=== PATIENT | male | born 1955 | race African-American/Black ===

== ENCOUNTER → 2019-02-08 | Outpatient (CLI) | payer OTHER ==
--- NOTE | 2019-02-12 15:24 | PE ---
Nuclear medicine PET/CT HISTORY: Head and neck carcinoma, initial Patient received 10.8 mCi F-18 FDG intravenously in delayed scanning was performed from the skull thr ough the mid thighs. Small [id number] images obtained through the neck. An attenuation correction, localization CT scan was also performed. No recent comparisons Head and neck: There is hypermetabolic uptake present within the region of the right piriform sinus e xtending to the level of the focal cords on the right at the level of the hyoid bone, SUV is 10.2-12. 6. There is adenopathy present at the level of hyoid bone on the right, associated hypermetabolic upt césar, SUV is 6.5, 8.3 on small [id number]. Uptake at the base of the tongue is likely physiologic. No mediastinal, axillary, or hilar adenopathy. Coronary artery calcifications are dense. Heart is enl arged. There is a hiatal hernia present. No evident lung mass. There are some calcified granulomas pr esent within the lungs however. ABDOMEN: No retroperitoneal adenopathy. No evident liver mass. No ascites. Aorta shows normal caliber . Osseous structures: No suspicious hypermetabolic uptake. IMPRESSION: Abnormal hypermetabolic uptake as described compatible with patient's history of head and neck carcinoma
== END | disposition home or self-care (01) ==
LOC: RADPETMAIN 14:52
PROVIDERS: ATTEND Radiology Radiation Oncology
DX: C12 Malignant neoplasm of pyriform sinus (principal)
CPT/HCPCS: 78815; A9552

== ENCOUNTER → 2019-04-04 | Outpatient (CLI) | payer OTHER ==
--- NOTE | 2019-04-04 12:01 | FL ---
EXAMINATION TYPE: FL barium swallow w video DATE OF EXAM: 04/04/2019 COMPARISON: NONE HISTORY: Abnormal bedside swallow TECHNIQUE: Fluoroscopy. FINDINGS: Fluoroscopic guidance was provided for the procedure performed in conjunction with the [facility] [place] pathology department. Please see complete report forthcoming from the Speech Pathology departmen t. Various consistencies from thin liquid to solids were administered. Fluoroscopy time 1 minute 43 seconds Number of images: 0. Aspiration was noted with thin liquids. Penetration was noted with nectar thick liquids. Some transie nt penetration was noted with honey thick consistencies. Of note the penetration appeared to be from residual within the piriform sinuses and not during the initial swallowing. No significant pooling was observed in the vallecula. There were small amounts present within the pir iform sinuses throughout the exam. There was normal propulsion of the bolus. IMPRESSION: 1. Aspiration with thin liquids. 2. Penetration with nectar thick and honey thick consistencies. This was due to residuals within the piriform sinuses have not during the initial swallowing mechanism.
== END | disposition home or self-care (01) ==
LOC: RADFLMAIN 10:51
PROVIDERS: ATTEND Radiology Radiation Oncology
DX: C13.9 Malignant neoplasm of hypopharynx, unspecified (principal); F17.210 Nicotine dependence, cigarettes, uncomplicated
CPT/HCPCS: 74230

== ENCOUNTER → 2019-06-07 | Outpatient (CLI) | payer OTHER ==
--- NOTE | 2019-06-07 17:58 | PE ---
Nuclear medicine PET/CT HISTORY: Head and neck cancer, subsequent Patient received 12 mCi F-18 FDG intravenously in delayed scanning was performed from the skull base to the mid thighs. Localization and attenuation correction CT scan was performed. Small [id number] images performed through the head and neck Correlation to prior nuclear medicine PET/CT dated 02/08/2019 Head and neck: At the level of the arytenoid cartilage there is some asymmetry in the appearance of t he airway as well as some soft tissue to the right of midline which is less conspicuous than on prior exam. Small node immediately anterior to the sternocleidomastoid muscle show associated increased at tenuation possibly due to calcification, there is only mild hypermetabolic uptake present, SUV 4.1, t he node has decreased in size and now measures only approximately 12 mm in AP dimension as compared t o prior when it measured approximately 17 mm. CHEST: No evident lung mass. There is no mediastinal, axillary, or hilar adenopathy. Coronary artery calcifications are present. No pleural pericardial effusion. Abdomen stable, there is no evident liver mass or retroperitoneal adenopathy. No suspicious hypermeta bolic uptake. Osseous structures are stable. IMPRESSION: Positive treatment response as described.
== END | disposition home or self-care (01) ==
LOC: RADPETMAIN 13:27
PROVIDERS: ATTEND Internal Medicine Hematology & Oncology
DX: C13.8 Malignant neoplasm of overlapping sites of hypopharynx (principal)
CPT/HCPCS: 78815; A9552

== ENCOUNTER → 2019-11-30 | Outpatient (CLI) | payer MEDICARE, OTHER ==
--- NOTE | 2019-12-02 09:32 | PE ---
Nuclear medicine PET/CT HISTORY: Head and neck cancer, C 13.8, subsequent Patient received 12.6 mCi F-18 FDG intravenously in delayed scanning was performed from the skull bas e to the mid thighs. Small vamgf-my-laei imaging through the head and neck. Correlation to prior nuclear medicine PET/CT 06/07/2019, 02/08/2019 Head and neck: Similar uptake seen along the level of the level of the glottis, uptake noted at the l evel of the vocal cord on the left, decreased on the right in comparison, asymmetry is more conspicuo us on current exam, may be due to patient's speaking. Asymmetric uptake could be due to focal cord pa ralysis, medial deviation of the right aryepiglottic fold is noted, correlate. There is no supraclavi cular or cervical adenopathy evident. Mild soft tissue uptake is present along the right neck anterio rly as compared to the left. CHEST: There is no evident lung mass. Calcified nodule present in the right upper lobe is consistent with old granulomatous disease. There is no pleural or pericardial effusion. No mediastinal, axillary , or hilar adenopathy. Dense coronary artery calcifications are present. There is a hiatal hernia. ABDOMEN: There is no adrenal mass, retroperitoneal adenopathy, or ascites. No evident liver mass. Gal lbladder is distended. No suspicious hypermetabolic uptake. Uptake within the colon is likely physiol ogic. Osseous structures are stable. Muscular uptake is thought likely to be physiologic. IMPRESSION: Similar uptake as described. No significant interval change.
== END | disposition home or self-care (01) ==
LOC: RADPETMAIN 09:03
PROVIDERS: ATTEND Internal Medicine Hematology & Oncology
DX: C13.8 Malignant neoplasm of overlapping sites of hypopharynx (principal); Z92.21 Personal history of antineoplastic chemotherapy; Z92.3 Personal history of irradiation
CPT/HCPCS: 78815; A9552

== ENCOUNTER 2019-12-17 05:06 | Inpatient (IN) | payer MEDICARE, OTHER ==
[2019-12-17] MEDS: SODIUM CHLORIDE 0.9% 500 ML 500 ML IV SCH ×2 (05:18→05:19)
[2019-12-17 05:36] LABS: Basophils % (A) 0 %; Eosinophils # (A) 0.1 k/uL (0-0.7); Eosinophils % (A) 0 %; HCT 41.2 % (39.0-53.0); HGB 14.6 gm/dL (13.0-17.5); Hyperchromasia Moderate; Lymphocytes # (A) 0.4 k/uL (1.0-4.8); Lymphocytes % (A) 3 %; MCH 31.7 pg (25.0-35.0); MCHC 35.4 g/dL (31.0-37.0); MCV 89.4 fL (80.0-100.0); Mean Platelet Volume 7.5; Monocytes # (A) 0.4 k/uL (0-1.0); Monocytes % (A) 3 %; Neutrophils # (A) 12.2 k/uL (1.3-7.7); Neutrophils % (A) 92 %; Platelet Count 335 k/uL (150-450); Poikilocytosis Slight; WBC 13.3 k/uL (3.8-10.6)
[2019-12-17 05:50] LABS: Partial Thromboplastin Time 27.9 sec (22.0-30.0)
[2019-12-17 05:59] LABS: Albumin 4.3 g/dL (3.5-5.0); Calcium 6.9 mg/dL (8.4-10.2); Total Bilirubin 0.6 mg/dL (0.2-1.3); Total Protein 7.6 g/dL (6.3-8.2)
[2019-12-17] MEDS ORDERED: Potassium Replacement Protocol 1 EACH MISC MISCELLANE PRN ×2 (06:33→19:01)
--- NOTE | 2019-12-17 06:33 | ED ---
General Adult HPI - General Chief complaint: Neuro Symptoms/Deficit Stated complaint: L side pain Time Seen by Provider: 12/17/19 05:14 Source: patient, EMS Mode of arrival: ambulatory Limitations: no limitations - History of Present Illness Initial comments: Ventura is a 64-year-old male with a history of throat cancer which was treated with chemo and radiation, patient reports he completed treatment for months ago. Patient reports that he has done well since chemotherapy for the past week hasn't been feeling well. He reports he has not been eating or drinking. Patient reports that today he began feeling very weak which prompted him to call EMS area patient denies any fevers chills chest pain or shortness of breath. Patient reports he just doesn't feel good. - Related Data Home Medications Medication Instructions Recorded Confirmed Aspirin 325 mg PO DAILY 02/20/19 04/03/19 Cyclobenzaprine [Flexeril] 10 mg PO DAILY 02/20/19 04/03/19 Ensure 1 can PO TID 02/20/19 04/03/19 Hydrocodone/Acetaminophen [[place] 1 tab PO DAILY 02/20/19 04/03/19 5-325] Hydrocortisone Cream 1 applicate TOPICAL QID 02/20/19 04/03/19 [Hydrocortisone 2.5% Cream] Magnesium Oxide [Mag-Ox] 400 mg PO BID 02/20/19 04/03/19 Metoprolol Tartrate 25 mg PO DAILY 02/20/19 04/03/19 Nitroglycerin Sl Tabs [Nitrostat] 0.4 mg SL DIRECTED PRN 02/20/19 04/03/19 Omeprazole 20 mg PO DAILY 02/20/19 04/03/19 Simvastatin 40 mg PO DAILY 02/20/19 04/03/19 amLODIPine [Norvasc] 5 mg PO DAILY 02/20/19 04/03/19 rOPINIRole HCL [Requip] 1 mg PO DAILY 02/20/19 04/03/19 Allergies Allergy/AdvReac Type Severity Reaction Status Date / Time No Known Allergies Allergy Verified 12/17/19 05:10 Review of Systems ROS Statement: Those systems with pertinent positive or pertinent negative responses have been documented in the HPI. ROS Other: All systems not noted in ROS Statement are negative. Past Medical History Past Medical History: Cancer, Hyperlipidemia, Hypertension, Myocardial Infarction ([place]), Osteoarthritis ([place]) Additional Past Medical History / Comment(s): HYPOPHARYNX CANCER. DIFFICULTY SWALLOWING, CONSTANT SORE THROAT. Last Myocardial Infarction Date:: 10 YEARS AGO History of Any Multi-Drug Resistant Organisms: None Reported Additional Past Surgical History / Comment(s): BROKEN COLLAR BONE with surgical repair Past Anesthesia/Blood Transfusion Reactions: No Reported Reaction Past Psychological History: No Psychological Hx Reported Smoking Status: Former smoker Past Alcohol Use History: None Reported Past Drug Use History: None Reported - Past Family History Father Additional Family Medical History / Comment(s): GOUT Mother History Unknown: Yes General Exam - General Exam Comments Initial Comments: Physical Exam GENERAL: Chronically ill-appearing underweight 64-year-old gentleman HENT: Normocephalic, Atraumatic. Temporal wasting noted Dry mucous membranes with dry cracked lips EYES: PERRL, EOMI PULMONARY: Unlabored respirations. No audible rales rhonchi or wheezing was noted. CARDIOVASCULAR: Tachycardic, regular ABDOMEN: Soft and nontender with normal bowel sounds. SKIN: Skin is clear with no lesions or rashes and otherwise unremarkable. : Deferred NEUROLOGIC: Patient is alert and oriented x3. Moving all extremities spontaneously MUSCULOSKELETAL: Cachexia, generalized atrophy PSYCHIATRIC: Normal psychiatric evaluation. Limitations: no limitations Course Vital Signs 12/17/19 12/17/19 12/17/19 05:07 06:31 06:43 Temperature 97.6 F Pulse Rate 76 105 H 89 Respiratory 16 23 23 Rate Blood Pressure 119/82 84/69 83/57 O2 Sat by Pulse 98 94 L 99 Oximetry EKG Findings - EKG Comments: EKG Findings:: Initial EKG was obtained due to complaint of weakness, initial EKG was obtained at 5:10 AM, rate is 71 is of wide complex regular rhythm that appears to have a P-wave before each QRS with a very prolonged ID, ID is 366, QRS is wide at 190, QTC is prolonged at 506. No previous EKGs for comparison. Repeat EKG was obtained due to change in rhythm, repeat EKG was obtained as 6:21 AM, rate is 148, irregular wide complex tachycardia. Repeat EKG obtained again due to change in morphology, repeat EKG obtained at 621 with a rate of 86 rhythm is wide complex irregularly irregular consistent with A. fib with left bundle branch block Medical Decision Making - Medical Decision Making Patient was seen and evaluated upon arrival, is a very dehydrated and malnourished appearing 64-year-old gentleman Labs and IV fluids were ordered Patient was noted to have a very irregular EKG concerning for possible hyperkalemia, calcium was ordered Patient having episodes of tachycardia repeat EKGs were obtained again wide complex irregularly irregular on rhythm concerning for electrolyte derangement Labs resulted with multiple very significant electrolyte abnormalities including a potassium of only 1.1, normal magnesium, acute kidney failure with a BUN greater than 150 and a creatinine of 13 Potassium and calcium replacement were ordered, additional IV fluids were ordered Patient care was discussed with patient's primary care provider Dr. Chaney as well as the railroad wheels and axle inspector Dr. Strange and nephrology employee relations representative Dr. Carolina Horan. At this time plan is to optimize electrolytes, give IV fluids, place a Jarrell catheter for monitoring of urine output. Admitted to the ICU with the plan for serial electrolytes. - Lab Data Result diagrams: 12/17/19 05:26 12/17/19 05:26 Lab Results 12/17/19 12/17/19 12/17/19 Range/Units 05:26 05:26 05:26 WBC 13.3 H (3.8-10.6) k/uL RBC 4.60 (4.30-5.90) m/uL Hgb 14.6 (13.0-17.5) gm/dL Hct 41.2 (39.0-53.0) % MCV 89.4 (80.0-100.0) fL MCH 31.7 (25.0-35.0) pg MCHC 35.4 (31.0-37.0) g/dL RDW 13.0 (11.5-15.5) % Plt Count 335 (150-450) k/uL Neutrophils % 92 % Lymphocytes % 3 % Monocytes % 3 % Eosinophils % 0 % Basophils % 0 % Neutrophils # 12.2 H (1.3-7.7) k/uL Lymphocytes # 0.4 L (1.0-4.8) k/uL Monocytes # 0.4 (0-1.0) k/uL Eosinophils # 0.1 (0-0.7) k/uL Basophils # 0.0 (0-0.2) k/uL Hyperchromasia Moderate Poikilocytosis Slight PT 10.0 (9.0-12.0) sec INR 1.0 (<1.2) APTT 27.9 (22.0-30.0) sec Sodium 136 L (137-145) mmol/L Potassium 1.1 L* (3.5-5.1) mmol/L Chloride 91 L (98-107) mmol/L Carbon Dioxide 11 L (22-30) mmol/L Anion Gap 34 mmol/L BUN 156 H* (9-20) mg/dL Creatinine 13.80 H* (0.66-1.25) mg/dL Est GFR (CKD-EPI)AfAm 4 (>60 ml/min/1.73 sqM) Est GFR (CKD-EPI)NonAf 3 (>60 ml/min/1.73 sqM) Glucose 107 H (74-99) mg/dL Plasma Lactic Acid Shade (0.7-2.0) mmol/L Calcium 6.9 L (8.4-10.2) mg/dL Magnesium 2.0 (1.6-2.3) mg/dL Total Bilirubin 0.6 (0.2-1.3) mg/dL AST 103 H (17-59) U/L ALT 79 H (4-49) U/L Alkaline Phosphatase 123 (38-126) U/L Creatine Kinase 3983 H* (55-170) U/L Troponin I (0.000-0.034) ng/mL Total Protein 7.6 (6.3-8.2) g/dL Albumin 4.3 (3.5-5.0) g/dL 12/17/19 12/17/19 Range/Units 05:26 05:26 WBC (3.8-10.6) k/uL RBC (4.30-5.90) m/uL Hgb (13.0-17.5) gm/dL Hct (39.0-53.0) % MCV (80.0-100.0) fL MCH (25.0-35.0) pg MCHC (31.0-37.0) g/dL RDW (11.5-15.5) % Plt Count (150-450) k/uL Neutrophils % % Lymphocytes % % Monocytes % % Eosinophils % % Basophils % % Neutrophils # (1.3-7.7) k/uL Lymphocytes # (1.0-4.8) k/uL Monocytes # (0-1.0) k/uL Eosinophils # (0-0.7) k/uL Basophils # (0-0.2) k/uL Hyperchromasia Poikilocytosis PT (9.0-12.0) sec INR (<1.2) APTT (22.0-30.0) sec Sodium (137-145) mmol/L Potassium (3.5-5.1) mmol/L Chloride (98-107) mmol/L Carbon Dioxide (22-30) mmol/L Anion Gap mmol/L BUN (9-20) mg/dL Creatinine (0.66-1.25) mg/dL Est GFR (CKD-EPI)AfAm (>60 ml/min/1.73 sqM) Est GFR (CKD-EPI)NonAf (>60 ml/min/1.73 sqM) Glucose (74-99) mg/dL Plasma Lactic Acid Shade 1.1 (0.7-2.0) mmol/L Calcium (8.4-10.2) mg/dL Magnesium (1.6-2.3) mg/dL Total Bilirubin (0.2-1.3) mg/dL AST (17-59) U/L ALT (4-49) U/L Alkaline Phosphatase (38-126) U/L Creatine Kinase (55-170) U/L Troponin I 0.470 H* (0.000-0.034) ng/mL Total Protein (6.3-8.2) g/dL Albumin (3.5-5.0) g/dL Critical Care Time Critical Care Time: Yes Total Critical Care Time: 45 Critical Care Time: Critical care time was exclusive of separately billable procedures and treating other patients and teaching time. Critical care was necessary to treat or prevent imminent or life-threatening deterioration. Given the critical condition in which the patient arrived, the patient was immediately assessed by myself and the nurse, and cardiac monitoring initiated due to the potential for rapid decompensation of the patient's clinical condition. During the course of the patients stay, I spent a considerable amount of time at the bedside performing serial re-evaluations of the patient's hemodynamic and clinical status because of the recognized potential threat to life or limb in this condition. I then had a chance to review not only all of the available current laboratory and radiographic studies obtained today, but I also reviewed old records available to me at the time. Additionally, any ancillary information available including cytogenetics technologist records were reviewed. Sequential vital signs were obtained. Disposition Clinical Impression: Rhabdomyolysis, Acute renal failure (ARF), Hypokalemia, Hypocalcemia, Weakness Disposition: ADMITTED IP TO THIS HOSP Condition: Critical Is patient prescribed a controlled substance at d/c from ED?: No Referrals: Neal Chaney MD [Primary Care Provider] - 1-2 days
[2019-12-17 06:34] LABS: Potassium 1.1 mmol/L (3.5-5.1)
[2019-12-17] MEDS ORDERED: SODIUM CHLORIDE 0.9% 1,000 ML IV ONE (06:36)
[2019-12-17] MEDS: POTASSIUM CHLORIDE 10 MEQ in WATER FOR INJECTION 1 100ML.BAG IVPB SCH ×6 (06:39→18:01)
[2019-12-17] MEDS: SODIUM CHLORIDE 0.9% 1,000 ML IV SCH ×3 (06:51→20:02)
[2019-12-17] MEDS ORDERED: POTASSIUM CHLORIDE ER 20 MEQ TAB.ER PO STA ×2 (06:55→17:59)
[2019-12-17] MEDS ORDERED: NALOXONE 0.4 MG/ML 1 ML VIAL IV PRN (06:57)
[2019-12-17] MEDS ORDERED: CALCIUM GLUCONATE 1 GM in SODIUM CHLORIDE 0.9% 100 ML IVPB ONE (07:00)
[2019-12-17] MEDS ORDERED: POTASSIUM BICARBONATE/CIT AC 20 MEQ TABLET.EFF PO STA (07:01)
[2019-12-17] MEDS ORDERED: LIDOCAINE URO-JET JELLY 2% 5 ML KIT URETHRAL ONE (07:30)
--- NOTE | 2019-12-17 08:30 | P.NPCON ---
History of Present Illness - Reason for Consult acute renal failure - History of Present Illness Reason for consultation: Acute kidney injury and electrolyte imbalance History of present illness: Patient is a 64-year-old male seen in renal consultation for acute kidney injury and electrolyte imbalance. Patient's baseline creatinine from March 2019 is near 1. It was elevated at 13.8 this admission. He was also noted to be severely acidotic with a bicarb level of 11 and severely hypokalemic with a potassium level of 1.1. Patient states he has history of throat cancer last underwent chemotherapy 4 months ago. He states that for the last 10 days or so he hasn't been eating and drinking much at all. He denies any vomiting or diarrhea. He has been voiding. No hematuria or dysuria. He does admit to taking Motrin daily for pain. He denies family history of renal disease. Patient's CK level was elevated at 3983. Blood pressure was also low in the systolic 80s. He has received 2 L of normal saline so far and is maintained on normal saline at 200 mL an hour for maintenance fluids. Potassium is being replaced. Magnesium noted to be normal. No chest pain or shortness of breath. Vital signs are stable. General: The patient appeared well nourished and normally developed. HEENT: Head exam is unremarkable. Neck is without jugular venous distension. LUNGS: Lungs are clear to auscultation and percussion. Breath sounds decreased. HEART: Rate and Rhythm are regular. First and second heart sounds normal. No murmurs, rubs or gallops. ABDOMEN: Abdominal exam reveals normal bowel sounds. Non-tender and non- distended. No evidence of peritonitis. EXTREMITITES: No clubbing, cyanosis, or edema. Past Medical History Past Medical History: Cancer, Hyperlipidemia, Hypertension, Myocardial Infarction ([place]), Osteoarthritis ([place]) Additional Past Medical History / Comment(s): HYPOPHARYNX CANCER. DIFFICULTY SWALLOWING, CONSTANT SORE THROAT. Last Myocardial Infarction Date:: 10 YEARS AGO History of Any Multi-Drug Resistant Organisms: None Reported Additional Past Surgical History / Comment(s): BROKEN COLLAR BONE with surgical repair Past Anesthesia/Blood Transfusion Reactions: No Reported Reaction Past Psychological History: No Psychological Hx Reported Smoking Status: Former smoker Past Alcohol Use History: None Reported Past Drug Use History: None Reported - Past Family History Father Additional Family Medical History / Comment(s): GOUT Mother History Unknown: Yes Medications and Allergies Home Medications Medication Instructions Recorded Confirmed Type Aspirin 325 mg PO DAILY 02/20/19 04/03/19 History Cyclobenzaprine [Flexeril] 10 mg PO DAILY 02/20/19 04/03/19 History Ensure 1 can PO TID 02/20/19 04/03/19 History Hydrocodone/Acetaminophen [[place] 1 tab PO DAILY 02/20/19 04/03/19 History 5-325] Hydrocortisone Cream 1 applicate TOPICAL QID 02/20/19 04/03/19 History [Hydrocortisone 2.5% Cream] Magnesium Oxide [Mag-Ox] 400 mg PO BID 02/20/19 04/03/19 History Metoprolol Tartrate 25 mg PO DAILY 02/20/19 04/03/19 History Nitroglycerin Sl Tabs [Nitrostat] 0.4 mg SL DIRECTED PRN 02/20/19 04/03/19 History Omeprazole 20 mg PO DAILY 02/20/19 04/03/19 History Simvastatin 40 mg PO DAILY 02/20/19 04/03/19 History amLODIPine [Norvasc] 5 mg PO DAILY 02/20/19 04/03/19 History rOPINIRole HCL [Requip] 1 mg PO DAILY 02/20/19 04/03/19 History Allergies Allergy/AdvReac Type Severity Reaction Status Date / Time No Known Allergies Allergy Verified 12/17/19 05:10 Physical Exam Vitals: Vital Signs Temp Pulse Resp BP Pulse Ox 12/17/19 08:05 97.6 F 66 22 108/63 98 12/17/19 08:00 79 19 118/72 97 12/17/19 07:30 76 20 105/65 98 12/17/19 07:00 97.6 F 82 22 99 12/17/19 06:43 89 23 83/57 99 12/17/19 06:31 105 H 23 84/69 94 L 12/17/19 05:07 97.6 F 76 16 119/82 98 Intake and Output 12/16/19 12/17/19 12/17/19 22:59 06:59 14:59 Other: Weight 52.617 kg Results - Lab Results Most recent lab results Calcium 6.9 mg/dL (8.4-10.2) L 12/17/19 05:26 Magnesium 2.0 mg/dL (1.6-2.3) 12/17/19 05:26 12/17/19 05:26 12/17/19 05:26 Assessment and Plan Plan: Assessment: 1. Acute kidney injury secondary to ATN secondary to severe intravascular volume depletion from poor oral intake and hypotension. Creatinine 13.8 on admission. Baseline creatinine near 1. Rule out obstructive uropathy. 2. Severe hypokalemia from poor oral intake. Magnesium normal. 3. Metabolic acidosis secondary to acute kidney injury. 4. Hypocalcemia secondary to acute kidney injury. 5. History of throat cancer with last chemotherapy 4 months ago according to the patient. Plan: Maintain normal saline at 200 mL an hour. Potassium being replaced. He is getting intravenous as well as oral potassium supplementation. Calcium was also replaced. Check renal ultrasound. Repeat BMP in 3 hours. Strict I's and O's. He has a Jarrell catheter. Thank you for the consultation. I will continue to follow the patient with you during his hospital stay.
--- NOTE | 2019-12-17 08:40 | XR ---
EXAMINATION TYPE: XR chest 1V portable DATE OF EXAM: 12/17/2019 COMPARISON: Chest x-ray 11/07/2012 INDICATION: Weakness, arrhythmia TECHNIQUE: Single frontal view of the chest is obtained. FINDINGS: The heart size is normal. The pulmonary vasculature is normal. The lungs are clear. Chronic rotator cuff tear may be present on the right. IMPRESSION: 1. No acute pulmonary process.
[2019-12-17 09:26] LABS: Glucose,Whole Blood 118 mg/dL (75-99)
--- NOTE | 2019-12-17 11:26 | US ---
EXAMINATION TYPE: US kidneys/renal and bladder DATE OF EXAM: 12/17/2019 COMPARISON: PET CT 11/30/2019 CLINICAL HISTORY: vern. Very difficult and limited exam due to patient condition. portable in ICU, gabriele ragsdale is laying on his right side, unable to reposition. Left side scanned with machine on right side of bed, tech on left side of bed. EXAM MEASUREMENTS: Right Kidney: 9.0 x 4.8 x 4.6 cm Left Kidney: 9.2 x 5.0 x 4.0 cm Right Kidney: No hydronephrosis or masses seen as visualized Left Kidney: No hydronephrosis or masses seen as visualized Bladder: Not scanned due to patient being covered in a warming blanket and having a weber catheter IMPRESSION: No suspicious acute changes bilateral kidneys
[2019-12-17 12:00] LABS: Calcium 6.8 mg/dL (8.4-10.2)
[2019-12-17 12:15] LABS: Potassium 1.7 mmol/L (3.5-5.1)
[2019-12-17] MEDS ORDERED: LIDOCAINE 1% INJ 10MG/ML (20 ML MDV) ONE (12:17)
[2019-12-17] MEDS ORDERED: LIDOCAINE 1% INJ 10MG/ML (20 ML MDV) SQ ONE (12:47)
[2019-12-17] MEDS: POTASSIUM CHLORIDE ER 20 MEQ TAB.ER PO STA ×2 (13:07→13:38)
[2019-12-17] MEDS: DEXTROSE 5% IN WATER 1,000 ML with SODIUM BICARB (1 MEQ/ML) 150 ML IV SCH (13:12)
--- NOTE | 2019-12-17 13:26 | XR ---
EXAMINATION TYPE: XR chest 1V portable DATE OF EXAM: 12/17/2019 HISTORY: Shortness of breath. COMPARISON: 12/17/2019 TECHNIQUE: Single view of the chest is submitted. FINDINGS: Left-sided PICC line is appropriately placed with its distal tip overlying the SVC. No evidence for p neumothorax. Demonstrated are scattered senescent parenchymal change. There is no evidence for focal infiltrate. The heart is stable. Hilar and mediastinal structures are within normal limits. Degenerative changes are seen of the dorsal spine. IMPRESSION: 1. PICC Line as described
[2019-12-17 13:43] LABS: Amorphous Sediment,Urine Rare /hpf; Appearance,Urine Clear (Clear); Bacteria,Urine Rare /hpf; Bilirubin,Urine Negative (Negative); Blood,Urine Moderate (Negative); Color,Urine Yellow; Glucose,Urine (UA) Negative (Negative); Ketones,Urine Negative (Negative); Leukocyte Esterase,Urine Negative (Negative); Nitrite,Urine Negative (Negative); PH, Urine 5.5 (5.0-8.0); Protein,Urine 2+ (Negative); RBC,Urine 1 /hpf (0-5); Specific Gravity,Urine 1.015 (1.001-1.035); Squamous Epithelial Cell,Urine <1 /hpf (0-4); Urobilinogen,Urine <2.0 mg/dL (<2.0); WBC,Urine 2 /hpf (0-5)
--- NOTE | 2019-12-17 14:01 | P.CNPUL ---
History of Present Illness Consult date: 12/17/19 Requesting physician: Oumou Padilla Chief complaint: ICU management, hypokalemia, cardiac arrhythmias, acute kidney injury History of present illness: This is 64-year-old -[place] gentleman who is followed by Dr. Chaney on an outpatient basis. His past medical history significant for throat cancer which he underwent chemotherapy and radiation 4 months ago, hypertension, hyperlipidemia, restless leg syndrome, GERD, osteoarthritis and myocardial infarction 10 years ago. Since his Chemotherapy treatments the patient reports that he has been doing quite well until recently when he has been feeling quite weak and has been having trouble eating or drinking. He denies any recent fevers, nausea, vomiting, diarrhea, constipation, palpitations or headache. He has been having some complaints of generalized pain in which she has been treating with Motrin. On presentation to the emergency department a 12-lead EKG was completed which demonstrated sinus rhythm with first-degree AV block with nonspecific intraventricular block with a heart rate of 71 BPM. For further evaluation a chest x-ray was completed which demonstrated no acute pulmonary process. Lab results drawn in the emergency department showed a WBC count of 13.3, hemoglobin 14.6, platelets 335, sodium 136, a critical potassium of 1.1, CO2 11, AST 103, ALT 79, BUN 156,creatinine 13.80, creatinine kinase 3983 and a troponin level of 0.470. The patient was afebrile and his oxygen saturations are currently 98% on 2 L nasal cannula. Review of Systems Constitutional: Reports fatigue, Reports poor appetite, Reports weakness, Reports weight loss, Denies chills, Denies chronic headaches, Denies fever, Denies night sweats Eyes: denies blurred vision, denies diplopia Ears, nose, mouth and throat: Denies headache, Denies hoarseness, Denies mouth pain, Denies sinus pressure Cardiovascular: Denies edema, Denies irregular heart beat, Denies lightheadedness, Denies rapid heart beat, Denies shortness of breath Respiratory: Denies congestion, Denies cough with sputum, Denies dyspnea, Denies hemoptysis, Denies home oxygen, Denies wheezing Gastrointestinal: Reports loss of appetite, Denies abdominal pain, Denies coffee ground emesis, Denies constipation, Denies diarrhea, Denies nausea, Denies vomiting Genitourinary: Denies dysuria, Denies flank pain, Denies hematuria, Denies incontinence, Denies polyuria, Denies urinary frequency, Denies urinary hesitancy, Denies urinary retention Musculoskeletal: Reports muscle weakness, Denies frequent falls, Denies gait dysfunction, Denies limitation of motion, Denies neck pain, Denies neck stiffness Integumentary: Denies foot/leg ulcers, Denies lesions, Denies rash, Denies sores Neurological: Denies balance difficulties, Denies burning pain, Denies change in speech, Denies confusion, Denies convulsions, Denies gait dysfunction, Denies headaches, Denies loss of vision, Denies memory loss, Denies seizures, Denies syncope Psychiatric: Denies anxiety, Denies disorientation, Denies insomnia, Denies memory loss, Denies paranoia Endocrine: Reports fatigue, Reports weight change, Denies nocturia, Denies palpitations Hematologic/Lymphatic: Denies easy bleeding, Denies easy bruising Past Medical History Past Medical History: Cancer, GERD/Reflux, Hyperlipidemia, Hypertension, Myocardial Infarction (NC), Osteoarthritis (OA) Additional Past Medical History / Comment(s): HYPOPHARYNX CANCER. DIFFICULTY SWALLOWING, CONSTANT SORE THROAT. Last Myocardial Infarction Date:: 10 YEARS AGO History of Any Multi-Drug Resistant Organisms: None Reported Past Surgical History: Orthopedic Surgery Additional Past Surgical History / Comment(s): BROKEN COLLAR BONE with surgical repair Past Anesthesia/Blood Transfusion Reactions: No Reported Reaction Past Psychological History: No Psychological Hx Reported Smoking Status: Former smoker Past Alcohol Use History: None Reported Past Drug Use History: None Reported - Past Family History Father Additional Family Medical History / Comment(s): GOUT Mother History Unknown: Yes Medications and Allergies Home Medications Medication Instructions Recorded Confirmed Type Aspirin 325 mg PO DAILY 02/20/19 12/17/19 History Hydrocodone/Acetaminophen [[place] 1 tab PO Q8H 02/20/19 12/17/19 History 5-325] Hydrocortisone Cream 1 applicate TOPICAL QID 02/20/19 12/17/19 History [Hydrocortisone 2.5% Cream] Metoprolol Tartrate 25 mg PO DAILY 02/20/19 12/17/19 History Nitroglycerin Sl Tabs [Nitrostat] 0.4 mg SL DIRECTED PRN 02/20/19 12/17/19 History Omeprazole 20 mg PO BID 02/20/19 12/17/19 History Simvastatin 40 mg PO HS 02/20/19 12/17/19 History amLODIPine [Norvasc] 5 mg PO DAILY 02/20/19 12/17/19 History rOPINIRole HCL [Requip] 1 mg PO HS 02/20/19 12/17/19 History Furosemide [Lasix] 40 mg PO DAILY 12/17/19 12/17/19 History Hydrochlorothiazide [Hydrodiuril] 25 mg PO DAILY 12/17/19 12/17/19 History Ibuprofen [Motrin] 800 mg PO Q8H PRN 12/17/19 12/17/19 History Potassium Chloride [K-Tab ER] 20 meq PO DAILY 12/17/19 12/17/19 History Allergies Allergy/AdvReac Type Severity Reaction Status Date / Time No Known Allergies Allergy Verified 12/17/19 09:00 Physical Exam Vitals: Vital Signs Temp Pulse Resp BP Pulse Ox 12/17/19 11:00 77 15 103/69 93 L 12/17/19 10:45 111 H 20 129/71 98 12/17/19 10:30 94 19 127/73 98 12/17/19 10:15 86 17 142/88 99 12/17/19 10:00 95.5 F L 93 18 130/76 99 12/17/19 09:45 93 18 131/70 100 12/17/19 09:30 94.1 F L 82 15 135/76 96 12/17/19 09:00 69 22 112/70 98 12/17/19 08:05 97.6 F 66 22 108/63 98 12/17/19 08:00 79 19 118/72 97 12/17/19 07:30 76 20 105/65 98 12/17/19 07:00 97.6 F 82 22 99 12/17/19 06:43 89 23 83/57 99 12/17/19 06:31 105 H 23 84/69 94 L 12/17/19 05:07 97.6 F 76 16 119/82 98 Intake and Output 12/16/19 12/17/19 12/17/19 22:59 06:59 14:59 Intake Total 2700 Output Total 365 Balance 2335 Intake: IV 2700 Potassium Chloride 10 meq 100 In Water For Injection 1 100ml.bag @ 100 mls/hr IVPB Q1HR [facility] Rx#: [id number] Sodium Chloride 0.9% 1, 600 000 ml @ 200 mls/hr IV . Q5H [facility] Rx#:[id number] Sodium Chloride 0.9% 1, 2000 000 ml @ 999 mls/hr IV . Q1H1M ONE Rx#:[id number] Output: Urine 365 Other: Weight 52.617 kg - Constitutional Chronically ill, cachectic 64-year-old gentleman. General appearance: cooperative, no acute distress, thin (Cachectic) - EENT Dry mucous membranes with cracked lips, sunken eyes. Eyes: PERRLA, no scleral icterus - Neck Neck is supple, no lymphadenopathy. - Respiratory Lungs sounds essentially clear throughout. Respirations are symmetrical and non labored. No wheezes, crackles or rhonchi. - Cardiovascular Regular rhythm with a tachycardic rate. S1 and S2 present, negative for S3, gallop or murmur. - Gastrointestinal Abdomen is soft, nontender nondistended. Hypoactive bowel sounds present in all 4 abdominal quadrants. No guarding or rigidity. No organomegaly appreciated. General gastrointestinal: no hepatomegaly, no splenomegaly - Integumentary Integumentary: no cyanotic, decreased turgor, no rash - Neurologic Neurologic: CNII-XII intact - Musculoskeletal Musculoskeletal: generalized weakness, strength equal bilaterally - Psychiatric Psychiatric: A&O x's 3, appropriate affect, intact judgment & insight Results Lead EKG reviewed by Dr. Strange. - Laboratory Findings CBC and BMP: 12/17/19 05:26 12/17/19 11:18 PT/INR, D-dimer PT 10.0 sec (9.0-12.0) 12/17/19 05:26 INR 1.0 (<1.2) 12/17/19 05:26 Abnormal lab findings: Abnormal Labs 12/17/19 12/17/19 12/17/19 05:26 05:26 05:26 WBC 13.3 H Neutrophils # 12.2 H Lymphocytes # 0.4 L Sodium 136 L Potassium 1.1 L* Chloride 91 L Carbon Dioxide 11 L BUN 156 H* Creatinine 13.80 H* Glucose 107 H POC Glucose (mg/dL) Calcium 6.9 L AST 103 H ALT 79 H Creatine Kinase 3983 H* Troponin I 0.470 H* 03/31/20 03/31/20 09:25 11:18 WBC Neutrophils # Lymphocytes # Sodium Potassium 1.7 L* Chloride Carbon Dioxide 8 L* BUN 144 H* Creatinine 12.61 H* Glucose 121 H POC Glucose (mg/dL) 118 H Calcium 6.8 L AST ALT Creatine Kinase Troponin I - Diagnostic Findings Chest x-ray: report reviewed, image reviewed Assessment and Plan Assessment: 1. Rhabdomyolysis 2. Acute kidney injury 3. Electrolyte imbalance, hypokalemia with a critical potassium level 1.1 and hypocalcemia and potassium level of 6.9 4. Generalized debility and weakness 5. Dehydration and malnutrition 6. Cardiac arrhythmia with bundle branch block 7. History of throat cancer, previous chemotherapy and radiation treatments Plan: 1. The patient was seen and examined at his bedside in the intensive care unit with Dr. Minnie Strange 2. Replace electrolytes per protocol. Nephrology is following. 3. Consult interventional radiology for PICC line placement, PICC line as needed for electrolyte replacement, blood draws and possible need for TPN. 4. Continue hydration in the way of 0.9 normal saline infusing at 100 mL per hour. 5. Repeat CMP after electrolyte replacement today, repeat CBC and CMP in the a.m. 6. Initiate GI and DVT prophylaxis. Subcu heparin 5000 units every 8 hours and IV Protonix 40 mg every 24 hours. 7. Consult speech pathology for swallowing evaluation. 8. More recommendations to follow based on patient's clinical course. This was a joint evaluation done between the nurse practitioner and Dr. Minnie Strange. Time with Patient: Greater than 30
--- NOTE | 2019-12-17 16:04 | HP ---
HISTORY AND PHYSICAL CHIEF COMPLAINT: Generalized weakness and debility, dehydration, anorexia, cachexia, and acute renal failure. HISTORY OF PRESENT ILLNESS: This is another admission for this 64-year-old male. He was diagnosed several years ago with carcinoma of the throat and was treated with radiation and has actually done fairly well. He was coming in regularly on a monthly basis and was doing quite well, but he was last seen on September 02 and has not been in since. He presented to the emergency room with weakness and inability to eat or drink. There are no other details known. He apparently has not had vomiting, fever, chills, cough, shortness of breath, etc. In the emergency room, he was so weak that he could hardly talk. He was in acute renal failure, although stated that he was still making urine. He had a markedly low potassium below 2. He denied chest pain, fever and chills, vomiting, diarrhea, etc. REVIEW OF SYSTEMS: Otherwise not obtainable. Past medical history, family history, personal and social histories reveal that he is not allergic to anything. It is not clear if he has been able to take any of his medications. He has been on numerous medications in the past. He used to be a heavy smoker and heavy drinker. PHYSICAL EXAMINATION: Blood pressure is 88/54 with a pulse of 63 and it sounded regular. Respirations were 35, he is afebrile. In general, he appeared to be cachectic, dehydrated, and extremely weak. Head, ears, eyes, nose, mouth, and throat were unremarkable except for the dryness. Neck veins are not distended. Chest was clear bilaterally. Cardiac exam demonstrated what sounded like sinus rhythm. The abdomen was flat and soft and nontender. Extremities demonstrated poor pulses. Muscle bulk. Neurologically seem to be intact but is extremely weak. IMPRESSION: 1. Dehydration. 2. Malnutrition. 3. Acute renal failure. 4. History of carcinoma of the throat. 5. Chronic obstructive pulmonary disease. 6. History of alcohol abuse. 7. Hypokalemia. PLAN: Acute care in the intensive care unit with consults with Cardiology and Intensive Medicine. MMODL / IJN: [id number] /
[2019-12-17] MEDS: HEPARIN SODIUM,PORCINE 5,000 UNIT/ML 1 ML VIAL SQ SCH ×2 (16:19→23:36)
[2019-12-17] MEDS: NOREPINEPHRINE 8 MG in SODIUM CHLORIDE 0.9% 250 ML IV SCH (18:51)
[2019-12-17] MEDS: POTASSIUM CHLORIDE 20 MEQ in WATER FOR INJECTION 1 100ML.BAG IVPB SCH ×3 (20:01→23:36)
[2019-12-18] MEDS: PIPERACILLIN-TAZOBACTAM 3.375 GM in SODIUM CHLORIDE 0.9% 100 ML IVPB SCH ×3 (01:03→21:16)
--- NOTE | 2019-12-18 01:15 | XR ---
EXAMINATION TYPE: XR chest 1V portable DATE OF EXAM: 12/18/2019 COMPARISON: 12/17/2019 HISTORY: Check line placement TECHNIQUE: FINDINGS: There is left-sided central venous catheter with the tip in the superior vena cava in good position. There is extensive airspace infiltrate right lower lobe. There is probably a small infiltra te behind the heart in the left lower lobe. There is no heart failure. There is no pneumothorax. Ther e are chest leads. IMPRESSION: Bilateral pneumonia that appears new compared to yesterday. No heart failure seen.
[2019-12-18] MEDS: HYDROmorphone 0.5 MG/0.5 ML SYRINGE IVP PRN ×4 (02:44→21:53)
[2019-12-18] MEDS: DEXTROSE 5% IN WATER 1,000 ML with SODIUM BICARB (1 MEQ/ML) 150 ML IV SCH ×3 (04:01→21:17)
[2019-12-18] MEDS: SODIUM CHLORIDE 0.9% 1,000 ML IV SCH (04:02)
[2019-12-18 06:45] LABS: Potassium 2.3 mmol/L (3.5-5.1)
[2019-12-18 06:46] LABS: Calcium 6.2 mg/dL (8.4-10.2)
[2019-12-18] MEDS: POTASSIUM CHLORIDE 20 MEQ in WATER FOR INJECTION 1 100ML.BAG IVPB SCH ×4 (07:19→15:54)
--- NOTE | 2019-12-18 07:28 | XR ---
EXAMINATION TYPE: XR chest 1V portable DATE OF EXAM: 12/18/2019 Comparison: 12/18/2019 Clinical History: 64 year-old male shortness of breath Findings: Heart normal size. Aorta and pulmonary vasculature within normal limits. Left PICC tip upper right at rium. Consolidation right mid and lower lung persists. No sizable effusion. Impression: Unchanged right mid and lower lung airspace disease.
--- NOTE | 2019-12-18 08:12 | IR ---
PICC LINE PLACEMENT: HISTORY: Infection requiring long-term antibiotic therapy PROCEDURE: Ultrasound guidance of PICC line placement. PUTTY AND CAULKING SUPERVISOR: Dr. Joyce. COMPLICATIONS: None ANESTHESIA: 1. 1% Lidocaine locally. FINDINGS/TECHNIQUE: The procedure was explained to the patient. The risks, complications, benefits and alternatives were discussed and any questions were answered. Informed consent was obtained. The patient was placed supine on the fluoroscopic table and prepped and draped in the usual sterile fas ion. Utilizing a 21 gauge needle and sonographic guidance, access in the right basilic vein was ach ieved and there is placement of a 0.018 guidewire. The vein is patent. A 5-F. sheath was placed ove r the guidewire. The guidewire and dilator were removed and a 5-F. Double lumen PICC line was placed through the sheath with the chest x-ray confirming the tip at the level of the SVC. The sheath was removed, the catheter was flushed and sutured into position. The patient was stable throughout the p rocedure and remained stable upon discharge from the Department of Radiology. The vein puncture was patent under ultrasound. A yanez scale image was obtained to document patency of the vein punctured. All elements of the maximal barrier technique were utilized. IMPRESSION: 1. Successful PICC line placement under ultrasound performed bedside within the ICU.
[2019-12-18 08:27] LABS: HCT 35.8 % (39.0-53.0); HGB 12.4 gm/dL (13.0-17.5); Hyperchromasia Slight; MCH 31.4 pg (25.0-35.0); MCHC 34.7 g/dL (31.0-37.0); MCV 90.4 fL (80.0-100.0); Mean Platelet Volume 9.3; Platelet Count 319 k/uL (150-450); Poikilocytosis Slight; RBC 3.96 m/uL (4.30-5.90); RDW 13.5 % (11.5-15.5); WBC 11.9 k/uL (3.8-10.6)
[2019-12-18] MEDS: NOREPINEPHRINE 8 MG in SODIUM CHLORIDE 0.9% 250 ML IV SCH ×2 (08:30→18:51)
[2019-12-18] MEDS: HEPARIN SODIUM,PORCINE 5,000 UNIT/ML 1 ML VIAL SQ SCH ×2 (09:40→15:01)
[2019-12-18] MEDS: PANTOPRAZOLE 40 MG/10 ML VIAL IVP SCH (09:41)
--- NOTE | 2019-12-18 09:44 | P.PN ---
Subjective Patient is seen in follow for acute kidney injury. No significant improvement in renal function. Currently maintained on bicarb drip as well as normal saline. Remains hypokalemic and acidotic. No chest pain or shortness of breath. Vital signs are stable. General: The patient appeared well nourished and normally developed. HEENT: Head exam is unremarkable. Neck is without jugular venous distension. LUNGS: Lungs are clear to auscultation and percussion. Breath sounds decreased. HEART: Rate and Rhythm are regular. First and second heart sounds normal. No murmurs, rubs or gallops. ABDOMEN: Nontender. EXTREMITITES: No edema. Objective - Vital Signs Vital signs: Vital Signs Temp 97.7 F 12/18/19 04:00 Pulse 111 H 12/18/19 07:30 Resp 15 12/18/19 07:30 BP 104/70 12/18/19 07:30 Pulse Ox 96 12/18/19 07:30 Intake & Output 12/17/19 12/18/19 12/18/19 18:59 06:59 18:59 Intake Total 4200 3659.000 300 Output Total 405 115 0 Balance 3795 3544.000 300 Weight 52.617 kg 58.2 kg Intake: IV 4200 3401 300 Dextrose 5% in Water 1, 600 2001 100 000 ml @ 100 mls/hr IV . [id number] [facility] with Sodium Bicarb (1 Meq/ml) 150 ml Rx#:[id number] Piperacillin-Tazobactam 3 100 .375 gm In Sodium Chloride 0.9% 100 ml @ 25 mls/hr IVPB Q8H [facility] Rx#: [id number] Potassium Chloride 10 meq 400 300 100 In Water For Injection 1 100ml.bag @ 100 mls/hr IVPB Q1HR [facility] Rx#: [id number] Sodium Chloride 0.9% 1, 1200 1000 100 000 ml @ 100 mls/hr IV . Q10H [facility] Rx#:[id number] Sodium Chloride 0.9% 1, 2000 000 ml @ 999 mls/hr IV . Q1H1M [facility] Rx#:[id number] Intake, IV Titration 258.000 Amount Norepinephrine 8 mg In 258.000 Sodium Chloride 0.9% 250 ml @ 0.05 MCG/KG/MIN 5. 091 mls/hr IV .Q24H [facility] Rx#:[id number] Output: Urine 405 115 0 - Labs CBC & Chem 7: 12/18/19 04:38 12/18/19 04:38 Labs: Abnormal Lab Results - Last 24 Hours (Table) 12/17/19 12/17/19 12/17/19 Range/Units 11:15 11:18 16:41 WBC (3.8-10.6) k/uL RBC (4.30-5.90) m/uL Hgb (13.0-17.5) gm/dL Hct (39.0-53.0) % Potassium 1.7 L* 1.4 L* (3.5-5.1) mmol/L Carbon Dioxide 8 L* (22-30) mmol/L BUN 144 H* (9-20) mg/dL Creatinine 12.61 H* (0.66-1.25) mg/dL Glucose 121 H (74-99) mg/dL Plasma Lactic Acid Shade (0.7-2.0) mmol/L Calcium 6.8 L (8.4-10.2) mg/dL Urine Protein 2+ H (Negative) Urine Blood Moderate H (Negative) Amorphous Sediment Rare H (None) /hpf Urine Bacteria Rare H (None) /hpf 12/18/19 12/18/19 12/18/19 Range/Units 00:16 04:38 04:38 WBC 11.9 H (3.8-10.6) k/uL RBC 3.96 L (4.30-5.90) m/uL Hgb 12.4 L (13.0-17.5) gm/dL Hct 35.8 L (39.0-53.0) % Potassium 2.3 L* (3.5-5.1) mmol/L Carbon Dioxide 12 L (22-30) mmol/L BUN 134 H* (9-20) mg/dL Creatinine 11.18 H* (0.66-1.25) mg/dL Glucose 195 H (74-99) mg/dL Plasma Lactic Acid Shade 2.1 H* (0.7-2.0) mmol/L Calcium 6.2 L* (8.4-10.2) mg/dL Urine Protein (Negative) Urine Blood (Negative) Amorphous Sediment (None) /hpf Urine Bacteria (None) /hpf Microbiology - Last 24 Hours (Table) 12/17/19 05:26 Blood Culture - Preliminary Blood No Growth after 24 hours Assessment and Plan Plan: Assessment: 1. Acute kidney injury secondary to ATN secondary to severe intravascular volume depletion from poor oral intake and hypotension. Mild component of rhabdomyolysis. Creatinine 13.8 on admission and is 11.18 today. Baseline creatinine near 1. No hydronephrosis noted on kidney ultrasound. Oliguric. 2. Severe hypokalemia from poor oral intake. Magnesium normal. Being replaced aggressively. 3. Metabolic acidosis secondary to acute kidney injury. 4. Hypocalcemia secondary to acute kidney injury. 5. History of throat cancer with last chemotherapy 4 months ago according to the patient. 6. Hypotension maintained on Levophed. Plan: Discontinue normal saline. Increase rate of bicarbonate drip to 125 mL an hour. Consult vascular surgery for dialysis catheter placement. Plan for hemodialysis today and again tomorrow. Repeat CK level today and again tomorrow. Strict I's and O's. He has a Jarrell catheter. Wean vasopressors. Replace calcium. 2 g IV calcium gluconate today.
[2019-12-18] MEDS ORDERED: CALCIUM GLUCONATE 2 GM in SODIUM CHLORIDE 0.9% 100 ML IVPB ONE (10:00)
--- NOTE | 2019-12-18 10:07 | CONS ---
CONSULTATION This is a 64-year-old gentleman who has a history of throat cancer and patient had a chemo and radiation about a month ago. I was consulted for placement of urgent dialysis catheter. PAST MEDICAL HISTORY: History of throat cancer, hyperlipidemia, hypertension, myocardial infarction. PHYSICAL EXAMINATION: On examination, patient was seen in his room. Neck is supple. Chest has crackles. First and second sounds normal. Femorals are palpable. PLAN: Placement of the dialysis catheter. Risks and complications discussed. MMODL / IJN: [id number] /
--- NOTE | 2019-12-18 10:12 | OP ---
OPERATIVE REPORT PREOPERATIVE DIAGNOSIS: Acute on chronic renal failure. POSTOPERATIVE DIAGNOSIS: Acute on chronic renal failure. PROCEDURE: Placement of dialysis catheter, right femoral approach. DESCRIPTION OF PROCEDURE: The patient was seen in the intensive care unit. Right groin was prepped and drapes applied in a sterile manner. Lidocaine 1% was infiltrated. Micropuncture introduced into right femoral vein. Micropuncture guidewire was passed and 4-Indonesian dilator advanced on the top of the guidewire. Then we passed a regular guidewire without any resistance. Dilator was advanced on the top of the guidewire. Then we passed a regular guidewire on the top of the guidewire and and after placing the dilator we used the dialysis catheter on the top of a guidewire. Guidewire was removed, flushed with heparin and saline, hep-locked. Secured with 3-0 nylon. Dressing applied. The patient tolerated the procedure well. MMODL / IJN: [id number] /
--- NOTE | 2019-12-18 11:39 | CDI ---
Documentation Clarification Form Date: 12/18/2019 11:13:24 AM From: Erica Cox RN, CCDS Admit Date: 12/17/2019 07:46:00 AM Patient Name: Ventura Austin Visit Number: [id number] ATTENTION: The Clinical Documentation Specialists (CDI) and [facility] Coding Staff appreciate your assistance in clarifying documentation. Please respond to the clarification below the line at the bottom and electronically sign. The CDI & [facility] Coding staff will review the response and follow-up if needed. Please note: Queries are made part of the Legal Health Record. If you have any questions, please contact the author of this message via ITS. Dr. Neal Chaney Malnutrition has been documented in H&P and Dietary consult and requires further specificity. History/Risk Factors: Hypopharnx CA with chemo and radiation, ETOH abuse, smoker Clinical Indicators: 12/16 EC Note: "Patient was seen and evaluated upon arrival, is a very dehydrated and malnourished appearing 64-year-old gentleman. Cachexia, generalized atrophy " 12/16 CV Surgery Consult: "Dehydration and malnutrition" 12/16 H&P:"Generalized weakness and debility, dehydration, anorexia, cachexia, and acute renal failure. Malnutrition" Labs: Total Protein 7.6, Albumin 4.3, k+ 1.1/1.7/2.3 Current BMI: 23.5 Loss of muscle mass: per nursing assessments: generalized weakness Decreased hand supervisor pairing and inspecting strength: Per nursing assessments: RUE severe weakness, LUE mild weakness, Bilateral LE severe weakness. Treatment: 12/17 Dietary Consult:"patient is high risk for refeeding syndrome, chronic severe malnutrition, Advance diet per recommendations, if unable to advance recommend EN Support." Lab monitoring am daily In your professional opinion, can you please clarify if these findings signify one of the following conditions? Mild Protein-Calorie Malnutrition Moderate Protein-Calorie Malnutrition Severe Protein-Calorie Malnutrition Other condition, please specify Unable to determine (Last Revision: March 2019) MTDD
--- NOTE | 2019-12-18 12:10 | CDI ---
Documentation Clarification Form Date: 12/18/2019 12:07:00 PM From: Erica Cox RN, CCDS Admit Date: 12/17/2019 07:46:00 AM Patient Name: Ventura Austin Visit Number: [id number] ATTENTION: The Clinical Documentation Specialists (CDI) and [facility] Coding Staff appreciate your assistance in clarifying documentation. Please respond to the clarification below the line at the bottom and electronically sign. The CDI & [facility] Coding staff will review the response and follow-up if needed. Please note: Queries are made part of the Legal Health Record. If you have any questions, please contact the author of this message via ITS. Dr. Neal Chaney Hypotension is documented in a patient on vasopressors with dehydration. Patient history/risk factors: Dehydration, Malnutrition, Acute Renal Failure with ATN Clinical Indicators: 12/17 Nephrology progress note: "Acute kidney injury secondary to ATN secondary to severe intravascular volume depletion from poor oral intake and hypotension. Hypotension maintained on Levophed." 12/16 630 Vitals: Temp 97.6, HR 105, B/P 84/69, Spo2 94% 2L NC Treatment: IV Levophed Gtt titrate for B/P 12/16 2L IVF Bolus In your professional opinion, can you please specify the type of shock if known? Hypovolemic Shock Cause Other, please specify Unable to determine (Last Revision: June 2017) MTDD
--- NOTE | 2019-12-18 13:21 | P.PN ---
Subjective Progress Note Date: 12/18/19 Principal diagnosis: Aspiration pneumonia, electrolyte imbalance, cardiac arrhythmias and acute kidney injury. This is 64-year-old -[place] gentleman who is followed by Dr. Chaney on an outpatient basis. His past medical history significant for throat cancer which he underwent chemotherapy and radiation 4 months ago, hypertension, hyperlipidemia, restless leg syndrome, GERD, osteoarthritis and myocardial infarction 10 years ago. Since his Chemotherapy treatments the patient reports that he has been doing quite well until recently when he has been feeling quite weak and has been having trouble eating or drinking. He denies any recent fevers, nausea, vomiting, diarrhea, constipation, palpitations or headache. He has been having some complaints of generalized pain in which she has been treating with Motrin. On presentation to the emergency department a 12-lead EKG was completed which demonstrated sinus rhythm with first-degree AV block with nonspecific intraventricular block with a heart rate of 71 BPM. For further evaluation a chest x-ray was completed which demonstrated no acute pulmonary process. Lab results drawn in the emergency department showed a WBC count of 13.3, hemoglobin 14.6, platelets 335, sodium 136, a critical potassium of 1.1, CO2 11, AST 103, ALT 79, BUN 156,creatinine 13.80, creatinine kinase 3983 and a troponin level of 0.470. The patient was afebrile and his oxygen saturations are currently 98% on 2 L nasal cannula. 12/18/2019 the patient was seen and examined at his bedside in the intensive care unit. He is currently in no acute distress. Through the middle of the night patient became short of breath and was placed on 15 L high flow oxygen and currently his option is at 3 L nasal cannula with oxygen saturation is 96%. IV antibiotics Zosyn was initiated. A left antecubital PICC line was placed yesterday by interventional radiology. He was also seen by Dr. Franco this morning from vascular surgery and a right femoral dialysis catheter was placed. Currently he is on norepinephrine drip at 0.45 mcg/kg/m, 0.9% normal saline at 100 mL per hour and a bicarb drip at 100 mL per hour. His heart rate is normal sinus tachycardia heart rate 108, blood pressure is 95/68 with a map of 77 and he has been afebrile in the 24 hours. The chest x-ray this morning shows a consolidation of the right mid and lower lung which could represent an aspiration pneumonia. Laboratory results show a WBC count of 11.9, hemoglobin 12.4, platelets 319, potassium 2.3, carbon dioxide 12, BUN 134 and creatinine 11.18. He continues to receive electrolyte replacement per protocol. Objective - Vital Signs Vital signs: Vital Signs Temp 97.6 F 12/18/19 12:00 Pulse 108 H 12/18/19 12:30 Resp 14 12/18/19 12:30 BP 95/68 12/18/19 12:30 Pulse Ox 96 12/18/19 12:30 Intake & Output 12/17/19 12/18/19 12/18/19 18:59 06:59 18:59 Intake Total 4200 3659.000 1666.36 Output Total 405 115 95 Balance 3795 3544.000 1571.36 Weight 52.617 kg 58.2 kg 58.2 kg Intake: IV 4200 3401 1650 Dextrose 5% in Water 1, 600 2001 675 000 ml @ 125 mls/hr IV . Q9H12M ASHLEY with Sodium Bicarb (1 Meq/ml) 150 ml Rx#:[id number] Piperacillin-Tazobactam 3 100 75 .375 gm In Sodium Chloride 0.9% 100 ml @ 25 mls/hr IVPB Q8H ASHLEY Rx#: [id number] Potassium Chloride 10 meq 400 300 600 In Water For Injection 1 100ml.bag @ 100 mls/hr IVPB Q1HR ASHLEY Rx#: [id number] Sodium Chloride 0.9% 1, 1200 1000 300 000 ml @ 100 mls/hr IV . Q10H ASHLEY Rx#:[id number] Sodium Chloride 0.9% 1, 2000 000 ml @ 999 mls/hr IV . Q1H1M ONE Rx#:[id number] Intake, IV Titration 258.000 16.36 Amount Norepinephrine 8 mg In 258.000 16.36 Sodium Chloride 0.9% 250 ml @ 0.05 MCG/KG/MIN 5. 091 mls/hr IV .Q24H [facility] Rx#:[id number] Output: Urine 405 115 95 - Constitutional Constitutional Comment(s): Chronically ill, cachectic General appearance: Present: cooperative, no acute distress - EENT Eyes: Present: PERRLA - Neck Details: Neck is supple, no lymphadenopathy. Neck: Absent: stridor - Respiratory Details: Essentially clear throughout, diminished to his bilateral bases. Respirations are symmetrical and nonlabored. No wheezes, rhonchi or crackles. - Cardiovascular Details: Regular rhythm with tachycardic rate. S1 and S2 present, negative for S3, gallop or murmur. - Gastrointestinal Gastrointestinal Comment(s): Abdomen soft, nontender and nondistended. Active bowel sounds present in all 4 abdominal quadrants. No guarding or rigidity. No organomegaly appreciated. - Integumentary Integumentary Comment(s): Skin is warm and dry. No clubbing or cyanosis is present. No rash or abnormal pigmentation is present. - Neurologic Neurologic: Present: CNII-XII intact - Musculoskeletal Musculoskeletal: Present: generalized weakness, strength equal bilaterally - Psychiatric Psychiatric: Present: A&O x's 3, appropriate affect, intact judgment & insight - Allied health notes Allied health notes reviewed: nursing - Labs CBC & Chem 7: 12/18/19 04:38 12/18/19 04:38 Labs: Abnormal Lab Results - Last 24 Hours (Table) 12/17/19 12/17/19 12/18/19 Range/Units 11:15 16:41 00:16 WBC (3.8-10.6) k/uL RBC (4.30-5.90) m/uL Hgb (13.0-17.5) gm/dL Hct (39.0-53.0) % Potassium 1.4 L* (3.5-5.1) mmol/L Carbon Dioxide (22-30) mmol/L BUN (9-20) mg/dL Creatinine (0.66-1.25) mg/dL Glucose (74-99) mg/dL Plasma Lactic Acid Shade 2.1 H* (0.7-2.0) mmol/L Calcium (8.4-10.2) mg/dL Urine Protein 2+ H (Negative) Urine Blood Moderate H (Negative) Amorphous Sediment Rare H (None) /hpf Urine Bacteria Rare H (None) /hpf 12/18/19 12/18/19 Range/Units 04:38 04:38 WBC 11.9 H (3.8-10.6) k/uL RBC 3.96 L (4.30-5.90) m/uL Hgb 12.4 L (13.0-17.5) gm/dL Hct 35.8 L (39.0-53.0) % Potassium 2.3 L* (3.5-5.1) mmol/L Carbon Dioxide 12 L (22-30) mmol/L BUN 134 H* (9-20) mg/dL Creatinine 11.18 H* (0.66-1.25) mg/dL Glucose 195 H (74-99) mg/dL Plasma Lactic Acid Shade (0.7-2.0) mmol/L Calcium 6.2 L* (8.4-10.2) mg/dL Urine Protein (Negative) Urine Blood (Negative) Amorphous Sediment (None) /hpf Urine Bacteria (None) /hpf Microbiology - Last 24 Hours (Table) 12/17/19 05:26 Blood Culture - Preliminary Blood No Growth after 24 hours - Imaging and Cardiology Chest x-ray: report reviewed, image reviewed Assessment and Plan Assessment: 1. Aspiration pneumonia, was started on Zosyn for antibiotic coverage 2. Hypotension requiring pressor support 1. Rhabdomyolysis 2. Acute kidney injury, right femoral hemodialysis catheter placed today. Hemodialysis management per nephrology 3. Electrolyte imbalance, hypokalemia with a critical potassium level 2.3 and hypocalcemia and potassium level of 6.2 4. Generalized debility and weakness 5. Dehydration and malnutrition 6. Cardiac arrhythmia with bundle branch block 7. History of throat cancer, previous chemotherapy and radiation treatments Plan: 1. The patient was seen and examined at his bedside in the intensive care unit with Dr. Minnie Strange. 2. Replace electrolytes per protocol. Nephrology is following. 3. Speech therapy consult noted and appreciated. The patient may require enteral feeding for nutritional support, may require a Dobbhoff or PEG tube placement. Aspiration precautions in place. The patient will remain nothing by mouth. 4. Continue hydration in the way of bicarb drip, we will discontinue the 0.9% normal saline. 5. Continue to follow daily labs and chest x-rays. 6. Continue GI and DVT prophylaxis. 7. Wean norepinephrine as tolerated. 8. Continue Zosyn for antibiotic coverage. 9. Hemodialysis management per nephrology. 10. Wean oxygen as tolerated to keep sats greater than or equal to 92%. 11. Consult ENT for evaluation of his vocal cords. 12. More recommendations to follow based on patient's clinical course. This was a joint evaluation done between the nurse practitioner and Dr. Minnie Strange. Time with Patient: Greater than 30
--- NOTE | 2019-12-18 14:01 | P.CONS ---
History of Present Illness - Reason for Consult Consult date: 12/18/19 Head and Neck Ca Requesting physician: Neal Chaney - Chief Complaint Weakness - History of Present Illness Mr. Austin is a very pleasant male patient of Dr. Clark. He originally presented with mild dysphagia and odynophagia for about 3 month prior to being evaluated he was seen by Dr. 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 There is no obvious adenopathy is noted except for a faint enhancement of a nonenlarged right cervical node at level II that measured ap proximately 1.1 cm. There is also several other noted bilateral cervical nodes he also underwent a CAT scan of his chest which was negative for metastatic disease he had a swallow and speech evaluation at [facility] and tumor Board recommendation of concurrent chemotherapy on 02/20/2019 he started concurrent cisplatin chemo with radiation therapy and completed on 05/13/2019 and May 2019 and PET scan revealed significant response to treatment he was last seen by Dr. Clark on the office in August 2019 as well as continue to follow with Dr. Weber and [facility]. After Chemo completed his renal function did increase, although 2018 creatinine stable at 1.21 From 2.33 directly following treatment. PET Scan 12/01/2019 revealed similar uptake as previous exam there is no evidence of recurrent disease at that time. Because of his known history of Stage IV (T3, N2b, M0) Head and Neck Cancer (P-16+) Oncology has been consulted to further evaluate during this hospitalization. He presented via EMS with complaints of severe weakness that progressed over the past week. On admission he was found to be in Acute renal failure with a creatinine 13.80 Review of Systems A 14 point review of systems was assessed and completed and are all negative except for HPI Past Medical History Past Medical History: Cancer, GERD/Reflux, Hyperlipidemia, Hypertension, Myocardial Infarction ([place]), Osteoarthritis (OA) Additional Past Medical History / Comment(s): HYPOPHARYNX CANCER. DIFFICULTY SWALLOWING, CONSTANT SORE THROAT. Last Myocardial Infarction Date:: 10 YEARS AGO History of Any Multi-Drug Resistant Organisms: None Reported Past Surgical History: Orthopedic Surgery Additional Past Surgical History / Comment(s): BROKEN COLLAR BONE with surgical repair Past Anesthesia/Blood Transfusion Reactions: No Reported Reaction Past Psychological History: No Psychological Hx Reported Smoking Status: Former smoker Past Alcohol Use History: None Reported Past Drug Use History: None Reported - Past Family History Father Additional Family Medical History / Comment(s): GOUT Mother History Unknown: Yes Medications and Allergies Home Medications Medication Instructions Recorded Confirmed Type Aspirin 325 mg PO DAILY 02/20/19 12/17/19 History Hydrocodone/Acetaminophen [[place] 1 tab PO Q8H 02/20/19 12/17/19 History 5-325] Hydrocortisone Cream 1 applicate TOPICAL QID 02/20/19 12/17/19 History [Hydrocortisone 2.5% Cream] Metoprolol Tartrate 25 mg PO DAILY 02/20/19 12/17/19 History Nitroglycerin Sl Tabs [Nitrostat] 0.4 mg SL DIRECTED PRN 02/20/19 12/17/19 History Omeprazole 20 mg PO BID 02/20/19 12/17/19 History Simvastatin 40 mg PO HS 02/20/19 12/17/19 History amLODIPine [Norvasc] 5 mg PO DAILY 02/20/19 12/17/19 History rOPINIRole HCL [Requip] 1 mg PO HS 02/20/19 12/17/19 History Furosemide [Lasix] 40 mg PO DAILY 12/17/19 12/17/19 History Hydrochlorothiazide [Hydrodiuril] 25 mg PO DAILY 12/17/19 12/17/19 History Ibuprofen [Motrin] 800 mg PO Q8H PRN 12/17/19 12/17/19 History Potassium Chloride [K-Tab ER] 20 meq PO DAILY 12/17/19 12/17/19 History Allergies Allergy/AdvReac Type Severity Reaction Status Date / Time No Known Allergies Allergy Verified 12/17/19 09:00 Physical Exam Vitals: Vital Signs Temp Pulse Resp BP Pulse Ox 12/18/19 07:30 111 H 15 104/70 96 12/18/19 07:00 112 H 19 97/68 96 12/18/19 06:30 111 H 15 86/65 96 12/18/19 06:00 111 H 15 93/65 97 12/18/19 05:30 110 H 16 121/57 96 12/18/19 05:00 117 H 28 H 97/68 95 12/18/19 04:30 110 H 18 86/63 96 12/18/19 04:00 97.7 F 111 H 16 90/67 96 12/18/19 03:30 112 H 12 80/62 96 12/18/19 03:00 109 H 17 93/73 96 12/18/19 02:30 114 H 26 H 86/66 93 L 12/18/19 02:00 112 H 22 100/66 91 L 12/18/19 01:30 120 H 21 82/59 96 12/18/19 01:00 120 H 24 100/37 100 12/18/19 00:30 97.8 F 126 H 23 81/63 97 12/18/19 00:00 97.8 F 130 H 24 89/65 91 L 12/17/19 23:30 128 H 19 81/60 90 L 12/17/19 23:00 126 H 21 83/62 93 L 12/17/19 22:30 23 84/65 12/17/19 22:00 130 H 24 95/66 93 L 12/17/19 21:30 111 H 18 86/63 12/17/19 21:00 125 H 18 72/50 96 12/17/19 20:30 126 H 23 95/61 94 L 12/17/19 20:00 97.8 F 116 H 22 96/62 94 L 12/17/19 19:30 112 H 23 77/56 96 12/17/19 19:00 120 H 10 L 73/55 95 12/17/19 18:30 121 H 12 76/50 94 L 12/17/19 18:00 97.3 F L 121 H 21 66/47 94 L 12/17/19 17:45 122 H 26 H 86/56 94 L 12/17/19 17:30 123 H 22 72/51 94 L 12/17/19 17:15 116 H 24 82/59 94 L 12/17/19 17:00 111 H 14 111/70 94 L 12/17/19 16:45 113 H 15 100/70 94 L 12/17/19 16:30 126 H 14 107/75 95 12/17/19 16:15 140 H 14 127/94 95 12/17/19 16:00 95 F L 121 H 11 L 116/87 95 12/17/19 15:44 23 12/17/19 15:30 117 H 13 108/64 97 12/17/19 15:00 131 H 23 90/58 96 12/17/19 14:30 114 H 17 94/67 94 L 12/17/19 14:00 104 H 18 141/88 96 12/17/19 13:30 129 H 24 120/93 94 L 12/17/19 13:00 125 H 26 H 120/93 98 12/17/19 12:30 97.6 F 111 H 23 86/56 97 12/17/19 12:15 23 12/17/19 12:00 86 18 94/58 99 12/17/19 11:30 84 14 94/59 99 12/17/19 11:00 77 15 103/69 93 L 12/17/19 10:45 111 H 20 129/71 98 12/17/19 10:30 94 19 127/73 98 12/17/19 10:15 86 17 142/88 99 Intake and Output 12/17/19 12/18/19 12/18/19 22:59 06:59 14:59 Intake Total 2421.566 2237.434 800 Output Total 32 103 40 Balance 2389.566 2134.434 760 Intake: IV 2401 2000 800 Dextrose 5% in Water 1, 1601 800 300 000 ml @ 125 mls/hr IV . Q9H12M ASHLEY with Sodium Bicarb (1 Meq/ml) 150 ml Rx#:[id number] Piperacillin-Tazobactam 3 100 .375 gm In Sodium Chloride 0.9% 100 ml @ 25 mls/hr IVPB Q8H ASHLEY Rx#: [id number] Potassium Chloride 10 meq 200 300 300 In Water For Injection 1 100ml.bag @ 100 mls/hr IVPB Q1HR ASHLEY Rx#: [id number] Sodium Chloride 0.9% 1, 600 800 200 000 ml @ 100 mls/hr IV . Q10H ASHLEY Rx#:[id number] Intake, IV Titration 20.566 237.434 Amount Norepinephrine 8 mg In 20.566 237.434 Sodium Chloride 0.9% 250 ml @ 0.05 MCG/KG/MIN 5. 091 mls/hr IV .Q24H [facility] Rx#:[id number] Output: Urine 32 103 40 Other: Weight 58.2 kg General: Alert and Oriented x3, No Acute Distress, thin malnourished, dry lips Head: Normocytic, Atraumatic Neck: Supple Mouth: No Lesions, No Thrush Eyes: Non-sclerotic No Palpable cervical, supraclavicular, axillary adenopathy Heart: Regular Rate, Regular Rhythm Lungs: Clear to Ausculations, No Wheeze, No Rhonchi, Diminishe bilateral lower lobes, No increased respiratory effort noted Abdomen: Soft, Non-Distended, Non-Tended, BSx4 Extremities: No Edema, Equal Strength Neurological: No Focal Defects: No sensory or motor deficits noted Psych: Calm and cooperative Results CBC & Chem 7: 12/18/19 04:38 12/18/19 04:38 Labs: Abnormal Lab Results - Last 24 Hours (Table) 12/17/19 12/17/19 12/17/19 Range/Units 11:15 11:18 16:41 WBC (3.8-10.6) k/uL RBC (4.30-5.90) m/uL Hgb (13.0-17.5) gm/dL Hct (39.0-53.0) % Potassium 1.7 L* 1.4 L* (3.5-5.1) mmol/L Carbon Dioxide 8 L* (22-30) mmol/L BUN 144 H* (9-20) mg/dL Creatinine 12.61 H* (0.66-1.25) mg/dL Glucose 121 H (74-99) mg/dL Plasma Lactic Acid Shade (0.7-2.0) mmol/L Calcium 6.8 L (8.4-10.2) mg/dL Urine Protein 2+ H (Negative) Urine Blood Moderate H (Negative) Amorphous Sediment Rare H (None) /hpf Urine Bacteria Rare H (None) /hpf 12/18/19 12/18/19 12/18/19 Range/Units 00:16 04:38 04:38 WBC 11.9 H (3.8-10.6) k/uL RBC 3.96 L (4.30-5.90) m/uL Hgb 12.4 L (13.0-17.5) gm/dL Hct 35.8 L (39.0-53.0) % Potassium 2.3 L* (3.5-5.1) mmol/L Carbon Dioxide 12 L (22-30) mmol/L BUN 134 H* (9-20) mg/dL Creatinine 11.18 H* (0.66-1.25) mg/dL Glucose 195 H (74-99) mg/dL Plasma Lactic Acid Shade 2.1 H* (0.7-2.0) mmol/L Calcium 6.2 L* (8.4-10.2) mg/dL Urine Protein (Negative) Urine Blood (Negative) Amorphous Sediment (None) /hpf Urine Bacteria (None) /hpf Microbiology - Last 24 Hours (Table) 12/17/19 05:26 Blood Culture - Preliminary Blood No Growth after 24 hours Assessment and Plan Plan: Assessment and Recommendations: Head and Neck Cancer: Stage IV (T2, N2b, M0) +P16 - History and Details per HPI - Completed Chemo/radiation concurrent in April 2019 - No evidence of progression/recurrence on recent PET (12/01/19) - Post Chemotherapy mild increase in renal function, creat max in May 2019 = 2.31, August Creat 1.21 - Did struggle with Hypokalemia, due to decreased PO intake during treatment Acute Kidney Injury: - secondary to ATN, intravascular volume depletion - Exacerbated by poor PO intake and hypotension. - Creatinine 13.8 on admission. Today 11.18 - Review of Ultrasound no hydronephrosis noted - Nephrology following Severe hypokalemia: - Per Nephrology - TMS/ICU monitoring Metabolic acidosis secondary to acute kidney injury. Hypocalcemia secondary to acute kidney injury. Thank you for allowing us to participate in the care of this patient as far as oncolological concern at this time, no evidence to show recurrence of cancer. He can follow up after resolution as scheduled q6 months with Dr. Clark. Stella Hope [facility]ITAL[facility]in[facility].
[2019-12-18] MEDS ORDERED: LIDOCAINE VISCOUS 2% 15 ML CUP MUCOUS MEM ONE (15:40)
--- NOTE | 2019-12-18 15:59 | XR ---
EXAMINATION TYPE: XR chest 1V portable DATE OF EXAM: 12/18/2019 COMPARISON: 12/18/2019 HISTORY: Dobbhoff placement TECHNIQUE: Single frontal view of the chest is obtained. FINDINGS: Malpositioning of the right Dobbhoff terminating in the right mainstem bronchus with incre asing opacity of the right lower lobe and trace right pleural effusion. Remainder the lungs are well aerated. Left-sided PICC is similar in position. Diffuse osseous demineralization. Stable cardiac med iastinal silhouette. IMPRESSION: Malpositioned Dobbhoff tube terminating in the right mainstem bronchus. Repositioning re commended.
--- NOTE | 2019-12-18 16:49 | PN ---
PROGRESS NOTE DATE OF SERVICE: 12/18/2019 CHIEF COMPLAINT: Acute renal failure, carcinoma of the throat. HISTORY OF PRESENT ILLNESS: This gentleman is fairly stable. He is awake. Renal function has improved slightly and his potassium is up, but still very low. PHYSICAL EXAMINATION: Chest is fairly clear. The cardiac exam is normal. The abdomen is soft. He is awake and alert. His case was discussed with him and he was told that if he has residual carcinoma, there would be no curative treatment available, and we will keep him as comfortable as possible. He will be seen by Oncology, who may know more about the status of his malignancy. IMPRESSION: 1. Acute renal failure. 2. Dehydration. 3. Hypokalemia. 4. Cachexia. 5. Profound dehydration. 6. Carcinoma of the throat. PLAN: 1. Oncology consult. 2. Continue with supportive care. 3. Dialysis is planned. MATTY / TRACIE: [id number] /
[2019-12-18 22:53] LABS: Calcium 7.3 mg/dL (8.4-10.2); Magnesium 1.6 mg/dL (1.6-2.3); Potassium 3.1 mmol/L (3.5-5.1)
[2019-12-19] MEDS ORDERED: MAGNESIUM SULFATE-D5W PMX 1 GM in DEXTROSE/WATER 1 100ML.BAG IVPB ONE (00:07)
[2019-12-19 00:14] LABS: Glucose,Whole Blood 190 mg/dL (75-99)
[2019-12-19] MEDS: POTASSIUM CHLORIDE 20 MEQ in WATER FOR INJECTION 1 100ML.BAG IVPB SCH ×2 (00:37→03:32)
[2019-12-19] MEDS: INSULIN ASPART (NovoLOG) 100 UNIT/ML VIAL SQ SCH ×4 (00:37→18:29)
[2019-12-19] MEDS: SODIUM CHLORIDE 0.9% 1,000 ML IV SCH ×2 (00:38→14:00)
[2019-12-19] MEDS: HEPARIN SODIUM,PORCINE 5,000 UNIT/ML 1 ML VIAL SQ SCH ×3 (00:38→17:01)
[2019-12-19 01:24] LABS: Hepatitis B Surface AB- Quant 3.5 mIU/mL; Hepatitis B Surface Antibody Non-Reactive (Non-Reactive); Hepatitis B Surface Antigen Non-Reactive (Non-Reactive)
[2019-12-19] MEDS: NOREPINEPHRINE 8 MG in SODIUM CHLORIDE 0.9% 250 ML IV SCH ×2 (03:32→14:00)
[2019-12-19 06:10] LABS: Glucose,Whole Blood 98 mg/dL (75-99)
[2019-12-19] MEDS: HYDROmorphone 0.5 MG/0.5 ML SYRINGE IVP PRN (06:11)
[2019-12-19 06:48] LABS: HCT 34.8 % (39.0-53.0); HGB 12.4 gm/dL (13.0-17.5); Hyperchromasia Moderate; MCH 31.8 pg (25.0-35.0); MCHC 35.7 g/dL (31.0-37.0); MCV 89.2 fL (80.0-100.0); Mean Platelet Volume 7.8; Platelet Count 243 k/uL (150-450); Poikilocytosis Slight; RDW 13.4 % (11.5-15.5); WBC 13.1 k/uL (3.8-10.6)
[2019-12-19 07:08] LABS: Calcium 7.3 mg/dL (8.4-10.2); Potassium 4.4 mmol/L (3.5-5.1)
--- NOTE | 2019-12-19 07:44 | XR ---
EXAMINATION TYPE: XR chest 1V portable DATE OF EXAM: 12/19/2019 Comparison: 12/18/2019 Clinical History: 64-year-old male shortness of breath Findings: Heart borderline enlarged. Right greater than left bibasilar opacities. Increasing as compared to osei or exam, on the right extending up to the midlung level now. Left PICC tip at the cavoatrial junction . Impression: Small to moderate right and small left pleural effusions with increasing adjacent atelectasis and/or consolidation. Opacity on the right extends up to the mid lung level now.
[2019-12-19] MEDS: PIPERACILLIN-TAZOBACTAM 3.375 GM in SODIUM CHLORIDE 0.9% 100 ML IVPB SCH ×2 (08:01→20:21)
[2019-12-19] MEDS: PANTOPRAZOLE 40 MG/10 ML VIAL IVP SCH (08:01)
--- NOTE | 2019-12-19 09:37 | P.PN ---
Subjective Patient is seen in follow-up for acute kidney injury. Urine output 10-20 mL an hour. Started on hemodialysis on December 17. Overall feels better. No chest pain or shortness of breath. Currently maintained on normal saline. Vital signs are stable. General: The patient appeared well nourished and normally developed. HEENT: Head exam is unremarkable. Neck is without jugular venous distension. LUNGS: Lungs are clear to auscultation and percussion. Breath sounds decreased. HEART: Rate and Rhythm are regular. First and second heart sounds normal. No murmurs, rubs or gallops. ABDOMEN: Nontender. EXTREMITITES: No edema. Objective - Vital Signs Vital signs: Vital Signs Temp 97.7 F 12/19/19 04:00 Pulse 77 12/19/19 07:00 Resp 11 L 12/19/19 07:00 BP 97/74 12/19/19 07:00 Pulse Ox 95 12/19/19 07:00 Intake & Output 12/18/19 12/19/19 12/19/19 18:59 06:59 18:59 Intake Total 2759.805 1773.000 197.584 Output Total 150 120 0 Balance 2609.805 1653.000 197.584 Weight 58.2 kg 59.6 kg Intake: IV 2550 1515 75 Dextrose 5% in Water 1, 1550 625 000 ml @ 125 mls/hr IV . Q9H12M ASHLYE with Sodium Bicarb (1 Meq/ml) 150 ml Rx#:[id number] Magnesium Sulfate-D5w Pmx 100 1 gm In Dextrose/Water 1 100ml.bag @ 100 mls/hr IVPB ONCE ONE Rx#: [id number] Piperacillin-Tazobactam 3 100 100 .375 gm In Sodium Chloride 0.9% 100 ml @ 25 mls/hr IVPB Q8H [facility] Rx#: [id number] Potassium Chloride 10 meq 600 200 In Water For Injection 1 100ml.bag @ 100 mls/hr IVPB Q1HR [facility]LEY Rx#: [id number] Sodium Chloride 0.9% 1, 300 490 75 000 ml @ 100 mls/hr IV . Q10H [facility]LEY Rx#:[id number] Intake, IV Titration 209.805 258.000 122.584 Amount Norepinephrine 8 mg In 209.805 258.000 122.584 Sodium Chloride 0.9% 250 ml @ 0.05 MCG/KG/MIN 5. 091 mls/hr IV .Q24H [facility] Rx#:[id number] Output: Urine 150 120 0 - Labs CBC & Chem 7: 12/19/19 06:19 12/19/19 06:19 Labs: Abnormal Lab Results - Last 24 Hours (Table) 12/18/19 12/19/19 12/19/19 Range/Units 22:17 00:13 06:19 WBC (3.8-10.6) k/uL RBC (4.30-5.90) m/uL Hgb (13.0-17.5) gm/dL Hct (39.0-53.0) % Potassium 3.1 L (3.5-5.1) mmol/L Carbon Dioxide 15 L (22-30) mmol/L BUN 89 H 89 H (9-20) mg/dL Creatinine 7.24 H* 7.40 H* (0.66-1.25) mg/dL Glucose 192 H (74-99) mg/dL POC Glucose (mg/dL) 190 H (75-99) mg/dL Calcium 7.3 L 7.3 L (8.4-10.2) mg/dL 12/19/19 Range/Units 06:19 WBC 13.1 H (3.8-10.6) k/uL RBC 3.90 L (4.30-5.90) m/uL Hgb 12.4 L (13.0-17.5) gm/dL Hct 34.8 L (39.0-53.0) % Potassium (3.5-5.1) mmol/L Carbon Dioxide (22-30) mmol/L BUN (9-20) mg/dL Creatinine (0.66-1.25) mg/dL Glucose (74-99) mg/dL POC Glucose (mg/dL) (75-99) mg/dL Calcium (8.4-10.2) mg/dL Microbiology - Last 24 Hours (Table) 12/17/19 05:26 Blood Culture - Preliminary Blood No Growth after 48 hours Assessment and Plan Plan: Assessment: 1. Acute kidney injury secondary to ATN secondary to severe intravascular volume depletion from poor oral intake and hypotension. Mild component of rhabdomyolysis. Creatinine 13.8 on admission. Baseline creatinine near 1. No hydronephrosis noted on kidney ultrasound. Oliguric. Started on hemodialysis on December 17. 2. Severe hypokalemia from poor oral intake. Magnesium normal. Status post replacement. Better. 3. Metabolic acidosis secondary to acute kidney injury. 4. Hypocalcemia secondary to acute kidney injury. Better post replacement. 5. History of throat cancer with last chemotherapy 4 months ago according to the patient. 6. Hypotension maintained on Levophed. Plan: Maintain normal saline at 75 mL an hour. Add oral sodium bicarbonate. I will also use higher bicarbonate bath with dialysis. Strict I's and O's. He has a Jarrell catheter. Wean vasopressors. Repeat CK level. Scheduled for second treatment of hemodialysis today and third treatment tomorrow.
[2019-12-19] MEDS ORDERED: HEPARIN SODIUM 1,000 UN/ML (10ML VL) ONE (09:50)
[2019-12-19] MEDS ORDERED: LIDOCAINE 1% INJ 10MG/ML (20 ML MDV) ONE ×2 (09:50→12:55)
[2019-12-19] MEDS: SODIUM BICARBONATE TAB 650 MG TAB PO SCH ×3 (11:45→21:02)
[2019-12-19 11:49] LABS: Glucose,Whole Blood 92 mg/dL (75-99)
--- NOTE | 2019-12-19 11:54 | P.PN ---
Subjective Progress Note Date: 12/19/19 Principal diagnosis: TERRANCE Planning feeding tube Creat is improving Objective - Vital Signs Vital signs: Vital Signs Temp 97.7 F 12/19/19 04:00 Pulse 76 12/19/19 11:00 Resp 14 12/19/19 11:00 BP 107/74 12/19/19 11:00 Pulse Ox 98 12/19/19 11:00 Intake & Output 12/18/19 12/19/19 12/19/19 18:59 06:59 18:59 Intake Total 2759.805 1773.000 297.584 Output Total 150 120 40 Balance 2609.805 1653.000 257.584 Weight 58.2 kg 59.6 kg Intake: IV 2550 1515 175 Dextrose 5% in Water 1, 1550 625 000 ml @ 125 mls/hr IV . Q9H12M [facility] with Sodium Bicarb (1 Meq/ml) 150 ml Rx#:[id number] Magnesium Sulfate-D5w Pmx 100 1 gm In Dextrose/Water 1 100ml.bag @ 100 mls/hr IVPB ONCE ONE Rx#: [id number] Piperacillin-Tazobactam 3 100 100 100 .375 gm In Sodium Chloride 0.9% 100 ml @ 25 mls/hr IVPB Q8H [facility] Rx#: [id number] Potassium Chloride 10 meq 600 200 In Water For Injection 1 100ml.bag @ 100 mls/hr IVPB Q1HR [facility] Rx#: [id number] Sodium Chloride 0.9% 1, 300 490 75 000 ml @ 100 mls/hr IV . Q10H [facility] Rx#:[id number] Intake, IV Titration 209.805 258.000 122.584 Amount Norepinephrine 8 mg In 209.805 258.000 122.584 Sodium Chloride 0.9% 250 ml @ 0.05 MCG/KG/MIN 5. 091 mls/hr IV .Q24H [facility] Rx#:[id number] Output: Urine 150 120 40 Other: Voiding Method Indwelling Catheter - Exam General: Alert and Oriented x3, No Acute Distress, thin malnourished, dry lips Head: Normocytic, Atraumatic Neck: Supple Mouth: No Lesions, No Thrush Eyes: Non-sclerotic No Palpable cervical, supraclavicular, axillary adenopathy Heart: Regular Rate, Regular Rhythm Lungs: Clear to Ausculations, No Wheeze, No Rhonchi, Diminishe bilateral lower lobes, No increased respiratory effort noted Abdomen: Soft, Non-Distended, Non-Tended, BSx4 Extremities: No Edema, Equal Strength Neurological: No Focal Defects: No sensory or motor deficits noted - Labs CBC & Chem 7: 12/19/19 06:19 12/19/19 06:19 Labs: Abnormal Lab Results - Last 24 Hours (Table) 12/18/19 12/19/19 12/19/19 Range/Units 22:17 00:13 06:19 WBC (3.8-10.6) k/uL RBC (4.30-5.90) m/uL Hgb (13.0-17.5) gm/dL Hct (39.0-53.0) % Potassium 3.1 L (3.5-5.1) mmol/L Carbon Dioxide 15 L (22-30) mmol/L BUN 89 H 89 H (9-20) mg/dL Creatinine 7.24 H* 7.40 H* (0.66-1.25) mg/dL Glucose 192 H (74-99) mg/dL POC Glucose (mg/dL) 190 H (75-99) mg/dL Calcium 7.3 L 7.3 L (8.4-10.2) mg/dL Creatine Kinase (55-170) U/L 12/19/19 12/19/19 Range/Units 06:19 10:20 WBC 13.1 H (3.8-10.6) k/uL RBC 3.90 L (4.30-5.90) m/uL Hgb 12.4 L (13.0-17.5) gm/dL Hct 34.8 L (39.0-53.0) % Potassium (3.5-5.1) mmol/L Carbon Dioxide (22-30) mmol/L BUN (9-20) mg/dL Creatinine (0.66-1.25) mg/dL Glucose (74-99) mg/dL POC Glucose (mg/dL) (75-99) mg/dL Calcium (8.4-10.2) mg/dL Creatine Kinase 2720 H* (55-170) U/L Microbiology - Last 24 Hours (Table) 12/17/19 05:26 Blood Culture - Preliminary Blood No Growth after 48 hours Assessment and Plan Plan: Assessment and Recommendations: Head and Neck Cancer: Stage IV (T2, N2b, M0) +P16 - History and Details per HPI - Completed Chemo/radiation concurrent in April 2019 - No evidence of progression/recurrence on recent PET (12/01/19) - Post Chemotherapy mild increase in renal function, creat max in May 2019 = 2.31, August Creat 1.21 - Did struggle with Hypokalemia, due to decreased PO intake during treatment Acute Kidney Injury: - secondary to ATN, intravascular volume depletion - Exacerbated by poor PO intake and hypotension. - Creatinine 13.8 on admission. Today 11.18 - Review of Ultrasound no hydronephrosis noted - Nephrology following Severe hypokalemia: - Per Nephrology - TMS/ICU monitoring Metabolic acidosis secondary to acute kidney injury. Hypocalcemia secondary to acute kidney injury. Severe Malnutrition secondary to dysphagia - Feeding tube likely today - Agree Thank you for allowing us to participate in the care of this patient as far as oncolological concern at this time, no evidence to show recurrence of cancer. He can follow up after resolution as scheduled q6 months with Dr. Clark. Stella MORALEZ. Physician Attestation: I have performed the full physical examination and reviewed the full history of this patient, as well as pertinent findings. I have created the compled impression and recommendations. I agree with the above di ctation by NAOMY Wong. This dictation has been written as a scribe.
--- NOTE | 2019-12-19 12:15 | MISC ---
MISCELLANOUS REPORT QUERY: Severe protein calorie malnutrition. Other condition carcinoma of the throat. Regarding shock, hypovolemic shock. MMODL / IJN: [id number] /
[2019-12-19] MEDS ORDERED: EPINEPHrine (PF) 1 MG/ML AMP ONE (12:55)
[2019-12-19] MEDS ORDERED: ATROPINE SULFATE 0.1 MG/ML 10ML SYRINGE ONE (12:55)
[2019-12-19] MEDS ORDERED: PROPOFOL 10 MG/ML 20 ML VIAL IV ONE (12:55)
[2019-12-19] MEDS ORDERED: MIDAZOLAM 2 MG/2 ML VIAL ONE (12:55)
--- NOTE | 2019-12-19 13:08 | P.PN ---
Subjective Progress Note Date: 12/19/19 On today's evaluation of 12/19/2019 on seeing the patient for a follow-up. The patient is awake and alert and he got dialyzed yesterday and a second session of dialysis is being done right now in the morning. The patient's electronic is improved. The potassium level is been replaced and a potassium level is up to 4.4. Creatinine is down to 7.4 as the patient is being dialyzed. CPK is down to 2720. No hypoglycemia. The patient's history much more alert and awake compared to yesterday. His chest x-ray showing a right lower lobe infiltrate/consolidation. Aspiration pneumonia suspected and the patient was placed on IV Zosyn. He also required pressors and currently is on norepinephrine infusion which is being weaned off. With careful weaning down the pressors as the patient is undergoing dialysis at the same time. He is on a bicarb infusion and his serum bicarbonate is improved and it's up to 15. The patient was switched to normal saline by nephrology and the patient was given oral bicarb 650 mg by mouth 3 times a day. No other significant events overnight. He is awake and alert. He is unable to swallow. He failed his swallow evaluation. Unable to insert a Dobbhoff catheter due to technical difficulties as the patient has laryngeal cancer and there may be some anatomic obstruction his upper airway. We did intubate the right mainstem bronchus while we are trying to insert a Dobbhoff catheter. Ultimately with regard to tube and the patient will need a PEG tube insertion and just surgery consultation was requested. Oncology is on the case. No other significant events otherwise for now. Objective - Vital Signs Vital signs: Vital Signs Temp 97.7 F 12/19/19 04:00 Pulse 76 12/19/19 11:00 Resp 14 12/19/19 11:00 BP 107/74 12/19/19 11:00 Pulse Ox 98 12/19/19 11:00 Intake & Output 12/18/19 12/19/19 12/19/19 18:59 06:59 18:59 Intake Total 2759.805 1773.000 297.584 Output Total 150 120 40 Balance 2609.805 1653.000 257.584 Weight 58.2 kg 59.6 kg Intake: IV 2550 1515 175 Dextrose 5% in Water 1, 1550 625 000 ml @ 125 mls/hr IV . Q9H12M [facility] with Sodium Bicarb (1 Meq/ml) 150 ml Rx#:[id number] Magnesium Sulfate-D5w Pmx 100 1 gm In Dextrose/Water 1 100ml.bag @ 100 mls/hr IVPB ONCE ONE Rx#: [id number] Piperacillin-Tazobactam 3 100 100 100 .375 gm In Sodium Chloride 0.9% 100 ml @ 25 mls/hr IVPB Q8H [facility] Rx#: [id number] Potassium Chloride 10 meq 600 200 In Water For Injection 1 100ml.bag @ 100 mls/hr IVPB Q1HR [facility] Rx#: [id number] Sodium Chloride 0.9% 1, 300 490 75 000 ml @ 100 mls/hr IV . Q10H [facility] Rx#:[id number] Intake, IV Titration 209.805 258.000 122.584 Amount Norepinephrine 8 mg In 209.805 258.000 122.584 Sodium Chloride 0.9% 250 ml @ 0.05 MCG/KG/MIN 5. 091 mls/hr IV .Q24H [facility] Rx#:[id number] Output: Urine 150 120 40 Other: Voiding Method Indwelling Catheter - Exam Chronically ill, cachectic General appearance: Present: cooperative, no acute distress, the patient has a hoarse voice. - EENT Eyes: Present: PERRLA - Neck Details: Neck is supple, no lymphadenopathy. Neck: Absent: stridor - Respiratory Details: Essentially clear throughout, diminished to his bilateral bases. Respirations are symmetrical and nonlabored. No wheezes, rhonchi or crackles. - Cardiovascular Details: Regular rhythm with tachycardic rate. S1 and S2 present, negative for S3, gallop or murmur. - Gastrointestinal Gastrointestinal Comment(s): Abdomen soft, nontender and nondistended. Active bowel sounds present in all 4 abdominal quadrants. No guarding or rigidity. No organomegaly appreciated. - Integumentary Integumentary Comment(s): Skin is warm and dry. No clubbing or cyanosis is present. No rash or abnormal pigmentation is present. - Neurologic Neurologic: Present: CNII-XII intact - Musculoskeletal Musculoskeletal: Present: generalized weakness, strength equal bilaterally - Psychiatric Psychiatric: Present: A&O x's 3, appropriate affect, intact judgment & insight - Labs CBC & Chem 7: 12/19/19 06:19 12/19/19 06:19 Labs: Abnormal Lab Results - Last 24 Hours (Table) 12/18/19 12/19/19 12/19/19 Range/Units 22:17 00:13 06:19 WBC (3.8-10.6) k/uL RBC (4.30-5.90) m/uL Hgb (13.0-17.5) gm/dL Hct (39.0-53.0) % Potassium 3.1 L (3.5-5.1) mmol/L Carbon Dioxide 15 L (22-30) mmol/L BUN 89 H 89 H (9-20) mg/dL Creatinine 7.24 H* 7.40 H* (0.66-1.25) mg/dL Glucose 192 H (74-99) mg/dL POC Glucose (mg/dL) 190 H (75-99) mg/dL Calcium 7.3 L 7.3 L (8.4-10.2) mg/dL Creatine Kinase (55-170) U/L 12/19/19 12/19/19 Range/Units 06:19 10:20 WBC 13.1 H (3.8-10.6) k/uL RBC 3.90 L (4.30-5.90) m/uL Hgb 12.4 L (13.0-17.5) gm/dL Hct 34.8 L (39.0-53.0) % Potassium (3.5-5.1) mmol/L Carbon Dioxide (22-30) mmol/L BUN (9-20) mg/dL Creatinine (0.66-1.25) mg/dL Glucose (74-99) mg/dL POC Glucose (mg/dL) (75-99) mg/dL Calcium (8.4-10.2) mg/dL Creatine Kinase 2720 H* (55-170) U/L Microbiology - Last 24 Hours (Table) 12/17/19 05:26 Blood Culture - Preliminary Blood No Growth after 48 hours Assessment and Plan Plan: 1. Severe dehydration, rhabdomyolysis. By an acute kidney injury requiring hemodialysis. The patient undergoing his second session of hemodialysis today via a temporary vas catheter inserted in his right colon. The patient is clinically improving. 2 Aspiration pneumonia, was started on Zosyn for antibiotic coverage, the patient has a persistent consolidation of the right lower lobe. 3 sepsis secondary to pneumonia/aspiration. The patient is currently on IV Zosyn and pressors were the norepinephrine infusion is being gradually weaned off. The patient is still on 40 g of norepinephrine infusion. 4 Rhabdomyolysis, Improving 5 metabolic acidosis improving and the patient is currently on oral bicarb 6 Electrolyte imbalance, hypokalemia, improving 6.2 7 Generalized debility and weakness 8 Dehydration and malnutrition 9 Cardiac arrhythmia with bundle branch block, Secondary to profound hypo kalemia which improved after correction of the hypokalemia 10 History of throat cancer, previous chemotherapy and radiation treatments 11 failure to swallow the patient will be undergoing a PEG tube insertion within next 24 hours Plan Continue IV Zosyn Wean off pressors Normal saline infusion at the rate of 75 mL an hour Oral bicarb Proceed with hemodialysis per nephrology Monitor urine output General surgery/ surgical consultation for PEG tube insertion We'll continue to follow.
[2019-12-19] MEDS: PROPOFOL 1,000 MG in EMPTY BAG 1 BAG IV SCH (14:00)
[2019-12-19 14:13] LABS: ABG Base Excess -6.4 mmol/L; ABG HCO3 20 mmol/L (21-25); ABG Oxygen Saturation 93.7 % (94-97); ABG PCO2 39 mmHg (35-45); ABG PH 7.31 (7.35-7.45); ABG PO2 79 mmHg (83-108); ABG TCO2 21 mmol/L (19-24); Allen Test Performed? Yes
--- NOTE | 2019-12-19 14:18 | XR ---
EXAMINATION TYPE: XR chest 1V portable DATE OF EXAM: 12/19/2019 COMPARISON: 12/19/2019 INDICATION: ET tube placement TECHNIQUE: Single frontal view of the chest is obtained. FINDINGS: The heart size is normal. The pulmonary vasculature is normal. Small left and uttlm-qm-ctmarntz right pleural effusions are present. Endotracheal tube is been placed with the tip 5.8 cm above the pillo. EKG leads overlie the chest. A previously placed PICC line has its tip within the distal superior vena cava region entering from th e left. Note is made of degenerative changes at the bilateral shoulders. IMPRESSION: 1. Small pleural effusions. 2. Endotracheal tube placement with the tip above the pillo. 3. PICC line stable in position.
--- NOTE | 2019-12-19 14:46 | P.PCN ---
Date of Procedure: 12/19/19 Preoperative Diagnosis: Acute respiratory failure Postoperative Diagnosis: Acute respiratory failure, hypoxic Procedure(s) Performed: Insertion of arterial line catheter Anesthesia: local Surgeon: Mninie Strange Estimated Blood Loss (ml): 0 Pathology: other Condition: critical Disposition: ICU Operative Findings: Indication: Hemodynamic monitoring. A time-out was completed verifying correct patient, procedure, site, positioning, and implant(s) or special equipment if applicable. Allens test was performed to ensure adequate perfusion. The patient left breast was prepped and draped in sterile fashion. 1% Lidocaine was used to anesthetize the area. An 18G Arrow arterial line was introduced into the left radial artery. The catheter was threaded over the guide wire and the needle was removed with appropriate pulsatile blood return. Blood loss was minimal. The c atheter was then sutured in place to the skin and a sterile dressing applied. Perfusion to the extremity distal to the point of catheter insertion was checked and found to be adequate. The patient tolerated the procedure well and there were no complications.
--- NOTE | 2019-12-19 15:12 | XR ---
EXAMINATION TYPE: XR chest 1V portable DATE OF EXAM: 12/19/2019 COMPARISON: 12/19/2019 earlier exam INDICATION: Tube placement adjustment TECHNIQUE: Single frontal view of the chest is obtained. FINDINGS: The heart size is normal. The pulmonary vasculature is normal. Small left and xijmi-te-syjwwzrw right pleural effusions are present. This may be slightly worsened o margarita the interval. Endotracheal tube is been adjusted and currently measures 5.0 cm from the pillo. PICC line is presen t on the right with the tip within the superior vena cava region. IMPRESSION: 1. Small left and small to moderate right pleural effusion may be slightly worsened. 2. Adjustment of the endotracheal tube currently measuring 5 cm from the pillo.
--- NOTE | 2019-12-19 15:45 | PN ---
PROGRESS NOTE DATE OF SERVICE: 12/19/2019 CHIEF COMPLAINT: Acute kidney injury. HISTORY OF PRESENT ILLNESS: This gentleman is on dialysis. He is feeling better. Hydration is improved and his strength is better. He is able to speak. PHYSICAL EXAMINATION: Hydration is improved. Head, ears eyes, nose, mouth, and throat are normal. Chest is clear. Cardiac exam is normal. Blood pressure is 98/70. The abdomen is soft, nontender. IMPRESSION: 1. Acute kidney injury. 2. Malnutrition. 3. Dehydration. 4. 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 PLAN: 1. Continue with dialysis. 2. Continue with supportive efforts. 3. Continue rehydration. 4. Oncology consult. MMODL / IJN: [id number] /
--- NOTE | 2019-12-19 15:52 | ECHOF ---
Referral Reason:assess lv, murmur MEASUREMENTS -------- HEIGHT: 157.5 cm WEIGHT: 59.4 kg BP: IVSd: 1.2 cm (0.6 - 1.1) LVIDd: 3.7 cm (3.9 - 5.3) LVPWd: 1.0 cm (0.6 - 1.1) IVSs: 1.2 cm LVIDs: 3.6 cm LVPWs: 1.2 cm LAESV Index (A-L): 18.58 ml/m Ao Diam: 2.7 cm (2.0 - 3.7) AV Cusp: 1.9 cm (1.5 - 2.6) LA Diam: 3.1 cm (2.7 - 3.8) MV E Zackery: 0.84 m/s MV DecT: 236 ms MV A Zackery: 0.35 m/s MV E/A Ratio: 2.39 RAP: 5.00 mmHg RVSP: 24.03 mmHg TAPSE: 12.91 mm FINDINGS -------- This was a technically adequate study. The left ventricular size is normal. Left ventricular wall thickness is normal. There is severe g lobal hypokinesis of LV . Overall left ventricular systolic function is severely impaired with, an EF < 20%. Increased LAP Grade 3 Diastolic Dysfunction. Basal lateral moving only. The right ventricle is normal in size. Normal LA size by volume 22+/-6 ml/m2. The right atrial size is normal. There is mild aortic valve sclerosis. Mild mitral annular calcification present. Mild mitral regurgitation is present. Mild tricuspid regurgitation present. Right ventricular systolic pressure is normal at < 35 mmHg. The pulmonic valve was not well visualized. There is no pulmonic regurgitation present. The aortic root size is normal. IVC Not well visulized. There is no pericardial effusion. CONCLUSIONS -------- 1. Left ventricular wall thickness is normal. 2. There is severe global hypokinesis of LV . 3. Overall left ventricular systolic function is severely impaired with, an EF < 20%. 4. Increased LAP Grade 3 Diastolic Dysfunction. 5. Basal lateral moving only. 6. Normal LA size by volume 22+/-6 ml/m2. 7. There is mild aortic valve sclerosis. 8. Mild mitral annular calcification present. 9. Mild mitral regurgitation is present. 10. Mild tricuspid regurgitation present. 11. Right ventricular systolic pressure is normal at < 35 mmHg. 12. There is no pulmonic regurgitation present. 13. IVC Not well visulized. 14. There is no pericardial effusion. [employer] CAPTAIN: Makayla Lui RDCS
[2019-12-19 18:29] LABS: Glucose,Whole Blood 139 mg/dL (75-99)
[2019-12-19] MEDS: CHLORHEXIDINE GLUCONATE 15 ML CUP MUCOUS MEM SCH (20:21)
[2019-12-19 23:22] LABS: Glucose,Whole Blood 121 mg/dL (75-99)
[2019-12-20] MEDS: HEPARIN SODIUM,PORCINE 5,000 UNIT/ML 1 ML VIAL SQ SCH ×4 (00:01→23:38)
[2019-12-20] MEDS: INSULIN ASPART (NovoLOG) 100 UNIT/ML VIAL SQ SCH ×4 (00:23→18:37)
[2019-12-20] MEDS: PROPOFOL 1,000 MG in EMPTY BAG 1 BAG IV SCH ×3 (00:56→23:56)
[2019-12-20] MEDS: NOREPINEPHRINE 8 MG in SODIUM CHLORIDE 0.9% 250 ML IV SCH (00:58)
[2019-12-20 04:34] LABS: Glucose,Whole Blood 133 mg/dL (75-99)
[2019-12-20 04:57] LABS: HGB 10.6 gm/dL (13.0-17.5); Hyperchromasia Slight; MCH 31.7 pg (25.0-35.0); MCHC 35.3 g/dL (31.0-37.0); MCV 89.8 fL (80.0-100.0); Mean Platelet Volume 8.8; Platelet Count 151 k/uL (150-450); Poikilocytosis Slight; RBC 3.35 m/uL (4.30-5.90); RDW 13.2 % (11.5-15.5); WBC 8.3 k/uL (3.8-10.6)
[2019-12-20 05:07] LABS: Albumin 2.3 g/dL (3.5-5.0); Calcium 7.8 mg/dL (8.4-10.2); Magnesium 1.8 mg/dL (1.6-2.3); Phosphorus 6.6 mg/dL (2.5-4.5); Total Bilirubin 0.5 mg/dL (0.2-1.3); Total Protein 4.8 g/dL (6.3-8.2)
[2019-12-20 05:15] LABS: Potassium 2.3 mmol/L (3.5-5.1)
[2019-12-20 05:19] LABS: ABG Base Excess -1.9 mmol/L; ABG HCO3 23 mmol/L (21-25); ABG Oxygen Saturation 96.8 % (94-97); ABG PCO2 38 mmHg (35-45); ABG PH 7.39 (7.35-7.45); ABG PO2 98 mmHg (83-108); ABG TCO2 24 mmol/L (19-24); Allen Test Performed? Yes
[2019-12-20] MEDS: SODIUM CHLORIDE 0.9% 1,000 ML IV SCH ×2 (05:20→16:26)
[2019-12-20] MEDS: POTASSIUM CHLORIDE 20 MEQ in WATER FOR INJECTION 1 100ML.BAG IVPB SCH ×3 (06:11→11:48)
--- NOTE | 2019-12-20 07:06 | XR ---
EXAMINATION TYPE: XR chest 1V portable DATE OF EXAM: 12/20/2019 COMPARISON: December 19, 2019 HISTORY: SOB, Follow Up FINDINGS: Indwelling tubes and catheters are unchanged. No significant change in perihilar and basilar infiltrates. Stable appearance of the cardio-mediastinal structures at this time. Pleural effusion unchanged. IMPRESSION: 1. Stable portable chest. Clinical correlation and follow up until resolution is recommended.
[2019-12-20] MEDS: PIPERACILLIN-TAZOBACTAM 3.375 GM in SODIUM CHLORIDE 0.9% 100 ML IVPB SCH ×2 (09:21→20:21)
[2019-12-20] MEDS: CHLORHEXIDINE GLUCONATE 15 ML CUP MUCOUS MEM SCH ×2 (09:21→20:21)
[2019-12-20] MEDS: SODIUM BICARBONATE TAB 650 MG TAB PO SCH ×3 (09:22→22:31)
[2019-12-20] MEDS: PANTOPRAZOLE 40 MG/10 ML VIAL IVP SCH (09:22)
--- NOTE | 2019-12-20 09:22 | P.PN ---
Subjective Patient is seen in follow-up for acute kidney injury. Urine output 15-20 mL an hour. Started on hemodialysis on December 17. Patient went for PEG tube placement yesterday and became bradycardic. No CPR was performed. However he had to be intubated. Vital signs are stable. General: The patient appeared well nourished and normally developed. Intubated. HEENT: Head exam is unremarkable. Neck is without jugular venous distension. LUNGS: Breath sounds decreased. HEART: Rate and Rhythm are regular. First and second heart sounds normal. No murmurs, rubs or gallops. ABDOMEN: Nontender. EXTREMITITES: No edema. Objective - Vital Signs Vital signs: Vital Signs Temp 97.7 F 12/20/19 04:00 Pulse 74 12/20/19 06:00 Resp 14 12/20/19 06:00 BP 92/66 12/20/19 02:30 Pulse Ox 100 12/20/19 06:00 Intake & Output 12/19/19 12/20/19 12/20/19 18:59 06:59 18:59 Intake Total 052.513 6318.567 111.146 Output Total 135 220 20 Balance 428.973 847.567 91.146 Weight 61.6 kg Intake: IV 270 900 75 Piperacillin-Tazobactam 3 100 .375 gm In Sodium Chloride 0.9% 100 ml @ 25 mls/hr IVPB Q8H [facility] Rx#: [id number] Sodium Chloride 0.9% 1, 170 525 000 ml @ 100 mls/hr IV . Q10H [facility] Rx#:[id number] Sodium Chloride 0.9% 1, 375 75 000 ml @ 75 mls/hr IV . [id number] [facility] Rx#:[id number] Intake, IV Titration 293.973 167.567 36.146 Amount Norepinephrine 8 mg In 293.973 40.389 36.146 Sodium Chloride 0.9% 250 ml @ 0.05 MCG/KG/MIN 5. 091 mls/hr IV .Q24H [facility] Rx#:[id number] Piperacillin-Tazobactam 3 100 .375 gm In Sodium Chloride 0.9% 100 ml @ 25 mls/hr IVPB Q12HR [facility] Rx #:[id number] Propofol 1,000 mg In 27.178 Empty Bag 1 bag @ Titrate IV .Q0M [facility] Rx#: [id number] Output: Urine 135 220 20 Hemodialysis 0 Other: Voiding Method Indwelling Catheter Indwelling Catheter ABP, PAP, CO, CI - Last Documented Arterial Blood Pressure 99/62 - Labs CBC & Chem 7: 12/20/19 04:30 12/20/19 04:30 Labs: Abnormal Lab Results - Last 24 Hours (Table) 12/19/19 12/19/19 12/19/19 Range/Units 10:20 13:54 18:27 RBC (4.30-5.90) m/uL Hgb (13.0-17.5) gm/dL Hct (39.0-53.0) % ABG pH 7.31 L (7.35-7.45) ABG pO2 79 L (83-108) mmHg ABG HCO3 20 L (21-25) mmol/L ABG O2 Saturation 93.7 L (94-97) % Sodium (137-145) mmol/L Potassium (3.5-5.1) mmol/L BUN (9-20) mg/dL Creatinine (0.66-1.25) mg/dL Glucose (74-99) mg/dL POC Glucose (mg/dL) 139 H (75-99) mg/dL Calcium (8.4-10.2) mg/dL Phosphorus (2.5-4.5) mg/dL AST (17-59) U/L Creatine Kinase 2720 H* (55-170) U/L Total Protein (6.3-8.2) g/dL Albumin (3.5-5.0) g/dL 12/19/19 12/20/19 12/20/19 Range/Units 23:20 04:30 04:30 RBC 3.35 L (4.30-5.90) m/uL Hgb 10.6 L (13.0-17.5) gm/dL Hct 30.0 L (39.0-53.0) % ABG pH (7.35-7.45) ABG pO2 (83-108) mmHg ABG HCO3 (21-25) mmol/L ABG O2 Saturation (94-97) % Sodium 136 L (137-145) mmol/L Potassium 2.3 L* (3.5-5.1) mmol/L BUN 57 H (9-20) mg/dL Creatinine 5.14 H (0.66-1.25) mg/dL Glucose 123 H (74-99) mg/dL POC Glucose (mg/dL) 121 H (75-99) mg/dL Calcium 7.8 L (8.4-10.2) mg/dL Phosphorus 6.6 H (2.5-4.5) mg/dL AST 97 H (17-59) U/L Creatine Kinase (55-170) U/L Total Protein 4.8 L (6.3-8.2) g/dL Albumin 2.3 L (3.5-5.0) g/dL 12/20/19 Range/Units 04:33 RBC (4.30-5.90) m/uL Hgb (13.0-17.5) gm/dL Hct (39.0-53.0) % ABG pH (7.35-7.45) ABG pO2 (83-108) mmHg ABG HCO3 (21-25) mmol/L ABG O2 Saturation (94-97) % Sodium (137-145) mmol/L Potassium (3.5-5.1) mmol/L BUN (9-20) mg/dL Creatinine (0.66-1.25) mg/dL Glucose (74-99) mg/dL POC Glucose (mg/dL) 133 H (75-99) mg/dL Calcium (8.4-10.2) mg/dL Phosphorus (2.5-4.5) mg/dL AST (17-59) U/L Creatine Kinase (55-170) U/L Total Protein (6.3-8.2) g/dL Albumin (3.5-5.0) g/dL Microbiology - Last 24 Hours (Table) 12/17/19 05:26 Blood Culture - Preliminary Blood No Growth after 72 hours Assessment and Plan Plan: Assessment: 1. Acute kidney injury secondary to ATN secondary to severe intravascular volu me depletion from poor oral intake and hypotension. Mild component of rhabdomyolysis. Creatinine 13.8 on admission. Baseline creatinine near 1. No hydronephrosis noted on kidney ultrasound. Urine output 15-20 mL an hour. Started on hemodialysis on December 17. 2. Severe hypokalemia from poor oral intake. Magnesium normal. 3. Metabolic acidosis secondary to acute kidney injury. Improved. Maintained on oral sodium bicarbonate. 4. Hypocalcemia secondary to acute kidney injury. Better post replacement. 5. History of throat cancer with last chemotherapy 4 months ago according to the patient. 6. Hypotension maintained on Levophed. 7. Dysphagia status post PEG tube placement on December 18. 8. Acute systolic CHF with ejection fraction of less than 20%. 9. Hyperphosphatemia secondary to acute kidney injury. Plan: Hemodialysis today with high potassium bath. He is also receiving 60 mEq of KCl. Lasix 80 mg IV once today after dialysis. Continue to monitor renal function and urine output. Assess on a daily basis for need for renal replacement therapy. Wean FiO2. Tube feeding to be started today. Add PhosLo.
[2019-12-20] MEDS: CALCIUM ACETATE 667 MG TAB PO SCH ×2 (11:47→16:28)
[2019-12-20 12:12] LABS: Glucose,Whole Blood 92 mg/dL (75-99)
--- NOTE | 2019-12-20 12:25 | P.PN ---
Subjective Progress Note Date: 12/20/19 On today's evaluation of 12/20/2019, the patient is intubated on a mechanical ventilator. Events from yesterday were noted. The patient during his PEG tube insertion, had an episode of bradycardia and hypotension. He did not lose pulse. He was given a dose of epinephrine. He was intubated by OUTSIDE SAL[employer] ACCOUNT REPRESENTATIVE and following that he was transferred to the intensive care unit on a mechanical ventilator. This morning, the patient is still sedated and is calm and comfortable remains on propofol at 20 mg per KG per minute. Norepinephrine infusion is running at 0.03 g per KG per minute. The patient remains on IV Zosyn for potential aspiration right lower lobe pneumonia. He is an assist- control mode rate of 12 with a tidal volume of 400 and FiO2 of 40% with a PEEP of 10. He will be having dialysis today. The patient has a blood gas that showed a pH of 7.39 with a pCO2 of 38 and pO2 of 98. Based on that, the PEEP was up from 10 down to 5. His morning potassium level is at 2.3 and this will be replaced. The patient is going to undergo another session of hemodialysis today. No fever. Chest x-ray shows a right lower lobe consolidation/effusion. ET tube is in a good location. An arterial line catheter was inserted yesterday without any major complications. He is afebrile. No significant urine output and the patient continues to be in acute kidney injury/renal failure. Enterofeeding has not been started yet. This can be started within 24 hours of insertion of the PEG tube. Objective - Vital Signs Vital signs: Vital Signs Temp 98 F 12/20/19 08:00 Pulse 82 12/20/19 11:30 Resp 14 12/20/19 11:30 BP 85/62 12/20/19 11:30 Pulse Ox 100 12/20/19 11:30 Intake & Output 12/19/19 12/20/19 12/20/19 18:59 06:59 18:59 Intake Total 606.320 1708.567 428.517 Output Total 135 220 145 Balance 428.973 847.567 283.517 Weight 61.6 kg Intake: IV 270 900 300 Piperacillin-Tazobactam 3 100 .375 gm In Sodium Chloride 0.9% 100 ml @ 25 mls/hr IVPB Q8H [facility] Rx#: [id number] Sodium Chloride 0.9% 1, 170 525 000 ml @ 100 mls/hr IV . Q10H [facility] Rx#:[id number] Sodium Chloride 0.9% 1, 375 300 000 ml @ 50 mls/hr IV . Q20H [facility] Rx#:[id number] Intake, IV Titration 293.973 167.567 128.517 Amount Norepinephrine 8 mg In 293.973 40.389 36.146 Sodium Chloride 0.9% 250 ml @ 0.05 MCG/KG/MIN 5. 091 mls/hr IV .Q24H [facility] Rx#:[id number] Piperacillin-Tazobactam 3 100 .375 gm In Sodium Chloride 0.9% 100 ml @ 25 mls/hr IVPB Q12HR [facility] Rx #:[id number] Propofol 1,000 mg In 27.178 92.371 Empty Bag 1 bag @ Titrate IV .Q0M [facility] Rx#: [id number] Output: Urine 135 220 145 Hemodialysis 0 Other: Voiding Method Indwelling Catheter Indwelling Catheter Indwelling Catheter ABP, PAP, CO, CI - Last Documented Arterial Blood Pressure 94/59 - Exam Chronically ill, cachectic General appearance: Present: The patient is sedated, comfortable likely distress. The patient has an orotracheal tube in place. The patient was intubated by #7. No significant orotracheal secretions for now. - EENT Eyes: Present: PERRLA - Neck Details: Neck is supple, no lymphadenopathy. Neck: Absent: stridor - Respiratory Details: Essentially clear throughout, diminished to his bilateral bases. Respirations are symmetrical and nonlabored. No wheezes, rhonchi or crackles. - Cardiovascular Details: Regular rhythm with tachycardic rate. S1 and S2 present, negative for S3, gallop or murmur. - Gastrointestinal Gastrointestinal Comment(s): Abdomen soft, nontender and nondistended. Active bowel sounds present in all 4 abdominal quadrants. No guarding or rigidity. No organomegaly appreciated. - Integumentary Integumentary Comment(s): Skin is warm and dry. No clubbing or cyanosis is present. No rash or abnormal pigmentation is present. - Neurologic Neurologic: Present: CNII-XII intact, sedated comfortable for him, comfortable. - Musculoskeletal Musculoskeletal: Present: generalized weakness, strength equal bilaterally, the patient has a Artline catheter in the radial artery and the patient has diminished pulses in all 4 extremities. He has also a temper dialysis catheter in the right femoral vein. - Psychiatric Psychiatric: Cannot be done as the patient is currently intubated on a mechanical ventilator. - Labs CBC & Chem 7: 12/20/19 04:30 12/20/19 04:30 Labs: Abnormal Lab Results - Last 24 Hours (Table) 12/19/19 12/19/19 12/19/19 Range/Units 13:54 18:27 23:20 RBC (4.30-5.90) m/uL Hgb (13.0-17.5) gm/dL Hct (39.0-53.0) % ABG pH 7.31 L (7.35-7.45) ABG pO2 79 L (83-108) mmHg ABG HCO3 20 L (21-25) mmol/L ABG O2 Saturation 93.7 L (94-97) % Sodium (137-145) mmol/L Potassium (3.5-5.1) mmol/L BUN (9-20) mg/dL Creatinine (0.66-1.25) mg/dL Glucose (74-99) mg/dL POC Glucose (mg/dL) 139 H 121 H (75-99) mg/dL Calcium (8.4-10.2) mg/dL Phosphorus (2.5-4.5) mg/dL AST (17-59) U/L Total Protein (6.3-8.2) g/dL Albumin (3.5-5.0) g/dL 12/20/19 12/20/19 12/20/19 Range/Units 04:30 04:30 04:33 RBC 3.35 L (4.30-5.90) m/uL Hgb 10.6 L (13.0-17.5) gm/dL Hct 30.0 L (39.0-53.0) % ABG pH (7.35-7.45) ABG pO2 (83-108) mmHg ABG HCO3 (21-25) mmol/L ABG O2 Saturation (94-97) % Sodium 136 L (137-145) mmol/L Potassium 2.3 L* (3.5-5.1) mmol/L BUN 57 H (9-20) mg/dL Creatinine 5.14 H (0.66-1.25) mg/dL Glucose 123 H (74-99) mg/dL POC Glucose (mg/dL) 133 H (75-99) mg/dL Calcium 7.8 L (8.4-10.2) mg/dL Phosphorus 6.6 H (2.5-4.5) mg/dL AST 97 H (17-59) U/L Total Protein 4.8 L (6.3-8.2) g/dL Albumin 2.3 L (3.5-5.0) g/dL Microbiology - Last 24 Hours (Table) 12/17/19 05:26 Blood Culture - Preliminary Blood No Growth after 72 hours Assessment and Plan Plan: 1. Acute hypoxic respiratory failure, during a PEG tube insertion during which the patient had an episode of bradycardia and hypoxemia and he had to be intubated and placed on mechanical ventilator. He remains intubated by a #7 orotracheal tube. Blood gases was reviewed. Chest x-ray was reviewed. There may be an underlying aspiration pneumonia addition involving the right lower lobe for which the patient is on IV Zosyn. Remains sedated, comfortable hemodynamically stable on low-dose pressors. 3 Severe dehydration, rhabdomyolysis. By an acute kidney injury requiring hem odialysis. The patient undergoing his third session of hemodialysis today via a temporary vas catheter inserted in his right colon. The patient is clinically improving.Signs of volume overload. Potassium level is low on his to be replaced. 2 Aspiration pneumonia, was started on Zosyn for antibiotic coverage, the patient has a persistent consolidation of the right lower lobe. 3 sepsis secondary to pneumonia/aspiration. The patient is currently on IV Zosyn and pressors were the norepinephrine infusion is being gradually weaned off. The patient is still on minimal amount of pressors for now 4 acute kidney injury, dialysis dependent secondary to severe dehydration/Rhabdomyolysis noted the CPK is improving as the patient is recovering from rhabdomyolysis 5 post PEG tube insertion 6 Electrolyte imbalance, hypokalemia, improving 7 Generalized debility and weakness 8 Dehydration and malnutrition 9 Cardiac arrhythmia with bundle branch block, Secondary to profound hypokale chapis which improved after correction of the hypokalemia 10 History of throat cancer, previous chemotherapy and radiation treatments 11 dysphagia and failure to swallow properly secondary to laryngeal cancer Plan Continue vent support and drop the PEEP down to 5. We'll keep the patient sedated on a mechanical ventilator. The patient would undergo dialysis today and postdialysis we are going to give this patient a sedation holiday and possibly spontaneous breathing trial. We'll continue ventilator support for now. No other vent changes were done. Chest x-ray was reviewed. Blood gases was reviewed. Continue IV Zosyn Wean off pressors Oral bicarb Proceed with hemodialysis per nephrology Monitor urine output The patient will be started on enteral feeding 24 hours after completing the PEG tube and this will probably is started by afternoon today condition is critical. We'll continue to follow make further recommendations based on her overall progress. This is a critically care evaluation that was on a more than 30 minutes. Time with Patient: Greater than 30
[2019-12-20 13:02] LABS: Hemoglobin A1C 6.5 % (4.0-6.0)
--- NOTE | 2019-12-20 13:43 | P.PN ---
Progress Note - Text Progress Note Date: 12/20/19 Patient remains on ventilator. On exam vital signs remain stable. His PEG tube site is clean dry tach. Patient may be started on tube feeds today
--- NOTE | 2019-12-20 14:58 | P.PN ---
Subjective Progress Note Date: 12/20/19 Principal diagnosis: TERRANCE Objective - Vital Signs Vital signs: Vital Signs Temp 98.0 F 12/20/19 14:41 Pulse 84 12/20/19 14:41 Resp 20 12/20/19 14:41 BP 101/62 12/20/19 14:41 Pulse Ox 98 12/20/19 14:00 Intake & Output 12/19/19 12/20/19 12/20/19 18:59 06:59 18:59 Intake Total 708.682 9512.567 745.976 Output Total 135 220 235 Balance 428.973 847.567 510.976 Weight 61.6 kg 61.6 kg Intake: IV 270 900 600 Piperacillin-Tazobactam 3 100 .375 gm In Sodium Chloride 0.9% 100 ml @ 25 mls/hr IVPB Q8H [facility] Rx#: [id number] Sodium Chloride 0.9% 1, 170 525 000 ml @ 100 mls/hr IV . Q10H [facility] Rx#:[id number] Sodium Chloride 0.9% 1, 375 600 000 ml @ 50 mls/hr IV . Q20H [facility] Rx#:[id number] Intake, IV Titration 293.973 167.567 145.976 Amount Norepinephrine 8 mg In 293.973 40.389 53.605 Sodium Chloride 0.9% 250 ml @ 0.05 MCG/KG/MIN 5. 091 mls/hr IV .Q24H [facility] Rx#:[id number] Piperacillin-Tazobactam 3 100 .375 gm In Sodium Chloride 0.9% 100 ml @ 25 mls/hr IVPB Q12HR [facility] Rx #:[id number] Propofol 1,000 mg In 27.178 92.371 Empty Bag 1 bag @ Titrate IV .Q0M [facility] Rx#: [id number] Output: Urine 135 220 235 Hemodialysis 0 0 Other: Voiding Method Indwelling Catheter Indwelling Catheter Indwelling Catheter ABP, PAP, CO, CI - Last Documented Arterial Blood Pressure 93/63 - Exam General: Alert and Oriented x3, No Acute Distress, thin malnourished, dry lips Head: Normocytic, Atraumatic Neck: Supple Mouth: No Lesions, No Thrush Eyes: Non-sclerotic No Palpable cervical, supraclavicular, axillary adenopathy Heart: Regular Rate, Regular Rhythm Lungs: Clear to Ausculations, No Wheeze, No Rhonchi, Diminishe bilateral lower lobes, No increased respiratory effort noted Abdomen: Soft, Non-Distended, Non-Tended, BSx4 Extremities: No Edema, Equal Strength Neurological: No Focal Defects: No sensory or motor deficits noted - Labs CBC & Chem 7: 12/20/19 04:30 12/20/19 04:30 Labs: Abnormal Lab Results - Last 24 Hours (Table) 12/19/19 12/19/19 12/20/19 Range/Units 18:27 23:20 04:30 RBC (4.30-5.90) m/uL Hgb (13.0-17.5) gm/dL Hct (39.0-53.0) % Sodium (137-145) mmol/L Potassium (3.5-5.1) mmol/L BUN (9-20) mg/dL Creatinine (0.66-1.25) mg/dL Glucose (74-99) mg/dL POC Glucose (mg/dL) 139 H 121 H (75-99) mg/dL Hemoglobin A1c 6.5 H (4.0-6.0) % Calcium (8.4-10.2) mg/dL Phosphorus (2.5-4.5) mg/dL AST (17-59) U/L Total Protein (6.3-8.2) g/dL Albumin (3.5-5.0) g/dL 12/20/19 12/20/19 12/20/19 Range/Units 04:30 04:30 04:33 RBC 3.35 L (4.30-5.90) m/uL Hgb 10.6 L (13.0-17.5) gm/dL Hct 30.0 L (39.0-53.0) % Sodium 136 L (137-145) mmol/L Potassium 2.3 L* (3.5-5.1) mmol/L BUN 57 H (9-20) mg/dL Creatinine 5.14 H (0.66-1.25) mg/dL Glucose 123 H (74-99) mg/dL POC Glucose (mg/dL) 133 H (75-99) mg/dL Hemoglobin A1c (4.0-6.0) % Calcium 7.8 L (8.4-10.2) mg/dL Phosphorus 6.6 H (2.5-4.5) mg/dL AST 97 H (17-59) U/L Total Protein 4.8 L (6.3-8.2) g/dL Albumin 2.3 L (3.5-5.0) g/dL Microbiology - Last 24 Hours (Table) 12/17/19 05:26 Blood Culture - Preliminary Blood No Growth after 72 hours Assessment and Plan Plan: Assessment and Recommendations: Head and Neck Cancer: Stage IV (T2, N2b, M0) +P16 - History and Details per HPI - Completed Chemo/radiation concurrent in April 2019 - No evidence of progression/recurrence on recent PET (12/01/19) - Post Chemotherapy mild increase in renal function, creat max in May 2019 = 2.31, August Creat 1.21 - Did struggle with Hypokalemia, due to decreased PO intake during treatment Acute Kidney Injury: - secondary to ATN, intravascular volume depletion - Exacerbated by poor PO intake and hypotension. - Creatinine 13.8 on admission. - Review of Ultrasound no hydronephrosis noted - Nephrology following Severe hypokalemia: - Per Nephrology - TMS/ICU monitoring Metabolic acidosis secondary to acute kidney injury. Hypocalcemia secondary to acute kidney injury. Severe Malnutrition secondary to dysphagia - Feeding tube yesterday - Agree Plan: - ENT evaluation to determine local recurrence with inability to swallow causing - Potassium Supp per ICU care Stella MORALEZ. Physician Attestation: I have performed the full physical examination and rev iewed the full history of this patient, as well as pertinent findings. I have created the compled impression and recommendations. I agree with the above dictation by NAOMY Wong. This dictation has been written as a scribe.
--- NOTE | 2019-12-20 16:31 | PN ---
PROGRESS NOTE DATE OF SERVICE: 12/20/2019. CHIEF COMPLAINT: Acute renal failure. HISTORY OF PRESENT ILLNESS: Yesterday, this gentleman was taken down for a PEG tube and during the procedure he developed hypotension and bradycardia and had to be intubated. At the present time, he is doing well on the ventilator and it is expected he will be extubated today. REVIEW OF SYSTEMS: Unobtainable. PHYSICAL EXAMINATION: Blood pressure is 119/73. He is in sinus rhythm. Breath sounds are heard on both sides and cardiac exam demonstrates what sounds like a regular rate and rhythm. Abdomen is soft and extremities normal. IMPRESSION: 1. Respiratory failure with hypotension. 2. Acute kidney injury. 3. History of carcinoma of the throat. 4. Chronic obstructive pulmonary disease. 5. History of alcoholism. PLAN: No change in his program from my perspective and continue to follow while he is in ICU. MATTY / TRACIE: [id number] /
[2019-12-20] MEDS ORDERED: FUROSEMIDE 10 MG/ML 10 ML VIAL IV ONE (17:00)
[2019-12-20 18:35] LABS: Glucose,Whole Blood 94 mg/dL (75-99)
[2019-12-20] MEDS: POTASSIUM BICARBONATE/CIT AC 20 MEQ TABLET.EFF PO SCH ×3 (19:02→22:31)
[2019-12-21 00:13] LABS: Glucose,Whole Blood 125 mg/dL (75-99)
[2019-12-21] MEDS: PROPOFOL 1,000 MG in EMPTY BAG 1 BAG IV SCH ×2 (03:22→09:01)
[2019-12-21] MEDS: INSULIN ASPART (NovoLOG) 100 UNIT/ML VIAL SQ SCH ×4 (03:24→18:43)
[2019-12-21 04:52] LABS: HCT 30.5 % (39.0-53.0); HGB 10.5 gm/dL (13.0-17.5); MCH 31.7 pg (25.0-35.0); MCHC 34.6 g/dL (31.0-37.0); MCV 91.6 fL (80.0-100.0); Mean Platelet Volume 8.5; Platelet Count 169 k/uL (150-450); Poikilocytosis Slight; RBC 3.33 m/uL (4.30-5.90); RDW 13.7 % (11.5-15.5); WBC 8.8 k/uL (3.8-10.6)
[2019-12-21 05:07] LABS: ABG Base Excess -5.5 mmol/L; ABG HCO3 20 mmol/L (21-25); ABG Oxygen Saturation 98.5 % (94-97); ABG PCO2 34 mmHg (35-45); ABG PH 7.37 (7.35-7.45); ABG PO2 143 mmHg (83-108); ABG TCO2 21 mmol/L (19-24)
[2019-12-21 05:07] LABS: Albumin 2.3 g/dL (3.5-5.0); Calcium 8.3 mg/dL (8.4-10.2); Potassium 3.5 mmol/L (3.5-5.1); Total Bilirubin 0.4 mg/dL (0.2-1.3); Total Protein 4.8 g/dL (6.3-8.2)
[2019-12-21 05:08] LABS: Allen Test Performed? no
[2019-12-21 06:04] LABS: Glucose,Whole Blood 110 mg/dL (75-99)
[2019-12-21 06:17] LABS: Glucose,Whole Blood 132 mg/dL (75-99)
[2019-12-21] MEDS: CALCIUM ACETATE 667 MG TAB PO SCH ×2 (06:33→16:43)
--- NOTE | 2019-12-21 06:46 | XR ---
EXAMINATION TYPE: XR chest 1V portable DATE OF EXAM: 12/21/2019 HISTORY: Tube placement. REFERENCE: Previous study dated 12/20/2019. FINDINGS: Unfortunately, the patient's chin projects over the upper chest. The patient remains intubated. ET tube is unchanged in appearance. There is a left basilic PICC line in place. Its tip is within the superior vena cava. There is bibasilar airspace disease. Right-sided airspace disease has worsened. There are associated bilateral effusions. Heart size upper limits of normal. IMPRESSION: WORSENING RIGHT BASILAR AIRSPACE DISEASE WITH ASSOCIATED LEFT BASILAR AIRSPACE DISEASE AND SMALL, RAPHAEL ATERAL EFFUSIONS.
[2019-12-21] MEDS ORDERED: POTASSIUM BICARBONATE/CIT AC 20 MEQ TABLET.EFF NG-TUBE SCH (07:00)
--- NOTE | 2019-12-21 08:29 | CDI ---
Documentation Clarification Form Date: 12/21/2019 08:21:53 AM From: Erica Cox RN, CCDS Admit Date: 12/17/2019 07:46:00 AM Patient Name: Ventura Austin Visit Number: [id number] ATTENTION: The Clinical Documentation Specialists (CDI) and [facility] Coding Staff appreciate your assistance in clarifying documentation. Please respond to the clarification below the line at the bottom and electronically sign. The CDI & [facility] Coding staff will review the response and follow-up if needed. Please note: Queries are made part of the Legal Health Record. If you have any questions, please contact the author of this message via ITS. Dr. Neal Chaney Please render your opinion on the clinical significance of the patients declining hemoglobin/hematocrit levels. History/Risk Factors: Acute hypoxic respiratory failure, aspiration pneumonia, Sepsis, throat CA stage 4, dehydration, Rhabdo, TERRANCE with ATN HD dependant Clinical indicators: 12/16-12/20 Hgb: 14.6/12.4/10.6/10.5 12/16-12/20 Hct: 41.2/35.8/34.8/30/30.5 Treatment: 12/16 2L 0.9% NS IVF bolus followed by 100 cc/hr then decreased to 50 cc/hr In order to capture the severity of condition, please clarify if the labs/clinical indicators signify: Chronic blood loss anemia Iron deficiency anemia Anemia due to malignancy Nutritional anemia Anemia of chronic kidney disease Anemia of chronic disease (please specify) Unable to determine Other, please specify (Last Form Revision: November 2019) MTDD
--- NOTE | 2019-12-21 08:57 | P.PN ---
Subjective Patient is seen in follow-up for acute kidney injury. Urine output 25-30 mL an hour. Started on hemodialysis on December 17. Intubated. On low-dose Levophed. Receiving tube feeding. Vital signs are stable. General: The patient appeared well nourished and normally developed. Intubated. HEENT: Head exam is unremarkable. Neck is without jugular venous distension. LUNGS: Breath sounds decreased. HEART: Rate and Rhythm are regular. ABDOMEN: Nontender. EXTREMITITES: No edema. Objective - Vital Signs Vital signs: Vital Signs Temp 97.7 F 12/21/19 08:00 Pulse 73 12/21/19 08:15 Resp 20 12/21/19 08:15 BP 85/62 12/21/19 08:15 Pulse Ox 100 12/21/19 08:15 Intake & Output 12/20/19 12/21/19 12/21/19 18:59 06:59 18:59 Intake Total 9297.919 3484.167 148.765 Output Total 340 335 25 Balance 729.732 999.167 123.765 Weight 61.6 kg Intake: IV 900 900 75 Sodium Chloride 0.9% 1, 900 900 75 000 ml @ 50 mls/hr IV . Q20H [facility] Rx#:[id number] Intake, IV Titration 169.732 224.167 53.765 Amount Norepinephrine 8 mg In 77.361 44.087 24.382 Sodium Chloride 0.9% 250 ml @ 0.05 MCG/KG/MIN 5. 091 mls/hr IV .Q24H [facility] Rx#:[id number] Propofol 1,000 mg In 92.371 180.080 29.383 Empty Bag 1 bag @ Titrate IV .Q0M [facility] Rx#: [id number] Tube Feeding 150 20 Other 60 Output: Urine 340 335 25 Hemodialysis 0 Other: Voiding Method Indwelling Catheter Indwelling Catheter ABP, PAP, CO, CI - Last Documented Arterial Blood Pressure 112/70 - Labs CBC & Chem 7: 12/21/19 04:30 12/21/19 04:30 Labs: Abnormal Lab Results - Last 24 Hours (Table) 12/20/19 12/20/19 12/21/19 Range/Units 04:30 17:00 00:11 RBC (4.30-5.90) m/uL Hgb (13.0-17.5) gm/dL Hct (39.0-53.0) % Potassium 3.3 L (3.5-5.1) mmol/L Chloride (98-107) mmol/L Carbon Dioxide (22-30) mmol/L BUN (9-20) mg/dL Creatinine (0.66-1.25) mg/dL Glucose (74-99) mg/dL POC Glucose (mg/dL) 125 H (75-99) mg/dL Hemoglobin A1c 6.5 H (4.0-6.0) % Calcium (8.4-10.2) mg/dL AST (17-59) U/L Total Protein (6.3-8.2) g/dL Albumin (3.5-5.0) g/dL 12/21/19 12/21/19 12/21/19 Range/Units 04:30 04:30 06:01 RBC 3.33 L (4.30-5.90) m/uL Hgb 10.5 L (13.0-17.5) gm/dL Hct 30.5 L (39.0-53.0) % Potassium (3.5-5.1) mmol/L Chloride 112 H (98-107) mmol/L Carbon Dioxide 19 L (22-30) mmol/L BUN 37 H (9-20) mg/dL Creatinine 3.36 H (0.66-1.25) mg/dL Glucose 127 H (74-99) mg/dL POC Glucose (mg/dL) 110 H (75-99) mg/dL Hemoglobin A1c (4.0-6.0) % Calcium 8.3 L (8.4-10.2) mg/dL AST 65 H (17-59) U/L Total Protein 4.8 L (6.3-8.2) g/dL Albumin 2.3 L (3.5-5.0) g/dL 12/21/19 Range/Units 06:15 RBC (4.30-5.90) m/uL Hgb (13.0-17.5) gm/dL Hct (39.0-53.0) % Potassium (3.5-5.1) mmol/L Chloride (98-107) mmol/L Carbon Dioxide (22-30) mmol/L BUN (9-20) mg/dL Creatinine (0.66-1.25) mg/dL Glucose (74-99) mg/dL POC Glucose (mg/dL) 132 H (75-99) mg/dL Hemoglobin A1c (4.0-6.0) % Calcium (8.4-10.2) mg/dL AST (17-59) U/L Total Protein (6.3-8.2) g/dL Albumin (3.5-5.0) g/dL Microbiology - Last 24 Hours (Table) 12/17/19 05:26 Blood Culture - Preliminary Blood No Growth after 96 hours Assessment and Plan Plan: Assessment: 1. Acute kidney injury secondary to ATN secondary to severe intravascular volume depletion from poor oral intake and hypotension. Mild component of rhabdomyolysis. Creatinine 13.8 on admission. Baseline creatinine near 1. No hydronephrosis noted on kidney ultrasound. Urine output 25-30 mL an hour. Started on hemodialysis on December 17. Status post 80 mg IV Lasix on December 19. 2. Severe hypokalemia from poor oral intake. Magnesium normal. Better. 3. Metabolic acidosis secondary to acute kidney injury. Maintained on oral sodium bicarbonate. Stable. 4. Hypocalcemia secondary to acute kidney injury. Better post replacement. 5. History of throat cancer with last chemotherapy 4 months ago according to the patient. 6. Hypotension maintained on Levophed. 7. Dysphagia status post PEG tube placement on December 18. 8. Acute systolic CHF with ejection fraction of less than 20%. 9. Hyperphosphatemia secondary to acute kidney injury maintained on PhosLo. Plan: Hemodialysis today with high potassium bath. Will plan to hold hemodialysis tomorrow and reassess again on Monday. Hold off on Lasix today. Continue to monitor renal function and urine output. Wean FiO2 and Levophed.
[2019-12-21] MEDS: HEPARIN SODIUM,PORCINE 5,000 UNIT/ML 1 ML VIAL SQ SCH ×2 (09:16→16:43)
[2019-12-21] MEDS: PANTOPRAZOLE 40 MG/10 ML VIAL IVP SCH (09:17)
[2019-12-21] MEDS: SODIUM BICARBONATE TAB 650 MG TAB PO SCH ×3 (09:17→20:09)
[2019-12-21] MEDS: CHLORHEXIDINE GLUCONATE 15 ML CUP MUCOUS MEM SCH ×2 (09:17→20:10)
[2019-12-21] MEDS: PIPERACILLIN-TAZOBACTAM 3.375 GM in SODIUM CHLORIDE 0.9% 100 ML IVPB SCH ×2 (09:17→20:10)
[2019-12-21] MEDS ORDERED: POTASSIUM BICARBONATE/CIT AC 20 MEQ TABLET.EFF PO ONE ×2 (12:00→19:47)
--- NOTE | 2019-12-21 12:15 | P.PN ---
Subjective Progress Note Date: 12/21/19 On 12/21/2019 patient remains a mechanical ventilator. I discussed the case with nephrology. The patient is going to undergo dialysis session today and for that reason I decided to hold off on his sedation holiday weaning trial. In terms of his pulmonary status, the patient remains on a mechanical ventilator. He is was sedated right now and propofol running at 40 g per KG per minute. The patient is requiring a low dose norepinephrine infusion for blood pressure control which is running at 0.02 mcg/kg per minute. He is receiving vital high protein at the rate of 20 mL an hour and IV fluid is running at 75 mL an hour. The patient is making urine output in the order of 25./ Hour. Currently, the patient is an assist-control mode of ventilation and the patient is on a rate of 12, tidal volume of 400 and FiO2 of 40% and a PEEP of 5. No blood gases are available from this morning. Chest x-ray however shows worsening of the right basilar airspace disease and there is also associated bilateral pleural effusion. The patient has a ET tube and this was in a good location. The patient also has a left upper extremity PICC line catheter in place. no other significant events overnight. The PEG tube site is dry clean and intact and the patient was started on enteral feeding for nutritional support. Objective - Vital Signs Vital signs: Vital Signs Temp 97.7 F 12/21/19 08:00 Pulse 80 12/21/19 10:45 Resp 20 12/21/19 10:45 BP 85/62 12/21/19 08:15 Pulse Ox 100 12/21/19 10:45 Intake & Output 12/20/19 12/21/19 12/21/19 18:59 06:59 18:59 Intake Total 0724.016 6111.167 319.288 Output Total 340 335 60 Balance 729.732 999.167 259.288 Weight 61.6 kg Intake: IV 900 900 190 Sodium Chloride 0.9% 1, 900 900 190 000 ml @ 20 mls/hr IV . Q24H [facility] Rx#:[id number] Intake, IV Titration 169.732 224.167 69.288 Amount Norepinephrine 8 mg In 77.361 44.087 24.382 Sodium Chloride 0.9% 250 ml @ 0.05 MCG/KG/MIN 5. 091 mls/hr IV .Q24H [facility] Rx#:[id number] Propofol 1,000 mg In 92.371 180.080 44.906 Empty Bag 1 bag @ Titrate IV .Q0M [facility] Rx#: [id number] Tube Feeding 150 60 Other 60 Output: Urine 340 335 60 Hemodialysis 0 Other: Voiding Method Indwelling Catheter Indwelling Catheter Indwelling Catheter ABP, PAP, CO, CI - Last Documented Arterial Blood Pressure 120/84 - Exam Chronically ill, cachectic General appearance: Present: The patient is sedated, comfortable likely distress. The patient has an orotracheal tube in place. The patient was intubated by #7. No significant orotracheal secretions for now. - EENT Eyes: Present: PERRLA - Neck Details: Neck is supple, no lymphadenopathy. Neck: Absent: stridor - Respiratory Details: Essentially clear throughout, diminished to his bilateral bases. Respirations are symmetrical and nonlabored. No wheezes, rhonchi or crackles. - Cardiovascular Details: Regular rhythm with tachycardic rate. S1 and S2 present, negative for S3, gallop or murmur. - Gastrointestinal Gastrointestinal Comment(s): Abdomen soft, nontender and nondistended. Active bowel sounds present in all 4 abdominal quadrants. No guarding or rigidity. No organomegaly appreciated. The patient has a PEG tube in the PEG tube site is dry clean and intact. - Integumentary Integumentary Comment(s): Skin is warm and dry. No clubbing or cyanosis is present. No rash or abnormal pigmentation is present. - Neurologic Neurologic: Present: CNII-XII intact, sedated comfortable for him, comfortable. - Musculoskeletal Musculoskeletal: Present: generalized weakness, strength equal bilaterally, the patient has a Artline catheter in the radial artery and the patient has diminished pulses in all 4 extremities. He has also a temper dialysis catheter in the right femoral vein. - Psychiatric Psychiatric: Cannot be done as the patient is currently intubated on a mechanical ventilator. - Labs CBC & Chem 7: 12/21/19 04:30 12/21/19 10:30 Labs: Abnormal Lab Results - Last 24 Hours (Table) 12/20/19 12/20/19 12/21/19 Range/Units 04:30 17:00 00:11 RBC (4.30-5.90) m/uL Hgb (13.0-17.5) gm/dL Hct (39.0-53.0) % Potassium 3.3 L (3.5-5.1) mmol/L Chloride (98-107) mmol/L Carbon Dioxide (22-30) mmol/L BUN (9-20) mg/dL Creatinine (0.66-1.25) mg/dL Glucose (74-99) mg/dL POC Glucose (mg/dL) 125 H (75-99) mg/dL Hemoglobin A1c 6.5 H (4.0-6.0) % Calcium (8.4-10.2) mg/dL AST (17-59) U/L Total Protein (6.3-8.2) g/dL Albumin (3.5-5.0) g/dL 12/21/19 12/21/19 12/21/19 Range/Units 04:30 04:30 06:01 RBC 3.33 L (4.30-5.90) m/uL Hgb 10.5 L (13.0-17.5) gm/dL Hct 30.5 L (39.0-53.0) % Potassium (3.5-5.1) mmol/L Chloride 112 H (98-107) mmol/L Carbon Dioxide 19 L (22-30) mmol/L BUN 37 H (9-20) mg/dL Creatinine 3.36 H (0.66-1.25) mg/dL Glucose 127 H (74-99) mg/dL POC Glucose (mg/dL) 110 H (75-99) mg/dL Hemoglobin A1c (4.0-6.0) % Calcium 8.3 L (8.4-10.2) mg/dL AST 65 H (17-59) U/L Total Protein 4.8 L (6.3-8.2) g/dL Albumin 2.3 L (3.5-5.0) g/dL 12/21/19 12/21/19 Range/Units 06:15 10:30 RBC (4.30-5.90) m/uL Hgb (13.0-17.5) gm/dL Hct (39.0-53.0) % Potassium 2.8 L (3.5-5.1) mmol/L Chloride (98-107) mmol/L Carbon Dioxide (22-30) mmol/L BUN (9-20) mg/dL Creatinine (0.66-1.25) mg/dL Glucose (74-99) mg/dL POC Glucose (mg/dL) 132 H (75-99) mg/dL Hemoglobin A1c (4.0-6.0) % Calcium (8.4-10.2) mg/dL AST (17-59) U/L Total Protein (6.3-8.2) g/dL Albumin (3.5-5.0) g/dL Microbiology - Last 24 Hours (Table) 12/17/19 05:26 Blood Culture - Preliminary Blood No Growth after 96 hours Assessment and Plan Plan: 1. Acute hypoxic respiratory failure, during a PEG tube insertion during which the patient had an episode of bradycardia and hypoxemia and he had to be intubated and placed on mechanical ventilator. He remains intubated by a #7 orotracheal tube. The follow-up chest x-ray from today shows worsening of the right lower lobe consolidation and small bilateral pleural effusion. Nevertheless, the patient's oxidation is improved and the patient is currently on FiO2 of 40% with a PEEP of 5. The patient is also on Zosyn for possible aspiration pneumonia. He is afebrile. He is on low-dose pressors for hemodynamic support and norepinephrine infusion is running at 0.02 mcg/kg per minute. 3 acute kidney injury secondary to Severe dehydration/ rhabdomyolysis. The CPK is improved and the patient is currently undergoing dialysis for acute kidney injury. Urine output is improved. The neck fluid balance is also improved. 2 Aspiration pneumonia, was started on Zosyn for antibiotic coverage, the pat ient has a persistent consolidation of the right lower lobe. 3 sepsis secondary to pneumonia/aspiration. The patient is currently on IV Zosyn and pressors were the norepinephrine infusion at a very low rates 4 acute kidney injury, dialysis dependent secondary to severe dehydration/Rhabdomyolysis noted the CPK is improving as the patient is recovering from rhabdomyolysis 5 post PEG tube insertion and the patient will be started on enteral feeding for nutritional support 6 Electrolyte imbalance, hypokalemia, improving 7 Generalized debility and weakness 8 Dehydration and malnutrition, improved 9 Cardiac arrhythmia with bundle branch block, Secondary to profound hypokalemia which improved after correction of the hypokalemia 10 History of throat cancer, previous chemotherapy and radiation treatments 11 dysphagia and failure to swallow properly secondary to laryngeal cancer, post PEG tube insertion Plan Continue vent support for the same vent setting Continued IV Zosyn Proceed with hemodialysis today Sedation holiday once dialysis is completed Check weaning parameters and assess the patient's candidacy for further weaning The patient is currently on IV fluids and this will be KVO Repeat chest x-ray and blood gases in the morning Nephrology is on the case Initiate enteral feeding for nutritional support We'll continue to follow make further recommendations based on his progress. This is a critically care evaluation that was done more than 30 minutes. Time with Patient: Greater than 30
[2019-12-21 13:04] LABS: Glucose,Whole Blood 91 mg/dL (75-99)
[2019-12-21 16:24] LABS: ABG Base Excess 1.2 mmol/L; ABG HCO3 25 mmol/L (21-25); ABG Oxygen Saturation 98.8 % (94-97); ABG PCO2 35 mmHg (35-45); ABG PH 7.47 (7.35-7.45); ABG PO2 153 mmHg (83-108); ABG TCO2 26 mmol/L (19-24)
[2019-12-21 16:26] LABS: Allen Test Performed? no
[2019-12-21] MEDS: SODIUM CHLORIDE 0.9% 1,000 ML IV SCH (16:43)
[2019-12-21 17:30] LABS: Magnesium 1.9 mg/dL (1.6-2.3); Potassium 3.4 mmol/L (3.5-5.1)
[2019-12-21 17:32] LABS: Glucose,Whole Blood 117 mg/dL (75-99)
[2019-12-22 00:10] LABS: Glucose,Whole Blood 135 mg/dL (75-99)
[2019-12-22] MEDS: INSULIN ASPART (NovoLOG) 100 UNIT/ML VIAL SQ SCH ×4 (00:16→17:14)
[2019-12-22] MEDS: HEPARIN SODIUM,PORCINE 5,000 UNIT/ML 1 ML VIAL SQ SCH ×3 (00:16→15:53)
[2019-12-22] MEDS ORDERED: Potassium Replacement Protocol 1 EACH MISC MISCELLANE PRN ×3 (02:58→17:27)
[2019-12-22] MEDS ORDERED: POTASSIUM BICARBONATE/CIT AC 20 MEQ TABLET.EFF NG-TUBE SCH ×2 (03:00→07:00)
[2019-12-22 05:45] LABS: Glucose,Whole Blood 123 mg/dL (75-99)
[2019-12-22 06:22] LABS: Basophils % (A) 0 %; Eosinophils # (A) 0.1 k/uL (0-0.7); Eosinophils % (A) 2 %; HCT 28.9 % (39.0-53.0); HGB 9.9 gm/dL (13.0-17.5); Lymphocytes # (A) 0.4 k/uL (1.0-4.8); Lymphocytes % (A) 6 %; MCH 31.7 pg (25.0-35.0); MCHC 34.1 g/dL (31.0-37.0); MCV 92.9 fL (80.0-100.0); Mean Platelet Volume 8.1; Monocytes # (A) 0.4 k/uL (0-1.0); Monocytes % (A) 5 %; Neutrophils # (A) 6.2 k/uL (1.3-7.7); Neutrophils % (A) 83 %; Platelet Count 165 k/uL (150-450); RBC 3.11 m/uL (4.30-5.90); RDW 13.6 % (11.5-15.5); WBC 7.4 k/uL (3.8-10.6)
[2019-12-22 06:31] LABS: Calcium 8.4 mg/dL (8.4-10.2); Potassium 3.7 mmol/L (3.5-5.1)
--- NOTE | 2019-12-22 06:50 | XR ---
EXAMINATION TYPE: XR chest 1V portable DATE OF EXAM: 12/22/2019 HISTORY: Tube placement. REFERENCE: Previous study dated 12/21/2019. FINDINGS: There continues to be increased opacity in the right hemithorax which may be due to layerin g fluid. There is left basilar airspace disease either representing atelectasis or pneumonia. Heart s ize is mildly prominent. Incidental note is made of severe rotator cuff disease in the right shoulder and to a lesser extent t he left shoulder. IMPRESSION: 1. IMPROVED AERATION OF THE RIGHT LUNG BASE. 2. CONTINUING LEFT BASILAR AIRSPACE DISEASE. 3. SMALL, BILATERAL EFFUSIONS.
[2019-12-22] MEDS: CALCIUM ACETATE 667 MG TAB PO SCH ×2 (07:03→17:17)
[2019-12-22] MEDS: PIPERACILLIN-TAZOBACTAM 3.375 GM in SODIUM CHLORIDE 0.9% 100 ML IVPB SCH ×2 (08:49→20:53)
[2019-12-22] MEDS: PANTOPRAZOLE 40 MG/10 ML VIAL IVP SCH (08:49)
[2019-12-22] MEDS: SODIUM BICARBONATE TAB 650 MG TAB PO SCH ×3 (08:49→20:52)
[2019-12-22] MEDS ORDERED: FUROSEMIDE 10 MG/ML 10 ML VIAL IV STA (09:33)
--- NOTE | 2019-12-22 09:33 | P.PN ---
Subjective Patient is seen in follow-up for acute kidney injury. Urine output 20 mL an hour. Started on hemodialysis on December 17. Now extubated. Levophed being weaned off. He is currently awake and alert. Receiving tube feeding. Vital signs are stable. General: The patient appeared well nourished and normally developed. Intubated. HEENT: Head exam is unremarkable. Neck is without jugular venous distension. LUNGS: Breath sounds decreased. HEART: Rate and Rhythm are regular. ABDOMEN: Nontender. EXTREMITITES: No edema. Objective - Vital Signs Vital signs: Vital Signs Temp 97.4 F L 12/22/19 04:00 Pulse 85 12/22/19 07:00 Resp 24 12/22/19 07:00 BP 87/61 12/22/19 07:00 Pulse Ox 97 12/22/19 07:00 Intake & Output 12/21/19 12/22/19 12/22/19 18:59 06:59 18:59 Intake Total 760.847 650 40 Output Total 1300 215 30 Balance -539.153 435 10 Weight 61.2 kg Intake: IV 350 240 20 Sodium Chloride 0.9% 1, 350 240 20 000 ml @ 20 mls/hr IV . Q24H [facility] Rx#:[id number] Intake, IV Titration 150.847 100 Amount Norepinephrine 8 mg In 24.382 Sodium Chloride 0.9% 250 ml @ 0.05 MCG/KG/MIN 5. 091 mls/hr IV .Q24H [facility] Rx#:[id number] Piperacillin-Tazobactam 3 100 .375 gm In Sodium Chloride 0.9% 100 ml @ 25 mls/hr IVPB Q12HR [facility] Rx #:[id number] Propofol 1,000 mg In 126.465 Empty Bag 1 bag @ Titrate IV .Q0M [facility] Rx#: [id number] Tube Feeding 260 280 20 Other 30 Output: Urine 150 215 30 Hemodialysis 1150 Other: Voiding Method Indwelling Catheter Indwelling Catheter ABP, PAP, CO, CI - Last Documented Arterial Blood Pressure 97/56 - Labs CBC & Chem 7: 12/22/19 05:45 12/22/19 05:45 Labs: Abnormal Lab Results - Last 24 Hours (Table) 12/21/19 12/21/19 12/21/19 Range/Units 05:03 10:30 16:22 RBC (4.30-5.90) m/uL Hgb (13.0-17.5) gm/dL Hct (39.0-53.0) % Lymphocytes # (1.0-4.8) k/uL ABG pH 7.47 H (7.35-7.45) ABG pCO2 34 L (35-45) mmHg ABG pO2 143 H 153 H (83-108) mmHg ABG HCO3 20 L (21-25) mmol/L ABG Total CO2 26 H (19-24) mmol/L ABG O2 Saturation 98.5 H 98.8 H (94-97) % Potassium 2.8 L (3.5-5.1) mmol/L Chloride (98-107) mmol/L BUN (9-20) mg/dL Creatinine (0.66-1.25) mg/dL Glucose (74-99) mg/dL POC Glucose (mg/dL) (75-99) mg/dL 12/21/19 12/21/19 12/22/19 Range/Units 16:50 17:30 00:09 RBC (4.30-5.90) m/uL Hgb (13.0-17.5) gm/dL Hct (39.0-53.0) % Lymphocytes # (1.0-4.8) k/uL ABG pH (7.35-7.45) ABG pCO2 (35-45) mmHg ABG pO2 (83-108) mmHg ABG HCO3 (21-25) mmol/L ABG Total CO2 (19-24) mmol/L ABG O2 Saturation (94-97) % Potassium 3.4 L (3.5-5.1) mmol/L Chloride (98-107) mmol/L BUN (9-20) mg/dL Creatinine (0.66-1.25) mg/dL Glucose (74-99) mg/dL POC Glucose (mg/dL) 117 H 135 H (75-99) mg/dL 12/22/19 12/22/19 12/22/19 Range/Units 05:44 05:45 05:45 RBC 3.11 L (4.30-5.90) m/uL Hgb 9.9 L (13.0-17.5) gm/dL Hct 28.9 L (39.0-53.0) % Lymphocytes # 0.4 L (1.0-4.8) k/uL ABG pH (7.35-7.45) ABG pCO2 (35-45) mmHg ABG pO2 (83-108) mmHg ABG HCO3 (21-25) mmol/L ABG Total CO2 (19-24) mmol/L ABG O2 Saturation (94-97) % Potassium (3.5-5.1) mmol/L Chloride 111 H (98-107) mmol/L BUN 30 H (9-20) mg/dL Creatinine 2.89 H (0.66-1.25) mg/dL Glucose 117 H (74-99) mg/dL POC Glucose (mg/dL) 123 H (75-99) mg/dL Microbiology - Last 24 Hours (Table) 12/17/19 05:26 Blood Culture - Preliminary Blood No Growth after 120 hours Assessment and Plan Plan: Assessment: 1. Acute kidney injury secondary to ATN secondary to severe intravascular volume depletion from poor oral intake and hypotension. Mild component of rhabdomyolysis. Creatinine 13.8 on admission. Baseline creatinine near 1. No hydronephrosis noted on kidney ultrasound. Urine output 20 mL an hour. Started on hemodialysis on December 17. Status post 80 mg IV Lasix on December 19. 2. Severe hypokalemia from poor oral intake. Magnesium normal. Better. 3. Metabolic acidosis secondary to acute kidney injury. Maintained on oral sodium bicarbonate. Stable. 4. Hypocalcemia secondary to acute kidney injury. Better post replacement. 5. History of throat cancer with last chemotherapy 4 months ago according to the patient. 6. Hypotension maintained on Levophed. 7. Dysphagia status post PEG tube placement on December 18. 8. Acute systolic CHF with ejection fraction of less than 20%. 9. Hyperphosphatemia secondary to acute kidney injury maintained on PhosLo. Plan: Hold hemodialysis today. Reassess again tomorrow. Lasix 80 mg IV once today. Continue to monitor renal function and urine output. Avoid nephrotoxins. Continue to replace potassium.
[2019-12-22 11:08] LABS: Glucose,Whole Blood 123 mg/dL (75-99)
[2019-12-22 11:35] LABS: Magnesium 1.8 mg/dL (1.6-2.3); Potassium 3.5 mmol/L (3.5-5.1)
[2019-12-22] MEDS ORDERED: POTASSIUM BICARBONATE/CIT AC 20 MEQ TABLET.EFF PO ONE (12:30)
--- NOTE | 2019-12-22 12:36 | P.PN ---
Subjective Progress Note Date: 12/22/19 On today's evaluation of 12/22/2019 the patient is extubated. Note that I took the patient off the sedation yesterday. This was done after he completed dialysis. He showed excellent weaning parameters. He underwent a spontaneous breathing trial. He was able to tolerate without any major difficulties and currently is on room air oxygen. Overnight, the patient is not having any respiratory difficulties. He was calm and comfortable. No altered mentation. He is unable to swallow and is receiving enteral feeding for nutritional support via a PEG tube. Chest x-ray from today shows bilateral pleural effusion more so on the right and probably some consolidation of the right lung base. The olman ent remains on IV Zosyn. The patient is on IV fluids at 20 mL an hour. The patient is receiving enteral feeding for nutritional support. The patient is on a very minimal dose of norepinephrine infusion which is running at 0.02 mcg/kg per minute. The patient has no specific complaints. He is weak. His blood pressure is under adequate control. Echocardiac Eugene was noted and the patient has significant impaired LV function/systolic heart failure. No angina. No palpitation. No chest pain. Cough and mechanism is weak. Jarrell cath is still in place. Urine output is in order of 5-10 mL an hour. Nephrology is on the case. Objective - Vital Signs Vital signs: Vital Signs Temp 97.4 F L 12/22/19 04:00 Pulse 77 12/22/19 11:00 Resp 21 12/22/19 11:00 BP 90/60 12/22/19 11:00 Pulse Ox 100 12/22/19 11:00 Intake & Output 12/21/19 12/22/19 12/22/19 18:59 06:59 18:59 Intake Total 760.847 650 280 Output Total 1300 215 275 Balance -539.153 435 5 Weight 61.2 kg Intake: IV 350 240 100 Sodium Chloride 0.9% 1, 350 240 100 000 ml @ 20 mls/hr IV . Q24H [facility] Rx#:[id number] Intake, IV Titration 150.847 100 Amount Norepinephrine 8 mg In 24.382 Sodium Chloride 0.9% 250 ml @ 0.05 MCG/KG/MIN 5. 091 mls/hr IV .Q24H [facility] Rx#:[id number] Piperacillin-Tazobactam 3 100 .375 gm In Sodium Chloride 0.9% 100 ml @ 25 mls/hr IVPB Q12HR [facility] Rx #:[id number] Propofol 1,000 mg In 126.465 Empty Bag 1 bag @ Titrate IV .Q0M [facility] Rx#: [id number] Tube Feeding 260 280 180 Other 30 Output: Urine 150 215 275 Hemodialysis 1150 Other: Voiding Method Indwelling Catheter Indwelling Catheter Indwelling Catheter # Bowel Movements 1 ABP, PAP, CO, CI - Last Documented Arterial Blood Pressure 117/69 - Exam Chronically ill, cachectic General appearance: Present: Cachectic thin elderly -[place] male patient, currently on room air oxygen. He is voice is hoarse related to laryngeal cancer. - EENT Eyes: Present: PERRLA - Neck Details: Neck is supple, no lymphadenopathy. Neck: Absent: stridor - Respiratory Details: Essentially clear throughout, diminished to his bilateral bases. Respirations are symmetrical and nonlabored. No wheezes, rhonchi or crackles. - Cardiovascular Details: Regular rhythm with tachycardic rate. S1 and S2 present, negative for S3, gallop or murmur. - Gastrointestinal Gastrointestinal Comment(s): Abdomen soft, nontender and nondistended. Active bowel sounds present in all 4 abdominal quadrants. No guarding or rigidity. No organomegaly appreciated. The patient has a PEG tube in the PEG tube site is dry clean and intact. - Integumentary Integumentary Comment(s): Skin is warm and dry. No clubbing or cyanosis is present. No rash or abnormal pigmentation is present. - Neurologic Neurologic: Present: Awake and oriented and there is no focal neurological deficits. - Musculoskeletal Musculoskeletal: Present: generalized weakness, strength equal bilaterally, the patient has a Artline catheter in the radial artery and the patient has diminished pulses in all 4 extremities. He has also a temper dialysis catheter in the right femoral vein. - Psychiatric Psychiatric: No agitation, adequate mood and affect - Labs CBC & Chem 7: 12/22/19 05:45 12/22/19 10:53 Labs: Abnormal Lab Results - Last 24 Hours (Table) 12/21/19 12/21/19 12/21/19 Range/Units 05:03 16:22 16:50 RBC (4.30-5.90) m/uL Hgb (13.0-17.5) gm/dL Hct (39.0-53.0) % Lymphocytes # (1.0-4.8) k/uL ABG pH 7.47 H (7.35-7.45) ABG pCO2 34 L (35-45) mmHg ABG pO2 143 H 153 H (83-108) mmHg ABG HCO3 20 L (21-25) mmol/L ABG Total CO2 26 H (19-24) mmol/L ABG O2 Saturation 98.5 H 98.8 H (94-97) % Potassium 3.4 L (3.5-5.1) mmol/L Chloride (98-107) mmol/L BUN (9-20) mg/dL Creatinine (0.66-1.25) mg/dL Glucose (74-99) mg/dL POC Glucose (mg/dL) (75-99) mg/dL 12/21/19 12/22/19 12/22/19 Range/Units 17:30 00:09 05:44 RBC (4.30-5.90) m/uL Hgb (13.0-17.5) gm/dL Hct (39.0-53.0) % Lymphocytes # (1.0-4.8) k/uL ABG pH (7.35-7.45) ABG pCO2 (35-45) mmHg ABG pO2 (83-108) mmHg ABG HCO3 (21-25) mmol/L ABG Total CO2 (19-24) mmol/L ABG O2 Saturation (94-97) % Potassium (3.5-5.1) mmol/L Chloride (98-107) mmol/L BUN (9-20) mg/dL Creatinine (0.66-1.25) mg/dL Glucose (74-99) mg/dL POC Glucose (mg/dL) 117 H 135 H 123 H (75-99) mg/dL 12/22/19 12/22/19 12/22/19 Range/Units 05:45 05:45 11:05 RBC 3.11 L (4.30-5.90) m/uL Hgb 9.9 L (13.0-17.5) gm/dL Hct 28.9 L (39.0-53.0) % Lymphocytes # 0.4 L (1.0-4.8) k/uL ABG pH (7.35-7.45) ABG pCO2 (35-45) mmHg ABG pO2 (83-108) mmHg ABG HCO3 (21-25) mmol/L ABG Total CO2 (19-24) mmol/L ABG O2 Saturation (94-97) % Potassium (3.5-5.1) mmol/L Chloride 111 H (98-107) mmol/L BUN 30 H (9-20) mg/dL Creatinine 2.89 H (0.66-1.25) mg/dL Glucose 117 H (74-99) mg/dL POC Glucose (mg/dL) 123 H (75-99) mg/dL Microbiology - Last 24 Hours (Table) 12/17/19 05:26 Blood Culture - Preliminary Blood No Growth after 120 hours Assessment and Plan Plan: 1. Acute hypoxic respiratory failure, during a PEG tube insertion during which the patient had an episode of bradycardia and hypoxemia and he had to be intubated and placed on mechanical ventilator. The patient was extubated yesterday without any major difficulties. The patient is currently on room air oxygen. Chest x-ray still showing bilateral pleural effusion and consolidation of the right lung base. Consider pleural effusion related to CHF. Consider parapneumonic effusion. The patient is also on Zosyn for possible aspiration pneumonia. He is afebrile. He is on low-dose pressors for hemodynamic support and norepinephrine infusion is running at 0.02 mcg/kg per minute. 3 acute kidney injury secondary to Severe dehydration/ rhabdomyolysis. The CPK is improved and the patient is currently undergoing dialysis for acute kidney injury. Urine output is improved. The neck fluid balance is also improved. 2 Aspiration pneumonia, was started on Zosyn for antibiotic coverage, the patient has a persistent consolidation of the right lower lobe. 3 sepsis secondary to pneumonia/aspiration. The patient is currently on IV Zosyn and pressors were the norepinephrine infusion at a very low rates 4 acute kidney injury, dialysis dependent secondary to severe dehydration/ Rhabdomyolysis noted the CPK is improving as the patient is recovering from rhabdomyolysis 5 post PEG tube insertion and the patient will be started on enteral feeding for nutritional support 6 Electrolyte imbalance, hypokalemia, improving 7 Generalized debility and weakness 8 Dehydration and malnutrition, improved 9 Cardiac arrhythmia with bundle branch block, Secondary to profound h ypokalemia which improved after correction of the hypokalemia 10 History of throat cancer, previous chemotherapy and radiation treatments 11 dysphagia and failure to swallow properly secondary to laryngeal cancer, post PEG tube insertion 12 CHF with impaired LV function with an ejection fraction of less than 20%. There is also mild aortic sclerosis. No pericardial effusion. Plan Continue dialysis per nephrology. Keep the Jarrell catheter in place. The urine output is diminished for now. Continued IV Zosyn Proceed with hemodialysis per nephrology Sedation holiday once dialysis is completed The patient is currently on IV fluids and this will be KVO Repeat chest x-ray and blood gases in the morning Nephrology is on the case Advance diet as tolerated Resume all medication to be given through the OG including the Requip and the simvastatin and aspirin 325 mg by mouth daily. The patient be also taken off the pressors. Subsequently he can be started on low-dose beta blockers. Monitor the pleural effusion and consider thoracentesis if needed in the future. We'll continue to follow make further recommendations based on his progress. This is a critically care evaluation that was done more than 30 minutes.
[2019-12-22] MEDS: ASPIRIN 325 MG TAB PO SCH (13:55)
[2019-12-22] MEDS: SODIUM CHLORIDE 0.9% 1,000 ML IV SCH (14:06)
[2019-12-22] MEDS ORDERED: Magnesium Replacement Protocol 1 EACH MISC MISCELLANE PRN (15:30)
[2019-12-22] MEDS: MAGNESIUM SULFATE-D5W PMX 1 GM in DEXTROSE/WATER 1 100ML.BAG IVPB SCH ×2 (15:53→17:17)
[2019-12-22 15:57] LABS: Glucose,Whole Blood 116 mg/dL (75-99)
--- NOTE | 2019-12-22 16:16 | P.PN ---
Subjective Progress Note Date: 12/22/19 Principal diagnosis: Acute kidney injury Patient has been just extubated. Continues on IV Zosyn, acute kidney injury- hydration, electrolyte imbalance. Objective - Vital Signs Vital signs: Vital Signs Temp 97.4 F L 12/22/19 04:00 Pulse 80 12/22/19 15:00 Resp 18 12/22/19 15:34 BP 90/60 12/22/19 14:00 Pulse Ox 96 12/22/19 15:00 Intake & Output 12/21/19 12/22/19 12/22/19 18:59 06:59 18:59 Intake Total 760.847 650 540 Output Total 1300 215 495 Balance -539.153 435 45 Weight 61.2 kg Intake: IV 350 240 180 Sodium Chloride 0.9% 1, 350 240 180 000 ml @ 20 mls/hr IV . Q24H [facility] Rx#:[id number] Intake, IV Titration 150.847 100 Amount Norepinephrine 8 mg In 24.382 Sodium Chloride 0.9% 250 ml @ 0.05 MCG/KG/MIN 5. 091 mls/hr IV .Q24H [facility] Rx#:[id number] Piperacillin-Tazobactam 3 100 .375 gm In Sodium Chloride 0.9% 100 ml @ 25 mls/hr IVPB Q12HR [facility] Rx #:[id number] Propofol 1,000 mg In 126.465 Empty Bag 1 bag @ Titrate IV .Q0M ASHLEY Rx#: [id number] Tube Feeding 260 280 330 Other 30 30 Output: Urine 150 215 495 Hemodialysis 1150 Other: Voiding Method Indwelling Catheter Indwelling Catheter Indwelling Catheter # Bowel Movements 1 ABP, PAP, CO, CI - Last Documented Arterial Blood Pressure 86/49 - Exam The patient appeared well nourished and normally developed. Vital signs as documented. Head exam is unremarkable. No scleral icterus or corneal arcus noted. Neck is without jugular venous distension, thyromegaly, or carotid bruits. Carotid upstrokes are brisk bilaterally. Lungs are clear to auscultation and percussion. Cardiac exam reveals the PMI to be normally sized and situated. Rhythm is regular. First and second heart sounds normal. No murmurs, rubs or gallops. Abdominal exam reveals normal bowel sounds, no masses, no organomegaly and no aortic enlargement. Extremities are nonedematous and both femoral and pedal pulses are normal. - Labs CBC & Chem 7: 12/22/19 05:45 12/22/19 15:50 Labs: Abnormal Lab Results - Last 24 Hours (Table) 12/21/19 12/21/19 12/21/19 Range/Units 05:03 16:22 16:50 RBC (4.30-5.90) m/uL Hgb (13.0-17.5) gm/dL Hct (39.0-53.0) % Lymphocytes # (1.0-4.8) k/uL ABG pH 7.47 H (7.35-7.45) ABG pCO2 34 L (35-45) mmHg ABG pO2 143 H 153 H (83-108) mmHg ABG HCO3 20 L (21-25) mmol/L ABG Total CO2 26 H (19-24) mmol/L ABG O2 Saturation 98.5 H 98.8 H (94-97) % Potassium 3.4 L (3.5-5.1) mmol/L Chloride (98-107) mmol/L BUN (9-20) mg/dL Creatinine (0.66-1.25) mg/dL Glucose (74-99) mg/dL POC Glucose (mg/dL) (75-99) mg/dL 12/21/19 12/22/19 12/22/19 Range/Units 17:30 00:09 05:44 RBC (4.30-5.90) m/uL Hgb (13.0-17.5) gm/dL Hct (39.0-53.0) % Lymphocytes # (1.0-4.8) k/uL ABG pH (7.35-7.45) ABG pCO2 (35-45) mmHg ABG pO2 (83-108) mmHg ABG HCO3 (21-25) mmol/L ABG Total CO2 (19-24) mmol/L ABG O2 Saturation (94-97) % Potassium (3.5-5.1) mmol/L Chloride (98-107) mmol/L BUN (9-20) mg/dL Creatinine (0.66-1.25) mg/dL Glucose (74-99) mg/dL POC Glucose (mg/dL) 117 H 135 H 123 H (75-99) mg/dL 12/22/19 12/22/19 12/22/19 Range/Units 05:45 05:45 11:05 RBC 3.11 L (4.30-5.90) m/uL Hgb 9.9 L (13.0-17.5) gm/dL Hct 28.9 L (39.0-53.0) % Lymphocytes # 0.4 L (1.0-4.8) k/uL ABG pH (7.35-7.45) ABG pCO2 (35-45) mmHg ABG pO2 (83-108) mmHg ABG HCO3 (21-25) mmol/L ABG Total CO2 (19-24) mmol/L ABG O2 Saturation (94-97) % Potassium (3.5-5.1) mmol/L Chloride 111 H (98-107) mmol/L BUN 30 H (9-20) mg/dL Creatinine 2.89 H (0.66-1.25) mg/dL Glucose 117 H (74-99) mg/dL POC Glucose (mg/dL) 123 H (75-99) mg/dL 12/22/19 Range/Units 15:44 RBC (4.30-5.90) m/uL Hgb (13.0-17.5) gm/dL Hct (39.0-53.0) % Lymphocytes # (1.0-4.8) k/uL ABG pH (7.35-7.45) ABG pCO2 (35-45) mmHg ABG pO2 (83-108) mmHg ABG HCO3 (21-25) mmol/L ABG Total CO2 (19-24) mmol/L ABG O2 Saturation (94-97) % Potassium (3.5-5.1) mmol/L Chloride (98-107) mmol/L BUN (9-20) mg/dL Creatinine (0.66-1.25) mg/dL Glucose (74-99) mg/dL POC Glucose (mg/dL) 116 H (75-99) mg/dL Microbiology - Last 24 Hours (Table) 12/17/19 05:26 Blood Culture - Preliminary Blood No Growth after 120 hours Assessment and Plan Assessment: Impression and plan #1 head and neck cancer stage IV T2 N2 M0 positive P 16 The patient has completed chemotherapy and radiation in April 2019 and since then has been on surveillance with no evidence of recurrence. Last PET scan in November 2019 was negative. #2 acute kidney injury: Secondary to ATN and volume depletion. The patient has not been orally supplementing well. The patient will continue dialysis for now since creatinine was still high. #3. Severe electrolyte imbalance metabolic acidosis. #4. Respiratory compromise, has been extubated today. Aspiration pneumonia on Zosyn. #4. Normocytic anemia: Multifactorial, secondary to current illness Anemia of chronic disease inflammatory anemia. #5. Patient has a PEG tube for nutrition. He has the ability will likely need rehabilitation Thank you for allowing us to participate in the care of your patient. Please f eel free to call us with any questions. Rene Sheth MD Lands Resource Manager, [facility] Hematology Oncology [id number] , [address] [place] [address] Office: [phone],
--- NOTE | 2019-12-22 18:20 | PN ---
PROGRESS NOTE CHIEF COMPLAINT: Acute renal failure, malnutrition, carcinoma of the throat. HISTORY OF PRESENT ILLNESS: This gentleman seems to be fairly stable but he is confused. He has been extubated. PHYSICAL EXAMINATION: Blood pressure is 96/51, respiratory rate is 24, pulse is 83. Laboratory studies reveals white count 7400, hemoglobin 9.9. BUN is down to 30 and creatinine is 2.89. In general, he appeared to be somewhat lethargic today. Skin is dry. Head, ears, eyes, nose, mouth, and throat seem to be normal and breath sounds are clear on both sides. Cardiac exam demonstrates sinus rhythm with prolonged DE and QT interval. Abdomen is soft. Extremities normal. IMPRESSION: 1. Acute renal failure. 2. Prerenal azotemia. 3. History of carcinoma of the throat. 4. Chronic obstructive pulmonary disease. 5. Alcoholism. 6. Delirium. PLAN: Continue with current treatment and he will probably be able to be moved out of ICU in the next day or 2. MMODL / MARCELON: [id number] /
[2019-12-22] MEDS: POTASSIUM BICARBONATE/CIT AC 20 MEQ TABLET.EFF NG-TUBE SCH ×2 (20:52→22:14)
[2019-12-22] MEDS: ATORVASTATIN 20 MG TAB PO SCH (20:53)
[2019-12-22 23:52] LABS: Glucose,Whole Blood 131 mg/dL (75-99)
[2019-12-23] MEDS: HEPARIN SODIUM,PORCINE 5,000 UNIT/ML 1 ML VIAL SQ SCH ×3 (00:44→16:19)
[2019-12-23] MEDS: INSULIN ASPART (NovoLOG) 100 UNIT/ML VIAL SQ SCH ×4 (00:45→17:40)
[2019-12-23 04:43] LABS: Basophils % (A) 0 %; Eosinophils # (A) 0.1 k/uL (0-0.7); Eosinophils % (A) 2 %; HCT 27.4 % (39.0-53.0); HGB 8.9 gm/dL (13.0-17.5); Lymphocytes # (A) 0.5 k/uL (1.0-4.8); Lymphocytes % (A) 8 %; MCHC 32.6 g/dL (31.0-37.0); Mean Platelet Volume 8.4; Monocytes # (A) 0.3 k/uL (0-1.0); Monocytes % (A) 6 %; Neutrophils # (A) 4.4 k/uL (1.3-7.7); Neutrophils % (A) 80 %; Platelet Count 155 k/uL (150-450); RBC 2.88 m/uL (4.30-5.90); RDW 13.5 % (11.5-15.5); WBC 5.5 k/uL (3.8-10.6)
[2019-12-23 04:56] LABS: Calcium 8.4 mg/dL (8.4-10.2); Magnesium 2.1 mg/dL (1.6-2.3); Potassium 3.5 mmol/L (3.5-5.1)
[2019-12-23] MEDS ORDERED: Potassium Replacement Protocol 1 EACH MISC MISCELLANE PRN (06:19)
[2019-12-23 06:28] LABS: Glucose,Whole Blood 129 mg/dL (75-99)
[2019-12-23] MEDS: CALCIUM ACETATE 667 MG TAB PO SCH ×2 (06:45→15:42)
[2019-12-23] MEDS: POTASSIUM BICARBONATE/CIT AC 20 MEQ TABLET.EFF NG-TUBE SCH ×3 (06:45→09:41)
--- NOTE | 2019-12-23 08:20 | XR ---
EXAMINATION TYPE: XR chest 1V portable DATE OF EXAM: 12/23/2019 COMPARISON: 12/22/2019 HISTORY: Extubation. Shortness of breath. TECHNIQUE: Single frontal view of the chest is obtained. FINDINGS: Left-sided PICC is similar in position. There is an enlarged cardiomediastinal silhouette that is stable from the prior. Layering bilateral small pleural effusions are seen with a gradient ef fect and bibasilar airspace disease. There is background pulmonary hyperinflation. Diffuse osseous de mineralization and moderate degenerative changes of the spine and shoulders are seen. IMPRESSION: Similar small layering bilateral pleural effusions and bibasilar airspace disease, atele ctasis versus pneumonia. Stable enlarged cardiomediastinal silhouette.
[2019-12-23] MEDS: ASPIRIN 325 MG TAB PO SCH (09:40)
[2019-12-23] MEDS: PIPERACILLIN-TAZOBACTAM 3.375 GM in SODIUM CHLORIDE 0.9% 100 ML IVPB SCH ×2 (09:40→21:17)
[2019-12-23] MEDS: PANTOPRAZOLE 40 MG/10 ML VIAL IVP SCH (09:40)
[2019-12-23] MEDS: SODIUM BICARBONATE TAB 650 MG TAB PO SCH ×3 (09:40→21:17)
[2019-12-23] MEDS: CHLORHEXIDINE GLUCONATE 15 ML CUP MUCOUS MEM SCH (12:06)
[2019-12-23 12:12] LABS: Glucose,Whole Blood 110 mg/dL (75-99)
--- NOTE | 2019-12-23 13:49 | P.PN ---
Subjective Progress Note Date: 12/23/19 Principal diagnosis: renal failure, failure to thrive Patient was having lines removed today, only seen briefly. Patient denies any distress Objective - Vital Signs Vital signs: Vital Signs Temp 98.9 F 12/23/19 12:23 Pulse 64 12/23/19 12:23 Resp 17 12/23/19 12:23 BP 97/61 12/23/19 12:23 Pulse Ox 98 12/23/19 12:23 Intake & Output 12/22/19 12/23/19 12/23/19 18:59 06:59 18:59 Intake Total 830 700 360 Output Total 562 415 235 Balance 268 285 125 Weight 62 kg 62 kg Intake: IV 440 240 100 Magnesium Sulfate-D5w Pmx 200 1 gm In Dextrose/Water 1 100ml.bag @ 100 mls/hr IVPB Q1H [facility] Rx#: [id number] Sodium Chloride 0.9% 1, 240 240 100 000 ml @ 20 mls/hr IV . Q24H [facility] Rx#:[id number] Intake, IV Titration 100 Amount Piperacillin-Tazobactam 3 100 .375 gm In Sodium Chloride 0.9% 100 ml @ 25 mls/hr IVPB Q12HR [facility] Rx #:[id number] Tube Feeding 360 360 200 Other 30 60 Output: Urine 562 415 235 Other: Voiding Method Indwelling Catheter Indwelling Catheter Indwelling Catheter # Bowel Movements 1 ABP, PAP, CO, CI - Last Documented Arterial Blood Pressure 132/74 - Constitutional General appearance: Present: no acute distress, thin - EENT Eyes: Present: anicteric sclerae ENT: Present: hearing grossly normal - Respiratory Details: respirations even and unlabored - Cardiovascular Details: regular rate and rhythm on monitor - Musculoskeletal Musculoskeletal: Present: generalized weakness - Psychiatric Psychiatric: Present: A&O x's 3 - Labs CBC & Chem 7: 12/23/19 04:15 12/23/19 11:20 Labs: Abnormal Lab Results - Last 24 Hours (Table) 12/22/19 12/22/19 12/23/19 Range/Units 15:44 23:50 04:15 RBC 2.88 L (4.30-5.90) m/uL Hgb 8.9 L (13.0-17.5) gm/dL Hct 27.4 L (39.0-53.0) % Lymphocytes # 0.5 L (1.0-4.8) k/uL Chloride (98-107) mmol/L BUN (9-20) mg/dL Creatinine (0.66-1.25) mg/dL Glucose (74-99) mg/dL POC Glucose (mg/dL) 116 H 131 H (75-99) mg/dL 12/23/19 12/23/19 12/23/19 Range/Units 04:15 06:27 12:04 RBC (4.30-5.90) m/uL Hgb (13.0-17.5) gm/dL Hct (39.0-53.0) % Lymphocytes # (1.0-4.8) k/uL Chloride 110 H (98-107) mmol/L BUN 35 H (9-20) mg/dL Creatinine 3.06 H (0.66-1.25) mg/dL Glucose 124 H (74-99) mg/dL POC Glucose (mg/dL) 129 H 110 H (75-99) mg/dL Microbiology - Last 24 Hours (Table) 12/17/19 05:26 Blood Culture - Final Blood No Growth after 144 hours Assessment and Plan (1) Acute renal failure (ARF) Narrative/Plan: Likely exacerbated by poor oral intake/dehydration. Patient has been on dialysis. His creatinine has significantly improved since admission. Nephrology following. Patient baseline creatinine is in the high 1 range Current Visit: Yes Status: Acute Priority: High Code(s): N17.9 - ACUTE KIDNEY FAILURE, UNSPECIFIED SNOMED Code(s): 16976498 (2) Anemia Narrative/Plan: Multifactorial including poor oral intake, poor nutritional status, also effects of poor renal function. Albumin low. Dietitian consult it for PEG tube feedings. Will nutritional labs to see if there is any needed supplementation Current Visit: Yes Status: Acute Priority: Medium Code(s): D64.9 - ANEMIA, UNSPECIFIED SNOMED Code(s): 179441637 (3) Head and neck malignancy Narrative/Plan: patient current on follow-up, no evidence to suggest recurrence. Current Visit: No Status: Chronic Priority: Low Code(s): C76.0 - MALIGNANT NEOPLASM OF HEAD, FACE AND NECK SNOMED Code(s): 494025986
--- NOTE | 2019-12-23 14:58 | P.PN ---
Subjective Progress Note Date: 12/23/19 Principal diagnosis: Acute hypoxic respiratory failure during PEG tube insertion, possible aspiration pneumonia. On today's evaluation of 12/22/2019 the patient is extubated. Note that I took the patient off the sedation yesterday. This was done after he completed dialysis. He showed excellent weaning parameters. He underwent a spontaneous breathing trial. He was able to tolerate without any major difficulties and currently is on room air oxygen. Overnight, the patient is not having any respiratory difficulties. He was calm and comfortable. No altered mentation. He is unable to swallow and is receiving enteral feeding for nutritional support via a PEG tube. Chest x-ray from today shows bilateral pleural effusion more so on the right and probably some consolidation of the right lung base. The patient remains on IV Zosyn. The patient is on IV fluids at 20 mL an hour. The patient is receiving enteral feeding for nutritional support. The patient is on a very minimal dose of norepinephrine infusion which is running at 0.02 mcg/kg per minute. The patient has no specific complaints. He is weak. His blood pressure is under adequate control. Echocardiac Eugene was noted and the patient has significant impaired LV function/systolic heart failure. No angina. No palpitation. No chest pain. Cough and mechanism is weak. Jarrell cath is still in place. Urine output is in order of 5-10 mL an hour. Nephrology is on the case. Patient was reevaluated today on 12/23/19, patient remains in the ICU, he was extubated last Monday, he is doing fairly well, he is on tube feeding via PEG tube, his IV fluid at KVO, he is also on room air, O2 saturation is in the 90s. Patient had his last dialysis was Monday, and I believe he is supposed to undergo dialysis again today. He is hemodynamically stable, not requiring any pressors. Objective - Vital Signs Vital signs: Vital Signs Temp 98.9 F 12/23/19 12:23 Pulse 64 12/23/19 12:23 Resp 17 12/23/19 12:23 BP 97/61 12/23/19 12:23 Pulse Ox 98 12/23/19 12:23 Intake & Output 12/22/19 12/23/19 12/23/19 18:59 06:59 18:59 Intake Total 830 700 360 Output Total 562 415 235 Balance 268 285 125 Weight 62 kg 62 kg Intake: IV 440 240 100 Magnesium Sulfate-D5w Pmx 200 1 gm In Dextrose/Water 1 100ml.bag @ 100 mls/hr IVPB Q1H [facility] Rx#: [id number] Sodium Chloride 0.9% 1, 240 240 100 000 ml @ 20 mls/hr IV . Q24H A[facility]LEY Rx#:[id number] Intake, IV Titration 100 Amount Piperacillin-Tazobactam 3 100 .375 gm In Sodium Chloride 0.9% 100 ml @ 25 mls/hr IVPB Q12HR A[facility] Rx #:[id number] Tube Feeding 360 360 200 Other 30 60 Output: Urine 562 415 235 Other: Voiding Method Indwelling Catheter Indwelling Catheter Indwelling Catheter # Bowel Movements 1 ABP, PAP, CO, CI - Last Documented Arterial Blood Pressure 132/74 - Exam Physical Exam: Revealed a cachectic elderly -[place] Citizen male on room air, in no distress, voice is noted to be hoarse. Head: Atraumatic, normocephalic. HEENT:[Neck is supple.] [No neck masses.] [No thyromegaly.] [No JVD.] PERRLA, EOMI, no icterus, no stridor. Chest: [Clear throughout, no crackles, no rhonchi, no wheezes.] Cardiac Exam: [Normal S1 and S2, no S3 gallop, no murmur.] Abdomen: [Soft, nontender, no megaly, no rebound, no guarding, normal bowel sounds.] Extremities: [No clubbing, no edema, no cyanosis.] Neurological Exam: [No focal neurologic deficit.] Alert and oriented 3. Psychiatric: Normal mood, affect and normal mental status examination. Skin: No rashes. No clubbing or cyanosis. - Labs CBC & Chem 7: 12/23/19 04:15 12/23/19 11:20 Labs: Abnormal Lab Results - Last 24 Hours (Table) 12/22/19 12/22/19 12/23/19 Range/Units 15:44 23:50 04:15 RBC 2.88 L (4.30-5.90) m/uL Hgb 8.9 L (13.0-17.5) gm/dL Hct 27.4 L (39.0-53.0) % Lymphocytes # 0.5 L (1.0-4.8) k/uL Chloride (98-107) mmol/L BUN (9-20) mg/dL Creatinine (0.66-1.25) mg/dL Glucose (74-99) mg/dL POC Glucose (mg/dL) 116 H 131 H (75-99) mg/dL 12/23/19 12/23/19 12/23/19 Range/Units 04:15 06:27 12:04 RBC (4.30-5.90) m/uL Hgb (13.0-17.5) gm/dL Hct (39.0-53.0) % Lymphocytes # (1.0-4.8) k/uL Chloride 110 H (98-107) mmol/L BUN 35 H (9-20) mg/dL Creatinine 3.06 H (0.66-1.25) mg/dL Glucose 124 H (74-99) mg/dL POC Glucose (mg/dL) 129 H 110 H (75-99) mg/dL Microbiology - Last 24 Hours (Table) 12/17/19 05:26 Blood Culture - Final Blood No Growth after 144 hours Assessment and Plan Assessment: Impression: Acute hypoxic respiratory failure, suspect acute aspiration pneumonia. Acute kidney injury, secondary to severe dehydration and rhabdomyolysis, improving. Acute aspiration pneumonia Status post PEG tube placement and the patient is on enteral feeding Electrolytes imbalance. Hypokalemia Chronic congestive heart failure with impaired LV function ejection fraction of 20%. Dysphagia secondary to laryngeal cancer and patient is status post PEG tube placement. History of laryngeal cancer, previous chemo and radiation treatment. Recommendation: Patient could be transferred out of the ICU to a regular medical floor. Continue Zosyn. Continue hemodialysis as per nephrology as needed. Continue IV fluids at KVO. Continue enteral feeding. Resume home meds. We'll continue to follow. Time with Patient: Less than 30
--- NOTE | 2019-12-23 15:01 | PN ---
PROGRESS NOTE Patient is seen for followup for acute kidney injury. He is currently seen in the ICU, but patient is being transferred out of the ICU. He is requiring a sitter. He remains somewhat confused and has been agitated. His renal function has worsened. Creatinine has gone up slightly from yesterday at 2.89-3.0. Patient received hemodialysis initially on admissions. His creatinine was at about 13 mg/dL. Currently, he has urine output at about 30 mL/hour and since there has not been any significant change in his mentation, we will continue to hold off on dialysis. No nephrotoxic agents on board. On examination today, blood pressure was 132/74, heart rate 79 per minute, he is afebrile. Examination shows no evidence of edema in his lower extremities. Abdomen is soft, nontender. 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 He is moving all 4 extremities. LABS: Show sodium 144, potassium 3.5, serum creatinine 3.06, BUN 35. ASSESSMENT: 1. Acute kidney injury, acute tubular necrosis, currently nonoliguric, status post dialysis. However, dialysis has been on hold for the last 2 days. Patient has maintained urine output. Serum creatinine slightly worse today but overall general condition is stable. Therefore, we will continue to hold off on dialysis today. 2. Mild rhabdomyolysis, now improved. 3. Severe hypokalemia, status post replacement. 4. Severe metabolic acidosis, associated with acute kidney injury. Maintained on oral sodium bicarb. 5. Congestive heart failure, acute on top of chronic mainly systolic. 6. Cardiomyopathy, ejection fraction 20%. 7. Hyperphosphatemia associated with acute kidney injury, maintained on PhosLo. 8. Dysphagia and aspiration, status post PEG tube placement. 9. History of throat cancer with last chemotherapy about 4 months ago. 10.Hypotension, now resolved. Blood cultures negative. PLAN: Continue to hold off on hemodialysis for now. Repeat labs in a.m. Continue tube feeding. POA from daughter. MMODL / IJN: [id number] /
--- NOTE | 2019-12-23 15:47 | PN ---
PROGRESS NOTE DATE OF SERVICE: 12/23/2019 CHIEF COMPLAINT: Acute kidney injury, dehydration, possible sepsis. HISTORY OF PRESENT ILLNESS: This gentleman remains fairly stable. He is still very weak. Vital signs have been normal. Kidney function is slightly improved. REVIEW OF SYSTEMS: The patient is seems to be comfortable and stable but still quite weak and short of breath. PHYSICAL EXAMINATION: Blood pressure is in the area of 115 to 120 systolic on a small dose of pressor. Chest demonstrates scattered rales at the bases on both sides. Cardiac exam is sinus. Abdomen is soft and PEG tube is in place. Extremities are normal. IMPRESSION: 1. Acute kidney injury. 2. Acute renal failure. 3. Prerenal azotemia. 4. Rhabdomyolysis. 5. History of carcinoma of the throat. 6. Anemia. PLAN: Continue to follow in ICU until stable enough to be transferred out to a regular floor. MATTY / TRACIE: [id number] /
[2019-12-23] MEDS: NOREPINEPHRINE 8 MG in SODIUM CHLORIDE 0.9% 250 ML IV SCH (17:31)
[2019-12-23] MEDS: SODIUM CHLORIDE 0.9% 1,000 ML IV SCH (17:32)
[2019-12-23 17:49] LABS: Glucose,Whole Blood 125 mg/dL (75-99)
[2019-12-23 19:15] LABS: % Iron Saturation 13.64 (15.00-50.00); Ferritin 643.8 ng/mL (22.0-322.0)
[2019-12-23] MEDS: ATORVASTATIN 20 MG TAB PO SCH (21:17)
[2019-12-23 23:54] LABS: Glucose,Whole Blood 127 mg/dL (75-99)
[2019-12-24] MEDS: INSULIN ASPART (NovoLOG) 100 UNIT/ML VIAL SQ SCH ×4 (00:44→16:52)
[2019-12-24] MEDS: HEPARIN SODIUM,PORCINE 5,000 UNIT/ML 1 ML VIAL SQ SCH ×3 (00:47→16:17)
[2019-12-24 05:46] LABS: Glucose,Whole Blood 147 mg/dL (75-99)
[2019-12-24] MEDS: PIPERACILLIN-TAZOBACTAM 3.375 GM in SODIUM CHLORIDE 0.9% 100 ML IVPB SCH ×2 (08:54→20:15)
[2019-12-24] MEDS: CALCIUM ACETATE 667 MG TAB PO SCH ×2 (08:55→16:17)
[2019-12-24] MEDS: ASPIRIN 325 MG TAB PO SCH (08:55)
[2019-12-24] MEDS: SODIUM BICARBONATE TAB 650 MG TAB PO SCH (08:55)
[2019-12-24] MEDS: PANTOPRAZOLE 40 MG/10 ML VIAL IVP SCH (08:55)
[2019-12-24 10:33] LABS: Calcium 8.5 mg/dL (8.4-10.2); Potassium 3.3 mmol/L (3.5-5.1)
--- NOTE | 2019-12-24 11:00 | FL ---
EXAMINATION TYPE: FL barium swallow w video DATE OF EXAM: 12/24/2019 MODIFIED SWALLOW / DEGLUTITION STUDY CLINICAL HISTORY: Dysphagia. Current PEG tube. TECHNIQUE: Deglutition study is performed utilizing thin liquid barium, honey and nectar thick liqui d barium, and barium thick pudding. 1 minute and 35 seconds of fluoroscopy time was utilized with 0 f luoroscopic images saved as the examination was video recorded. COMPARISON: None. FINDINGS: The oral and pharyngeal phases show satisfactory initiation and propagation with all modali ties tested. Normal mastication is seen with solid modalities tested. Penetration was seen with all administered consistencies however the majority was ejected with cough reflex. Aspiration was seen wi th the thin barium consistency only. Piriform sinus residuals were accumulated with the honey thick c onsistency and barium thick pudding resulting in penetration. IMPRESSION: Persistent penetration with the above tested consistencies and aspiration with the thin b arium consistency. Cough reflux was elicited. Moderate persistent piriform sinus residuals. Please r efer to speech therapist notes for further details if necessary.
[2019-12-24] MEDS: SODIUM CHLORIDE 0.9% 1,000 ML IV SCH (11:12)
--- NOTE | 2019-12-24 11:39 | MISC ---
MISCELLANOUS REPORT QUERY: Unable to determine regarding the anemia. MMODL / IJN: [id number] /
--- NOTE | 2019-12-24 11:54 | P.PN ---
Subjective Progress Note Date: 12/24/19 Principal diagnosis: renal failure, failure to thrive. Hx Head/neck malignancy-treated. Recent imaging ESTHELA In follow-up patient has no specific physical complaints, he failed swallow evaluation Objective - Vital Signs Vital signs: Vital Signs Temp 98.1 F 12/24/19 05:00 Pulse 87 12/24/19 05:00 Resp 18 12/24/19 05:00 BP 104/65 12/24/19 05:00 Pulse Ox 99 12/24/19 05:00 Intake & Output 12/23/19 12/24/19 12/24/19 18:59 06:59 18:59 Intake Total 400 590 190 Output Total 235 750 Balance 165 -160 190 Weight 62 kg 66 kg Intake: IV 100 Sodium Chloride 0.9% 1, 100 000 ml @ 20 mls/hr IV . Q24H [facility] Rx#:[id number] Intake, IV Titration 100 Amount Piperacillin-Tazobactam 3 100 .375 gm In Sodium Chloride 0.9% 100 ml @ 25 mls/hr IVPB Q12HR [facility] Rx #:[id number] Tube Feeding 240 490 190 Other 60 Output: Urine 235 750 Other: Voiding Method Indwelling Catheter Indwelling Catheter Indwelling Catheter # Bowel Movements 1 ABP, PAP, CO, CI - Last Documented Arterial Blood Pressure 132/74 - Constitutional General appearance: Present: no acute distress, thin - EENT Eyes: Present: anicteric sclerae, EOMI - Respiratory Details: respirations are mildly labored with activity - Musculoskeletal Musculoskeletal: Present: generalized weakness - Psychiatric Psychiatric Comment(s): A&O x 3, not cooperative at times - Labs CBC & Chem 7: 12/23/19 04:15 12/24/19 09:56 Labs: Abnormal Lab Results - Last 24 Hours (Table) 12/23/19 12/23/19 12/23/19 Range/Units 11:20 12:04 17:38 Sodium (137-145) mmol/L Potassium (3.5-5.1) mmol/L Chloride (98-107) mmol/L BUN (9-20) mg/dL Creatinine (0.66-1.25) mg/dL Glucose (74-99) mg/dL POC Glucose (mg/dL) 110 H 125 H (75-99) mg/dL Iron 21 L (65-175) ug/dL TIBC 154 L (228-460) ug/dL % Saturation 13.64 L (15.00-50.00) Ferritin 643.8 H (22.0-322.0) ng/mL 12/23/19 12/24/19 12/24/19 Range/Units 23:53 05:45 09:56 Sodium 148 H (137-145) mmol/L Potassium 3.3 L (3.5-5.1) mmol/L Chloride 112 H (98-107) mmol/L BUN 40 H (9-20) mg/dL Creatinine 3.05 H (0.66-1.25) mg/dL Glucose 124 H (74-99) mg/dL POC Glucose (mg/dL) 127 H 147 H (75-99) mg/dL Iron (65-175) ug/dL TIBC (228-460) ug/dL % Saturation (15.00-50.00) Ferritin (22.0-322.0) ng/mL Assessment and Plan (1) Acute renal failure (ARF) Narrative/Plan: Likely exacerbated by poor oral intake/dehydration. Patient has been on dialysis. Creatinine improved since admission. Nephrology following. Patient baseline creatinine is in the high 1 range Current Visit: Yes Status: Acute Priority: High Code(s): N17.9 - ACUTE KIDNEY FAILURE, UNSPECIFIED SNOMED Code(s): 45637884 (2) Anemia Narrative/Plan: Multifactorial including poor oral intake, poor nutritional status, also effects of poor renal function. Albumin low. Dietitian consult it for PEG tube feedings. Anemia work up most suggestive of anemia of inflammation. No iron supplementation at this time Current Visit: Yes Status: Acute Priority: Medium Code(s): D64.9 - ANEMIA, UNSPECIFIED SNOMED Code(s): 446876276 (3) Head and neck malignancy Narrative/Plan: Patient current on follow-up, recent treatment/disease f/u imaging showed no evidence to suggest recurrence. Current Visit: No Status: Chronic Priority: Low Code(s): C76.0 - MALIGNANT NEOPLASM OF HEAD, FACE AND NECK SNOMED Code(s): 181630877 Plan: Doctor attests: I performed a history and physical examination of this patient, developed impression and plan of care, discussed with dictator. I agree with dictators note, documented as a scribe.
[2019-12-24 12:09] LABS: Glucose,Whole Blood 130 mg/dL (75-99)
--- NOTE | 2019-12-24 12:19 | P.PN ---
Subjective Progress Note Date: 12/24/19 Principal diagnosis: Acute hypoxic respiratory failure during PEG tube insertion, possible aspiration pneumonia On today's evaluation of 12/22/2019 the patient is extubated. Note that I took the patient off the sedation yesterday. This was done after he completed dialysis. He showed excellent weaning parameters. He underwent a spontaneous breathing trial. He was able to tolerate without any major difficulties and currently is on room air oxygen. Overnight, the patient is not having any respiratory difficulties. He was calm and comfortable. No altered mentation. He is unable to swallow and is receiving enteral feeding for nutritional support via a PEG tube. Chest x-ray from today shows bilateral pleural effusion more so on the right and probably some consolidation of the right lung base. The patient remains on IV Zosyn. The patient is on IV fluids at 20 mL an hour. The patient is receiving enteral feeding for nutritional support. The patient is on a very minimal dose of norepinephrine infusion which is running at 0.02 mcg/kg per minute. The patient has no specific complaints. He is weak. His blood pressure is under adequate control. Echocardiac Eugene was noted and the patient has significant impaired LV function/systolic heart failure. No angina. No palpitation. No chest pain. Cough and mechanism is weak. Jarrell cath is still in place. Urine output is in order of 5-10 mL an hour. Nephrology is on the case. Patient was reevaluated today on 12/23/19, patient remains in the ICU, he was extubated last Monday, he is doing fairly well, he is on tube feeding via PEG tube, his IV fluid at KVO, he is also on room air, O2 saturation is in the 90s. Patient had his last dialysis was Monday, and I believe he is supposed to undergo dialysis again today. He is hemodynamically stable, not requiring any pressors. The patient is seen today 12/24/2019 in follow-up on the regular medical floor. He is currently resting fairly comfortably in bed. Awake and alert in no acute distress. Maintaining O2 saturations in the upper 90s on room air. Afebrile. Hemodynamically stable. Blood culture reveals no growth. Sodium 148. Potassiu m 3.3. Chloride 112. Creatinine 3.05. Glucose 124. He remains on Zosyn. Barium swallow revealed persistent penetration with all administered consistencies however the majority was ejected with a cough reflex. Aspiration was seen with thin barium gently only. Objective - Vital Signs Vital signs: Vital Signs Temp 98.1 F 12/24/19 05:00 Pulse 87 12/24/19 05:00 Resp 18 12/24/19 05:00 BP 104/65 12/24/19 05:00 Pulse Ox 99 12/24/19 05:00 Intake & Output 12/23/19 12/24/19 12/24/19 18:59 06:59 18:59 Intake Total 400 590 190 Output Total 235 750 Balance 165 -160 190 Weight 62 kg 66 kg Intake: IV 100 Sodium Chloride 0.9% 1, 100 000 ml @ 20 mls/hr IV . Q24H ASHLEY Rx#:[id number] Intake, IV Titration 100 Amount Piperacillin-Tazobactam 3 100 .375 gm In Sodium Chloride 0.9% 100 ml @ 25 mls/hr IVPB Q12HR A[facility] Rx #:[id number] Tube Feeding 240 490 190 Other 60 Output: Urine 235 750 Other: Voiding Method Indwelling Catheter Indwelling Catheter Indwelling Catheter # Bowel Movements 1 ABP, PAP, CO, CI - Last Documented Arterial Blood Pressure 132/74 - Exam Physical Exam: Revealed a cachectic 64-year-old male patient, on room air, in no distress, voice is noted to be hoarse. Head: Atraumatic, normocephalic. HEENT:[Neck is supple.] [No neck masses.] [No thyromegaly.] [No JVD.] PERRLA, EOMI, no icterus, no stridor. Chest: [Clear throughout, no crackles, no rhonchi, no wheezes.] Cardiac Exam: [Normal S1 and S2, no S3 gallop, no murmur.] Abdomen: Soft, nontender, no megaly, no rebound, no guarding, normal bowel sounds.] Extremities: [No clubbing, no edema, no cyanosis.] Neurological Exam: [No focal neurologic deficit.] Alert and oriented 3. Psychiatric: Normal mood, affect and normal mental status examination. Skin: No rashes. No clubbing or cyanosis. - Labs CBC & Chem 7: 12/23/19 04:15 12/24/19 09:56 Labs: Abnormal Lab Results - Last 24 Hours (Table) 0412/23/19 12/23/19 Range/Units 11:20 12:04 17:38 Sodium (137-145) mmol/L Potassium (3.5-5.1) mmol/L Chloride (98-107) mmol/L BUN (9-20) mg/dL Creatinine (0.66-1.25) mg/dL Glucose (74-99) mg/dL POC Glucose (mg/dL) 110 H 125 H (75-99) mg/dL Iron 21 L (65-175) ug/dL TIBC 154 L (228-460) ug/dL % Saturation 13.64 L (15.00-50.00) Ferritin 643.8 H (22.0-322.0) ng/mL 12/23/19 12/24/19 12/24/19 Range/Units 23:53 05:45 09:56 Sodium 148 H (137-145) mmol/L Potassium 3.3 L (3.5-5.1) mmol/L Chloride 112 H (98-107) mmol/L BUN 40 H (9-20) mg/dL Creatinine 3.05 H (0.66-1.25) mg/dL Glucose 124 H (74-99) mg/dL POC Glucose (mg/dL) 127 H 147 H (75-99) mg/dL Iron (65-175) ug/dL TIBC (228-460) ug/dL % Saturation (15.00-50.00) Ferritin (22.0-322.0) ng/mL 12/24/19 Range/Units 12:07 Sodium (137-145) mmol/L Potassium (3.5-5.1) mmol/L Chloride (98-107) mmol/L BUN (9-20) mg/dL Creatinine (0.66-1.25) mg/dL Glucose (74-99) mg/dL POC Glucose (mg/dL) 130 H (75-99) mg/dL Iron (65-175) ug/dL TIBC (228-460) ug/dL % Saturation (15.00-50.00) Ferritin (22.0-322.0) ng/mL Assessment and Plan Assessment: Impression: Acute hypoxic respiratory failure, suspect acute aspiration pneumonia. Acute kidney injury, secondary to severe dehydration and rhabdomyolysis, improving. Acute aspiration pneumonia Status post PEG tube placement and the patient is on enteral feeding Electrolytes imbalance. Hypokalemia Chronic congestive heart failure with impaired LV function ejection fraction of 20%. Dysphagia secondary to laryngeal cancer and patient is status post PEG tube placement. History of laryngeal cancer, previous chemo and radiation treatment. Recommendation: The patient was seen and evaluated by Dr. Mcgovern Barium swallow results reviewed Continue aspiration precautions We'll continue to follow I, the cosigning physician, performed a history & physical examination of the patient. Lungs sounds are clear. Maintaining good O2 saturations in the 90s on room air. I discussed the assessment and plan of care with my nurse practitioner, Vonda Gonzalez. I attest to the above note as dictated by her.
--- NOTE | 2019-12-24 16:30 | PN ---
PROGRESS NOTE Patient is being followed for acute kidney injury. He has had few treatments of hemodialysis. Currently hemodialysis is on hold, as there is an improvement in urine output and possible recovery of renal function as well. Patient was transferred out of the ICU yesterday. Currently, he is not in his room and has gone down for barium swallow. I have discussed with nursing staff. Mentation seems to have improved. Patient is not significantly agitated. He remains on tube feedings due to aspiration. He did get potassium this morning for hypokalemia. Serum potassium was 3.3 mEq/L. Vital signs are reviewed. Blood pressure was 104/65, heart rate of about 81 per minute, patient is afebrile. Examination is not performed. LABS: Reviewed. Sodium 148, potassium 3.3, chloride 112, CO2 is 29, BUN 40, creatinine 3.05. ASSESSMENT: 1. Acute kidney injury, status post hemodialysis, ATN, currently nonoliguric with possible recovery of kidney function. Continue to hold off on dialysis for now. 2. Hypokalemia, status post replacement. 3. Hypernatremia. We will add free water down the feeding tube. 4. Status post PEG tube placement for aspiration. Currently undergoing barium swallow. 5. Hyperphosphatemia, maintained on PhosLo. 6. Metabolic acidosis currently on sodium bicarb which we can discontinue. PLAN: Hold off on dialysis. DC sodium bicarb. Repeat phosphorus and we can possibly discontinue the PhosLo as well as renal function continues to improve. Repeat labs in a.m. MMEAGLEL / IJN: [id number] /
--- NOTE | 2019-12-24 16:57 | PN ---
PROGRESS NOTE CHIEF COMPLAINT: Acute kidney injury. HISTORY OF PRESENT ILLNESS: This gentleman is doing fairly well and holding his own, but he is not improving steadily. Renal function has leveled out and has not improved over the last day or two. He is still having a little trouble with swallowing and swallowing evaluation suggests that he does have some aspiration. We are working on a discharge plan, which may be difficult as well. REVIEW OF SYSTEMS: He denies any headaches, significant throat or neck pain, chest pain, shortness of breath, etc. PHYSICAL EXAMINATION: Breath sounds are very poor bilaterally with scattered rales and rhonchi. Cardiac exam is unremarkable. Abdomen is soft. IMPRESSION: 1. Acute kidney injury. 2. Renal failure. 3. Dysphagia. 4. History of carcinoma of the throat. 5. Chronic obstructive pulmonary disease. 6. Alcoholism. PLAN: 1. Continue to monitor and follow his renal function. 2. Physical therapy. 3. Discharge planning. MMSTUART / MARCELON: [id number] /
[2019-12-24 17:56] LABS: Glucose,Whole Blood 111 mg/dL (75-99)
[2019-12-24] MEDS ORDERED: Potassium Replacement Protocol 1 EACH MISC MISCELLANE PRN (18:21)
[2019-12-24 19:42] LABS: Glucose,Whole Blood 131 mg/dL (75-99)
[2019-12-24] MEDS: ATORVASTATIN 20 MG TAB PO SCH (20:13)
[2019-12-24] MEDS: POTASSIUM BICARBONATE/CIT AC 20 MEQ TABLET.EFF NG-TUBE SCH ×2 (20:14→21:49)
[2019-12-25] MEDS: HEPARIN SODIUM,PORCINE 5,000 UNIT/ML 1 ML VIAL SQ SCH ×2 (00:25→10:30)
[2019-12-25] MEDS: INSULIN ASPART (NovoLOG) 100 UNIT/ML VIAL SQ SCH ×3 (00:28→13:04)
[2019-12-25 00:30] LABS: Glucose,Whole Blood 131 mg/dL (75-99)
[2019-12-25 06:08] LABS: Phosphorus 3.7 mg/dL (2.5-4.5); Potassium 3.4 mmol/L (3.5-5.1)
[2019-12-25 06:18] LABS: Glucose,Whole Blood 133 mg/dL (75-99)
[2019-12-25 10:19] LABS: Calcium 8.5 mg/dL (8.4-10.2); Potassium 3.4 mmol/L (3.5-5.1)
[2019-12-25] MEDS: CALCIUM ACETATE 667 MG TAB PO SCH (10:30)
[2019-12-25] MEDS: ASPIRIN 325 MG TAB PO SCH (10:30)
[2019-12-25] MEDS: PIPERACILLIN-TAZOBACTAM 3.375 GM in SODIUM CHLORIDE 0.9% 100 ML IVPB SCH (10:30)
[2019-12-25] MEDS: PANTOPRAZOLE 40 MG/10 ML VIAL IVP SCH (10:31)
--- NOTE | 2019-12-25 11:21 | PN ---
PROGRESS NOTE CHIEF COMPLAINT: Rhabdomyolysis, renal failure, COPD and alcoholism. HISTORY OF PRESENT ILLNESS: This gentleman is doing a little bit better. He is not swallowing well, however. PEG tube is in place. He is ambulating and we are working on a discharge plan. PHYSICAL EXAMINATION: He remains very hoarse. Chest is clear and cardiac exam is normal. The abdomen is soft, nontender. Jarrell is in place. IMPRESSION: 1. Rhabdomyolysis. 2. Dehydration. 3. History of carcinoma of the throat. 4. Renal failure. 5. Dysphagia with aspiration. PLAN: 1. Continue to increase activity. 2. Remove Jarrell. 3. Continue to work on a discharge plan. MMODL / IJN: [id number] /
[2019-12-25 11:26] VITALS: BMI 26.6
[2019-12-25 11:42] LABS: Glucose,Whole Blood 127 mg/dL (75-99)
[2019-12-25 11:48] VITALS: BP 107/72; PULSE 92; RESP 17; TEMP 97.5
[2019-12-25] MEDS ORDERED: AMOXIC-POT CLAV 875-125MG 1 EACH TAB PO SCH (12:45)
--- NOTE | 2019-12-25 12:46 | P.PN ---
Subjective Progress Note Date: 12/25/19 Principal diagnosis: Acute hypoxic respiratory failure requiring PEG tube insertion, possible aspiration pneumonia On today's evaluation of 12/22/2019 the patient is extubated. Note that I took the patient off the sedation yesterday. This was done after he completed dialysis. He showed excellent weaning parameters. He underwent a spontaneous breathing trial. He was able to tolerate without any major difficulties and currently is on room air oxygen. Overnight, the patient is not having any respiratory difficulties. He was calm and comfortable. No altered mentation. He is unable to swallow and is receiving enteral feeding for nutritional support via a PEG tube. Chest x-ray from today shows bilateral pleural effusion more so on the right and probably some consolidation of the right lung base. The patient remains on IV Zosyn. The patient is on IV fluids at 20 mL an hour. The patient is receiving enteral feeding for nutritional support. The patient is on a very minimal dose of norepinephrine infusion which is running at 0.02 mcg/kg per minute. The patient has no specific complaints. He is weak. His blood pressure is under adequate control. Echocardiac Eugene was noted and the patient has significant impaired LV function/systolic heart failure. No angina. No palpitation. No chest pain. Cough and mechanism is weak. Jarrell cath is still in place. Urine output is in order of 5-10 mL an hour. Nephrology is on the case. Patient was reevaluated today on 12/23/19, patient remains in the ICU, he was extubated last Monday, he is doing fairly well, he is on tube feeding via PEG tube, his IV fluid at KVO, he is also on room air, O2 saturation is in the 90s. Patient had his last dialysis was Monday, and I believe he is supposed to undergo dialysis again today. He is hemodynamically stable, not requiring any pressors. The patient is seen today 12/24/2019 in follow-up on the regular medical floor. He is currently resting fairly comfortably in bed. Awake and alert in no acute distress. Maintaining O2 saturations in the upper 90s on room air. Afebrile. Hemodynamically stable. Blood culture reveals no growth. Sodium 148. Potas sium 3.3. Chloride 112. Creatinine 3.05. Glucose 124. He remains on Zosyn. Barium swallow revealed persistent penetration with all administered consistencies however the majority was ejected with a cough reflex. Aspiration was seen with thin barium gently only. On 12/25/2019 patient seen in follow-up on general medical floor. He is calm and comfortable, resting in bed, room air pulse ox is 93-94%, hemodynamically he is stable, his been afebrile, respirations are even and nonlabored. Lung sounds are clear, diminished at the bases, no rhonchi or wheezing, patient has been made nothing by mouth, he status post PEG tube insertion for possibility of chronic aspiration. Blood culture showed no growth, patient never did produce a sputum culture for us. Clinically improving, he is off the oxygen, he remains on IV Zosyn. Last chest x-ray was done on 12/23/2019 showing small layering of bilateral pleural effusions and bibasilar airspace disease. His kidney function is recovering, patient is producing urine, and nephrology is holding off on dialysis for now. No acute events overnight, no worsening dyspnea, increase activity as tolerated, anticipate transfer to ECF soon Objective - Vital Signs Vital signs: Vital Signs Temp 97.5 F L 12/25/19 11:47 Pulse 92 12/25/19 11:47 Resp 17 12/25/19 11:47 BP 107/72 12/25/19 11:47 Pulse Ox 94 L 12/25/19 11:47 Intake & Output 12/24/19 12/25/19 12/25/19 18:59 06:59 18:59 Intake Total 1040 780 480 Output Total 700 Balance 1040 80 480 Weight 66 kg 66 kg Intake: IV 20 60 Sodium Chloride 0.9% 1, 20 60 000 ml @ 20 mls/hr IV . Q24H [facility] Rx#:[id number] Intake, IV Titration 100 Amount Piperacillin-Tazobactam 3 100 .375 gm In Sodium Chloride 0.9% 100 ml @ 25 mls/hr IVPB Q12HR [facility] Rx #:[id number] Tube Feeding 860 720 480 Other 60 Output: Urine 700 Other: Voiding Method Indwelling Catheter Indwelling Catheter Indwelling Catheter # Bowel Movements 1 ABP, PAP, CO, CI - Last Documented Arterial Blood Pressure 132/74 - Exam GENERAL EXAM: Alert, very pleasant, cachectic 64-year-old -Citizen Of [place] male, on room air, with a pulse ox of 93-94%, comfortable in no apparent distress. HEAD: Normocephalic/atraumatic. EYES: Normal reaction of pupils, equal size. Conjunctiva pink, sclera white. NOSE: Clear with pink turbinates. THROAT: No erythema or exudates. NECK: No masses, no JVD, no thyroid enlargement, no adenopathy. CHEST: No chest wall deformity. Symmetrical expansion. LUNGS: Equal air entry with no crackles, wheeze, rhonchi or dullness. CVS: Regular rate and rhythm, normal S1 and S2, no gallops, no murmurs, no rubs ABDOMEN: Soft, nontender. No hepatosplenomegaly, normal bowel sounds, no guarding or rigidity. Left upper quadrant PEG tube with tube feedings infusing EXTREMITIES: No clubbing, no edema, no cyanosis, 2+ pulses and upper and lower extremities. MUSCULOSKELETAL: Muscle strength and tone normal. SPINE: No scoliosis or deformity SKIN: No rashes CENTRAL NERVOUS SYSTEM: Alert and oriented -3. No focal deficits, tone is normal in all 4 extremities. PSYCHIATRIC: Alert and oriented -3. Appropriate affect. Intact judgment and insight. - Labs CBC & Chem 7: 12/23/19 04:15 12/25/19 05:29 Labs: Abnormal Lab Results - Last 24 Hours (Table) 12/24/19 12/24/19 12/25/19 Range/Units 17:53 19:40 00:24 Sodium (137-145) mmol/L Potassium (3.5-5.1) mmol/L Chloride (98-107) mmol/L BUN (9-20) mg/dL Creatinine (0.66-1.25) mg/dL Glucose (74-99) mg/dL POC Glucose (mg/dL) 111 H 131 H 131 H (75-99) mg/dL 12/25/19 12/25/19 12/25/19 Range/Units 05:29 05:29 06:16 Sodium 148 H (137-145) mmol/L Potassium 3.4 L 3.4 L (3.5-5.1) mmol/L Chloride 113 H (98-107) mmol/L BUN 42 H (9-20) mg/dL Creatinine 2.73 H (0.66-1.25) mg/dL Glucose 118 H (74-99) mg/dL POC Glucose (mg/dL) 133 H (75-99) mg/dL 12/25/19 Range/Units 11:40 Sodium (137-145) mmol/L Potassium (3.5-5.1) mmol/L Chloride (98-107) mmol/L BUN (9-20) mg/dL Creatinine (0.66-1.25) mg/dL Glucose (74-99) mg/dL POC Glucose (mg/dL) 127 H (75-99) mg/dL Assessment and Plan Plan: Assessment: #1. Acute hypoxic respiratory failure, related to possibly of acute aspiration pneumonia, recovered #2. Acute kidney injury related to severe dehydration and rhabdomyolysis, improving #3. Acute aspiration pneumonia #4. Status post PEG tube placement for suspected chronic aspiration #5. Hypokalemia, hypernatremia, likely hypovolemic nephrology is following #6. Chronic congestive heart failure with impaired LV function and ejection fraction of 20% #7. Dysphagia related to laryngeal cancer, status post PEG tube placement #8. History of laryngeal cancer status post previous chemoradiation treatment Plan: From pulmonary perspective patient can be considered for discharge. We'll switch the IV Zosyn to oral Augmentin, patient is on room air, increase activity as tolerated. Will remove Jarrell. Pulmonary service will sign off and follow and as needed basis I performed a history & physical examination of the patient and discussed their management with my nurse practitioner, Mita Knight. I reviewed the nurse practitioner's note and agree with the documented findings and plan of care. Lung sounds are positive for diminished breath sounds. The findings and the impression was discussed with the patient. I attest to the documentation by the nurse practitioner. Time with Patient: Less than 30
--- NOTE | 2019-12-25 13:36 | DS ---
DISCHARGE SUMMARY CHIEF COMPLAINT: Rhabdomyolysis, acute renal injury, hypokalemia, and dehydration. HISTORY OF PRESENT ILLNESS AND PHYSICAL EXAM: Details of this man's history and physical can be found in the initial workup. LABORATORY STUDIES: While he was in a hospital he had laboratory studies, details of which can be found laboratory section of his chart. COURSE IN THE HOSPITAL: After admission, he was placed on bed rest and eventually required intubation. He was followed by Intensive Medicine, Pulmonology, and Nephrology. As he was rehydrated, he began to have a urine output. However, he needed to be dialyzed. The renal function continued to improve and he started making urine. He was eventually able to be transferred out of ICU and was to have a PEG tube placed. During the procedure, he became hypotensive and bradycardic and had to be placed back in ICU on the ventilator. After he was extubated, he was transferred to regular floor and he continued to do fairly well. He is unable to swallow well and he remained extremely weak. Arrangements were made for him to go to extended care unit and [facility] was available on the and he was transferred there. FINAL DIAGNOSES: 1. Rhabdomyolysis. 2. Dehydration. 3. Hypokalemia. 4. Acute kidney injury. 5. Prerenal azotemia. 6. Chronic kidney disease. 7. Chronic obstructive pulmonary disease. 8. History of carcinoma of the throat. 9. Dysphagia. OPERATIONS: PEG tube placement. CONSULTATIONS: Intensive Medicine, Nephrology. He is improved. MMODL / IJN: [id number] /
[2019-12-25] MEDS: SODIUM CHLORIDE 0.9% 1,000 ML IV SCH (14:38)
--- NOTE | 2019-12-25 16:12 | PN ---
PROGRESS NOTE Patient is seen for followup for acute kidney injury. His renal function has improved. Patient was initially dialyzed. However, he remains off dialysis. He has had good urine output, he has an indwelling Jarrell catheter; 24 hour output was about 985 mL. On examination today, blood pressure is 107/69, heart rate 85 per minute, patient is afebrile. He is awake, alert, and oriented x3, not in any acute distress. Examination of the heart S1, S2. Examination of the lungs, decreased breath sounds at the bases. Abdomen is soft, nontender. Examination of the lower extremities shows no evidence of edema. ORTHOPTIST exam grossly intact and mentation is much improved. Patient is moving all 4 extremities. LABS: Show sodium 148, potassium 3.4, chloride 113, CO2 is 27, BUN 42, creatinine 2.73. ASSESSMENT: 1. Acute kidney injury, acute tubular necrosis, currently off of hemodialysis with renal function continuing to improve, maintain patient off dialysis for now. 2. Hypokalemia, status post replacement yesterday. I will give him another dose of potassium supplementation today. 3. Gastroesophageal reflux disease, maintained on Protonix. 4. Hyperphosphatemia, improved. I will discontinue the PhosLo. Phosphorus was 3.7. Expect further improvement with improving renal function. 5. Hypernatremia. Increase free water intake. PLAN: DC dialysis catheter. Replace potassium. Maintain free water down the feeding tube. The patient can be discharged. He will need followup as outpatient in about one week's time. Repeat labs in 2-3 days post discharge for followup on electrolytes and renal function. MMODL / IJN: [id number] /
[2019-12-26 08:10] LABS: Methylmalonic Acid 0.7 umol/L (<0.40)
--- NOTE | 2019-12-26 09:32 | CDI ---
Documentation Clarification Form Date: 12/26/19 From: Faby Gusman CCS Phone: If you have a question about this query, please contact Magui Lomax, Outbound Sales Consultant at [phone] between 8am and 5pm. Admit Date: 12/17/19 Discharge Date:12/25/19 Patient Name: Ventura Austin Visit Number: [id number] ATTENTION: The Clinical Documentation Specialists (CDI) and [facility] Coding Staff appreciate your assistance in clarifying documentation. Please respond to the clarification below the line at the bottom and electronically sign. The CDI & [facility] Coding staff will review the response and follow-up if needed. Please note: Queries are made part of the Legal Health Record. If you have any questions, please contact the author of this message via ITS. Dear Dr. Austin, [CKD is defined as GFR<=60 for >= 3 months. Before placing query, please validate historical GFR labs] CKD is documented in the Op Note and DS . History/Risk Factors: HTN, CMP, CHF, Malnutrition, ATN Clinical Indicators: ATN, Anemia of chronic disease BUN: 156, 144, 134 Creatinine: 13.8, 12.61, 11.18 GFR: 3, 4, 7 Treatment: Dialysis Consults: Olinda- Acute kidney injury secondary to ATN secondary to severe intravascular volume depletion from poor oral intake and hypotension.Creatinine 13.8 on admission.Baseline creatinine near 1.Rule out obstructive uropathy. In order to capture the severity of condition, please clarify the stage of the CKD, if known: CKD Stage 1 (GFR > 90) CKD Stage 2 (GFR 60-89) CKD Stage 3 (GFR 30-59) CKD Stage 4 (GFR 15-29) CKD Stage 5 (GFR <15) ESRD Other, please specify Unable to determine MTDD
--- NOTE | 2019-12-26 10:31 | MISC ---
MISCELLANOUS REPORT QUERY: Stage 5. MMODL / IJN: [id number] /
--- NOTE | 2019-12-30 13:29 | CDI ---
Documentation Clarification Form Date: 12/30/19 From: Faby Gusman CCS Phone: If you have a question about this query, please contact Magui Lomax, Certified Nurses' Aide at [phone] between 8am and 5pm. Admit Date: 12/17/19 Discharge Date: 12/25/19 Patient Name: Ventura Austin Visit Number: [id number] ATTENTION: The Clinical Documentation Specialists (CDI) and [facility] Coding Staff appreciate your assistance in clarifying documentation. Please respond to the clarification below the line at the bottom and electronically sign. The CDI & [facility] Coding staff will review the response and follow-up if needed. Please note: Queries are made part of the Legal Health Record. If you have any questions, please contact the author of this message via ITS. Dear Dr. Chaney, The diagnosis sepsis due to pneumonia/aspiration was documented in the PNs, but is not noted in subsequent documentation. History/Risk Factors: ATN, Asp PNA, Acidosis, HHD, Anemia, Acute Respiratory Failure Clinical Indicators: Tachycardia, Acidosis,Hypovolemic shock WBC: 11.9, 13.1 Lactic Acid: 1.1, 2.1 Vitals: BP 83/57, RR 23, WV 89, O2 Sat 99 Treatment: Zosyn 3.375 gm IVPB Please clarify if the sepsis was Present/active this admission Treated and resolved this admission Ruled out Other, please specify Clinically unable to determine MTDD
--- NOTE | 2019-12-30 14:21 | P.OP ---
Date of Procedure: 12/19/19 Preoperative Diagnosis: Protein calorie mild attrition Postoperative Diagnosis: Protein calorie malnutrition Procedure(s) Performed: EGD with PEG tube placement Anesthesia: MAC Surgeon: Frank Rivas Pathology: none sent Condition: stable Disposition: PACU Description of Procedure: The patient's placed on the endoscopy table in the lateral position. He received IV sedation. The gastroscope placed oropharynx passed in the esophagus into the stomach. Scope was then placed through the pylorus. The first and second portion of the duodenum appeared normal. The scope was then brought back in the suitable light reflux was seen in the anterior abdominal wall. The skin was anesthetized 1% local Xylocaine. Using a needle the stomach was entered under direct vision. The wire was placed through the needle and then the wire was snared brought to the oropharynx. This point the patient had the PEG tube placed overtop the wire and brought down to the stomach. The PEG tube bolster was secured at the 3 cm tejal. At this point the patient desaturated he was resuscitated by anesthesia please see hospital chart. Patient top procedure well.
--- NOTE | 2020-01-01 22:09 | MISC ---
MISCELLANOUS REPORT QUERY: Sepsis; clinically unable to determine. MMODL / IJN: [id number] /
== END 2019-12-25 17:00 | DRG 682 ==
LOC: EC 05:06 → 2SICU 07:46 → 5NMEDONC 12-23 11:46
PROVIDERS: ADMIT Family Medicine; ATTEND Family Medicine
PROC: 02HV33Z Insertion of Infusion Device into Superior Vena Cava, Percutaneous Approach (ICD-10-PCS; 2019-12-17)
PROC: 02H633Z Insertion of Infusion Device into Right Atrium, Percutaneous Approach (ICD-10-PCS; 2019-12-18)
PROC: 03HY32Z Insertion of Monitoring Device into Upper Artery, Percutaneous Approach (ICD-10-PCS; 2019-12-19)
PROC: 4A133B1 Monitoring of Arterial Pressure, Peripheral, Percutaneous Approach (ICD-10-PCS; 2019-12-19)
PROC: 4A133J1 Monitoring of Arterial Pulse, Peripheral, Percutaneous Approach (ICD-10-PCS; 2019-12-19)
PROC: 0DH63UZ Insertion of Feeding Device into Stomach, Percutaneous Approach (ICD-10-PCS; 2019-12-19)
PROC: 5A1945Z Respiratory Ventilation, 24-96 Consecutive Hours (ICD-10-PCS; 2019-12-19)
PROC: 5A1D70Z Performance of Urinary Filtration, Intermittent, Less than 6 Hours Per Day (ICD-10-PCS; principal; 2019-12-19 07:30)
PROC: 3E0G76Z Introduction of Nutritional Substance into Upper GI, Via Natural or Artificial Opening (ICD-10-PCS; 2019-12-20)
DX: N17.0 Acute kidney failure with tubular necrosis (principal); I50.21 Acute systolic (congestive) heart failure; E43 Unspecified severe protein-calorie malnutrition; J96.01 Acute respiratory failure with hypoxia; J69.0 Pneumonitis due to inhalation of food and vomit; R57.1 Hypovolemic shock; R64 Cachexia; M62.82 Rhabdomyolysis; E87.2 Acidosis; I42.9 Cardiomyopathy, unspecified; E87.0 Hyperosmolality and hypernatremia; I13.2 Hypertensive heart and chronic kidney disease with heart failure and with stage 5 chronic kidney disease, or end stage renal disease; E83.51 Hypocalcemia; J44.9 Chronic obstructive pulmonary disease, unspecified; D63.1 Anemia in chronic kidney disease; R62.7 Adult failure to thrive; E83.39 Other disorders of phosphorus metabolism; R13.10 Dysphagia, unspecified; I95.9 Hypotension, unspecified; N18.5 Chronic kidney disease, stage 5; E78.5 Hyperlipidemia, unspecified; M19.90 Unspecified osteoarthritis, unspecified site; R00.0 Tachycardia, unspecified; I44.7 Left bundle-branch block, unspecified; I48.91 Unspecified atrial fibrillation; E87.6 Hypokalemia; F10.11 Alcohol abuse, in remission; G25.81 Restless legs syndrome; K21.9 Gastro-esophageal reflux disease without esophagitis; F10.10 Alcohol abuse, uncomplicated; R45.1 Restlessness and agitation; I45.4 Nonspecific intraventricular block; I44.0 Atrioventricular block, first degree; R53.81 Other malaise; R00.1 Bradycardia, unspecified; I25.2 Old myocardial infarction; Z68.26 Body mass index [BMI] 26.0-26.9, adult; Z71.3 Dietary counseling and surveillance; Z79.82 Long term (current) use of aspirin; Z79.899 Other long term (current) drug therapy; Z92.21 Personal history of antineoplastic chemotherapy; Z92.3 Personal history of irradiation; Z85.818 Personal history of malignant neoplasm of other sites of lip, oral cavity, and pharynx; Z87.81 Personal history of (healed) traumatic fracture; Z87.891 Personal history of nicotine dependence; Z82.69 Family history of other diseases of the musculoskeletal system and connective tissue
CPT/HCPCS: 36415; 36573; 43246; 71045; 74230; 76770; 80048; 80053; 81001; 82550; 82607; 82728; 82747; 82805; 83036; 83540; 83550; 83605; 83735; 83921; 84100; 84132; 84484; 85025; 85027; 85610; 85730; 86706; 87040; 87324; 87340; 90935; 93005; 93306; 94002; 94003; 96365; 99291

== ENCOUNTER 2019-12-26 02:02 | Inpatient (IN) | payer MEDICARE, OTHER ==
[2019-12-26] MEDS ORDERED: MORPHINE SULFATE 4 MG/ML SYRINGE IVP STA (02:08)
[2019-12-26 02:45] LABS: HCT 30.5 % (39.0-53.0); HGB 9.7 gm/dL (13.0-17.5); MCH 31.5 pg (25.0-35.0); MCHC 31.8 g/dL (31.0-37.0); MCV 99.2 fL (80.0-100.0); Mean Platelet Volume 9.9; RBC 3.08 m/uL (4.30-5.90); RDW 13.8 % (11.5-15.5); WBC 7.1 k/uL (3.8-10.6)
[2019-12-26 02:51] LABS: Basophils % (A) 0 %; Eosinophils # (A) 0.1 k/uL (0-0.7); Eosinophils % (A) 2 %; Lymphocytes # (A) 0.5 k/uL (1.0-4.8); Lymphocytes % (A) 7 %; Monocytes # (A) 0.3 k/uL (0-1.0); Monocytes % (A) 5 %; Neutrophils % (A) 85 %
[2019-12-26 02:54] LABS: Partial Thromboplastin Time 22.6 sec (22.0-30.0); Prothrombin Time 10.6 sec (9.0-12.0)
[2019-12-26 03:01] LABS: Calcium 8.5 mg/dL (8.4-10.2); Magnesium 1.5 mg/dL (1.6-2.3); Potassium 3.4 mmol/L (3.5-5.1); Total Bilirubin 0.5 mg/dL (0.2-1.3)
[2019-12-26 03:07] LABS: Platelet Count 44 k/uL (150-450)
[2019-12-26 03:08] LABS: Polychromasia Present
[2019-12-26] MEDS ORDERED: NALOXONE 0.4 MG/ML 1 ML VIAL IV PRN (03:35)
[2019-12-26] MEDS ORDERED: ENOXAPARIN 60 MG/0.6 ML SYRINGE SQ STA (03:35)
--- NOTE | 2019-12-26 03:53 | US ---
EXAMINATION TYPE: US venous doppler duplex LE RT DATE OF EXAM: 12/26/2019 3:34 AM COMPARISON: NONE CLINICAL HISTORY: edema. Edema x 2 days. No hx of DVT. Patient had recent catheterization. SIDE PERFORMED: Right TECHNIQUE: The lower extremity deep venous system is examined utilizing real time linear array sonog yanique with graded compression, doppler sonography and color-flow sonography. VESSELS IMAGED: Common Femoral Vein Deep Femoral Vein Femoral Vein Popliteal Vein Small Saphenous Vein * Proximal Calf Veins (* superficial vessels) Right Leg: Exam is limited. Edema seen in groin around catheterization site. Limited visibility of C FV, DFV, and femoral vein. Femoral artery shown in images. Echoes seen within noncompressible poplite al vein. There appears to be thrombus within popliteal vein. IMPRESSION: There is evidence of acute deep vein thrombosis involving the right popliteal vein.
--- NOTE | 2019-12-26 04:19 | ED ---
Extremity Problem HPI - General Chief complaint: Extremity Injury, Lower Stated complaint: leg pain Time Seen by Provider: 12/26/19 02:04 Source: patient, EMS Mode of arrival: EMS Limitations: no limitations - History of Present Illness Initial comments: Ventura is a 64-year-old gentleman with extremely complex recent medical history. Patient was recently admitted the hospital for renal failure, he had a right- sided dialysis cath in the groin, left-sided arterial line, his previous hospitalization was complicated by recurrent ICU admissions and the need for intubation at one point. Patient had his dialysis catheter removed yesterday and was subsequently discharged to a retirement. Since discharge the patient is noted progressively worsening painful swelling of the right lower extremity. There is no redness tenderness or significant bleeding from the catheter site however he can't get comfortable in his nurses noted that his leg became pro foundly swollen to him back to the ER for repeat evaluation. - Related Data Previous Rx's Medication Instructions Recorded Amoxic-Pot Clav 875-125Mg 1 each PO Q12HR #20 tab 12/25/19 [Augmentin 875-125] Allergies Allergy/AdvReac Type Severity Reaction Status Date / Time No Known Allergies Allergy Verified 12/17/19 09:00 Review of Systems ROS Statement: Those systems with pertinent positive or pertinent negative responses have been documented in the HPI. ROS Other: All systems not noted in ROS Statement are negative. Past Medical History Past Medical History: Cancer, GERD/Reflux, Hyperlipidemia, Hypertension, Myocardial Infarction ([place]), Osteoarthritis (OA) Additional Past Medical History / Comment(s): HYPOPHARYNX CANCER. DIFFICULTY SWALLOWING, CONSTANT SORE THROAT. Last Myocardial Infarction Date:: 10 YEARS AGO History of Any Multi-Drug Resistant Organisms: None Reported Past Surgical History: Orthopedic Surgery Additional Past Surgical History / Comment(s): BROKEN COLLAR BONE with surgical repair Past Anesthesia/Blood Transfusion Reactions: No Reported Reaction Past Psychological History: No Psychological Hx Reported Smoking Status: Former smoker Past Alcohol Use History: None Reported Past Drug Use History: None Reported - Past Family History Father Additional Family Medical History / Comment(s): GOUT Mother History Unknown: Yes General Exam - General Exam Comments Initial Comments: Physical Exam GENERAL: Patient is well-developed and well-nourished. Patient is nontoxic and well- hydrated and is in no distress. HENT: Normocephalic, Atraumatic. EYES: PERRL, EOMI PULMONARY: Unlabored respirations. No audible rales rhonchi or wheezing was noted. CARDIOVASCULAR: There is a regular rate and rhythm without any murmurs gallops or rubs. ABDOMEN: Soft and nontender with normal bowel sounds. SKIN: Skin is clear with no lesions or rashes and otherwise unremarkable. : Deferred NEUROLOGIC: Patient is alert and oriented x3. 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 PSYCHIATRIC: Agitated Limitations: no limitations Course Vital Signs 12/26/19 12/26/19 02:12 02:49 Temperature 98.6 F Pulse Rate 94 93 Respiratory 20 20 Rate Blood Pressure 108/75 108/75 O2 Sat by Pulse 95 Oximetry Medical Decision Making - Medical Decision Making The patient was seen and evaluated history and physical exam are concerning for a likely massive DVT in the right lower extremity Labs including coag studies were ordered Ultrasound did confirm a DVT in the right lower extremity though there is report that it was significantly technically difficult due to tenderness and swelling Due to the patient's new thrombocytopenia which is likely consumptive coagulopathy he is not a candidate for heparin. Will be given a single weight- based dose of Lovenox Patient care was discussed with patient's primary care provider Dr. Chaney who is very familiar with this patient due to his recent admission. He agrees with the plan for admission with a consult to vascular surgery for further evaluation. At this time a CTA of the abdomen and lower extremity cannot be completed due to the patient's renal function. - Lab Data Result diagrams: 12/26/19 02:35 12/26/19 02:35 Lab Results 12/26/19 12/26/19 12/26/19 Range/Units 02:35 02:35 02:35 WBC 7.1 (3.8-10.6) k/uL RBC 3.08 L (4.30-5.90) m/uL Hgb 9.7 L (13.0-17.5) gm/dL Hct 30.5 L (39.0-53.0) % MCV 99.2 (80.0-100.0) fL MCH 31.5 (25.0-35.0) pg MCHC 31.8 (31.0-37.0) g/dL RDW 13.8 (11.5-15.5) % Plt Count 44 L D (150-450) k/uL Neutrophils % 85 % Lymphocytes % 7 % Monocytes % 5 % Eosinophils % 2 % Basophils % 0 % Neutrophils # 6.0 (1.3-7.7) k/uL Lymphocytes # 0.5 L (1.0-4.8) k/uL Monocytes # 0.3 (0-1.0) k/uL Eosinophils # 0.1 (0-0.7) k/uL Basophils # 0.0 (0-0.2) k/uL Manual Slide Review Performed Polychromasia Present PT (9.0-12.0) sec INR (<1.2) APTT (22.0-30.0) sec Sodium 147 H (137-145) mmol/L Potassium 3.4 L (3.5-5.1) mmol/L Chloride 112 H (98-107) mmol/L Carbon Dioxide 24 (22-30) mmol/L Anion Gap 11 mmol/L BUN 44 H (9-20) mg/dL Creatinine 2.53 H (0.66-1.25) mg/dL Est GFR (CKD-EPI)AfAm 30 (>60 ml/min/1.73 sqM) Est GFR (CKD-EPI)NonAf 26 (>60 ml/min/1.73 sqM) Glucose 110 H (74-99) mg/dL Plasma Lactic Acid Shade 1.6 (0.7-2.0) mmol/L Calcium 8.5 (8.4-10.2) mg/dL Magnesium 1.5 L (1.6-2.3) mg/dL Total Bilirubin 0.5 (0.2-1.3) mg/dL AST 83 H (17-59) U/L ALT 36 (4-49) U/L Alkaline Phosphatase 84 (38-126) U/L Total Protein 6.0 L (6.3-8.2) g/dL Albumin 3.0 L (3.5-5.0) g/dL 12/26/19 Range/Units 02:35 WBC (3.8-10.6) k/uL RBC (4.30-5.90) m/uL Hgb (13.0-17.5) gm/dL Hct (39.0-53.0) % MCV (80.0-100.0) fL MCH (25.0-35.0) pg MCHC (31.0-37.0) g/dL RDW (11.5-15.5) % Plt Count (150-450) k/uL Neutrophils % % Lymphocytes % % Monocytes % % Eosinophils % % Basophils % % Neutrophils # (1.3-7.7) k/uL Lymphocytes # (1.0-4.8) k/uL Monocytes # (0-1.0) k/uL Eosinophils # (0-0.7) k/uL Basophils # (0-0.2) k/uL Manual Slide Review Polychromasia PT 10.6 (9.0-12.0) sec INR 1.0 (<1.2) APTT 22.6 (22.0-30.0) sec Sodium (137-145) mmol/L Potassium (3.5-5.1) mmol/L Chloride (98-107) mmol/L Carbon Dioxide (22-30) mmol/L Anion Gap mmol/L BUN (9-20) mg/dL Creatinine (0.66-1.25) mg/dL Est GFR (CKD-EPI)AfAm (>60 ml/min/1.73 sqM) Est GFR (CKD-EPI)NonAf (>60 ml/min/1.73 sqM) Glucose (74-99) mg/dL Plasma Lactic Acid Shade (0.7-2.0) mmol/L Calcium (8.4-10.2) mg/dL Magnesium (1.6-2.3) mg/dL Total Bilirubin (0.2-1.3) mg/dL AST (17-59) U/L ALT (4-49) U/L Alkaline Phosphatase (38-126) U/L Total Protein (6.3-8.2) g/dL Albumin (3.5-5.0) g/dL Disposition Clinical Impression: Deep vein thrombosis (DVT) of right lower extremity Disposition: ADMITTED IP TO THIS HOSP Condition: Serious Is patient prescribed a controlled substance at d/c from ED?: No
[2019-12-26] MEDS: SODIUM CHLORIDE 0.9% 1,000 ML IV SCH ×3 (04:27→22:07)
[2019-12-26] MEDS: MORPHINE SULFATE 4 MG/ML SYRINGE IV PRN ×2 (06:16→10:32)
[2019-12-26] MEDS ORDERED: ACETAMINOPHEN TAB 325 MG TAB PEG/G-TUBE PRN (10:09)
[2019-12-26] MEDS ORDERED: BISACODYL 10 MG SUPP RECTAL PRN (10:09)
[2019-12-26] MEDS: AMOXIC-POT CLAV 875-125MG 1 EACH TAB PEG/G-TUBE SCH ×2 (10:34→21:17)
--- NOTE | 2019-12-26 13:13 | HP ---
HISTORY AND PHYSICAL CHIEF COMPLAINT: Swelling in the right leg. HISTORY OF PRESENT ILLNESS: This [facility] and his dialysis catheter was removed from the groin. Later that night, it was noted by the staff that his right leg had become extremely swollen and he was experiencing pain in the groin. He was brought to the hospital where he was found to have a DVT of the right leg. He denies any chest pain, hemoptysis, or or increasing shortness of breath. His renal failure has stabilized. REVIEW OF SYSTEMS: He denies any nausea, vomiting, fever, chills, etc. Past medical history, family history, and personal and social history are all otherwise unchanged from his recent admitting/discharge summary and medications are to be found in the MAR. PHYSICAL EXAMINATION: Blood pressure is 132/78 with a pulse of 77, respirations of 34, he is afebrile. In general he appeared to be dehydrated. Head, ears, eyes, nose, mouth, and throat were otherwise normal. Neck veins are not distended. Good breath sounds are heard bilaterally. Cardiac exam demonstrated sinus rhythm. The abdomen is soft and nontender. Extremities demonstrated significant edema of the entire right leg. There was some tenderness in the calf. Neurologically, he was very weak and voice was not strong, but he was otherwise intact. IMPRESSION: 1. Deep venous thrombosis of the right leg. 2. Recent episode of rhabdomyolysis with acute renal injury. 3. Chronic kidney disease. 4. Dehydration. 5. Chronic obstructive pulmonary disease. 6. Alcoholism. 7. History of carcinoma of the throat. PLAN: 1. Bed rest. 2. IV fluids. 3. Lovenox. 4. Vascular Surgery consult. MMODL / IJN: [id number] /
[2019-12-26 17:45] LABS: Mean Platelet Volume 10.1
[2019-12-26 17:47] LABS: Platelet Count 23 k/uL (150-450)
--- NOTE | 2019-12-26 17:54 | P.CONS ---
History of Present Illness - Reason for Consult Consult date: 12/26/19 drop in plt, ? HIT Requesting physician: Mani Britton - Chief Complaint left leg pain and swelling - History of Present Illness Patient with a recently discharged from the hospital, admitted for renal failure, was intubated at 1 point. He had a right groin dialysis cath inserted, this was removed yesterday and pt was discharged to a [facility]. Since discharge the patient is noted progressively worsening painful swelling of the right lower extremity, brought to ER for evaluation. Doppler shows left lower extremity DVT. Platelets 44,000 after heparin exposure, creatinine little higher than his baseline at 2.53. Patient is slightly agitated when seen, it's difficult for him to stay on topic. He had a swallow eval during his last hospitalization, I believe he is able to tolerate some thickened foods, he has a PEG tube that he tolerates well. Malignancy History: Mr. Austin originally presented with mild dysphagia and odynophagia for about 3 month prior to being evaluated, seen by Dr. 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 CT scan of his neck revealed bulky enhancing mass involving the right pyriform sinus and right epiglottis folds additionally bulky tissue was seen along the left lateral aspect of this region and the airways was affected and the and distinct margin of the tumor were not well assessed. There is no obvious adenopathy is noted except for a faint enhancement of a non-enlarged right cervical node at level II that measured approximately 1.1 cm. There is also several other noted bilateral cervical nodes he also underwent a CAT scan of his chest which was negative for metastatic disease he had a swallow and speech evaluation at [facility] and tumor Board recommendation of concurrent chemotherapy on 02/20/2019 he started concurrent cisplatin/XRT, completed on 05/05. PET revealed significant response to treatment. Last seen by Dr. Clark in the office in August 2019. PET Scan 12/01/2019 revealed similar uptake as previous exam there is no evidence of recurrent disease at that time. Admitted in November with Acute renal failure, creatinine 13.80. Review of Systems ROS unobtainable: due to mental status Past Medical History Past Medical History: Cancer, GERD/Reflux, Hyperlipidemia, Hypertension, Myocardial Infarction ([place]), Osteoarthritis (OA) Additional Past Medical History / Comment(s): HYPOPHARYNX CANCER. DIFFICULTY SWALLOWING, CONSTANT SORE THROAT. Last Myocardial Infarction Date:: 10 YEARS AGO History of Any Multi-Drug Resistant Organisms: None Reported Past Surgical History: Orthopedic Surgery Additional Past Surgical History / Comment(s): BROKEN COLLAR BONE with surgical repair Past Anesthesia/Blood Transfusion Reactions: No Reported Reaction Past Psychological History: No Psychological Hx Reported Smoking Status: Former smoker Past Alcohol Use History: None Reported Additional Past Alcohol Use History / Comment(s): consumes about 2 drinks per week-not since jul 2019 Past Drug Use History: None Reported - Past Family History Father Additional Family Medical History / Comment(s): GOUT Mother History Unknown: Yes Medications and Allergies Home Medications Medication Instructions Recorded Confirmed Type Acetaminophen [Tylenol Arthritis] 650 mg PO Q4H PRN 12/26/19 12/26/19 History Amoxic-Pot Clav 875-125Mg 1 tab PEG/G-TUBE Q12HR 12/26/19 12/26/19 History [Augmentin 875-125] Bisacodyl [Dulcolax] 10 mg RECTAL DAILY PRN 12/26/19 12/26/19 History Allergies Allergy/AdvReac Type Severity Reaction Status Date / Time No Known Allergies Allergy Verified 12/26/19 09:27 Physical Exam Vitals: Vital Signs Temp Pulse Pulse Pulse Resp BP BP 12/26/19 11:45 98 F 118 H 18 87/61 12/26/19 05:00 98.4 F 72 18 102/66 12/26/19 04:40 102 H 22 107/79 12/26/19 02:49 93 20 108/75 12/26/19 02:12 98.6 F 94 20 108/75 Pulse Ox 12/26/19 11:45 99 12/26/19 05:00 12/26/19 04:40 94 L 12/26/19 02:49 95 12/26/19 02:12 Intake and Output 12/26/19 12/26/19 12/26/19 06:59 14:59 22:59 Intake Total 0 Balance 0 Intake: Oral 0 Other: Weight 52.163 kg 61 kg - Constitutional General appearance: disheveled, mild distress, thin - EENT Eyes: anicteric sclerae, EOMI ENT: hearing grossly normal - Neck Neck: no lymphadenopathy - Respiratory Respiratory: bilateral: CTA - Cardiovascular Heart sounds: normal: S1, S2 leg Peripheral Edema: right: 2+, left: None - Gastrointestinal General gastrointestinal: normal bowel sounds, soft - Neurologic Neurologic: CNII-XII intact - Musculoskeletal Musculoskeletal: generalized weakness - Psychiatric alert, oriented to self and place, he drifts off topic Results CBC & Chem 7: 12/26/19 17:14 12/26/19 02:35 Labs: Abnormal Lab Results - Last 24 Hours (Table) 12/26/19 12/26/19 Range/Units 02:35 02:35 RBC 3.08 L (4.30-5.90) m/uL Hgb 9.7 L (13.0-17.5) gm/dL Hct 30.5 L (39.0-53.0) % Plt Count 44 L D (150-450) k/uL Lymphocytes # 0.5 L (1.0-4.8) k/uL Sodium 147 H (137-145) mmol/L Potassium 3.4 L (3.5-5.1) mmol/L Chloride 112 H (98-107) mmol/L BUN 44 H (9-20) mg/dL Creatinine 2.53 H (0.66-1.25) mg/dL Glucose 110 H (74-99) mg/dL Magnesium 1.5 L (1.6-2.3) mg/dL AST 83 H (17-59) U/L Total Protein 6.0 L (6.3-8.2) g/dL Albumin 3.0 L (3.5-5.0) g/dL Venous US: report reviewed Assessment and Plan (1) Thrombocytopenia Current Visit: Yes Status: Acute Priority: High Code(s): D69.6 - THROMBOCYTOPENIA, UNSPECIFIED SNOMED Code(s): 506793923 (2) Deep vein thrombosis (DVT) of right lower extremity Current Visit: Yes Status: Acute Priority: High Code(s): I82.401 - ACUTE EMBOLISM AND THOMBOS UNSP DEEP VEINS OF R LOW EXTREM SNOMED Code(s): 571167910 (3) Head and neck malignancy Current Visit: No Status: Chronic Priority: Low Code(s): C76.0 - MALIGNANT NEOPLASM OF HEAD, FACE AND NECK SNOMED Code(s): 550592095 Plan: HIT antibody has been ordered STAT for significant drop in platelets after exposure to heparin. Have requested a STAT platelet draw and is a citrate tube to ensure adequate platelet count. Patient is needing anticoagulation for an acute RLE DVT. If platelets are greater than 50,000 begin argatroban. If platelets are less than 50,000, trans fuse with platelets and begin argatroban. This would be classified as a provoked blood clot secondary to catheter placement. The catheter is now been removed. 3 months anticoagulation with Doppler rechecked prior to discontinuing anticoagulation
--- NOTE | 2019-12-26 18:12 | P.PN ---
Progress Note - Text Progress Note Date: 12/26/19 Discussed case with PharmD. Reviewed case, renal function, liver function, HIT concerns, RLE DVT. No loading dose of argatroban. Will be started after plt are infused.
[2019-12-26] MEDS ORDERED: SODIUM CHLORIDE 0.9% 500 ML 500 ML IV ONE (21:05)
[2019-12-26] MEDS ORDERED: HYDROmorphone 0.5 MG/0.5 ML SYRINGE IVP PRN (21:06)
--- NOTE | 2019-12-26 23:16 | CONS ---
CONSULTATION This is a 64-year-old -[place] male. Patient has been admitted with history of swelling of the right lower extremity. This patient had a dialysis catheter placed on December 17 for urgent dialysis when he was in the intensive care unit. The patient had dialysis and his catheter was removed yesterday and he was sent to the senior care. The patient came with marked swelling of the right lower extremity. The patient was seen today on consultation. The patient has swelling of the right lower extremity. Femorals are 1+, posterior tibial by the Doppler. The patient had a right leg aortogram which shows examination is limited. Edema is seen in the groin area. Limited visibility of the common femoral vein and femoral vein. The popliteal vein has an echo seen with noncompressibility with popliteal vein thrombosis. Today we have checked the platelet count. His platelet count is 44. Prior to dialysis catheter placement, his platelet count was 319. PHYSICAL EXAMINATION: The patient was seen in his room. Neck supple. Trachea central. Chest clear. Abdomen soft. Femorals are 1+, posterior tibial, dorsalis pedis by the Doppler. The patient had some swelling of the thigh area. IMPRESSION: 1. Deep venous thrombosis. 2. 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 PLAN: We will consult Hematology and the patient will be treated with fondaparinux or lepirudin for HIT. The patient will need heparin-induced antibodies tested. We will consult Hematology for this patient and follow with you. Thank you very much. MATTY / TRACIE: [id number] /
[2019-12-27] MEDS: ARGATROBAN 50 MG in SODIUM CHLORIDE 0.9% 50 ML IV SCH ×4 (00:15→20:18)
[2019-12-27] MEDS ORDERED: ARGATROBAN IV ONE ×4 (00:15)
[2019-12-27] MEDS: SODIUM CHLORIDE 0.9% 1,000 ML IV SCH ×2 (04:58→14:02)
[2019-12-27 05:53] LABS: Basophils % (A) 0 %; Eosinophils % (A) 0 %; HCT 21.5 % (39.0-53.0); Hypochromasia Slight; Lymphocytes # (A) 0.5 k/uL (1.0-4.8); Lymphocytes % (A) 5 %; MCH 31.7 pg (25.0-35.0); MCHC 30.9 g/dL (31.0-37.0); MCV 102.5 fL (80.0-100.0); Macrocytosis Slight; Mean Platelet Volume 9.5; Monocytes # (A) 0.5 k/uL (0-1.0); Monocytes % (A) 4 %; Neutrophils # (A) 10.7 k/uL (1.3-7.7); Neutrophils % (A) 89 %; RDW 14.7 % (11.5-15.5); WBC 12.1 k/uL (3.8-10.6)
[2019-12-27 06:34] LABS: Platelet Count 43 k/uL (150-450)
[2019-12-27 06:39] LABS: HGB 6.6 gm/dL (13.0-17.5)
[2019-12-27 08:28] LABS: Albumin 2.4 g/dL (3.5-5.0); Calcium 7.5 mg/dL (8.4-10.2); Potassium 4.7 mmol/L (3.5-5.1); Total Bilirubin 0.5 mg/dL (0.2-1.3); Total Protein 4.9 g/dL (6.3-8.2)
--- NOTE | 2019-12-27 09:09 | NM ---
EXAMINATION TYPE: NM pul vent and perfuse DATE OF EXAM: 12/27/2019 COMPARISON: Chest x-ray 4 days ago. HISTORY: Known DVT with shortness of breath. TECHNIQUE: Utilizing inhalation of 68.2 mCi Tc 99m DTPA aerosol and intravenous injection of 5.0 mCi of Tc 99m MAA, ventilation and perfusion images are acquired post injection in multiple projections. FINDINGS: Small to moderate-sized matching defects more prominent centrally in the left lung. There is no evide nce of mismatched defects. IMPRESSION: Low scintigraphic evidence for pulmonary embolism.
[2019-12-27] MEDS: INSULIN ASPART (NovoLOG) 100 UNIT/ML VIAL SQ SCH ×2 (11:49→17:46)
[2019-12-27 11:55] LABS: Glucose,Whole Blood 63 mg/dL (75-99)
[2019-12-27] MEDS ORDERED: DEXTROSE 50% SYRINGE 50 ML IVP ONE (12:12)
[2019-12-27 12:23] LABS: Glucose,Whole Blood 53 mg/dL (75-99)
[2019-12-27] MEDS: AMOXIC-POT CLAV 875-125MG 1 EACH TAB PEG/G-TUBE SCH (12:43)
[2019-12-27 12:47] LABS: Glucose,Whole Blood 100 mg/dL (75-99)
[2019-12-27] MEDS ORDERED: SODIUM CHLORIDE 0.9% 500 ML 500 ML IV ONE (15:09)
[2019-12-27] MEDS: MIDODRINE 5 MG TAB PO SCH ×2 (15:56→15:57)
[2019-12-27 16:22] LABS: Glucose,Whole Blood 102 mg/dL (75-99)
--- NOTE | 2019-12-27 18:02 | P.PN ---
Subjective Progress Note Date: 12/27/19 Principal diagnosis: RLE swelling, arterial occlusion, DVT in the picture of probable HIT RLE decreased strength, Doppler achieved peripheral pulses Objective - Vital Signs Vital signs: Vital Signs Temp 97.2 F L 12/27/19 13:09 Pulse 97 12/27/19 13:09 Resp 17 12/27/19 13:09 BP 97/48 12/27/19 13:09 Pulse Ox 95 12/27/19 13:09 Intake & Output 12/26/19 12/27/19 12/27/19 18:59 06:59 18:59 Intake Total 1264.000 155 Output Total 150 Balance 1264.000 5 Weight 61 kg 63 kg Intake: Intake, IV Titration 1050.000 50 Amount Argatroban 50 mg In 50.000 50 Sodium Chloride 0.9% 50 ml @ 2 MCG/KG/MIN 7.32 mls/hr IV .Q6H50M ASHLEY Rx# :[id number] Sodium Chloride 0.9% 1, 1000 000 ml @ 125 mls/hr IV . Q8H ASHLEY Rx#:[id number] Tube Feeding 105 Blood Product 214 0 Platelet Irr Pheresis 3 214 Acda Unit [id number] Rc As-1 Unit 0 [id number] Output: Urine 150 Other: Voiding Method Urinal Urinal # Voids 2 # Bowel Movements 1 - Exam - Constitutional General appearance: disheveled, mild distress, thin - EENT Eyes: anicteric sclerae, EOMI ENT: hearing grossly normal - Neck Neck: no lymphadenopathy - Respiratory Respiratory: bilateral: CTA - Cardiovascular Heart sounds: normal: S1, S2 leg Peripheral pulses: right: doppler only, left: 1+ RLE Weakness - Gastrointestinal General gastrointestinal: normal bowel sounds, soft - Neurologic Neurologic: CNII-XII intact - Musculoskeletal Musculoskeletal: generalized weakness - Psychiatric alert, oriented to self and place, he drifts off topic - Labs CBC & Chem 7: 12/27/19 05:15 12/27/19 05:15 Labs: Abnormal Lab Results - Last 24 Hours (Table) 12/26/19 12/26/19 12/26/19 Range/Units 17:14 17:14 18:32 WBC (3.8-10.6) k/uL RBC (4.30-5.90) m/uL Hgb (13.0-17.5) gm/dL Hct (39.0-53.0) % MCV (80.0-100.0) fL MCHC (31.0-37.0) g/dL Plt Count 23 L (150-450) k/uL Neutrophils # (1.3-7.7) k/uL Lymphocytes # (1.0-4.8) k/uL APTT (22.0-30.0) sec Fibrinogen 565 H (200-500) mg/dL Sodium (137-145) mmol/L Chloride (98-107) mmol/L BUN (9-20) mg/dL Creatinine (0.66-1.25) mg/dL Glucose (74-99) mg/dL POC Glucose (mg/dL) (75-99) mg/dL Calcium (8.4-10.2) mg/dL AST (17-59) U/L ALT (4-49) U/L Total Protein (6.3-8.2) g/dL Albumin (3.5-5.0) g/dL Crossmatch See Detail 12/27/19 12/27/19 12/27/19 Range/Units 05:15 05:15 05:15 WBC 12.1 H (3.8-10.6) k/uL RBC 2.10 L (4.30-5.90) m/uL Hgb 6.6 L* D (13.0-17.5) gm/dL Hct 21.5 L (39.0-53.0) % MCV 102.5 H (80.0-100.0) fL MCHC 30.9 L (31.0-37.0) g/dL Plt Count 43 L D (150-450) k/uL Neutrophils # 10.7 H (1.3-7.7) k/uL Lymphocytes # 0.5 L (1.0-4.8) k/uL APTT 56.2 H (22.0-30.0) sec Fibrinogen (200-500) mg/dL Sodium 149 H (137-145) mmol/L Chloride 116 H (98-107) mmol/L BUN 53 H (9-20) mg/dL Creatinine 2.50 H (0.66-1.25) mg/dL Glucose 104 H (74-99) mg/dL POC Glucose (mg/dL) (75-99) mg/dL Calcium 7.5 L (8.4-10.2) mg/dL AST 255 H (17-59) U/L ALT 56 H (4-49) U/L Total Protein 4.9 L (6.3-8.2) g/dL Albumin 2.4 L (3.5-5.0) g/dL Crossmatch 12/27/19 12/27/19 12/27/19 Range/Units 11:45 12:05 12:42 WBC (3.8-10.6) k/uL RBC (4.30-5.90) m/uL Hgb (13.0-17.5) gm/dL Hct (39.0-53.0) % MCV (80.0-100.0) fL MCHC (31.0-37.0) g/dL Plt Count (150-450) k/uL Neutrophils # (1.3-7.7) k/uL Lymphocytes # (1.0-4.8) k/uL APTT (22.0-30.0) sec Fibrinogen (200-500) mg/dL Sodium (137-145) mmol/L Chloride (98-107) mmol/L BUN (9-20) mg/dL Creatinine (0.66-1.25) mg/dL Glucose (74-99) mg/dL POC Glucose (mg/dL) 63 L 53 L 100 H (75-99) mg/dL Calcium (8.4-10.2) mg/dL AST (17-59) U/L ALT (4-49) U/L Total Protein (6.3-8.2) g/dL Albumin (3.5-5.0) g/dL Crossmatch Assessment and Plan Plan: Assessment and Plan Thrombocytopenia: - 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 Britton, unable to undergo thrombolysis with degree of thrombocytopenia, would benefit from catheter directed thrombolysis at tertiary center. Head and neck malignancy - Stable, no sign of recurrence at this time Physician Attest: I have completed the full history and physical and agree with above, dictated as a scribe.
--- NOTE | 2019-12-27 18:41 | PN ---
PROGRESS NOTE CHIEF COMPLAINT: DVT of the right leg. HISTORY OF PRESENT ILLNESS: This gentleman is still quite dehydrated. He is not having a great deal of pain in that knee now. His IV fluids are being increased. He will be transfused because of anemia and also he will be given a platelet transfusion. He is in the 40 thousands. Blood pressure has not responded well to fluid bolus and IVs. PHYSICAL EXAMINATION: Breath sounds are heard bilaterally. Cardiac exam demonstrated sinus rhythm. The abdomen is flat and soft. Right leg is still edematous. He is still very dehydrated. IMPRESSION: 1. Dehydration. 2. Hypotension. 3. Deep venous thrombosis of the right leg. 4. Anemia. 5. Thrombocytopenia. 6. Renal failure. PLAN: 1. Tube feedings have been resumed. 2. Continue IV rate at 125. 3. Continue to follow blood pressure. During the day he failed to respond. Nephrology consult was placed. He was seen by Vascular Surgery, who suggested that he should be moved into the ICU, and this will be done. MMSTUART / MARCELON: [id number] /
[2019-12-27 19:48] LABS: Glucose,Whole Blood 98 mg/dL (75-99)
--- NOTE | 2019-12-27 19:56 | PN ---
PROGRESS NOTE Mr. Austin has a history of DVT of right lower extremity. Patient had a dialysis catheter removed 2 days ago and the patient came in with right lower extremity swelling and low platelets. The patient was diagnosed with HIT and was seen by Hematology, who started him on Argatroban. The patient also has a history of carcinoma of the oral cavity and the patient had chemotherapy in the past. The patient has swelling of the right lower extremity; pulses are present by Doppler. The patient has been diagnosed with HIT, extensive swelling of the right leg with possible phlegmasia. I discussed with Dr. Tyler Gonzalez. Probably we will do a CT of the abdomen and pelvis with venous phase. We will wait for the CT findings. MMODL / IJN: [id number] /
--- NOTE | 2019-12-27 20:24 | CT ---
EXAMINATION TYPE: CT angio abd aorta w/Runoff DATE OF EXAM: 12/27/2019 COMPARISON: None HISTORY: 64-year-old male right leg pain and swelling, rule out phlegmasia dolens. TECHNIQUE: Contiguous axial scanning of the abdomen and pelvis with bilateral lower extremity runoff performed with IV Contrast, patient injected with 100 mL of Isovue 370. Delayed images were obtained. Coronal/sagittal MIP reconstructions performed. 3-D reconstructions generated on a dedicated [employer] workstation. CT DLP: 2573.6 mGycm Automated exposure control for dose reduction was used. FINDINGS: Scanning includes the mid to lower abdomen and pelvis and bilateral lower extremities. Extensive generalized anasarca changes present with asymmetric greater degree of edematous enlargemen t of the right lower extremity. There is edema along the need for lateral planes. No soft tissue air is seen within the right lower extremity. Edema also extends overlying the right iliopsoas. Visualized abdomen and pelvis show some nondependent intraluminal bladder air that should be correlat ed to exclude infection or recent instrumentation. There is some presacral edema also present compati ble with anasarca change. The IVC in the mid to lower abdomen pelvis is patent. The IVC confluence is patent. However, there is complete occlusion of the right common and external iliac veins, common femoral vein, deep femoral v ein, superficial femoral vein, popliteal vein, and venous structures within the right calf. The initial scan shows delayed arterial filling probably secondary to the venous insufficiency. Scattered moderate atherosclerotic calcifications are present throughout the bilateral lower extremit ies. Calcifications are more extensive within the legs making assessment for arterial enhancement dif ficult. On the left, there seems to be diminutive two-vessel runoff via the posterior and anterior ti bial arteries. On the right, there also seems to be some diminutive two-vessel runoff via the posteri or tibial and anterior tibial arteries. Bones: Bilateral L5 pars defects with grade 1 anterolisthesis at L5-S1. IMPRESSION: 1. EXTENSIVE OCCLUSIVE RIGHT LOWER EXTREMITY DVT EXTENDING FROM THE RIGHT COMMON ILIAC VEIN AND EXTEN DING DOWN. THE COMMON ILIAC VEIN CONFLUENCE AND VISUALIZED IVC ARE PATENT. 2. THE RIGHT-SIDED VENOUS INSUFFICIENCY LIKELY ACCOUNTS FOR DELAYED ARTERIAL FILLING OF THE RIGHT LOW ER EXTREMITY. THERE IS MODERATE ATHEROSCLEROTIC CHANGE THROUGHOUT THE BILATERAL LOWER EXTREMITIES AND DIMINUTIVE TWO-VESSEL RUNOFF BILATERALLY. 3. EXTENSIVE ASYMMETRIC EDEMATOUS ENLARGEMENT OF THE RIGHT LOWER EXTREMITY ON A BACKGROUND OF MARKED GENERALIZED ANASARCA. 4. INTRALUMINAL BLADDER AIR. CORRELATE FOR ANY RECENT INSTRUMENTATION OR UNDERLYING INFECTION. 5. BILATERAL L5 PARS DEFECTS. GRADE 1 ANTEROLISTHESIS HERE AT L5-S1.
[2019-12-27] MEDS: AMOXIC-POT CLAV 500-125 MG 1 EACH TAB PEG/G-TUBE SCH (22:59)
[2019-12-28 00:14] LABS: Glucose,Whole Blood 142 mg/dL (75-99)
[2019-12-28] MEDS: SODIUM CHLORIDE 0.9% 1,000 ML IV SCH ×4 (00:20→20:29)
[2019-12-28] MEDS: INSULIN ASPART (NovoLOG) 100 UNIT/ML VIAL SQ SCH ×5 (00:20→23:59)
[2019-12-28] MEDS ORDERED: ARGATROBAN IV ONE ×4 (02:13)
[2019-12-28] MEDS: ARGATROBAN 50 MG in SODIUM CHLORIDE 0.9% 50 ML IV SCH ×4 (02:13→20:28)
[2019-12-28 04:39] LABS: HCT 27.1 % (39.0-53.0); MCH 31.9 pg (25.0-35.0); MCHC 33.7 g/dL (31.0-37.0); Mean Platelet Volume 10.6; Poikilocytosis Slight; RBC 2.87 m/uL (4.30-5.90); RDW 15.9 % (11.5-15.5)
[2019-12-28 04:48] LABS: HGB 9.2 gm/dL (13.0-17.5); MCV 94.6 fL (80.0-100.0)
[2019-12-28 04:50] LABS: Platelet Count 12 k/uL (150-450)
[2019-12-28 05:03] LABS: Albumin 2.3 g/dL (3.5-5.0); Calcium 6.8 mg/dL (8.4-10.2); Total Bilirubin 0.7 mg/dL (0.2-1.3)
[2019-12-28 05:13] LABS: Lymphocytes # (M) 1.37 k/uL (1.0-4.8); Monocytes # (M) 0.76 k/uL (0-1.0); Neutrophils # (M) 13.07 k/uL (1.3-7.7); Neutrophils % (M) 86 %; Nucleated Red Blood Cells 3 /100 WBC (0-0); Total Cells Counted 100; WBC 15.2 k/uL (3.8-10.6)
[2019-12-28 05:14] LABS: Polychromasia Present
[2019-12-28 06:08] LABS: Glucose,Whole Blood 140 mg/dL (75-99)
[2019-12-28] MEDS: MIDODRINE 5 MG TAB PO SCH ×3 (06:28→18:05)
[2019-12-28] MEDS: AMOXIC-POT CLAV 500-125 MG 1 EACH TAB PEG/G-TUBE SCH ×2 (09:04→20:47)
--- NOTE | 2019-12-28 09:32 | PN ---
PROGRESS NOTE This is a 64-year-old gentleman who has multiple medical problems including acute chronic renal failure and CA of the oropharynx. The patient also has a history of extensive DVT right lower extremity. The patient has been seen by Hematology for heparin-induced thrombocytopenia because platelet drops. The patient also was scheduled to have a CT of the pelvis for DVT of the iliac femoral, and the patient was discussed with Dr. Gonzalez. He accepted the patient to be transferred to [facility]. Femoral pulses present, but posterior tibial with a Doppler. Patient still has marked swelling of the extremity. The concern is about phlegmasia. Discussed with Dr. Chaney and he has agreed to be transferred to a tertiary center. MMODL / IJN: [id number] /
--- NOTE | 2019-12-28 09:37 | P.PN ---
Subjective Progress Note Date: 12/28/19 Principal diagnosis: RLE swelling, arterial occlusion, DVT in the picture of probable HIT We are still Awaiting HIT antibodies, although despite argantroban patient continues to drop platelet count. COnfirmation of right arterial occlusion confirmed and not candidate for thrombolysis secondary to low platelets. He was transferred to ICU overnight Objective - Vital Signs Vital signs: Vital Signs Temp 99.0 F 12/28/19 08:00 Pulse 93 12/28/19 08:00 Resp 23 12/28/19 08:00 BP 106/72 12/28/19 08:00 Pulse Ox 94 L 12/28/19 08:00 Intake & Output 12/27/19 12/28/19 12/28/19 18:59 06:59 18:59 Intake Total 500 2215 812.8 Output Total 150 220 Balance 350 1995 812.8 Weight 63 kg 64.8 kg Intake: IV 1050 75 Sodium Chloride 0.9% 1, 1050 75 000 ml @ 125 mls/hr IV . Q8H ASHLEY Rx#:[id number] Intake, IV Titration 50 100 48.8 Amount Argatroban 50 mg In 50 100 48.8 Sodium Chloride 0.9% 50 ml @ 2 MCG/KG/MIN 7.32 mls/hr IV .Q6H50M ASHLEY Rx# :[id number] Tube Feeding 140 385 35 Blood Product 310 620 654 Platelet Irr Pheresis 2 327 Acda Unit [id number] Rc As-1 Unit 310 [id number] Rc As-1 Unit 310 [id number] Other 60 Output: Urine 150 220 Other: Voiding Method Urinal Urinal # Voids 1 # Bowel Movements 1 - Exam Telemed Visit Physical Exam Deferred - Labs CBC & Chem 7: 12/28/19 04:22 12/28/19 04:22 Labs: Abnormal Lab Results - Last 24 Hours (Table) 12/26/19 12/27/19 12/27/19 Range/Units 18:32 11:45 12:05 WBC (3.8-10.6) k/uL RBC (4.30-5.90) m/uL Hgb (13.0-17.5) gm/dL Hct (39.0-53.0) % RDW (11.5-15.5) % Plt Count (150-450) k/uL Neutrophils # (Manual) (1.3-7.7) k/uL Nucleated RBCs (0-0) /100 WBC APTT (22.0-30.0) sec Sodium (137-145) mmol/L Chloride (98-107) mmol/L Carbon Dioxide (22-30) mmol/L BUN (9-20) mg/dL Creatinine (0.66-1.25) mg/dL Glucose (74-99) mg/dL POC Glucose (mg/dL) 63 L 53 L (75-99) mg/dL Calcium (8.4-10.2) mg/dL AST (17-59) U/L ALT (4-49) U/L Total Protein (6.3-8.2) g/dL Albumin (3.5-5.0) g/dL Crossmatch See Detail 12/27/19 12/27/19 12/28/19 Range/Units 12:42 16:19 00:12 WBC (3.8-10.6) k/uL RBC (4.30-5.90) m/uL Hgb (13.0-17.5) gm/dL Hct (39.0-53.0) % RDW (11.5-15.5) % Plt Count (150-450) k/uL Neutrophils # (Manual) (1.3-7.7) k/uL Nucleated RBCs (0-0) /100 WBC APTT (22.0-30.0) sec Sodium (137-145) mmol/L Chloride (98-107) mmol/L Carbon Dioxide (22-30) mmol/L BUN (9-20) mg/dL Creatinine (0.66-1.25) mg/dL Glucose (74-99) mg/dL POC Glucose (mg/dL) 100 H 102 H 142 H (75-99) mg/dL Calcium (8.4-10.2) mg/dL AST (17-59) U/L ALT (4-49) U/L Total Protein (6.3-8.2) g/dL Albumin (3.5-5.0) g/dL Crossmatch 12/28/19 12/28/19 12/28/19 Range/Units 04:22 04:22 04:22 WBC 15.2 H (3.8-10.6) k/uL RBC 2.87 L (4.30-5.90) m/uL Hgb 9.2 L D (13.0-17.5) gm/dL Hct 27.1 L (39.0-53.0) % RDW 15.9 H (11.5-15.5) % Plt Count 12 L* D (150-450) k/uL Neutrophils # (Manual) 13.07 H (1.3-7.7) k/uL Nucleated RBCs 3 H (0-0) /100 WBC APTT 45.2 H (22.0-30.0) sec Sodium 146 H (137-145) mmol/L Chloride 118 H (98-107) mmol/L Carbon Dioxide 21 L (22-30) mmol/L BUN 59 H (9-20) mg/dL Creatinine 2.27 H (0.66-1.25) mg/dL Glucose 147 H (74-99) mg/dL POC Glucose (mg/dL) (75-99) mg/dL Calcium 6.8 L (8.4-10.2) mg/dL AST 483 H (17-59) U/L ALT 92 H (4-49) U/L Total Protein 5.0 L (6.3-8.2) g/dL Albumin 2.3 L (3.5-5.0) g/dL Crossmatch 12/28/19 Range/Units 06:05 WBC (3.8-10.6) k/uL RBC (4.30-5.90) m/uL Hgb (13.0-17.5) gm/dL Hct (39.0-53.0) % RDW (11.5-15.5) % Plt Count (150-450) k/uL Neutrophils # (Manual) (1.3-7.7) k/uL Nucleated RBCs (0-0) /100 WBC APTT (22.0-30.0) sec Sodium (137-145) mmol/L Chloride (98-107) mmol/L Carbon Dioxide (22-30) mmol/L BUN (9-20) mg/dL Creatinine (0.66-1.25) mg/dL Glucose (74-99) mg/dL POC Glucose (mg/dL) 140 H (75-99) mg/dL Calcium (8.4-10.2) mg/dL AST (17-59) U/L ALT (4-49) U/L Total Protein (6.3-8.2) g/dL Albumin (3.5-5.0) g/dL Crossmatch Assessment and Plan Assessment: Due to the current pandemic of COVID-19, patient was not seen face to face. Time spent reviewing labs, all pertinent information, appropriate orders placed. Telemed visit was consented to by patient. Plan: Assessment and Plan Thrombocytopenia: - In the picture of rapid and severe clotting, anemia and thrombcytopenia with timeframe comparable to hit, this is the likely etiology although with his platelet count continuing to drop Transfuse Platelets today to keep greater than 50K - Still awaiting heparin antibodies - Platelets 12K today and transfuse platelets - Drop despite platelet transfusion yesterday and argantroban at 48 hours *Will start steroids 40q6 with PPI for possible ITP component (Discussed with Dr. Guillen) Thrombolic events with likely arterial occlusion and Deep vein thrombosis (DVT) of right lower extremity - Extensive and likely secondary to HIT - Discussed and examined with Dr. Britton, unable to undergo thrombolysis with degree of thrombocytopenia, would benefit from catheter directed thrombolysis at tertiary center. Head and neck malignancy - Stable, no sign of recurrence at this time
--- NOTE | 2019-12-28 10:14 | PN ---
PROGRESS NOTE ADDENDUM: DATE OF DICTATION: 12/26/2019 ADDENDUM: The patient had a right leg ultrasound, not aortogram. MMODL / IJN: [id number] /
[2019-12-28 10:46] LABS: Anisocytosis Slight; Basophils % (A) 0 %; Eosinophils % (A) 0 %; HCT 24.2 % (39.0-53.0); HGB 7.8 gm/dL (13.0-17.5); Hypochromasia Slight; Lymphocytes # (A) 0.6 k/uL (1.0-4.8); Lymphocytes % (A) 4 %; MCHC 32.4 g/dL (31.0-37.0); MCV 95.6 fL (80.0-100.0); Mean Platelet Volume 9.1; Monocytes # (A) 0.6 k/uL (0-1.0); Monocytes % (A) 4 %; Neutrophils # (A) 12.6 k/uL (1.3-7.7); Neutrophils % (A) 88 %; Poikilocytosis Moderate; RBC 2.53 m/uL (4.30-5.90); RDW 16.2 % (11.5-15.5); WBC 14.3 k/uL (3.8-10.6)
--- NOTE | 2019-12-28 10:51 | P.PN ---
Progress Note - Text Progress Note Date: 12/28/19 Called to evaluate patient for possible thrombolysis by Dr. Britton. Patient has had worsening edema to his right leg and over the last 24 hours has started to have motor and sensory compromise. He underwent ultrasound that demonstrated a popliteal DVT and recent CT which demonstrates extension into the iliac vein with surrounding edema throughout the leg. He was treated with heparin previously and now has presumed HIT with platelets at 12. He was transfused this morning and has been on Argatroban for blood thinners. He would benefit from a venogram with possible thrombectomy of the iliac vein thrombus but at this time his platelet count is too low. We will recheck labs and we called the blood bank who will possibly have more platelets later this afternoon for possible procedure. I would wait till the platelets are in house to be transfused during the procedure.
[2019-12-28 10:52] LABS: Platelet Count 56 k/uL (150-450)
[2019-12-28] MEDS: PANTOPRAZOLE 40 MG/10 ML VIAL IVP SCH ×2 (11:00→20:29)
--- NOTE | 2019-12-28 11:30 | P.CNPUL ---
History of Present Illness Consult date: 12/28/19 Reason for consult: other (Hypotension, renal failure, heparin-induced t hrombocytopenia, ischemic right leg) Chief complaint: Painful swelling of the right lower extremity History of present illness: This is an a 64-year-old white male, recently discharged from the hospital, patient was initially admitted with acute kidney injury, required intubation, he also required hemodialysis through a right groin dialysis catheter. We saw this patient when he was in the intensive care unit, and we have eventually transfer the patient to the regular medical floor, and we signed off the case. Apparently the patient was discharged to the correction, and he has been noticing progressive swelling of the right lower extremity with pain. Patient was brought into the ER, Doppler showed evidence of deep vein thrombosis of the right popliteal vein. CT angiography showed extensive thrombosis extending from the right common iliac vein all the way down, there was evidence of right sided venous insufficiency likely accounting for delayed arterial filling of the right lower extremity. There was also extensive asymmetric edema noted in the right lower extremity. Patient was seen already by many consultants including hem atology, and felt that the patient had thrombocytopenia secondary to heparin- induced thrombocytopenia, and recommended IV argatroban. And no more heparin to be given to this patient. Patient was also seen by vascular surgery, and the plan is to transfuse the patient with platelets, and he will be scheduled to undergo venogram with possible thrombectomy of the iliac vein thrombus. However considering the platelets are low, the plan is to wait, transfuse the patient with platelets, and arrange for the procedure today by Dr. Gonzalez and Dr. Chacon. I was notified about this patient yesterday because he was relatively hypotensive, and he was anemic with a hemoglobin of 6.2. I transferred the patient to the ICU mostly because of the hypotension, and recommended a unit of blood to be given. And I recommended norepinephrine if the patient doesn't improve with transfusion. Indeed, the patient did not require any norepinephrine infusion. He responded well to fluids and to 1 unit of packed RBCs given yesterday. Today the patient is in the ICU, he is hemodynamically stable, on room air, denies any shortness of breath, no cough, no wheezing. Since admission and according to the surgeon, the patient had worsening edema to the right leg over the last 24 hours, and he is now developing motor and sensory compromise. Review of Systems Constitutional: No fever no chills, no weight loss. HEENT: Negative Pulmonary: Denies any cough wheezing or shortness of breath. Cardiac negative GI: Negative Genitourinary: Negative Musculoskeletal: As noted in HPI. With significant pain and swelling in the right lower extremity. Neurologic: Denies any headache blurred vision or dizziness. Skin: Swelling and erythema of the right lower extremity noted. Hematologic: As noted in HPI, mostly recent history of heparin-induced thrombocytopenia and now the vein thromboses of the right lower extremity. Psychiatric: Negative Endocrine: Negative. Past Medical History Past Medical History: Cancer, GERD/Reflux, Hyperlipidemia, Hypertension, Myocardial Infarction (RI), Osteoarthritis (OA) Additional Past Medical History / Comment(s): HYPOPHARYNX CANCER. DIFFICULTY SWALLOWING, CONSTANT SORE THROAT. Last Myocardial Infarction Date:: 10 YEARS AGO History of Any Multi-Drug Resistant Organisms: None Reported Past Surgical History: Orthopedic Surgery Additional Past Surgical History / Comment(s): BROKEN COLLAR BONE with surgical repair Past Anesthesia/Blood Transfusion Reactions: No Reported Reaction Past Psychological History: No Psychological Hx Reported Smoking Status: Former smoker Past Alcohol Use History: None Reported Additional Past Alcohol Use History / Comment(s): consumes about 2 drinks per week-not since jul 2019 Past Drug Use History: None Reported - Past Family History Father Additional Family Medical History / Comment(s): GOUT Mother History Unknown: Yes Medications and Allergies Home Medications Medication Instructions Recorded Confirmed Type Acetaminophen [Tylenol Arthritis] 650 mg PO Q4H PRN 12/26/19 12/26/19 History Amoxic-Pot Clav 875-125Mg 1 tab PEG/G-TUBE Q12HR 12/26/19 12/26/19 History [Augmentin 875-125] Bisacodyl [Dulcolax] 10 mg RECTAL DAILY PRN 12/26/19 12/26/19 History Allergies Allergy/AdvReac Type Severity Reaction Status Date / Time No Known Allergies Allergy Verified 12/26/19 09:27 Physical Exam Vitals: Vital Signs Temp Pulse Pulse Resp BP BP Pulse Ox 12/28/19 11:00 104 H 31 H 100/65 12/28/19 10:00 99 12 102/75 12/28/19 09:00 96 36 H 103/60 12/28/19 08:00 99.0 F 93 23 106/72 94 L 12/28/19 07:57 99.3 F 94 20 106/72 12/28/19 07:30 21 98/72 12/28/19 07:00 89 12 93/61 12/28/19 06:30 97 18 97/61 12/28/19 06:07 98.3 F 94 14 97/61 93 L 12/28/19 06:00 96 15 91/61 93 L 12/28/19 05:37 98.3 F 96 18 91/61 12/28/19 05:30 102/74 12/28/19 05:27 98.3 F 100 18 95/60 94 L 12/28/19 05:00 108 H 14 98/62 93 L 12/28/19 04:30 98 11 L 107/69 12/28/19 04:00 98.5 F 105 H 18 95/64 94 L 12/28/19 03:30 99 18 102/61 12/28/19 03:00 102 H 22 98/67 93 L 12/28/19 02:30 99 14 95/64 12/28/19 02:00 102 H 20 90/59 95 12/28/19 01:30 96 16 112/72 12/28/19 01:00 100 26 H 112/72 12/28/19 00:30 98 21 92/57 12/28/19 00:17 98.6 F 102 H 18 96/59 93 L 12/28/19 00:00 98.6 F 102 H 22 93/61 12/27/19 23:30 95 12 104/64 12/27/19 23:00 97 18 91/71 12/27/19 22:30 98 12 89/56 12/27/19 22:04 98.2 F 101 H 16 89/56 12/27/19 22:00 102 H 18 80/61 12/27/19 21:34 98.9 F 100 19 80/61 12/27/19 21:30 101 H 16 90/58 12/27/19 21:24 98.9 F 102 H 13 93/60 12/27/19 21:00 98 21 92/63 12/27/19 20:30 98 17 96/68 12/27/19 20:00 99.3 F 101 H 29 H 87/58 95 12/27/19 17:42 84/50 12/27/19 16:56 17 84/50 94 L 12/27/19 16:36 16 12/27/19 15:59 98 F 102 H 16 87/51 95 12/27/19 13:09 97.2 F L 97 17 97/48 95 12/27/19 13:05 97.2 F L 99 17 71/48 12/27/19 12:46 97.1 F L 99 16 74/50 95 12/27/19 12:39 97.1 F L 104 H 16 86/49 96 12/27/19 12:29 104 H 71/48 Intake and Output 12/27/19 12/28/19 12/28/19 22:59 06:59 14:59 Intake Total 665 1895 1172.8 Output Total 150 70 Balance 515 1825 1172.8 Intake: IV 200 850 300 Sodium Chloride 0.9% 1, 200 850 300 000 ml @ 125 mls/hr IV . Q8H ASHLEY Rx#:[id number] Intake, IV Titration 50 50 48.8 Amount Argatroban 50 mg In 50 50 48.8 Sodium Chloride 0.9% 50 ml @ 2 MCG/KG/MIN 7.32 mls/hr IV .Q6H50M ASHLEY Rx# :[id number] Tube Feeding 105 315 140 Blood Product 310 620 654 Platelet Irr Pheresis 2 327 Acda Unit [id number] Rc As-1 Unit 310 [id number] Rc As-1 Unit 310 [id number] Other 60 30 Output: Urine 150 70 Other: Voiding Method Urinal Urinal Urinal # Voids 1 1 # Bowel Movements 1 1 1 Weight 63 kg 64.8 kg - Constitutional General appearance: disheveled, in no form of distress. - EENT Eyes: anicteric sclerae, EOMI ENT: hearing grossly normal - Neck Neck: no lymphadenopathy - Respiratory Respiratory: Symmetrical chest expansion, diminished breath sounds at the bases no rhonchi and no wheezes. - Cardiovascular Heart sounds: normal: S1, S2 leg Peripheral Edema: 2+ Swelling of the right lower extremity notes from the knee down, there is evidence of cold leg from the knee down. Diminished distal pulses. Minimal tenderness on deep palpation. - Gastrointestinal General gastrointestinal: normal bowel sounds, soft - Neurologic Neurologic: CNII-XII intact - Musculoskeletal Musculoskeletal: generalized weakness - Psychiatric Normal mood, affect and normal mental status examination. Skin: No rashes. Results - Laboratory Findings CBC and BMP: 12/28/19 10:24 12/28/19 04:22 PT/INR, D-dimer PT 10.6 sec (9.0-12.0) 12/26/19 02:35 INR 1.0 (<1.2) 12/26/19 02:35 Abnormal lab findings: Abnormal Labs 12/26/19 12/26/19 12/26/19 02:35 02:35 17:14 WBC RBC 3.08 L Hgb 9.7 L Hct 30.5 L MCV MCHC RDW Plt Count 44 L D 23 L Neutrophils # Neutrophils # (Manual) Lymphocytes # 0.5 L Nucleated RBCs APTT Fibrinogen Sodium 147 H Potassium 3.4 L Chloride 112 H Carbon Dioxide BUN 44 H Creatinine 2.53 H Glucose 110 H POC Glucose (mg/dL) Calcium Magnesium 1.5 L AST 83 H ALT Total Protein 6.0 L Albumin 3.0 L Crossmatch 12/26/19 12/26/19 12/27/19 17:14 18:32 05:15 WBC 12.1 H RBC 2.10 L Hgb 6.6 L* D Hct 21.5 L MCV 102.5 H MCHC 30.9 L RDW Plt Count 43 L D Neutrophils # 10.7 H Neutrophils # (Manual) Lymphocytes # 0.5 L Nucleated RBCs APTT Fibrinogen 565 H Sodium Potassium Chloride Carbon Dioxide BUN Creatinine Glucose POC Glucose (mg/dL) Calcium Magnesium AST ALT Total Protein Albumin Crossmatch See Detail 12/27/19 12/27/19 12/27/19 05:15 05:15 11:45 WBC RBC Hgb Hct MCV MCHC RDW Plt Count Neutrophils # Neutrophils # (Manual) Lymphocytes # Nucleated RBCs APTT 56.2 H Fibrinogen Sodium 149 H Potassium Chloride 116 H Carbon Dioxide BUN 53 H Creatinine 2.50 H Glucose 104 H POC Glucose (mg/dL) 63 L Calcium 7.5 L Magnesium AST 255 H ALT 56 H Total Protein 4.9 L Albumin 2.4 L Crossmatch 12/27/19 12/27/19 12/27/19 12:05 12:42 16:19 WBC RBC Hgb Hct MCV MCHC RDW Plt Count Neutrophils # Neutrophils # (Manual) Lymphocytes # Nucleated RBCs APTT Fibrinogen Sodium Potassium Chloride Carbon Dioxide BUN Creatinine Glucose POC Glucose (mg/dL) 53 L 100 H 102 H Calcium Magnesium AST ALT Total Protein Albumin Crossmatch 12/28/19 12/28/19 12/28/19 00:12 04:22 04:22 WBC 15.2 H RBC 2.87 L Hgb 9.2 L D Hct 27.1 L MCV MCHC RDW 15.9 H Plt Count 12 L* D Neutrophils # Neutrophils # (Manual) 13.07 H Lymphocytes # Nucleated RBCs 3 H APTT 45.2 H Fibrinogen Sodium Potassium Chloride Carbon Dioxide BUN Creatinine Glucose POC Glucose (mg/dL) 142 H Calcium Magnesium AST ALT Total Protein Albumin Crossmatch 12/28/19 12/28/19 12/28/19 04:22 06:05 10:24 WBC 14.3 H RBC 2.53 L Hgb 7.8 L Hct 24.2 L MCV MCHC RDW 16.2 H Plt Count 56 L D Neutrophils # 12.6 H Neutrophils # (Manual) Lymphocytes # 0.6 L Nucleated RBCs APTT Fibrinogen Sodium 146 H Potassium Chloride 118 H Carbon Dioxide 21 L BUN 59 H Creatinine 2.27 H Glucose 147 H POC Glucose (mg/dL) 140 H Calcium 6.8 L Magnesium AST 483 H ALT 92 H Total Protein 5.0 L Albumin 2.3 L Crossmatch - Diagnostic Findings Additional studies: Venous Doppler and CT angiography of the right lower extremity was noted. As noted in HPI Assessment and Plan Assessment: Impression: Deep vein thromboses of the right lower extremity with motor and sensory changes, patient will definitely need venogram and thrombectomy by vascular surgery. This is to be done as soon as the platelets are given to the patient, and this will likely be done sometime today Heparin-induced thrombocytopenia History of head and neck malignancy. Recent history of acute kidney injury secondary to dehydration rhabdomyolysis, requiring hemodialysis. Improved. History of aspiration pneumonia and respiratory failure requiring intubation and mechanical ventilation. History of PEG tube placement, presently being used for enteral feeding. Chronic congestive heart failure and LV dysfunction with ejection fraction of 20%. 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 And his hypotension resolved. Recommendation: Agree with the present treatment plan as per hematology/argatroban Agree with the platelet transfusion Agree with venogram and thrombectomy We'll continue to monitor in the ICU for the next 24 hours. We'll continue to follow. Time with Patient: Greater than 30
[2019-12-28] MEDS: methylPREDNISolone SOD SUCCI 40 MG/ML 1 ML VIAL IV SCH ×3 (11:50→23:58)
[2019-12-28 12:00] LABS: Glucose,Whole Blood 111 mg/dL (75-99)
--- NOTE | 2019-12-28 13:35 | CONS ---
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 He was just discharged 2 days ago to the detention and was readmitted with significant pain and swelling in his right lower extremity. During his hospitalization, patient had developed acute kidney injury requiring dialysis. His creatinine was all the way up to 13.8 mg/dL. The patient's renal function, however, improved and he was taken off dialysis and his right femoral dialysis catheter was removed prior to discharge. It appears now that patient has a large DVT in his right lower extremity. 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 He is being followed by Hematology. Currently maintained on IV heparin. Vascular Surgery is following the patient as well and there are plans to possibly transfer to a tertiary care center. In the meantime, renal function continues to improve with serum creatinine down to 2.27 from about 3 on discharge 3 days ago. The patient has good urine output. He is currently maintained on IV fluids. PAST MEDICAL HISTORY: Cancer of the hypopharynx, poorly differentiated squamous cell cancer with negative workup for metastatic disease currently with PEG tube secondary to increased aspiration on the last admission. Patient also has history of hyperlipidemia, hypertension, history of PA, osteoarthritis, acute kidney injury during his last admission, which is currently improving. PAST SURGICAL HISTORY: Orthopedic Surgery for broken clavicle and surgical repair. SOCIAL HISTORY: Patient is a former smoker. No history of drug abuse or alcohol abuse. MEDICATIONS: Medications prior to admission included Augmentin, Dulcolax, Tylenol Arthritis. ALLERGIES: None. REVIEW OF SYSTEMS: As per HPI. Other systems negative. PHYSICAL EXAMINATION: On examination, patient is comfortable awake. He is not in any acute distress. Blood pressure is 100/65, heart rate 104 per minute. Patient is afebrile. EXAMINATION OF THE HEART: S1, S2. EXAMINATION OF THE LUNGS: Decreased breath sounds at bases. ABDOMEN: Soft, nontender. Examination of lower extremities shows significant edema right lower extremity. No edema noted in his left lower extremity. There is pain and mild erythema as well. MANAGER OF FINANCIAL PLANNING exam grossly intact. Patient moving all 4 extremities. LABS: Labs show hemoglobin 7.8, white cell count 14.3, platelet count down 56. It was down to 12, earlier today. Sodium 146, potassium 4.0, chloride 118, CO2 is 21, BUN 59, creatinine 2.27. ASSESSMENT: 1. Acute kidney injury during the last admission, status post hemodialysis with significant improvement in renal function, currently off of dialysis and dialysis catheter was discontinued prior to discharge. No nephrotoxic agents on board. Renal function is improving. Previous creatinine about 1 or 0.9 in February of 2019. 2. Severe thrombocytopenia associated with the HIT, heparin-induced thrombocytopenia, being followed by Oncology. 3. Hypernatremia, currently improving. 4. Status post PEG tube for aspiration during last admission. PLAN: Continue IV fluids. Recheck labs in a.m. Hematological management for HIT, which is heparin-induced thrombocytopenia, currently maintained on argatroban. The patient is also being seen by Vascular Surgery. Thank you for this consultation. We will continue to follow the patient with you during his hospitalization. MATTY / TRACIE: [id number] /
--- NOTE | 2019-12-28 13:59 | PN ---
PROGRESS NOTE CHIEF COMPLAINT: DVT, right leg. HISTORY OF PRESENT ILLNESS: This gentleman is experiencing quite a bit of discomfort. Arrangements have been made for him to go to [facility]. PHYSICAL EXAMINATION: Unchanged. The right leg is tensely swollen. IMPRESSION: 1. Deep venous thrombosis with complete occlusion of venous system of the right lower extremity. 2. Renal failure. 3. Dehydration. 4. Hypertension. PLAN: Patient waits transfer to [place]. MMODL / MARCELON: [id number] /
[2019-12-28 18:14] LABS: Glucose,Whole Blood 101 mg/dL (75-99)
[2019-12-28 23:55] LABS: Glucose,Whole Blood 220 mg/dL (75-99)
[2019-12-29] MEDS ORDERED: ARGATROBAN IV ONE ×3 (02:07)
[2019-12-29] MEDS: ARGATROBAN 50 MG in SODIUM CHLORIDE 0.9% 50 ML IV SCH ×3 (02:07→19:57)
[2019-12-29 04:31] LABS: Anisocytosis Slight; Basophils % (A) 0 %; Eosinophils % (A) 0 %; HCT 20.4 % (39.0-53.0); Hypochromasia Slight; Lymphocytes # (A) 0.2 k/uL (1.0-4.8); Lymphocytes % (A) 2 %; MCH 31.4 pg (25.0-35.0); MCHC 32.1 g/dL (31.0-37.0); MCV 97.9 fL (80.0-100.0); Macrocytosis Slight; Mean Platelet Volume 9.1; Monocytes # (A) 0.4 k/uL (0-1.0); Monocytes % (A) 3 %; Neutrophils # (A) 12.1 k/uL (1.3-7.7); Neutrophils % (A) 93 %; Poikilocytosis Slight; RBC 2.09 m/uL (4.30-5.90); RDW 16.4 % (11.5-15.5)
[2019-12-29 04:47] LABS: HGB 6.6 gm/dL (13.0-17.5)
[2019-12-29 04:48] LABS: Platelet Count 11 k/uL (150-450)
[2019-12-29 04:55] LABS: Potassium 3.1 mmol/L (3.5-5.1)
[2019-12-29 06:06] LABS: Glucose,Whole Blood 136 mg/dL (75-99)
[2019-12-29] MEDS: INSULIN ASPART (NovoLOG) 100 UNIT/ML VIAL SQ SCH ×4 (06:10→23:43)
[2019-12-29] MEDS: methylPREDNISolone SOD SUCCI 40 MG/ML 1 ML VIAL IV SCH ×4 (06:21→23:43)
[2019-12-29] MEDS: SODIUM CHLORIDE 0.9% 1,000 ML IV SCH (06:21)
[2019-12-29] MEDS: MIDODRINE 5 MG TAB PO SCH ×3 (06:30→17:34)
[2019-12-29] MEDS: POTASSIUM CHLORIDE 10 MEQ in WATER FOR INJECTION 1 100ML.BAG IVPB SCH ×4 (07:08→11:48)
[2019-12-29] MEDS ORDERED: CALCIUM GLUCONATE 1 GM in SODIUM CHLORIDE 0.9% 100 ML IVPB ONE (07:14)
[2019-12-29] MEDS ORDERED: SODIUM CHLORIDE 0.45% 1,000 ML IV SCH (08:45)
[2019-12-29] MEDS: PANTOPRAZOLE 40 MG/10 ML VIAL IVP SCH ×2 (09:13→21:29)
[2019-12-29] MEDS: AMOXIC-POT CLAV 500-125 MG 1 EACH TAB PEG/G-TUBE SCH ×2 (09:14→21:29)
[2019-12-29] MEDS: DEXTROSE 5%-0.45% NACL 1,000 ML IV SCH ×2 (09:16→19:57)
--- NOTE | 2019-12-29 11:21 | P.PN ---
Subjective Progress Note Date: 12/29/19 Principal diagnosis: Deep vein thrombosis right lower extremity This is an a 64-year-old white male, recently discharged from the hospital, patient was initially admitted with acute kidney injury, required intubation, he also required hemodialysis through a right groin dialysis catheter. We saw this patient when he was in the intensive care unit, and we have eventually transfer the patient to the regular medical floor, and we signed off the case. Apparently the patient was discharged to the skilled nursing, and he has been noticing progressive swelling of the right lower extremity with pain. Patient was brought into the ER, Doppler showed evidence of deep vein thrombosis of the right popliteal vein. CT angiography showed extensive thrombosis extending from the right common iliac vein all the way down, there was evidence of right sided venous insufficiency likely accounting for delayed arterial filling of the right lower extremity. There was also extensive asymmetric edema noted in the right lower extremity. Patient was seen already by many consultants including hematology, and felt that the patient had thrombocytopenia secondary to heparin- induced thrombocytopenia, and recommended IV argatroban. And no more heparin to be given to this patient. Patient was also seen by vascular surgery, and the plan is to transfuse the patient with platelets, and he will be scheduled to undergo venogram with possible thrombectomy of the iliac vein thrombus. However considering the platelets are low, the plan is to wait, transfuse the patient with platelets, and arrange for the procedure today by Dr. Gonzalez and Dr. Chacon. I was notified about this patient yesterday because he was relatively hypotensive, and he was anemic with a hemoglobin of 6.2. I transferred the patient to the ICU mostly because of the hypotension, and recommended a unit of blood to be given. And I recommended norepinephrine if the patient doesn't improve with transfusion. Indeed, the patient did not require any norepinephrine infusion. He responded well to fluids and to 1 unit of packed RBCs given yesterday. Today the patient is in the ICU, he is hemodynamically stable, on room air, denies any shortness of breath, no cough, no wheezing. Since admission and according to the surgeon, the patient had worsening edema to the right leg over the last 24 hours, and he is now developing motor and sensory compromise. Patient was reevaluated today on 12/29/19, remains in the intensive care unit, he is presently on room air. Platelets remained low, supposed to be getting some platelets from [place] today. Supposed to go for thrombectomy today however waiting for platelets to arrive from [place] today. Patient had 2 units of packed RBCs for low hemoglobin of 6.6 overnight. He is on D5. 45 at 100 mL/h. Overall the patient is about the same. Denies any shortness of breath no cough no wheezing no chest pain no nausea no vomiting no abdominal pain. Complaining of some discomfort in his right lower extremity which is basically about the same compared to yesterday. WBC count is 13 hemoglobin this morning was 6.6, and he received blood already. PTT is 117.6 patient is on argatroban. Sodium is 149, hence his IV fluid was changed to D5 45. BUN is 49 and creatinine is 1.79. Objective - Vital Signs Vital signs: Vital Signs Temp 98.2 F 12/29/19 10:25 Pulse 80 12/29/19 10:25 Resp 18 12/29/19 10:25 BP 111/67 12/29/19 10:25 Pulse Ox 98 12/29/19 10:25 Intake & Output 12/28/19 12/29/19 12/29/19 18:59 06:59 18:59 Intake Total 2022.8 2035.648 810 Output Total 490 190 Balance 2022.8 1545.648 620 Weight 65.5 kg Intake: IV 825 1450 200 Sodium Chloride 0.9% 1, 825 1450 200 000 ml @ 125 mls/hr IV . Q8H [facility] Rx#:[id number] Intake, IV Titration 98.8 98.648 300 Amount Argatroban 50 mg In 98.8 98.648 Sodium Chloride 0.9% 50 ml @ 2 MCG/KG/MIN 7.32 mls/hr IV .Q6H50M [facility] Rx# :[id number] Calcium Gluconate 1 gm In 100 Sodium Chloride 0.9% 100 ml @ 100 mls/hr IVPB ONCE ONE Rx#:[id number] Potassium Chloride 10 meq 200 In Water For Injection 1 100ml.bag @ 100 mls/hr IVPB Q1HR [facility] Rx#: [id number] Tube Feeding 385 210 0 Blood Product 654 217 310 Platelet Irr Pheresis 2 217 Acda Unit [id number] Platelet Irr Pheresis 2 327 Acda Unit [id number] Rc As-3 Unit 0 310 [id number] Rc Pheresis As-3 Unit 0 [id number] Other 60 60 Output: Urine 490 190 Other: Voiding Method Urinal Indwelling Catheter # Voids 1 # Bowel Movements 1 1 - Exam - Constitutional General appearance: Revealed 64-year-old -Sammarinese male, in no distress. - EENT Eyes: anicteric sclerae, EOMI ENT: Moist mucous membranes, throat is clear. l - Neck Neck: no lymphadenopathy - Respiratory Respiratory: Symmetrical chest expansion, diminished breath sounds at the bases no rhonchi and no wheezes. - Cardiovascular Heart sounds: normal: S1, S2 leg Peripheral Edema: 2+ Swelling of the right lower extremity notes from the knee down, there is evidence of cold leg from the knee down. Diminished distal pulses. Minimal tenderness on deep palpation. - Gastrointestinal General gastrointestinal: normal bowel sounds, soft - Neurologic Neurologic: CNII-XII intact - Musculoskeletal Musculoskeletal: generalized weakness - Psychiatric Normal mood, affect and normal mental status examination. Skin: No rashes. - Labs CBC & Chem 7: 12/29/19 04:21 12/29/19 04:21 Labs: Abnormal Lab Results - Last 24 Hours (Table) 12/26/19 12/28/19 12/28/19 Range/Units 18:32 10:24 10:24 WBC (3.8-10.6) k/uL RBC (4.30-5.90) m/uL Hgb (13.0-17.5) gm/dL Hct (39.0-53.0) % RDW (11.5-15.5) % Plt Count (150-450) k/uL Neutrophils # (1.3-7.7) k/uL Lymphocytes # (1.0-4.8) k/uL APTT (22.0-30.0) sec Fibrinogen 192 L (200-500) mg/dL Sodium (137-145) mmol/L Potassium (3.5-5.1) mmol/L Chloride (98-107) mmol/L Carbon Dioxide (22-30) mmol/L BUN (9-20) mg/dL Creatinine (0.66-1.25) mg/dL Glucose (74-99) mg/dL POC Glucose (mg/dL) (75-99) mg/dL Calcium (8.4-10.2) mg/dL Magnesium (1.6-2.3) mg/dL Lactate Dehydrogenase 2685 H (313-618) U/L Crossmatch See Detail 12/28/19 12/28/19 12/28/19 Range/Units 11:59 18:13 23:54 WBC (3.8-10.6) k/uL RBC (4.30-5.90) m/uL Hgb (13.0-17.5) gm/dL Hct (39.0-53.0) % RDW (11.5-15.5) % Plt Count (150-450) k/uL Neutrophils # (1.3-7.7) k/uL Lymphocytes # (1.0-4.8) k/uL APTT (22.0-30.0) sec Fibrinogen (200-500) mg/dL Sodium (137-145) mmol/L Potassium (3.5-5.1) mmol/L Chloride (98-107) mmol/L Carbon Dioxide (22-30) mmol/L BUN (9-20) mg/dL Creatinine (0.66-1.25) mg/dL Glucose (74-99) mg/dL POC Glucose (mg/dL) 111 H 101 H 220 H (75-99) mg/dL Calcium (8.4-10.2) mg/dL Magnesium (1.6-2.3) mg/dL Lactate Dehydrogenase (313-618) U/L Crossmatch 12/29/19 12/29/19 12/29/19 Range/Units 04:21 04:21 04:21 WBC 13.0 H (3.8-10.6) k/uL RBC 2.09 L (4.30-5.90) m/uL Hgb 6.6 L* (13.0-17.5) gm/dL Hct 20.4 L (39.0-53.0) % RDW 16.4 H (11.5-15.5) % Plt Count 11 L* D (150-450) k/uL Neutrophils # 12.1 H (1.3-7.7) k/uL Lymphocytes # 0.2 L (1.0-4.8) k/uL APTT 117.6 H* (22.0-30.0) sec Fibrinogen (200-500) mg/dL Sodium 149 H (137-145) mmol/L Potassium 3.1 L (3.5-5.1) mmol/L Chloride 123 H (98-107) mmol/L Carbon Dioxide 21 L (22-30) mmol/L BUN 49 H (9-20) mg/dL Creatinine 1.79 H (0.66-1.25) mg/dL Glucose 141 H (74-99) mg/dL POC Glucose (mg/dL) (75-99) mg/dL Calcium 6.0 L* (8.4-10.2) mg/dL Magnesium (1.6-2.3) mg/dL Lactate Dehydrogenase (313-618) U/L Crossmatch 12/29/19 12/29/19 Range/Units 04:21 06:05 WBC (3.8-10.6) k/uL RBC (4.30-5.90) m/uL Hgb (13.0-17.5) gm/dL Hct (39.0-53.0) % RDW (11.5-15.5) % Plt Count (150-450) k/uL Neutrophils # (1.3-7.7) k/uL Lymphocytes # (1.0-4.8) k/uL APTT (22.0-30.0) sec Fibrinogen (200-500) mg/dL Sodium (137-145) mmol/L Potassium (3.5-5.1) mmol/L Chloride (98-107) mmol/L Carbon Dioxide (22-30) mmol/L BUN (9-20) mg/dL Creatinine (0.66-1.25) mg/dL Glucose (74-99) mg/dL POC Glucose (mg/dL) 136 H (75-99) mg/dL Calcium (8.4-10.2) mg/dL Magnesium 1.5 L (1.6-2.3) mg/dL Lactate Dehydrogenase (313-618) U/L Crossmatch Assessment and Plan Assessment: Impression: Deep vein thromboses of the right lower extremity with motor and sensory change s, scheduled to undergo thrombectomy today once platelets are given Heparin-induced thrombocytopenia, presently on argatroban History of head and neck malignancy. Recent history of acute kidney injury secondary to dehydration rhabdomyolysis, requiring hemodialysis. Improved. History of aspiration pneumonia and respiratory failure requiring intubation and mechanical ventilation. History of PEG tube placement, presently being used for enteral feeding. Chronic congestive heart failure and LV dysfunction with ejection fraction of 20%. History of chronic dysphagia secondary to laryngeal cancer Hypotension secondary to hypovolemia and anemia which is likely chronic, required so far 2 units of packed RBCs, and 3 units of platelets. Recommendation: Agree with the present treatment plan as per hematology/argatroban Agree with the platelet transfusion, however latus are not available today, and they would be coming sometime today from [place]. Scheduled for venogram and thrombectomy We'll continue to monitor in the ICU Will follow. Time with Patient: Less than 30
[2019-12-29 11:57] LABS: Mean Platelet Volume 8.4
[2019-12-29 11:59] LABS: Platelet Count 48 k/uL (150-450)
[2019-12-29 12:20] LABS: INR 1.6 (<1.2); Prothrombin Time 15.3 sec (9.0-12.0)
[2019-12-29 12:22] LABS: Albumin 2.3 g/dL (3.5-5.0); Bilirubin, Delta 0.1 mg/dL (0.0-0.2); Bilirubin,Unconjugated 0.6 mg/dL (0.0-1.1); Total Bilirubin 0.7 mg/dL (0.2-1.3)
[2019-12-29] MEDS ORDERED: LIDOCAINE 1% INJ 10MG/ML (20 ML MDV) SQ ONE (12:45)
[2019-12-29] MEDS ORDERED: fentaNYL (PF) 50 MCG/ML 2 ML AMP IV ONE (12:46)
[2019-12-29] MEDS ORDERED: SODIUM CHLORIDE 0.9% 1,000 ML IV ONE (12:47)
[2019-12-29] MEDS ORDERED: SODIUM CHLORIDE 0.9% 250 ML IV ONE (12:47)
--- NOTE | 2019-12-29 13:02 | PN ---
PROGRESS NOTE Patient has multiple problems including heparin induced thrombocytopenia, excessive deep vein thrombosis of the right lower extremity, history of CA of the oropharynx. The patient was supposed to be transferred to Dr. 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 Gonzalez and arranged for percutaneous venous thrombectomy of the right leg. The patient still has low platelets. Platelets has been arranged prior to the procedure. Prognosis is guarded. MMODL / IJN: [id number] /
[2019-12-29] MEDS ORDERED: IOPAMIDOL-370 100ML BTL INJ ONE (13:09)
[2019-12-29] MEDS ORDERED: DEXTROSE 50% SYRINGE 50 ML IVP ONE (13:49)
[2019-12-29 13:51] LABS: Glucose,Whole Blood 50 mg/dL (75-99)
[2019-12-29 14:00] LABS: Glucose,Whole Blood 245 mg/dL (75-99)
--- NOTE | 2019-12-29 14:10 | P.OP ---
Date of Procedure: 12/29/19 Preoperative Diagnosis: Right Iliofemoral, popliteal vein acute thrombus with phlegmasia Postoperative Diagnosis: same Procedure(s) Performed: 1. Ultrasound guided right popliteal vein access 2. Percutaneous mechanical thrombectomy with Penumbra CAT 8 device of the right popliteal, femoral and iliac veins Anesthesia: local, other (Moderate conscious sedation x 50 minutes) Surgeon: Tyler Gonzalez Estimated Blood Loss (ml): 200 Pathology: none sent Condition: stable Disposition: ICU Indications for Procedure: 64 year old gentleman currently being treated in ICU for acute right lower extremity thrombus. Upon evaluation his right lower extremity is extremely edematous and patient overnight has had increased skin sloughing as well as motor impairment and is unable to move his foot. He is also being treated for heparin induced thrombocytopenia and his platelets were 11 this morning. Due to the change in skin color and now with motor impairment we scheduled for percutaneous thrombectomy with platelet transfusion during the procedure. The patient has agreed to the procedure and understands all risks and benefits. His argatroban was also stopped prior to the procedure. Operative Findings: Right popliteal, femoral and iliac vein thrombus with near occlusion of the iliac vein. Description of Procedure: After written and informed consent was obtained and all risks, benefits and complications were discussed the patient was brought to the cath lab radiology technician and laid in a prone position. The area of the lower leg was prepped and draped in usual sterile fashion. A timeout was performed in usual fashion. Utilizing ultrasound the right popliteal vein was accessed with a micro puncture needle and a 4 hebrew sheath was placed. Venogram was then obtained demonstrating clot within the popliteal, femoral and iliac vein which was near occlusive. A stiff wire was then placed followed by a 10 hebrew sheath. A CAT 8 Penumbra catheter was then placed and percutaneous thrombectomy was performed throughout the venous system with removal of thrombus. The iliac vein, femoral and popliteal veins were widely patent after two passes and all wires and catheters were removed and pressure was held for hemostasis. Pressure dressings were then placed from the foot to the thigh. Patient had biphasic dp and pt signals at the conclusion of the case. He tolerated the case well and was sent to ICU for recovery.
--- NOTE | 2019-12-29 14:11 | PN ---
PROGRESS NOTE Patient is seen for followup for acute kidney injury. The patient was seen this morning. He is scheduled for surgery of his right lower extremity. He is awake. He is not in any acute distress. PHYSICAL EXAMINATION: This morning blood pressure was 111/68, heart rate of 70 per minute, he is afebrile. Examination of the heart S1, S2. Examination of the lungs, bilateral breath sounds are heard. ABDOMEN: Soft, nontender. Examination of lower extremities shows edema and swelling in the right leg. No significant edema noted in the left leg. Right leg is also cool to touch. GLASS FRAME FITTER exam grossly intact. LABS: Show hemoglobin 6.6, platelet count 11,000 sodium 149, potassium 3.1, chloride 123, CO2 is 21, BUN 49, creatinine 1.79. ASSESSMENT: 1. Acute kidney injury acute tubular necrosis from last admission. Renal function continues to improve. The patient was dialyzed for a short period of time. During his last admission, his dialysis catheter was removed and currently has good urine output with improving renal function. The patient is maintained on IV fluids. 2. Hypernatremia associated with free water deficit. Increase free water flushes and change IV fluids to D5 W for short period of time and then half-normal saline at 100 mL an hour. 3. Heparin-induced thrombocytopenia with the deep vein thrombosis right lower extremity, scheduled for surgery today. 4. Thrombocytopenia associated with HIT syndrome. 5. Anemia associated with underlying hematological disorder. 6. Hypokalemia. We will replace. PLAN: Replace potassium. Change IV fluids to D5W till 6:00 pm and then half-normal saline at 100 mL an hour. Increase free water down the feeding tube. Repeat labs in a.m. MMODL / IJN: [id number] /
--- NOTE | 2019-12-29 14:25 | CT ---
EXAMINATION TYPE: CT brain wo con for TPA DATE OF EXAM: 12/29/2019 COMPARISON: 10/02/2013 HISTORY: Change in mental status. CT DLP: 1099.[address] of the brain was performed. The ventricles, basal cisterns and sulci overlying the cerebral convexities demonstrate mild enlargem ent. There is no evidence for intracranial hemorrhage or sulcal effacement. There is decreased attenuation about the periventricular white matter and deep white matter of both c erebral hemispheres, compatible with chronic small vessel ischemia. Differential diagnosis does inclu de demyelination. No mass effects are seen.No midline shift. Osseous calvarium is intact. If symptoms persist consider MRI. IMPRESSION: 1. Age related atrophic and chronic small vessel ischemic change without acute intracranial process s een at this time.
[2019-12-29 14:45] LABS: Glucose,Whole Blood 185 mg/dL (75-99)
[2019-12-29 15:16] LABS: Anisocytosis Slight; Basophils % (A) 0 %; Eosinophils % (A) 0 %; HCT 31.7 % (39.0-53.0); Hypochromasia Moderate; Lymphocytes # (A) 0.3 k/uL (1.0-4.8); Lymphocytes % (A) 2 %; MCH 30.1 pg (25.0-35.0); MCHC 31.8 g/dL (31.0-37.0); MCV 94.8 fL (80.0-100.0); Macrocytosis Slight; Mean Platelet Volume 7.3; Monocytes # (A) 0.7 k/uL (0-1.0); Monocytes % (A) 4 %; Neutrophils # (A) 14.5 k/uL (1.3-7.7); Neutrophils % (A) 92 %; Poikilocytosis Slight; RBC 3.34 m/uL (4.30-5.90); RDW 18.1 % (11.5-15.5); WBC 15.8 k/uL (3.8-10.6)
[2019-12-29 15:19] LABS: HGB 10.1 gm/dL (13.0-17.5); Platelet Count 117 k/uL (150-450)
--- NOTE | 2019-12-29 15:23 | CT ---
EXAMINATION TYPE: CODE STROKE: CTA head neck DATE OF EXAM: 12/29/2019 COMPARISON: None HISTORY: Altered mental status. CT DLP: 425.3 mGycm CONTRAST: Performed with IV Contrast, patient injected with 65 mL of Isovue 370. Combination Contrast CTA cervical carotids and [place] CTA cervical carotids with 3-D recons truction Contrast CTA of the cervical carotids was performed 3-D reconstruction imaging obtained at a separate workstation. Right carotid system: Mild plaque is seen of the right common carotid artery. There is mild plaque a lso noted at the carotid bulb and proximal ICA. No significant diameter reduction. ECA is patent. Right vertebral artery appears unremarkable. Left carotid system: Mild plaque is seen of the left common carotid artery. There is complete obstruc tion of the left internal carotid artery approximately 1.7 cm from the bifurcation. ECA is patent. Le ft vertebral artery appears unremarkable. large bilateral pleural effusions and basilar compressive atelectasis. Pulmonary venous congestion an d upper lobe groundglass opacities. IMPRESSION: 1. 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 CTA [place] with 3-D reconstruction Contrast CTA of the [place] was performed 3-D reconstruction imaging obtained at a separate workstation. Vertebrobasilar system is patent. Nonvisualization of the left internal carotid artery. Right interna l carotid artery appears unremarkable. There is decreased opacification of distal middle cerebral art kim branches on the left. Right middle cerebral artery is patent. JOHN and SOLVENT PLANT OPERATOR are patent as well . I do not see evidence for sizable aneurysm or vascular malformation. Please note MRI provides greater sensitivity and specificity. IMPRESSION: 1. Nonvisualization of the left internal carotid artery. There is decreased opacification of distal m iddle cerebral artery branches on the left.
[2019-12-29 15:51] LABS: Albumin 2.5 g/dL (3.5-5.0); Potassium 4.2 mmol/L (3.5-5.1); Total Protein 5.2 g/dL (6.3-8.2)
[2019-12-29 15:52] LABS: Calcium 7.2 mg/dL (8.4-10.2); Total Bilirubin 1.3 mg/dL (0.2-1.3)
[2019-12-29] MEDS: MAGNESIUM SULFATE-D5W PMX 1 GM in DEXTROSE/WATER 1 100ML.BAG IVPB SCH ×2 (17:32→18:28)
[2019-12-29 17:46] LABS: Glucose,Whole Blood 159 mg/dL (75-99)
--- NOTE | 2019-12-29 18:22 | P.PN ---
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 He received platelets today, post platelet 46K, underwent Right THrombectomy, platelets are currently up to 117K Objective - Vital Signs Vital signs: Vital Signs Temp 97.0 F L 12/29/19 16:00 Pulse 112 H 12/29/19 17:15 Resp 24 12/29/19 17:15 BP 102/86 12/29/19 17:15 Pulse Ox 98 12/29/19 17:15 Intake & Output 12/28/19 12/29/19 12/29/19 18:59 06:59 18:59 Intake Total 2022.8 2035.648 2621.397 Output Total 490 495 Balance 2022.8 5842.130 1198.397 Weight 65.5 kg 65.5 kg Intake: IV 825 1450 200 Sodium Chloride 0.9% 1, 825 1450 200 000 ml @ 125 mls/hr IV . Q8H [facility] Rx#:[id number] Intake, IV Titration 98.8 98.648 1072.397 Amount Argatroban 50 mg In 98.8 98.648 22.397 Sodium Chloride 0.9% 50 ml @ 2 MCG/KG/MIN 7.32 mls/hr IV .Q6H50M [facility] Rx# :[id number] Calcium Gluconate 1 gm In 100 Sodium Chloride 0.9% 100 ml @ 100 mls/hr IVPB ONCE ONE Rx#:[id number] Dextrose 5%-0.45% NaCl 1, 550 000 ml @ 100 mls/hr IV . Q10H [facility] Rx#:[id number] Magnesium Sulfate-D5w Pmx 100 1 gm In Dextrose/Water 1 100ml.bag @ 100 mls/hr IVPB Q1H [facility] Rx#: [id number] Potassium Chloride 10 meq 300 In Water For Injection 1 100ml.bag @ 100 mls/hr IVPB Q1HR [facility] Rx#: [id number] Tube Feeding 385 210 0 Blood Product 251 188 4795 Platelet Irr Pheresis 2 217 Acda Unit [id number] Platelet Irr Pheresis 2 327 Acda Unit [id number] Platelet Irr Pheresis 3 214 Acda Unit [id number] Platelet Irr Pheresis 215 Acda1 Unit [id number] Rc As-3 Unit 0 310 [id number] Rc Pheresis As-3 Unit 310 [id number] Other 60 60 Output: Urine 490 495 Other: Voiding Method Urinal Indwelling Catheter Indwelling Catheter # Voids 1 # Bowel Movements 1 1 1 - Exam Telemed Visit Physical Exam Deferred - Labs CBC & Chem 7: 12/29/19 15:05 12/29/19 15:05 Labs: Abnormal Lab Results - Last 24 Hours (Table) 12/26/19 12/28/19 12/28/19 Range/Units 18:32 18:13 23:54 WBC (3.8-10.6) k/uL RBC (4.30-5.90) m/uL Hgb (13.0-17.5) gm/dL Hct (39.0-53.0) % RDW (11.5-15.5) % Plt Count (150-450) k/uL Neutrophils # (1.3-7.7) k/uL Lymphocytes # (1.0-4.8) k/uL PT (9.0-12.0) sec INR (<1.2) APTT (22.0-30.0) sec Sodium (137-145) mmol/L Potassium (3.5-5.1) mmol/L Chloride (98-107) mmol/L Carbon Dioxide (22-30) mmol/L BUN (9-20) mg/dL Creatinine (0.66-1.25) mg/dL Glucose (74-99) mg/dL POC Glucose (mg/dL) 101 H 220 H (75-99) mg/dL Calcium (8.4-10.2) mg/dL Magnesium (1.6-2.3) mg/dL AST (17-59) U/L ALT (4-49) U/L Troponin I (0.000-0.034) ng/mL Total Protein (6.3-8.2) g/dL Albumin (3.5-5.0) g/dL Crossmatch See Detail 12/29/19 12/29/19 12/29/19 Range/Units 04:21 04:21 04:21 WBC 13.0 H (3.8-10.6) k/uL RBC 2.09 L (4.30-5.90) m/uL Hgb 6.6 L* (13.0-17.5) gm/dL Hct 20.4 L (39.0-53.0) % RDW 16.4 H (11.5-15.5) % Plt Count 11 L* D (150-450) k/uL Neutrophils # 12.1 H (1.3-7.7) k/uL Lymphocytes # 0.2 L (1.0-4.8) k/uL PT (9.0-12.0) sec INR (<1.2) APTT 117.6 H* (22.0-30.0) sec Sodium 149 H (137-145) mmol/L Potassium 3.1 L (3.5-5.1) mmol/L Chloride 123 H (98-107) mmol/L Carbon Dioxide 21 L (22-30) mmol/L BUN 49 H (9-20) mg/dL Creatinine 1.79 H (0.66-1.25) mg/dL Glucose 141 H (74-99) mg/dL POC Glucose (mg/dL) (75-99) mg/dL Calcium 6.0 L* (8.4-10.2) mg/dL Magnesium (1.6-2.3) mg/dL AST (17-59) U/L ALT (4-49) U/L Troponin I (0.000-0.034) ng/mL Total Protein (6.3-8.2) g/dL Albumin (3.5-5.0) g/dL Crossmatch 12/29/19 12/29/19 12/29/19 Range/Units 04:21 06:05 11:40 WBC (3.8-10.6) k/uL RBC (4.30-5.90) m/uL Hgb (13.0-17.5) gm/dL Hct (39.0-53.0) % RDW (11.5-15.5) % Plt Count 48 L D (150-450) k/uL Neutrophils # (1.3-7.7) k/uL Lymphocytes # (1.0-4.8) k/uL PT (9.0-12.0) sec INR (<1.2) APTT (22.0-30.0) sec Sodium (137-145) mmol/L Potassium (3.5-5.1) mmol/L Chloride (98-107) mmol/L Carbon Dioxide (22-30) mmol/L BUN (9-20) mg/dL Creatinine (0.66-1.25) mg/dL Glucose (74-99) mg/dL POC Glucose (mg/dL) 136 H (75-99) mg/dL Calcium (8.4-10.2) mg/dL Magnesium 1.5 L (1.6-2.3) mg/dL AST (17-59) U/L ALT (4-49) U/L Troponin I (0.000-0.034) ng/mL Total Protein (6.3-8.2) g/dL Albumin (3.5-5.0) g/dL Crossmatch 12/29/19 12/29/19 12/29/19 Range/Units 11:40 11:40 13:48 WBC (3.8-10.6) k/uL RBC (4.30-5.90) m/uL Hgb (13.0-17.5) gm/dL Hct (39.0-53.0) % RDW (11.5-15.5) % Plt Count (150-450) k/uL Neutrophils # (1.3-7.7) k/uL Lymphocytes # (1.0-4.8) k/uL PT 15.3 H (9.0-12.0) sec INR 1.6 H (<1.2) APTT 31.0 H (22.0-30.0) sec Sodium (137-145) mmol/L Potassium (3.5-5.1) mmol/L Chloride (98-107) mmol/L Carbon Dioxide (22-30) mmol/L BUN (9-20) mg/dL Creatinine (0.66-1.25) mg/dL Glucose (74-99) mg/dL POC Glucose (mg/dL) 50 L (75-99) mg/dL Calcium (8.4-10.2) mg/dL Magnesium (1.6-2.3) mg/dL AST 700 H (17-59) U/L ALT 162 H (4-49) U/L Troponin I (0.000-0.034) ng/mL Total Protein 5.0 L (6.3-8.2) g/dL Albumin 2.3 L (3.5-5.0) g/dL Crossmatch 12/29/19 12/29/19 12/29/19 Range/Units 13:59 14:43 15:05 WBC 15.8 H (3.8-10.6) k/uL RBC 3.34 L (4.30-5.90) m/uL Hgb 10.1 L D (13.0-17.5) gm/dL Hct 31.7 L (39.0-53.0) % RDW 18.1 H (11.5-15.5) % Plt Count 117 L D (150-450) k/uL Neutrophils # 14.5 H (1.3-7.7) k/uL Lymphocytes # 0.3 L (1.0-4.8) k/uL PT (9.0-12.0) sec INR (<1.2) APTT (22.0-30.0) sec Sodium (137-145) mmol/L Potassium (3.5-5.1) mmol/L Chloride (98-107) mmol/L Carbon Dioxide (22-30) mmol/L BUN (9-20) mg/dL Creatinine (0.66-1.25) mg/dL Glucose (74-99) mg/dL POC Glucose (mg/dL) 245 H 185 H (75-99) mg/dL Calcium (8.4-10.2) mg/dL Magnesium (1.6-2.3) mg/dL AST (17-59) U/L ALT (4-49) U/L Troponin I (0.000-0.034) ng/mL Total Protein (6.3-8.2) g/dL Albumin (3.5-5.0) g/dL Crossmatch 12/29/19 12/29/19 12/29/19 Range/Units 15:05 15:05 17:44 WBC (3.8-10.6) k/uL RBC (4.30-5.90) m/uL Hgb (13.0-17.5) gm/dL Hct (39.0-53.0) % RDW (11.5-15.5) % Plt Count (150-450) k/uL Neutrophils # (1.3-7.7) k/uL Lymphocytes # (1.0-4.8) k/uL PT (9.0-12.0) sec INR (<1.2) APTT (22.0-30.0) sec Sodium 150 H (137-145) mmol/L Potassium (3.5-5.1) mmol/L Chloride 121 H (98-107) mmol/L Carbon Dioxide 15 L (22-30) mmol/L BUN 51 H (9-20) mg/dL Creatinine 1.79 H (0.66-1.25) mg/dL Glucose 195 H (74-99) mg/dL POC Glucose (mg/dL) 159 H (75-99) mg/dL Calcium 7.2 L (8.4-10.2) mg/dL Magnesium (1.6-2.3) mg/dL AST 714 H (17-59) U/L ALT 155 H (4-49) U/L Troponin I 9.850 H* (0.000-0.034) ng/mL Total Protein 5.2 L (6.3-8.2) g/dL Albumin 2.5 L (3.5-5.0) g/dL Crossmatch Assessment and Plan Plan: Assessment and Plan Thrombocytopenia: - In the picture of rapid and severe clotting, anemia and thrombcytopenia with timeframe comparable to hit, this is the likely etiology although with his platelet count continuing to drop Transfuse Platelets today to keep greater than 50K - Still awaiting heparin antibodies - Platelets 11K today and transfusion given with increase to 41K - Drop despite platelet transfusion yesterday and argantroban at 48 hours *12/28/19 started steroids 40q6 with PPI for possible ITP component, platelets have increased today and was able to undergo thrombectomy. Monitor cbc in am, suspect a component of ITP with response to steroids, although in full picture cannot rule out HIT. COntinue Argantroban until Hep antibodies result. Thrombolic events with likely arterial occlusion and Deep vein thrombosis (DVT) of right lower extremity - Extensive and likely secondary to HIT - Status Post Right Thrombectomy today 12/29/19 Head and neck malignancy - Stable, no sign of recurrence at this time Due to the current epidemic with COVID 19, patient did verbally consent to telemed visit. discussion with patient, review of labs, medications, and pertinent orders placed. Greater than 28 minutes spent during telemedicine visit .
[2019-12-29 23:37] LABS: Glucose,Whole Blood 209 mg/dL (75-99)
[2019-12-30 04:47] LABS: Anisocytosis Slight; HCT 29.9 % (39.0-53.0); HGB 9.8 gm/dL (13.0-17.5); MCH 30.2 pg (25.0-35.0); MCHC 32.9 g/dL (31.0-37.0); MCV 91.7 fL (80.0-100.0); Mean Platelet Volume 8.1; Poikilocytosis Slight; RBC 3.26 m/uL (4.30-5.90); RDW 18.2 % (11.5-15.5)
[2019-12-30 04:53] LABS: Platelet Count 38 k/uL (150-450)
[2019-12-30 04:56] LABS: INR 2.1 (<1.2); Prothrombin Time 20.9 sec (9.0-12.0)
[2019-12-30 04:57] LABS: Partial Thromboplastin Time 39.1 sec (22.0-30.0)
[2019-12-30 05:09] LABS: Band Neutrophils % 2 %; Lymphocytes # (M) 0.13 k/uL (1.0-4.8); Monocytes # (M) 0.52 k/uL (0-1.0); Neutrophils % (M) 93 %; Nucleated Red Blood Cells 0 /100 WBC (0-0); Total Cells Counted 100
[2019-12-30] MEDS: ARGATROBAN 50 MG in SODIUM CHLORIDE 0.9% 50 ML IV SCH ×3 (05:15→21:15)
[2019-12-30] MEDS ORDERED: ARGATROBAN IV ONE ×3 (05:15)
[2019-12-30 05:58] LABS: Glucose,Whole Blood 193 mg/dL (75-99)
[2019-12-30] MEDS: methylPREDNISolone SOD SUCCI 40 MG/ML 1 ML VIAL IV SCH ×2 (06:05→13:18)
[2019-12-30] MEDS: INSULIN ASPART (NovoLOG) 100 UNIT/ML VIAL SQ SCH ×4 (06:05→23:46)
[2019-12-30] MEDS: MIDODRINE 5 MG TAB PO SCH ×3 (06:06→17:22)
[2019-12-30 06:15] LABS: Calcium 6.9 mg/dL (8.4-10.2); Magnesium 1.9 mg/dL (1.6-2.3); Potassium 3.8 mmol/L (3.5-5.1)
[2019-12-30] MEDS: DEXTROSE 5%-0.45% NACL 1,000 ML IV SCH ×2 (08:05→14:30)
[2019-12-30] MEDS: PANTOPRAZOLE 40 MG/10 ML VIAL IVP SCH ×2 (08:06→21:15)
[2019-12-30] MEDS: AMOXIC-POT CLAV 500-125 MG 1 EACH TAB PEG/G-TUBE SCH ×2 (08:06→21:13)
[2019-12-30] MEDS ORDERED: Potassium Replacement Protocol 1 EACH MISC MISCELLANE PRN (08:10)
--- NOTE | 2019-12-30 08:37 | P.PN ---
Subjective Patient is seen in follow-up for acute kidney injury. Renal function is fairly stable. Creatinine 1.67 today. Nonoliguric. He is receiving tube feeding. Sodium level 149 today. Schedule for MRI of the brain today. Vital signs are stable. General: The patient appeared well nourished and normally developed. HEENT: Head exam is unremarkable. Neck is without jugular venous distension. LUNGS: Breath sounds decreased. HEART: Rate and Rhythm are regular. ABDOMEN: Abdominal exam reveals normal bowel sounds. Non-tender and non- distended. No evidence of peritonitis. EXTREMITITES: Right lower extremity wrapped. 1+ edema. Objective - Vital Signs Vital signs: Vital Signs Temp 98.6 F 12/30/19 08:00 Pulse 73 12/30/19 08:00 Resp 24 12/30/19 08:00 BP 122/97 12/30/19 08:00 Pulse Ox 97 12/30/19 08:00 Intake & Output 12/29/19 12/30/19 12/30/19 18:59 06:59 18:59 Intake Total 2956.397 2022.332 520 Output Total 535 485 80 Balance 2421.397 1537.332 440 Weight 65.5 kg 66.5 kg Intake: IV 200 Sodium Chloride 0.9% 1, 200 000 ml @ 125 mls/hr IV . Q8H [facility] Rx#:[id number] Intake, IV Titration 9934.842 7035.332 150 Amount Argatroban 50 mg In 22.397 87.332 Sodium Chloride 0.9% 50 ml @ 2 MCG/KG/MIN 7.32 mls/hr IV .Q6H50M [facility] Rx# :[id number] Calcium Gluconate 1 gm In 100 Sodium Chloride 0.9% 100 ml @ 100 mls/hr IVPB ONCE ONE Rx#:[id number] Dextrose 5%-0.45% NaCl 1, 650 800 50 000 ml @ 100 mls/hr IV . Q10H [facility] Rx#:[id number] Magnesium Sulfate-D5w Pmx 200 1 gm In Dextrose/Water 1 100ml.bag @ 100 mls/hr IVPB Q1H [facility] Rx#: [id number] Potassium Chloride 10 meq 300 In Water For Injection 1 100ml.bag @ 100 mls/hr IVPB Q1HR [facility] Rx#: [id number] Sodium Chloride 0.45% 1, 400 100 000 ml @ 100 mls/hr IV . Q10H [facility] Rx#:[id number] Tube Feeding 35 405 70 Blood Product 1349 Platelet Irr Pheresis 3 214 Acda Unit [id number] Platelet Irr Pheresis 215 Acda1 Unit [id number] Rc As-3 Unit 310 [id number] Rc Pheresis As-3 Unit 310 [id number] Other 100 330 300 Output: Urine 535 485 80 Other: Voiding Method Indwelling Catheter Indwelling Catheter Indwelling Catheter # Bowel Movements 1 - Labs CBC & Chem 7: 12/30/19 04:20 12/30/19 05:22 Labs: Abnormal Lab Results - Last 24 Hours (Table) 12/26/19 12/29/19 12/29/19 Range/Units 18:32 04:21 11:40 WBC (3.8-10.6) k/uL RBC (4.30-5.90) m/uL Hgb (13.0-17.5) gm/dL Hct (39.0-53.0) % RDW (11.5-15.5) % Plt Count 48 L D (150-450) k/uL Neutrophils # (1.3-7.7) k/uL Neutrophils # (Manual) (1.3-7.7) k/uL Lymphocytes # (1.0-4.8) k/uL Lymphocytes # (Manual) (1.0-4.8) k/uL PT (9.0-12.0) sec INR (<1.2) APTT (22.0-30.0) sec Sodium (137-145) mmol/L Chloride (98-107) mmol/L Carbon Dioxide (22-30) mmol/L BUN (9-20) mg/dL Creatinine (0.66-1.25) mg/dL Glucose (74-99) mg/dL POC Glucose (mg/dL) (75-99) mg/dL Calcium (8.4-10.2) mg/dL Phosphorus (2.5-4.5) mg/dL Magnesium 1.5 L (1.6-2.3) mg/dL AST (17-59) U/L ALT (4-49) U/L Troponin I (0.000-0.034) ng/mL Total Protein (6.3-8.2) g/dL Albumin (3.5-5.0) g/dL Crossmatch See Detail 12/29/19 12/29/19 12/29/19 Range/Units 11:40 11:40 13:48 WBC (3.8-10.6) k/uL RBC (4.30-5.90) m/uL Hgb (13.0-17.5) gm/dL Hct (39.0-53.0) % RDW (11.5-15.5) % Plt Count (150-450) k/uL Neutrophils # (1.3-7.7) k/uL Neutrophils # (Manual) (1.3-7.7) k/uL Lymphocytes # (1.0-4.8) k/uL Lymphocytes # (Manual) (1.0-4.8) k/uL PT 15.3 H (9.0-12.0) sec INR 1.6 H (<1.2) APTT 31.0 H (22.0-30.0) sec Sodium (137-145) mmol/L Chloride (98-107) mmol/L Carbon Dioxide (22-30) mmol/L BUN (9-20) mg/dL Creatinine (0.66-1.25) mg/dL Glucose (74-99) mg/dL POC Glucose (mg/dL) 50 L (75-99) mg/dL Calcium (8.4-10.2) mg/dL Phosphorus (2.5-4.5) mg/dL Magnesium (1.6-2.3) mg/dL AST 700 H (17-59) U/L ALT 162 H (4-49) U/L Troponin I (0.000-0.034) ng/mL Total Protein 5.0 L (6.3-8.2) g/dL Albumin 2.3 L (3.5-5.0) g/dL Crossmatch 12/29/19 12/29/19 12/29/19 Range/Units 13:59 14:43 15:05 WBC 15.8 H (3.8-10.6) k/uL RBC 3.34 L (4.30-5.90) m/uL Hgb 10.1 L D (13.0-17.5) gm/dL Hct 31.7 L (39.0-53.0) % RDW 18.1 H (11.5-15.5) % Plt Count 117 L D (150-450) k/uL Neutrophils # 14.5 H (1.3-7.7) k/uL Neutrophils # (Manual) (1.3-7.7) k/uL Lymphocytes # 0.3 L (1.0-4.8) k/uL Lymphocytes # (Manual) (1.0-4.8) k/uL PT (9.0-12.0) sec INR (<1.2) APTT (22.0-30.0) sec Sodium (137-145) mmol/L Chloride (98-107) mmol/L Carbon Dioxide (22-30) mmol/L BUN (9-20) mg/dL Creatinine (0.66-1.25) mg/dL Glucose (74-99) mg/dL POC Glucose (mg/dL) 245 H 185 H (75-99) mg/dL Calcium (8.4-10.2) mg/dL Phosphorus (2.5-4.5) mg/dL Magnesium (1.6-2.3) mg/dL AST (17-59) U/L ALT (4-49) U/L Troponin I (0.000-0.034) ng/mL Total Protein (6.3-8.2) g/dL Albumin (3.5-5.0) g/dL Crossmatch 12/29/19 12/29/19 12/29/19 Range/Units 15:05 15:05 17:44 WBC (3.8-10.6) k/uL RBC (4.30-5.90) m/uL Hgb (13.0-17.5) gm/dL Hct (39.0-53.0) % RDW (11.5-15.5) % Plt Count (150-450) k/uL Neutrophils # (1.3-7.7) k/uL Neutrophils # (Manual) (1.3-7.7) k/uL Lymphocytes # (1.0-4.8) k/uL Lymphocytes # (Manual) (1.0-4.8) k/uL PT (9.0-12.0) sec INR (<1.2) APTT (22.0-30.0) sec Sodium 150 H (137-145) mmol/L Chloride 121 H (98-107) mmol/L Carbon Dioxide 15 L (22-30) mmol/L BUN 51 H (9-20) mg/dL Creatinine 1.79 H (0.66-1.25) mg/dL Glucose 195 H (74-99) mg/dL POC Glucose (mg/dL) 159 H (75-99) mg/dL Calcium 7.2 L (8.4-10.2) mg/dL Phosphorus (2.5-4.5) mg/dL Magnesium (1.6-2.3) mg/dL AST 714 H (17-59) U/L ALT 155 H (4-49) U/L Troponin I 9.850 H* (0.000-0.034) ng/mL Total Protein 5.2 L (6.3-8.2) g/dL Albumin 2.5 L (3.5-5.0) g/dL Crossmatch 12/29/19 12/30/19 12/30/19 Range/Units 23:35 04:20 04:20 WBC 13.0 H (3.8-10.6) k/uL RBC 3.26 L (4.30-5.90) m/uL Hgb 9.8 L (13.0-17.5) gm/dL Hct 29.9 L (39.0-53.0) % RDW 18.2 H (11.5-15.5) % Plt Count 38 L D (150-450) k/uL Neutrophils # (1.3-7.7) k/uL Neutrophils # (Manual) 12.30 H (1.3-7.7) k/uL Lymphocytes # (1.0-4.8) k/uL Lymphocytes # (Manual) 0.13 L (1.0-4.8) k/uL PT 20.9 H (9.0-12.0) sec INR 2.1 H (<1.2) APTT 39.1 H (22.0-30.0) sec Sodium (137-145) mmol/L Chloride (98-107) mmol/L Carbon Dioxide (22-30) mmol/L BUN (9-20) mg/dL Creatinine (0.66-1.25) mg/dL Glucose (74-99) mg/dL POC Glucose (mg/dL) 209 H (75-99) mg/dL Calcium (8.4-10.2) mg/dL Phosphorus (2.5-4.5) mg/dL Magnesium (1.6-2.3) mg/dL AST (17-59) U/L ALT (4-49) U/L Troponin I (0.000-0.034) ng/mL Total Protein (6.3-8.2) g/dL Albumin (3.5-5.0) g/dL Crossmatch 12/30/19 12/30/19 12/30/19 Range/Units 05:22 05:56 07:40 WBC (3.8-10.6) k/uL RBC (4.30-5.90) m/uL Hgb (13.0-17.5) gm/dL Hct (39.0-53.0) % RDW (11.5-15.5) % Plt Count (150-450) k/uL Neutrophils # (1.3-7.7) k/uL Neutrophils # (Manual) (1.3-7.7) k/uL Lymphocytes # (1.0-4.8) k/uL Lymphocytes # (Manual) (1.0-4.8) k/uL PT (9.0-12.0) sec INR (<1.2) APTT 55.6 H (22.0-30.0) sec Sodium 149 H (137-145) mmol/L Chloride 118 H (98-107) mmol/L Carbon Dioxide 16 L (22-30) mmol/L BUN 49 H (9-20) mg/dL Creatinine 1.67 H (0.66-1.25) mg/dL Glucose 174 H (74-99) mg/dL POC Glucose (mg/dL) 193 H (75-99) mg/dL Calcium 6.9 L (8.4-10.2) mg/dL Phosphorus 5.0 H (2.5-4.5) mg/dL Magnesium (1.6-2.3) mg/dL AST (17-59) U/L ALT (4-49) U/L Troponin I (0.000-0.034) ng/mL Total Protein (6.3-8.2) g/dL Albumin (3.5-5.0) g/dL Crossmatch Assessment and Plan Plan: Assessment: 1. Acute kidney injury secondary to ATN from previous admission. Patient required short duration of hemodialysis and renal function subsequently recovered. Creatinine stable at 1.67 today. 2. Hypernatremia secondary to lack of oral water intake. 3. Right lower extremity DVT maintained on argatroban. 4. HIT. 5. Metabolic acidosis secondary to acute kidney injury and IV fluids. 6. Mild hyperphosphatemia secondary to acute kidney injury. Plan: Decrease rate of half normal saline to 50 mL an hour. Increase free water flushes with tube feeding to 300 mL every 4 hours. Add oral sodium bicarbonate. Continue to monitor renal function and urine output. Follow-up MRI of the brain.
[2019-12-30] MEDS ORDERED: POTASSIUM BICARBONATE/CIT AC 20 MEQ TABLET.EFF NG-TUBE SCH (09:00)
[2019-12-30] MEDS: SODIUM BICARBONATE TAB 650 MG TAB PO SCH ×3 (09:50→21:13)
[2019-12-30 12:01] LABS: Glucose,Whole Blood 90 mg/dL (75-99)
--- NOTE | 2019-12-30 12:14 | P.PN ---
Subjective Progress Note Date: 12/30/19 Principal diagnosis: DVT of the right lower extremity This is an a 64-year-old white male, recently discharged from the hospital, patient was initially admitted with acute kidney injury, required intubation, he also required hemodialysis through a right groin dialysis catheter. We saw this patient when he was in the intensive care unit, and we have eventually transfer the patient to the regular medical floor, and we signed off the case. Apparently the patient was discharged to the [facility], and he has been noticing progressive swelling of the right lower extremity with pain. Patient was brought into the ER, Doppler showed evidence of deep vein thrombosis of the right popliteal vein. CT angiography showed extensive thrombosis extending from the right common iliac vein all the way down, there was evidence of right sided venous insufficiency likely accounting for delayed arterial filling of the right lower extremity. There was also extensive asymmetric edema noted in the right lower extremity. Patient was seen already by many consultants including hematology, and felt that the patient had thrombocytopenia secondary to heparin- induced thrombocytopenia, and recommended IV argatroban. And no more heparin to be given to this patient. Patient was also seen by vascular surgery, and the plan is to transfuse the patient with platelets, and he will be scheduled to undergo venogram with possible thrombectomy of the iliac vein thrombus. However considering the platelets are low, the plan is to wait, transfuse the patient with platelets, and arrange for the procedure today by Dr. Gonzalez and Dr. Chacon. I was notified about this patient yesterday because he was relatively hypotensive, and he was anemic with a hemoglobin of 6.2. I transferred the pa cornel to the ICU mostly because of the hypotension, and recommended a unit of blood to be given. And I recommended norepinephrine if the patient doesn't improve with transfusion. Indeed, the patient did not require any norepinephrine infusion. He responded well to fluids and to 1 unit of packed R BCs given yesterday. Today the patient is in the ICU, he is hemodynamically stable, on room air, denies any shortness of breath, no cough, no wheezing. Since admission and according to the surgeon, the patient had worsening edema to the right leg over the last 24 hours, and he is now developing motor and sensory compromise. Patient was reevaluated today on 12/29/19, remains in the intensive care unit, he is presently on room air. Platelets remained low, supposed to be getting some platelets from [place] today. Supposed to go for thrombectomy today however waiting for platelets to arrive from [place] today. Patient had 2 units of packed RBCs for low hemoglobin of 6.6 overnight. He is on D5. 45 at 100 mL/h. Overall the patient is about the same. Denies any shortness of breath no cough no wheezing no chest pain no nausea no vomiting no abdominal pain. Complaining of some discomfort in his right lower extremity which is basically about the same compared to yesterday. WBC count is 13 hemoglobin this morning was 6.6, and he received blood already. PTT is 117.6 patient is on argatroban. Sodium is 149, hence his IV fluid was changed to D5 45. BUN is 49 and creatinine is 1.79. Patient is seen today 12/30/2019 in follow-up in the intensive care unit. He is difficult to arouse. Currently maintaining O2 saturations in the 90s on 3 L/m per nasal cannula. He's been afebrile. Yesterday he did undergo a percutaneous mechanical thrombectomy with Penubra CAT 8 device of the right popliteal femoral and iliac veins performed by Dr. Gonzalez. Shortly after returning to the ICU he was found to have aphasia confusion and weakness he had forced deviation of the eyes, severe sensory loss, complete neglect. He was taken for a computed tomography scan which revealed age-related atrophic and chronic small vessel ischemic changes without acute intracranial process. 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 There were decreased opacification of distal middle cerebral artery branches on the left. EEG is pending. Neurology consult pending. White count 13.0. Hemoglobin 9.8. Platelet count 38,000. INR 2.1. Sodium 149. Potassium 3.8. Creatinine 1.67. Currently on D5 0.45 at 100 ML's per hour. He is status post 4 units of packed red blood cells and 5 units of platelets this admission. He continues on Argatroban drip at 2.5 mcg/kg/m. He is continued on Augmentin. Continued on IV Solu-Medrol. Objective - Vital Signs Vital signs: Vital Signs Temp 98.6 F 12/30/19 08:00 Pulse 76 12/30/19 10:00 Resp 25 H 04/13/20 10:00 BP 99/65 12/30/19 10:00 Pulse Ox 93 L 12/30/19 10:00 Intake & Output 12/29/19 12/30/19 12/30/19 18:59 06:59 18:59 Intake Total 2956.397 2022.332 690 Output Total 535 485 160 Balance 2421.397 1537.332 530 Weight 65.5 kg 66.5 kg Intake: IV 200 Sodium Chloride 0.9% 1, 200 000 ml @ 125 mls/hr IV . Q8H [facility] Rx#:[id number] Intake, IV Titration 5822.855 6117.332 250 Amount Argatroban 50 mg In 22.397 87.332 Sodium Chloride 0.9% 50 ml @ 2 MCG/KG/MIN 7.32 mls/hr IV .Q6H50M [facility] Rx# :[id number] Calcium Gluconate 1 gm In 100 Sodium Chloride 0.9% 100 ml @ 100 mls/hr IVPB ONCE ONE Rx#:[id number] Dextrose 5%-0.45% NaCl 1, 650 800 150 000 ml @ 50 mls/hr IV . Q20H [facility] Rx#:[id number] Magnesium Sulfate-D5w Pmx 200 1 gm In Dextrose/Water 1 100ml.bag @ 100 mls/hr IVPB Q1H [facility] Rx#: [id number] Potassium Chloride 10 meq 300 In Water For Injection 1 100ml.bag @ 100 mls/hr IVPB Q1HR [facility] Rx#: [id number] Sodium Chloride 0.45% 1, 400 100 000 ml @ 100 mls/hr IV . Q10H [facility] Rx#:[id number] Tube Feeding 35 405 140 Blood Product 1349 Platelet Irr Pheresis 3 214 Acda Unit [id number] Platelet Irr Pheresis 215 Acda1 Unit [id number] Rc As-3 Unit 310 [id number] Rc Pheresis As-3 Unit 310 [id number] Other 100 330 300 Output: Urine 535 485 160 Other: Voiding Method Indwelling Catheter Indwelling Catheter Indwelling Catheter # Bowel Movements 1 - Exam - Constitutional General appearance: Revealed 64-year-old -[place] Citizen male, minimally responsive, arousable to name only. - EENT Eyes: anicteric sclerae, right pupil 4 mm and sluggish. Left pupil 2 mm and sluggish. ENT: Moist mucous membranes, throat is clear. Aphasic. - Neck Neck: no lymphadenopathy - Respiratory Respiratory: Symmetrical chest expansion, diminished breath sounds at the bases no rhonchi and no wheezes. - Cardiovascular Heart sounds: normal: S1, S2 leg Peripheral Edema: Severe weeping pitting edema including the scrotum and lower extremities - Gastrointestinal General gastrointestinal: normal bowel sounds, soft - Neurologic Neurologic: Not following any simple commands. Eyes do not track. Severe motor weakness. - Musculoskeletal Musculoskeletal: Severe motor weakness, right leg wrapped status post procedure. - Psychiatric Unresponsive Skin: Dressing to the right lower extremity postsurgical. Stage III pressure ulcer on the coccyx with erythema and blackened skin - Labs CBC & Chem 7: 12/30/19 04:20 12/30/19 05:22 Labs: Abnormal Lab Results - Last 24 Hours (Table) 12/26/19 12/28/19 12/29/19 Range/Units 18:32 10:24 11:40 WBC (3.8-10.6) k/uL RBC (4.30-5.90) m/uL Hgb (13.0-17.5) gm/dL Hct (39.0-53.0) % RDW (11.5-15.5) % Plt Count 48 L D (150-450) k/uL Neutrophils # (1.3-7.7) k/uL Neutrophils # (Manual) (1.3-7.7) k/uL Lymphocytes # (1.0-4.8) k/uL Lymphocytes # (Manual) (1.0-4.8) k/uL Haptoglobin 280.0 H (31.2-198.0) mg/dL PT (9.0-12.0) sec INR (<1.2) APTT (22.0-30.0) sec Sodium (137-145) mmol/L Chloride (98-107) mmol/L Carbon Dioxide (22-30) mmol/L BUN (9-20) mg/dL Creatinine (0.66-1.25) mg/dL Glucose (74-99) mg/dL POC Glucose (mg/dL) (75-99) mg/dL Calcium (8.4-10.2) mg/dL Phosphorus (2.5-4.5) mg/dL AST (17-59) U/L ALT (4-49) U/L Troponin I (0.000-0.034) ng/mL Total Protein (6.3-8.2) g/dL Albumin (3.5-5.0) g/dL Crossmatch See Detail 12/29/19 12/29/19 12/29/19 Range/Units 11:40 11:40 13:48 WBC (3.8-10.6) k/uL RBC (4.30-5.90) m/uL Hgb (13.0-17.5) gm/dL Hct (39.0-53.0) % RDW (11.5-15.5) % Plt Count (150-450) k/uL Neutrophils # (1.3-7.7) k/uL Neutrophils # (Manual) (1.3-7.7) k/uL Lymphocytes # (1.0-4.8) k/uL Lymphocytes # (Manual) (1.0-4.8) k/uL Haptoglobin (31.2-198.0) mg/dL PT 15.3 H (9.0-12.0) sec INR 1.6 H (<1.2) APTT 31.0 H (22.0-30.0) sec Sodium (137-145) mmol/L Chloride (98-107) mmol/L Carbon Dioxide (22-30) mmol/L BUN (9-20) mg/dL Creatinine (0.66-1.25) mg/dL Glucose (74-99) mg/dL POC Glucose (mg/dL) 50 L (75-99) mg/dL Calcium (8.4-10.2) mg/dL Phosphorus (2.5-4.5) mg/dL AST 700 H (17-59) U/L ALT 162 H (4-49) U/L Troponin I (0.000-0.034) ng/mL Total Protein 5.0 L (6.3-8.2) g/dL Albumin 2.3 L (3.5-5.0) g/dL Crossmatch 12/29/19 12/29/19 12/29/19 Range/Units 13:59 14:43 15:05 WBC 15.8 H (3.8-10.6) k/uL RBC 3.34 L (4.30-5.90) m/uL Hgb 10.1 L D (13.0-17.5) gm/dL Hct 31.7 L (39.0-53.0) % RDW 18.1 H (11.5-15.5) % Plt Count 117 L D (150-450) k/uL Neutrophils # 14.5 H (1.3-7.7) k/uL Neutrophils # (Manual) (1.3-7.7) k/uL Lymphocytes # 0.3 L (1.0-4.8) k/uL Lymphocytes # (Manual) (1.0-4.8) k/uL Haptoglobin (31.2-198.0) mg/dL PT (9.0-12.0) sec INR (<1.2) APTT (22.0-30.0) sec Sodium (137-145) mmol/L Chloride (98-107) mmol/L Carbon Dioxide (22-30) mmol/L BUN (9-20) mg/dL Creatinine (0.66-1.25) mg/dL Glucose (74-99) mg/dL POC Glucose (mg/dL) 245 H 185 H (75-99) mg/dL Calcium (8.4-10.2) mg/dL Phosphorus (2.5-4.5) mg/dL AST (17-59) U/L ALT (4-49) U/L Troponin I (0.000-0.034) ng/mL Total Protein (6.3-8.2) g/dL Albumin (3.5-5.0) g/dL Crossmatch 12/29/19 12/29/19 12/29/19 Range/Units 15:05 15:05 17:44 WBC (3.8-10.6) k/uL RBC (4.30-5.90) m/uL Hgb (13.0-17.5) gm/dL Hct (39.0-53.0) % RDW (11.5-15.5) % Plt Count (150-450) k/uL Neutrophils # (1.3-7.7) k/uL Neutrophils # (Manual) (1.3-7.7) k/uL Lymphocytes # (1.0-4.8) k/uL Lymphocytes # (Manual) (1.0-4.8) k/uL Haptoglobin (31.2-198.0) mg/dL PT (9.0-12.0) sec INR (<1.2) APTT (22.0-30.0) sec Sodium 150 H (137-145) mmol/L Chloride 121 H (98-107) mmol/L Carbon Dioxide 15 L (22-30) mmol/L BUN 51 H (9-20) mg/dL Creatinine 1.79 H (0.66-1.25) mg/dL Glucose 195 H (74-99) mg/dL POC Glucose (mg/dL) 159 H (75-99) mg/dL Calcium 7.2 L (8.4-10.2) mg/dL Phosphorus (2.5-4.5) mg/dL AST 714 H (17-59) U/L ALT 155 H (4-49) U/L Troponin I 9.850 H* (0.000-0.034) ng/mL Total Protein 5.2 L (6.3-8.2) g/dL Albumin 2.5 L (3.5-5.0) g/dL Crossmatch 12/29/19 12/30/19 12/30/19 Range/Units 23:35 04:20 04:20 WBC 13.0 H (3.8-10.6) k/uL RBC 3.26 L (4.30-5.90) m/uL Hgb 9.8 L (13.0-17.5) gm/dL Hct 29.9 L (39.0-53.0) % RDW 18.2 H (11.5-15.5) % Plt Count 38 L D (150-450) k/uL Neutrophils # (1.3-7.7) k/uL Neutrophils # (Manual) 12.30 H (1.3-7.7) k/uL Lymphocytes # (1.0-4.8) k/uL Lymphocytes # (Manual) 0.13 L (1.0-4.8) k/uL Haptoglobin (31.2-198.0) mg/dL PT 20.9 H (9.0-12.0) sec INR 2.1 H (<1.2) APTT 39.1 H (22.0-30.0) sec Sodium (137-145) mmol/L Chloride (98-107) mmol/L Carbon Dioxide (22-30) mmol/L BUN (9-20) mg/dL Creatinine (0.66-1.25) mg/dL Glucose (74-99) mg/dL POC Glucose (mg/dL) 209 H (75-99) mg/dL Calcium (8.4-10.2) mg/dL Phosphorus (2.5-4.5) mg/dL AST (17-59) U/L ALT (4-49) U/L Troponin I (0.000-0.034) ng/mL Total Protein (6.3-8.2) g/dL Albumin (3.5-5.0) g/dL Crossmatch 12/30/19 12/30/19 12/30/19 Range/Units 05:22 05:56 07:40 WBC (3.8-10.6) k/uL RBC (4.30-5.90) m/uL Hgb (13.0-17.5) gm/dL Hct (39.0-53.0) % RDW (11.5-15.5) % Plt Count (150-450) k/uL Neutrophils # (1.3-7.7) k/uL Neutrophils # (Manual) (1.3-7.7) k/uL Lymphocytes # (1.0-4.8) k/uL Lymphocytes # (Manual) (1.0-4.8) k/uL Haptoglobin (31.2-198.0) mg/dL PT (9.0-12.0) sec INR (<1.2) APTT 55.6 H (22.0-30.0) sec Sodium 149 H (137-145) mmol/L Chloride 118 H (98-107) mmol/L Carbon Dioxide 16 L (22-30) mmol/L BUN 49 H (9-20) mg/dL Creatinine 1.67 H (0.66-1.25) mg/dL Glucose 174 H (74-99) mg/dL POC Glucose (mg/dL) 193 H (75-99) mg/dL Calcium 6.9 L (8.4-10.2) mg/dL Phosphorus 5.0 H (2.5-4.5) mg/dL AST (17-59) U/L ALT (4-49) U/L Troponin I (0.000-0.034) ng/mL Total Protein (6.3-8.2) g/dL Albumin (3.5-5.0) g/dL Crossmatch Assessment and Plan Assessment: 1 Deep vein thromboses of the right lower extremity with motor and sensory changes, status post percutaneous mechanical thrombectomy with Penumbra 8 device of the right popliteal, femoral and iliac veins. 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 5 Recent history of acute kidney injury secondary to dehydration rhabdomyolysis, requiring hemodialysis. Improved. 6 History of aspiration pneumonia and respiratory failure requiring intubation and mechanical ventilation. 7 History of PEG tube placement, presently being used for enteral feeding. 8 Chronic congestive heart failure and LV dysfunction with ejection fraction of 20%. 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 Plan: The patient was seen and evaluated by Dr. Mcgovern Awaiting neurology consult and recommendations Continued on Argatroban Continue tube feedings Continue Augmentin and IV Solu-Medrol Overall prognosis remains quite guarded and poor CODE STATUS should be addressed We will continue to follow and make further recommendations based on his clinical status Critical care time 32 minutes I, the cosigning physician, performed a history & physical examination of the patient. Lungs sounds with crackles in the bilateral posterior bases. Maintaining good O2 saturations in the 90s on 3 L/m per nasal cannula. I discussed the assessment and plan of care with my nurse practitioner, Vonda Gonzalez. I attest to the above note as dictated by her.
--- NOTE | 2019-12-30 13:19 | MR ---
EXAMINATION TYPE: MR brain wo con DATE OF EXAM: 12/30/2019 COMPARISON: CT brain 12/29/2019 HISTORY: AMS CONTRAST: Performed utilizing 0 mL intravenous Gadavist gadolinium contrast. TECHNIQUE: Multiplanar, multiecho imaging on a 3.0 Sejal magnet is performed through the brain. Stud y is performed within 24 hours of arrival to the hospital. The craniovertebral junction is normal. The pituitary is normal. Diffusion-weighted imaging is performed. There is extensive white matter changes with hyperintensity through the left frontal and left parietal lobes with extension into the left temporal lobe. There is scattered deep white matter changes within the right centrum semiovale. Subcortical hyperint ensity appears to be within the posterior right parietal region. There is a small amount of left and moderate right hyperintensity through the right occipital lobe couple of punctate acute hyperintensit ies are within the right frontal lobe. There is an acute ischemic change within the right inferior me dial cerebellum. T2 hyperintensities are evident on the inversion recovery weighted sequence correlating with the acut e ischemic changes. There is mild effacement of the left lateral ventricle with moderate effacement of the left cerebral sulci. No midline shift is evident. Fourth ventricle quadrigeminal plate and ambient cistern and thir d ventricles appear normal. No suspicious extra-axial collections are evident. IMPRESSIONS: 1. No acute ischemic change evident throughout the left cerebrum including left frontal lobe, left pa rietal lobe and extending into the left temporal lobe and occipital lobes. 2. Right occipital lobe ischemic changes with scattered cortical infarct on the right parietal region . 3. Acute focal ischemic changes within the right frontal lobe. 4. Acute ischemic change posterior inferior right cerebellum. 5. Mild effacement of left cerebral sulci and mild effacement of the left lateral ventricle without m idline shift. A [place] level critical message alert has been initiated for Neal Chaney MD via the [employer] Critical Results System on 12/30/2019 1:16 PM. This message alert has been sent to Neal Chaney MD via the preferences provided by the clinician for the receipt of Radiology Critical Find ings. Message ID [id number].
--- NOTE | 2019-12-30 16:19 | PN ---
PROGRESS NOTE Mr. Austin has multiple medical problems: history of carcinoma of the oropharynx; history of heparin-induced thrombocytopenia; extensive DVT of the right leg with some peripheral vascular disease, and the patient had a percutaneous venous thrombectomy with iliac, femoral and popliteal by Dr. Tyler Gonzalez. The patient's left side has no motor function of the upper arm. CT scan showed left carotid totally occluded. CT of the brain shows age-related atrophy and chronic small-vessel disease. The dressing of the right lower extremity is somewhat saturated. Will change the dressing. At this time the patient is on argatroban and we will continue that. Hematocrit is 29.9. Platelet count is 38. Will follow with you. Prognosis guarded. MMEAGLEL / MARCELON: [id number] /
[2019-12-30] MEDS ORDERED: IMMUNE GLOBULIN (GAMMAGARD) 30 GM in EMPTY BAG 1 BAG IV NR (16:30)
--- NOTE | 2019-12-30 16:37 | P.PN ---
Subjective Progress Note Date: 12/30/19 Principal diagnosis: DVT, HIT, ischemic CVA, thrombocytopenia Pt is non-verbal, significant change from his last hospitalization, does not follow commands Objective - Vital Signs Vital signs: Vital Signs Temp 98.3 F 12/30/19 16:00 Pulse 70 12/30/19 16:00 Resp 21 12/30/19 16:00 BP 105/80 12/30/19 16:00 Pulse Ox 100 12/30/19 16:00 Intake & Output 12/29/19 12/30/19 12/30/19 18:59 06:59 18:59 Intake Total 2956.397 2022.332 1849.512 Output Total 535 485 400 Balance 2421.397 7469.888 9309.512 Weight 65.5 kg 66.5 kg Intake: IV 200 Sodium Chloride 0.9% 1, 200 000 ml @ 125 mls/hr IV . Q8H A[facility] Rx#:[id number] Intake, IV Titration 6592.571 4203.332 599.512 Amount Argatroban 50 mg In 22.397 87.332 49.512 Sodium Chloride 0.9% 50 ml @ 2 MCG/KG/MIN 7.32 mls/hr IV .Q6H50M ASHLEY Rx# :[id number] Calcium Gluconate 1 gm In 100 Sodium Chloride 0.9% 100 ml @ 100 mls/hr IVPB ONCE ONE Rx#:[id number] Dextrose 5%-0.45% NaCl 1, 650 800 450 000 ml @ 50 mls/hr IV . Q20H ASHLEY Rx#:[id number] Magnesium Sulfate-D5w Pmx 200 1 gm In Dextrose/Water 1 100ml.bag @ 100 mls/hr IVPB Q1H ASHLEY Rx#: [id number] Potassium Chloride 10 meq 300 In Water For Injection 1 100ml.bag @ 100 mls/hr IVPB Q1HR ASHLEY Rx#: [id number] Sodium Chloride 0.45% 1, 400 100 000 ml @ 100 mls/hr IV . Q10H ASHLEY Rx#:[id number] Tube Feeding 35 405 350 Blood Product 1349 Platelet Irr Pheresis 3 214 Acda Unit [id number] Platelet Irr Pheresis 215 Acda1 Unit [id number] Rc As-3 Unit 310 [id number] Rc Pheresis As-3 Unit 310 [id number] Other 100 330 900 Output: Urine 535 485 400 Other: Voiding Method Indwelling Catheter Indwelling Catheter Indwelling Catheter # Bowel Movements 1 1 - Constitutional General appearance: Present: no acute distress, thin - EENT Eyes: Present: abnormal pupil, anicteric sclerae - Respiratory Details: poor inspiratory effort - Cardiovascular Heart sounds: normal: S1, S2 - Peripheral edema leg Peripheral Edema: right: 2+ - Gastrointestinal General gastrointestinal: Present: normal bowel sounds, soft - Integumentary Integumentary Comment(s): dark color to skin of right leg, it is wrapped with MARTIN, Nursing reports blistering and peeling of the skin - Neurologic Neurologic: Present: focal deficits - Musculoskeletal Musculoskeletal: Present: generalized weakness - Psychiatric Psychiatric Comment(s): seems to be alert Psychiatric: Absent: appropriate affect, intact judgment & insight - Labs CBC & Chem 7: 12/30/19 04:20 12/30/19 05:22 Labs: Abnormal Lab Results - Last 24 Hours (Table) 12/26/19 12/28/19 12/29/19 Range/Units 02:35 10:24 15:05 WBC (3.8-10.6) k/uL RBC (4.30-5.90) m/uL Hgb (13.0-17.5) gm/dL Hct (39.0-53.0) % RDW (11.5-15.5) % Plt Count (150-450) k/uL Neutrophils # (Manual) (1.3-7.7) k/uL Lymphocytes # (Manual) (1.0-4.8) k/uL Haptoglobin 280.0 H (31.2-198.0) mg/dL PT (9.0-12.0) sec INR (<1.2) APTT (22.0-30.0) sec Sodium (137-145) mmol/L Chloride (98-107) mmol/L Carbon Dioxide (22-30) mmol/L BUN (9-20) mg/dL Creatinine (0.66-1.25) mg/dL Glucose (74-99) mg/dL POC Glucose (mg/dL) (75-99) mg/dL Calcium (8.4-10.2) mg/dL Phosphorus (2.5-4.5) mg/dL Troponin I 9.850 H* (0.000-0.034) ng/mL Heparin-Ind Plt Ab Scrn 2.534 H (<0.4) OD 12/29/19 12/29/19 12/30/19 Range/Units 17:44 23:35 04:20 WBC 13.0 H (3.8-10.6) k/uL RBC 3.26 L (4.30-5.90) m/uL Hgb 9.8 L (13.0-17.5) gm/dL Hct 29.9 L (39.0-53.0) % RDW 18.2 H (11.5-15.5) % Plt Count 38 L D (150-450) k/uL Neutrophils # (Manual) 12.30 H (1.3-7.7) k/uL Lymphocytes # (Manual) 0.13 L (1.0-4.8) k/uL Haptoglobin (31.2-198.0) mg/dL PT (9.0-12.0) sec INR (<1.2) APTT (22.0-30.0) sec Sodium (137-145) mmol/L Chloride (98-107) mmol/L Carbon Dioxide (22-30) mmol/L BUN (9-20) mg/dL Creatinine (0.66-1.25) mg/dL Glucose (74-99) mg/dL POC Glucose (mg/dL) 159 H 209 H (75-99) mg/dL Calcium (8.4-10.2) mg/dL Phosphorus (2.5-4.5) mg/dL Troponin I (0.000-0.034) ng/mL Heparin-Ind Plt Ab Scrn (<0.4) OD 12/30/19 12/30/19 12/30/19 Range/Units 04:20 05:22 05:56 WBC (3.8-10.6) k/uL RBC (4.30-5.90) m/uL Hgb (13.0-17.5) gm/dL Hct (39.0-53.0) % RDW (11.5-15.5) % Plt Count (150-450) k/uL Neutrophils # (Manual) (1.3-7.7) k/uL Lymphocytes # (Manual) (1.0-4.8) k/uL Haptoglobin (31.2-198.0) mg/dL PT 20.9 H (9.0-12.0) sec INR 2.1 H (<1.2) APTT 39.1 H (22.0-30.0) sec Sodium 149 H (137-145) mmol/L Chloride 118 H (98-107) mmol/L Carbon Dioxide 16 L (22-30) mmol/L BUN 49 H (9-20) mg/dL Creatinine 1.67 H (0.66-1.25) mg/dL Glucose 174 H (74-99) mg/dL POC Glucose (mg/dL) 193 H (75-99) mg/dL Calcium 6.9 L (8.4-10.2) mg/dL Phosphorus 5.0 H (2.5-4.5) mg/dL Troponin I (0.000-0.034) ng/mL Heparin-Ind Plt Ab Scrn (<0.4) OD 12/30/19 Range/Units 07:40 WBC (3.8-10.6) k/uL RBC (4.30-5.90) m/uL Hgb (13.0-17.5) gm/dL Hct (39.0-53.0) % RDW (11.5-15.5) % Plt Count (150-450) k/uL Neutrophils # (Manual) (1.3-7.7) k/uL Lymphocytes # (Manual) (1.0-4.8) k/uL Haptoglobin (31.2-198.0) mg/dL PT (9.0-12.0) sec INR (<1.2) APTT 55.6 H (22.0-30.0) sec Sodium (137-145) mmol/L Chloride (98-107) mmol/L Carbon Dioxide (22-30) mmol/L BUN (9-20) mg/dL Creatinine (0.66-1.25) mg/dL Glucose (74-99) mg/dL POC Glucose (mg/dL) (75-99) mg/dL Calcium (8.4-10.2) mg/dL Phosphorus (2.5-4.5) mg/dL Troponin I (0.000-0.034) ng/mL Heparin-Ind Plt Ab Scrn (<0.4) OD - Imaging and Cardiology MRI - head: report reviewed Assessment and Plan (1) Thrombocytopenia Current Visit: Yes Status: Acute Priority: High Code(s): D69.6 - THROMBOCYTOPENIA, UNSPECIFIED SNOMED Code(s): 569877913 (2) Deep vein thrombosis (DVT) of right lower extremity Current Visit: Yes Status: Acute Priority: High Code(s): I82.401 - ACUTE EMBOLISM AND THOMBOS UNSP DEEP VEINS OF R LOW EXTREM SNOMED Code(s): 778923793 (3) Head and neck malignancy Current Visit: No Status: Chronic Priority: Low Code(s): C76.0 - MALIGNANT NEOPLASM OF HEAD, FACE AND NECK SNOMED Code(s): 183270262 Plan: HIT antibody positive. Thrombocytopenia persists despite discontinuation of heparin. MRI brain shows ischemic clots. 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 Literature review done by Dr. Guillen. Case discussed with PharmD. Plan at this time is to increase steroids to 60mg Q 6 and to administer high dose IVIG over then next 4 days. If no response or progressive pt is going to need transfer to teritary facility for antibody plasmaphoresis. Nursing explained that there are currently no family member willing to make medical decisions for that pt as he cannot. There are 2 family discussing, await their decision. Pt will continue to be treated acutely
[2019-12-30] MEDS: methylPREDNISolone SOD SUCCI 125 MG/2 ML VIAL IV SCH ×2 (17:22→23:46)
[2019-12-30 18:41] LABS: Glucose,Whole Blood 157 mg/dL (75-99)
--- NOTE | 2019-12-30 21:04 | PN ---
PROGRESS NOTE DATE OF SERVICE: 12/29/2019. CHIEF COMPLAINT: DVT of the right leg. HISTORY OF PRESENT ILLNESS: This gentleman was to have been transferred to [facility], but apparently no beds are available. He will be going for an attempted thrombectomy on the right leg where he has developed significant tight edema and possible involvement of the arterial circulation. REVIEW OF SYSTEMS: The patient is still having quite a bit of discomfort, but he is somewhat sedated. Head, ears, eyes, nose, mouth, and throat are unchanged. Chest is clear. Cardiac exam is normal. Right leg is extremely edematous and cool. IMPRESSION: 1. Deep vein thrombosis of the right lower extremity. 2. Renal failure. PLAN: He is going to the operating room today for a thrombectomy. MMODL / IJN: [id number] /
--- NOTE | 2019-12-30 21:52 | P.CNNES ---
History of Present Illness Consult date: 12/30/19 Requesting physician: Neal Chaney Reason for Consult: CVA History of Present Illness: Patient is a 64-year-old male with history of oropharyngeal cancer, CHF, renal insufficiency, who came to the hospital on 12/26/2019 with DVT. Patient was placed on heparin but developed HIT. He was placed on Argobatran. Patient underwent thrombectomy from left popliteal ileectomy yesterday, but developed acute onset of focal symptoms after the surgery. Patient was noted to have right gaze preference. Patient underwent CT head from 12/29/2019 showed age- related atrophic and chronic small vessel ischemic changes without acute intracranial process. CT angiogram of head and neck showed nonvisualization of the left ICA. There is decrease opacification of the distal MCA branches on the left. MRI of the brain from 12/30/2019 revealed a massive acute ischemic infarct involving the entire left MCA and left JOHN vascular territory, right hemispheric region in the watershed region between right MCA/JOHN, and MCA/TUBE FITTER. Also evidence of ischemic infarct involving the right cerebellum, and small punctate areas in the left cerebellum. CT angiogram of the lower extremities reveal extensive occlusive right lower ext remity DVT extending from the right common IJ vein and extending down the common ileectomy in confluence and visualize IVC are patent. Dupree virus PCR negative. Review of Systems ROS unobtainable: due to mental status Past Medical History Past Medical History: Cancer, GERD/Reflux, Hyperlipidemia, Hypertension, Myocard ial Infarction (FL), Osteoarthritis (OA) Additional Past Medical History / Comment(s): HYPOPHARYNX CANCER. DIFFICULTY SWALLOWING, CONSTANT SORE THROAT. Last Myocardial Infarction Date:: 10 YEARS AGO History of Any Multi-Drug Resistant Organisms: None Reported Past Surgical History: Orthopedic Surgery Additional Past Surgical History / Comment(s): BROKEN COLLAR BONE with surgical repair Past Anesthesia/Blood Transfusion Reactions: No Reported Reaction Past Psychological History: No Psychological Hx Reported Smoking Status: Former smoker Past Alcohol Use History: None Reported Additional Past Alcohol Use History / Comment(s): consumes about 2 drinks per week-not since jul 2019 Past Drug Use History: None Reported - Past Family History Father Additional Family Medical History / Comment(s): GOUT Mother History Unknown: Yes Medications and Allergies Home Medications Medication Instructions Recorded Confirmed Type Acetaminophen [Tylenol Arthritis] 650 mg PO Q4H PRN 12/26/19 12/26/19 History Amoxic-Pot Clav 875-125Mg 1 tab PEG/G-TUBE Q12HR 12/26/19 12/26/19 History [Augmentin 875-125] Bisacodyl [Dulcolax] 10 mg RECTAL DAILY PRN 12/26/19 12/26/19 History Allergies Allergy/AdvReac Type Severity Reaction Status Date / Time No Known Allergies Allergy Verified 12/26/19 09:27 Physical Examination - Vital Signs Vital Signs: Vital Signs Temp Pulse Resp BP Pulse Ox 12/30/19 19:00 75 28 H 112/80 90 L 12/30/19 18:00 83 25 H 110/77 100 12/30/19 17:00 80 23 125/77 100 12/30/19 16:00 98.3 F 70 21 105/80 100 12/30/19 15:00 86 20 113/93 88 L 12/30/19 14:00 75 23 104/77 99 12/30/19 13:00 95/72 12/30/19 12:00 98.1 F 75 25 H 101/70 92 L 12/30/19 11:00 76 23 96/86 95 12/30/19 10:00 76 25 H 99/65 93 L 12/30/19 09:00 71 24 96/66 97 12/30/19 08:00 98.6 F 73 24 122/97 97 12/30/19 07:00 78 24 86/65 96 12/30/19 06:00 86 22 114/65 12/30/19 05:00 98 18 90/71 96 12/30/19 04:00 80 20 109/70 94 L 12/30/19 03:00 96 26 H 81/71 93 L 12/30/19 02:00 93 19 104/71 96 12/30/19 01:00 93 14 89/59 94 L 12/30/19 00:05 94 14 104/77 94 L 12/30/19 00:00 91 18 113/76 95 12/29/19 23:00 99.6 F 96 18 101/82 93 L 12/29/19 22:00 98 18 113/87 93 L 12/29/19 21:00 98 18 124/83 94 L Intake and Output 12/30/19 12/30/19 12/30/19 06:59 14:59 22:59 Intake Total 9905.267 5192.512 725 Output Total 310 320 200 Balance 0406.686 5561.512 525 Intake: Intake, IV Titration 850.488 499.512 250 Amount Argatroban 50 mg In 50.488 49.512 Sodium Chloride 0.9% 50 ml @ 2 MCG/KG/MIN 7.32 mls/hr IV .Q6H50M ASHLEY Rx# :[id number] Dextrose 5%-0.45% NaCl 1, 500 350 250 000 ml @ 50 mls/hr IV . Q20H ASHLEY Rx#:[id number] Sodium Chloride 0.45% 1, 300 100 000 ml @ 100 mls/hr IV . Q10H ASHLEY Rx#:[id number] Tube Feeding 265 280 175 Other 200 600 300 Output: Urine 310 320 200 Other: Voiding Method Indwelling Catheter Indwelling Catheter Indwelling Catheter # Bowel Movements 1 1 Weight 66.5 kg On examination patient is an elderly Afro[place] male, who is laying comfortably in the bed. Patient appears obviously aphasic. Patient is alert and awake, does make some eye contact at times. Patient does not follow commands, nonverbal, globally aphasic. Patient at times appears to have left gaze preference, the times appears to have somewhat right. Patient is hemiparetic bilaterally, right worse than left. Patient has some movement of the left leg. Reflexes are diminished and plantars are flat. No clonus. Pupils are round and reacting to light. No obvious seizure activity noted. Results - Laboratory Findings CBC and BMP: 12/31/19 04:28 12/31/19 04:30 Abnormal Lab Findings: Abnormal Labs 12/26/19 12/26/19 12/26/19 02:35 02:35 02:35 WBC RBC 3.08 L Hgb 9.7 L Hct 30.5 L MCV MCHC RDW Plt Count 44 L D Neutrophils # Neutrophils # (Manual) Lymphocytes # 0.5 L Lymphocytes # (Manual) Nucleated RBCs Haptoglobin PT INR APTT Fibrinogen Sodium 147 H Potassium 3.4 L Chloride 112 H Carbon Dioxide BUN 44 H Creatinine 2.53 H Glucose 110 H POC Glucose (mg/dL) Calcium Phosphorus Magnesium 1.5 L AST 83 H ALT Lactate Dehydrogenase Troponin I Total Protein 6.0 L Albumin 3.0 L Heparin-Ind Plt Ab Scrn 2.534 H Crossmatch 12/26/19 12/26/19 12/26/19 17:14 17:14 18:32 WBC RBC Hgb Hct MCV MCHC RDW Plt Count 23 L Neutrophils # Neutrophils # (Manual) Lymphocytes # Lymphocytes # (Manual) Nucleated RBCs Haptoglobin PT INR APTT Fibrinogen 565 H Sodium Potassium Chloride Carbon Dioxide BUN Creatinine Glucose POC Glucose (mg/dL) Calcium Phosphorus Magnesium AST ALT Lactate Dehydrogenase Troponin I Total Protein Albumin Heparin-Ind Plt Ab Scrn Crossmatch See Detail 12/27/19 12/27/19 12/27/19 05:15 05:15 05:15 WBC 12.1 H RBC 2.10 L Hgb 6.6 L* D Hct 21.5 L MCV 102.5 H MCHC 30.9 L RDW Plt Count 43 L D Neutrophils # 10.7 H Neutrophils # (Manual) Lymphocytes # 0.5 L Lymphocytes # (Manual) Nucleated RBCs Haptoglobin PT INR APTT 56.2 H Fibrinogen Sodium 149 H Potassium Chloride 116 H Carbon Dioxide BUN 53 H Creatinine 2.50 H Glucose 104 H POC Glucose (mg/dL) Calcium 7.5 L Phosphorus Magnesium AST 255 H ALT 56 H Lactate Dehydrogenase Troponin I Total Protein 4.9 L Albumin 2.4 L Heparin-Ind Plt Ab Scrn Crossmatch 12/27/19 12/27/19 12/27/19 11:45 12:05 12:42 WBC RBC Hgb Hct MCV MCHC RDW Plt Count Neutrophils # Neutrophils # (Manual) Lymphocytes # Lymphocytes # (Manual) Nucleated RBCs Haptoglobin PT INR APTT Fibrinogen Sodium Potassium Chloride Carbon Dioxide BUN Creatinine Glucose POC Glucose (mg/dL) 63 L 53 L 100 H Calcium Phosphorus Magnesium AST ALT Lactate Dehydrogenase Troponin I Total Protein Albumin Heparin-Ind Plt Ab Scrn Crossmatch 12/27/19 12/28/19 12/28/19 16:19 00:12 04:22 WBC 15.2 H RBC 2.87 L Hgb 9.2 L D Hct 27.1 L MCV MCHC RDW 15.9 H Plt Count 12 L* D Neutrophils # Neutrophils # (Manual) 13.07 H Lymphocytes # Lymphocytes # (Manual) Nucleated RBCs 3 H Haptoglobin PT INR APTT Fibrinogen Sodium Potassium Chloride Carbon Dioxide BUN Creatinine Glucose POC Glucose (mg/dL) 102 H 142 H Calcium Phosphorus Magnesium AST ALT Lactate Dehydrogenase Troponin I Total Protein Albumin Heparin-Ind Plt Ab Scrn Crossmatch 12/28/19 12/28/19 12/28/19 04:22 04:22 06:05 WBC RBC Hgb Hct MCV MCHC RDW Plt Count Neutrophils # Neutrophils # (Manual) Lymphocytes # Lymphocytes # (Manual) Nucleated RBCs Haptoglobin PT INR APTT 45.2 H Fibrinogen Sodium 146 H Potassium Chloride 118 H Carbon Dioxide 21 L BUN 59 H Creatinine 2.27 H Glucose 147 H POC Glucose (mg/dL) 140 H Calcium 6.8 L Phosphorus Magnesium AST 483 H ALT 92 H Lactate Dehydrogenase Troponin I Total Protein 5.0 L Albumin 2.3 L Heparin-Ind Plt Ab Scrn Crossmatch 12/28/19 12/28/19 12/28/19 10:24 10:24 10:24 WBC RBC Hgb Hct MCV MCHC RDW Plt Count Neutrophils # Neutrophils # (Manual) Lymphocytes # Lymphocytes # (Manual) Nucleated RBCs Haptoglobin 280.0 H PT INR APTT Fibrinogen 192 L Sodium Potassium Chloride Carbon Dioxide BUN Creatinine Glucose POC Glucose (mg/dL) Calcium Phosphorus Magnesium AST ALT Lactate Dehydrogenase 2685 H Troponin I Total Protein Albumin Heparin-Ind Plt Ab Scrn Crossmatch 12/28/19 12/28/19 12/28/19 10:24 11:59 18:13 WBC 14.3 H RBC 2.53 L Hgb 7.8 L Hct 24.2 L MCV MCHC RDW 16.2 H Plt Count 56 L D Neutrophils # 12.6 H Neutrophils # (Manual) Lymphocytes # 0.6 L Lymphocytes # (Manual) Nucleated RBCs Haptoglobin PT INR APTT Fibrinogen Sodium Potassium Chloride Carbon Dioxide BUN Creatinine Glucose POC Glucose (mg/dL) 111 H 101 H Calcium Phosphorus Magnesium AST ALT Lactate Dehydrogenase Troponin I Total Protein Albumin Heparin-Ind Plt Ab Scrn Crossmatch 12/28/19 12/29/19 12/29/19 23:54 04:21 04:21 WBC 13.0 H RBC 2.09 L Hgb 6.6 L* Hct 20.4 L MCV MCHC RDW 16.4 H Plt Count 11 L* D Neutrophils # 12.1 H Neutrophils # (Manual) Lymphocytes # 0.2 L Lymphocytes # (Manual) Nucleated RBCs Haptoglobin PT INR APTT 117.6 H* Fibrinogen Sodium Potassium Chloride Carbon Dioxide BUN Creatinine Glucose POC Glucose (mg/dL) 220 H Calcium Phosphorus Magnesium AST ALT Lactate Dehydrogenase Troponin I Total Protein Albumin Heparin-Ind Plt Ab Scrn Crossmatch 12/29/19 12/29/19 12/29/19 04:21 04:21 06:05 WBC RBC Hgb Hct MCV MCHC RDW Plt Count Neutrophils # Neutrophils # (Manual) Lymphocytes # Lymphocytes # (Manual) Nucleated RBCs Haptoglobin PT INR APTT Fibrinogen Sodium 149 H Potassium 3.1 L Chloride 123 H Carbon Dioxide 21 L BUN 49 H Creatinine 1.79 H Glucose 141 H POC Glucose (mg/dL) 136 H Calcium 6.0 L* Phosphorus Magnesium 1.5 L AST ALT Lactate Dehydrogenase Troponin I Total Protein Albumin Heparin-Ind Plt Ab Scrn Crossmatch 12/29/19 12/29/19 12/29/19 11:40 11:40 11:40 WBC RBC Hgb Hct MCV MCHC RDW Plt Count 48 L D Neutrophils # Neutrophils # (Manual) Lymphocytes # Lymphocytes # (Manual) Nucleated RBCs Haptoglobin PT 15.3 H INR 1.6 H APTT 31.0 H Fibrinogen Sodium Potassium Chloride Carbon Dioxide BUN Creatinine Glucose POC Glucose (mg/dL) Calcium Phosphorus Magnesium AST 700 H ALT 162 H Lactate Dehydrogenase Troponin I Total Protein 5.0 L Albumin 2.3 L Heparin-Ind Plt Ab Scrn Crossmatch 12/29/19 12/29/19 12/29/19 13:48 13:59 14:43 WBC RBC Hgb Hct MCV MCHC RDW Plt Count Neutrophils # Neutrophils # (Manual) Lymphocytes # Lymphocytes # (Manual) Nucleated RBCs Haptoglobin PT INR APTT Fibrinogen Sodium Potassium Chloride Carbon Dioxide BUN Creatinine Glucose POC Glucose (mg/dL) 50 L 245 H 185 H Calcium Phosphorus Magnesium AST ALT Lactate Dehydrogenase Troponin I Total Protein Albumin Heparin-Ind Plt Ab Scrn Crossmatch 12/29/19 12/29/19 12/29/19 15:05 15:05 15:05 WBC 15.8 H RBC 3.34 L Hgb 10.1 L D Hct 31.7 L MCV MCHC RDW 18.1 H Plt Count 117 L D Neutrophils # 14.5 H Neutrophils # (Manual) Lymphocytes # 0.3 L Lymphocytes # (Manual) Nucleated RBCs Haptoglobin PT INR APTT Fibrinogen Sodium 150 H Potassium Chloride 121 H Carbon Dioxide 15 L BUN 51 H Creatinine 1.79 H Glucose 195 H POC Glucose (mg/dL) Calcium 7.2 L Phosphorus Magnesium AST 714 H ALT 155 H Lactate Dehydrogenase Troponin I 9.850 H* Total Protein 5.2 L Albumin 2.5 L Heparin-Ind Plt Ab Scrn Crossmatch 12/29/19 12/29/19 12/30/19 17:44 23:35 04:20 WBC 13.0 H RBC 3.26 L Hgb 9.8 L Hct 29.9 L MCV MCHC RDW 18.2 H Plt Count 38 L D Neutrophils # Neutrophils # (Manual) 12.30 H Lymphocytes # Lymphocytes # (Manual) 0.13 L Nucleated RBCs Haptoglobin PT INR APTT Fibrinogen Sodium Potassium Chloride Carbon Dioxide BUN Creatinine Glucose POC Glucose (mg/dL) 159 H 209 H Calcium Phosphorus Magnesium AST ALT Lactate Dehydrogenase Troponin I Total Protein Albumin Heparin-Ind Plt Ab Scrn Crossmatch 12/30/19 12/30/19 12/30/19 04:20 05:22 05:56 WBC RBC Hgb Hct MCV MCHC RDW Plt Count Neutrophils # Neutrophils # (Manual) Lymphocytes # Lymphocytes # (Manual) Nucleated RBCs Haptoglobin PT 20.9 H INR 2.1 H APTT 39.1 H Fibrinogen Sodium 149 H Potassium Chloride 118 H Carbon Dioxide 16 L BUN 49 H Creatinine 1.67 H Glucose 174 H POC Glucose (mg/dL) 193 H Calcium 6.9 L Phosphorus 5.0 H Magnesium AST ALT Lactate Dehydrogenase Troponin I Total Protein Albumin Heparin-Ind Plt Ab Scrn Crossmatch 12/30/19 12/30/19 07:40 18:40 WBC RBC Hgb Hct MCV MCHC RDW Plt Count Neutrophils # Neutrophils # (Manual) Lymphocytes # Lymphocytes # (Manual) Nucleated RBCs Haptoglobin PT INR APTT 55.6 H Fibrinogen Sodium Potassium Chloride Carbon Dioxide BUN Creatinine Glucose POC Glucose (mg/dL) 157 H Calcium Phosphorus Magnesium AST ALT Lactate Dehydrogenase Troponin I Total Protein Albumin Heparin-Ind Plt Ab Scrn Crossmatch Assessment and Plan Assessment: * Acute massive ischemic stroke left cerebral hemisphere, with involvement of the entire left MCA and JOHN vascular territory. Patient also has acute ischemic infarction involving the right hemisphere in watershed distribution between right MCA/JOHN, MCA/TUBE FITTER. Also has evidence of right cerebellar ischemic stroke. Mechanism likely thromboembolic. CTA of the neck showed complete left ICA occlusion. * Status post thrombectomy for extensive DVT right leg. * CHF * Renal insufficiency * Acute FL with elevated cardiac enzymes. * Chronic renal insufficiency * Elevated liver enzymes Plan: * Based upon patient's CVA, prognosis appears guarded to poor. * Patient also has numerous other comorbid conditions, which also makes overall prognosis poor. * Patient's CVA likely will progress, very high risk of malignant cerebral edema and herniation. * Need to discuss long-term care with family to consider comfort care.
[2019-12-30 23:44] LABS: Glucose,Whole Blood 135 mg/dL (75-99)
[2019-12-31 04:53] LABS: Anisocytosis Slight; HCT 25.2 % (39.0-53.0); Hypochromasia Slight; MCH 30.1 pg (25.0-35.0); MCHC 31.7 g/dL (31.0-37.0); MCV 94.8 fL (80.0-100.0); Macrocytosis Slight; Mean Platelet Volume 9.3; Poikilocytosis Slight; RBC 2.66 m/uL (4.30-5.90); RDW 18.6 % (11.5-15.5)
[2019-12-31 04:55] LABS: Platelet Count 10 k/uL (150-450)
[2019-12-31 05:25] LABS: Partial Thromboplastin Time 67.5 sec (22.0-30.0)
[2019-12-31 06:11] LABS: Glucose,Whole Blood 204 mg/dL (75-99)
[2019-12-31] MEDS: methylPREDNISolone SOD SUCCI 125 MG/2 ML VIAL IV SCH ×2 (06:16→11:25)
[2019-12-31] MEDS: MIDODRINE 5 MG TAB PO SCH ×2 (06:16→11:25)
[2019-12-31] MEDS: INSULIN ASPART (NovoLOG) 100 UNIT/ML VIAL SQ SCH ×2 (06:16→11:25)
[2019-12-31] MEDS: ARGATROBAN 50 MG in SODIUM CHLORIDE 0.9% 50 ML IV SCH ×2 (07:14→09:23)
[2019-12-31 07:40] LABS: Albumin 2.1 g/dL (3.5-5.0); Calcium 6.7 mg/dL (8.4-10.2); Potassium 3.5 mmol/L (3.5-5.1); Total Bilirubin 0.3 mg/dL (0.2-1.3); Total Protein 5.4 g/dL (6.3-8.2)
--- NOTE | 2019-12-31 08:32 | P.PN ---
Subjective Patient is seen in follow-up for acute kidney injury. Renal function is better. Creatinine 1.48 today. Nonoliguric. He is receiving tube feeding. Sodium level 147 today. He is currently intubated. Noted to have a large acute CVA. Vital signs are stable. General: The patient appeared well nourished and normally developed. Intubated. HEENT: Head exam is unremarkable. Neck is without jugular venous distension. LUNGS: Breath sounds decreased. HEART: Rate and Rhythm are regular. ABDOMEN: Non-tender and non-distended. EXTREMITITES: Right lower extremity wrapped. 1+ edema. Objective - Vital Signs Vital signs: Vital Signs Temp 97.6 F 12/31/19 08:00 Pulse 62 12/31/19 08:00 Resp 23 12/31/19 08:00 BP 115/67 12/31/19 08:00 Pulse Ox 97 12/31/19 08:00 Intake & Output 12/30/19 12/31/19 12/31/19 18:59 06:59 18:59 Intake Total 2104.512 1595.8 684 Output Total 520 545 80 Balance 0121.408 7887.8 604 Weight 69.6 kg Intake: Intake, IV Titration 749.512 655.8 100 Amount Argatroban 50 mg In 49.512 50 Sodium Chloride 0.9% 50 ml @ 2 MCG/KG/MIN 7.32 mls/hr IV .Q6H50M [facility] Rx# :[id number] Dextrose 5%-0.45% NaCl 1, 600 520 100 000 ml @ 50 mls/hr IV . Q20H [facility] Rx#:[id number] Immune Globulin ( 85.8 Gammagard) 30 gm In Empty Bag 1 bag @ Per Protocol IV .Q0M Rx#:[id number] Sodium Chloride 0.45% 1, 100 000 ml @ 100 mls/hr IV . Q10H [facility] Rx#:[id number] Tube Feeding 455 340 70 Blood Product 0 214 Platelet Irr Pheresis 0 214 Acda1 Unit [id number] Other 900 600 300 Output: Urine 520 545 80 Other: Voiding Method Indwelling Catheter Indwelling Catheter Indwelling Catheter # Bowel Movements 1 1 - Labs CBC & Chem 7: 12/31/19 04:28 12/31/19 04:30 Labs: Abnormal Lab Results - Last 24 Hours (Table) 04/09/20 04/11/20 04/13/20 Range/Units 02:35 10:24 18:40 WBC (3.8-10.6) k/uL RBC (4.30-5.90) m/uL Hgb (13.0-17.5) gm/dL Hct (39.0-53.0) % RDW (11.5-15.5) % Plt Count (150-450) k/uL Haptoglobin 280.0 H (31.2-198.0) mg/dL APTT (22.0-30.0) sec Fibrinogen (200-500) mg/dL Sodium (137-145) mmol/L Chloride (98-107) mmol/L Carbon Dioxide (22-30) mmol/L BUN (9-20) mg/dL Creatinine (0.66-1.25) mg/dL Glucose (74-99) mg/dL POC Glucose (mg/dL) 157 H (75-99) mg/dL Calcium (8.4-10.2) mg/dL AST (17-59) U/L ALT (4-49) U/L Total Protein (6.3-8.2) g/dL Albumin (3.5-5.0) g/dL Heparin-Ind Plt Ab Scrn 2.534 H (<0.4) OD 12/30/19 12/31/19 12/31/19 Range/Units 23:42 04:28 04:28 WBC 11.0 H (3.8-10.6) k/uL RBC 2.66 L (4.30-5.90) m/uL Hgb 8.0 L D (13.0-17.5) gm/dL Hct 25.2 L (39.0-53.0) % RDW 18.6 H (11.5-15.5) % Plt Count 10 L* D (150-450) k/uL Haptoglobin (31.2-198.0) mg/dL APTT 67.5 H (22.0-30.0) sec Fibrinogen 185 L (200-500) mg/dL Sodium (137-145) mmol/L Chloride (98-107) mmol/L Carbon Dioxide (22-30) mmol/L BUN (9-20) mg/dL Creatinine (0.66-1.25) mg/dL Glucose (74-99) mg/dL POC Glucose (mg/dL) 135 H (75-99) mg/dL Calcium (8.4-10.2) mg/dL AST (17-59) U/L ALT (4-49) U/L Total Protein (6.3-8.2) g/dL Albumin (3.5-5.0) g/dL Heparin-Ind Plt Ab Scrn (<0.4) OD 12/31/19 12/31/19 Range/Units 04:30 06:09 WBC (3.8-10.6) k/uL RBC (4.30-5.90) m/uL Hgb (13.0-17.5) gm/dL Hct (39.0-53.0) % RDW (11.5-15.5) % Plt Count (150-450) k/uL Haptoglobin (31.2-198.0) mg/dL APTT (22.0-30.0) sec Fibrinogen (200-500) mg/dL Sodium 147 H (137-145) mmol/L Chloride 121 H (98-107) mmol/L Carbon Dioxide 17 L (22-30) mmol/L BUN 49 H (9-20) mg/dL Creatinine 1.48 H (0.66-1.25) mg/dL Glucose 198 H (74-99) mg/dL POC Glucose (mg/dL) 204 H (75-99) mg/dL Calcium 6.7 L (8.4-10.2) mg/dL AST 662 H (17-59) U/L ALT 245 H (4-49) U/L Total Protein 5.4 L (6.3-8.2) g/dL Albumin 2.1 L (3.5-5.0) g/dL Heparin-Ind Plt Ab Scrn (<0.4) OD Assessment and Plan Plan: Assessment: 1. Acute kidney injury secondary to ATN from previous admission. Patient required short duration of hemodialysis and renal function subsequently recovered. Renal function gradually improving. Creatinine 1.48 today. 2. Hypernatremia secondary to lack of oral water intake. 3. Right lower extremity DVT maintained on argatroban. 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 Receiving platelet transfusion today. 5. Metabolic acidosis secondary to acute kidney injury and IV fluids maintained on oral bicarb. 6. Mild hyperphosphatemia secondary to acute kidney injury. 7. Acute ischemic CVA. Neurology following. Plan: Maintain free water flushes with tube feeding at 300 mL every 4 hours. Continue to monitor renal function and urine output. Prognosis guarded.
--- NOTE | 2019-12-31 09:14 | IR ---
Fluoroscopy HISTORY: DVT right leg 4.2 minutes fluoroscopy time supplied to the referring clinician. 907 intraoperative C-arm images do cument the procedure. See dictated report from vascular surgery.
[2019-12-31 09:22] VITALS: BMI 28.0
[2019-12-31] MEDS: SODIUM BICARBONATE TAB 650 MG TAB PO SCH (09:23)
[2019-12-31] MEDS: AMOXIC-POT CLAV 500-125 MG 1 EACH TAB PEG/G-TUBE SCH (09:23)
[2019-12-31] MEDS ORDERED: ARGATROBAN IV ONE (09:23)
[2019-12-31] MEDS: PANTOPRAZOLE 40 MG/10 ML VIAL IVP SCH (09:23)
[2019-12-31] MEDS: POTASSIUM BICARBONATE/CIT AC 20 MEQ TABLET.EFF NG-TUBE SCH ×2 (09:25→11:25)
--- NOTE | 2019-12-31 11:00 | P.PN ---
Subjective Progress Note Date: 12/31/19 Principal diagnosis: DVT of the right lower extremity This is an a 64-year-old white male, recently discharged from the hospital, patient was initially admitted with acute kidney injury, required intubation, he also required hemodialysis through a right groin dialysis catheter. We saw this patient when he was in the intensive care unit, and we have eventually transfer the patient to the regular medical floor, and we signed off the case. Apparently the patient was discharged to the [facility], and he has been noticing progressive swelling of the right lower extremity with pain. Patient was brought into the ER, Doppler showed evidence of deep vein thrombosis of the right popliteal vein. CT angiography showed extensive thrombosis extending from the right common iliac vein all the way down, there was evidence of right sided venous insufficiency likely accounting for delayed arterial filling of the right lower extremity. There was also extensive asymmetric edema noted in the right lower extremity. Patient was seen already by many consultants including hematology, and felt that the patient had thrombocytopenia secondary to heparin- induced thrombocytopenia, and recommended IV argatroban. And no more heparin to be given to this patient. Patient was also seen by vascular surgery, and the plan is to transfuse the patient with platelets, and he will be scheduled to undergo venogram with possible thrombectomy of the iliac vein thrombus. However considering the platelets are low, the plan is to wait, transfuse the patient with platelets, and arrange for the procedure today by Dr. Gonzalez and Dr. Chacon. I was notified about this patient yesterday because he was relatively hypotensive, and he was anemic with a hemoglobin of 6.2. I transferred the pa cornel to the ICU mostly because of the hypotension, and recommended a unit of blood to be given. And I recommended norepinephrine if the patient doesn't improve with transfusion. Indeed, the patient did not require any norepinephrine infusion. He responded well to fluids and to 1 unit of packed R BCs given yesterday. Today the patient is in the ICU, he is hemodynamically stable, on room air, denies any shortness of breath, no cough, no wheezing. Since admission and according to the surgeon, the patient had worsening edema to the right leg over the last 24 hours, and he is now developing motor and sensory compromise. Patient was reevaluated today on 12/29/19, remains in the intensive care unit, he is presently on room air. Platelets remained low, supposed to be getting some platelets from [facility] today. Supposed to go for thrombectomy today however waiting for platelets to arrive from [facility] today. Patient had 2 units of packed RBCs for low hemoglobin of 6.6 overnight. He is on D5. 45 at 100 mL/h. Overall the patient is about the same. Denies any shortness of breath no cough no wheezing no chest pain no nausea no vomiting no abdominal pain. Complaining of some discomfort in his right lower extremity which is basically about the same compared to yesterday. WBC count is 13 hemoglobin this morning was 6.6, and he received blood already. PTT is 117.6 patient is on argatroban. Sodium is 149, hence his IV fluid was changed to D5 45. BUN is 49 and creatinine is 1.79. Patient is seen today 12/30/2019 in follow-up in the intensive care unit. He is difficult to arouse. Currently maintaining O2 saturations in the 90s on 3 L/m per nasal cannula. He's been afebrile. Yesterday he did undergo a percutaneous mechanical thrombectomy with Penubra CAT 8 device of the right popliteal femoral and iliac veins performed by Dr. Gonzalez. Shortly after returning to the ICU he was found to have aphasia confusion and weakness he had forced deviation of the eyes, severe sensory loss, complete neglect. He was taken for a computed tomography scan which revealed age-related atrophic and chronic small vessel ischemic changes without acute intracranial process. 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 There were decreased opacification of distal middle cerebral artery branches on the left. EEG is pending. Neurology consult pending. White count 13.0. Hemoglobin 9.8. Platelet count 38,000. INR 2.1. Sodium 149. Potassium 3.8. Creatinine 1.67. Currently on D5 0.45 at 100 ML's per hour. He is status post 4 units of packed red blood cells and 5 units of platelets this admission. He continues on Argatroban drip at 2.5 mcg/kg/m. He is continued on Augmentin. Continued on IV Solu-Medrol. The patient is seen today 12/31/2019 in follow-up in the intensive care unit. He remains basically unresponsive. Occasionally opens his eyes. Not following any simple commands. MRI of the brain revealed a right occipital lobe ischemic changes with scattered cortical infarct on the right parietal region. Acute focal ischemic changes within the right frontal lobe. Acute massive ischemic stroke left cerebral hemisphere with involvement of the entire left MCA and JOHN vascular territory. Acute ischemic change posterior inferior right cerebellum. Mild effacement of left cerebral salt diet and mild effacement of the left lateral ventricle without midline shift. He is currently maintaining O2 saturations in the 90s on 3 L/m per nasal cannula. He still has her betray been drip at 2.5 mcg/kg/m. D5.45 at 50 MLS per hour. TwoCal HN tube feedings at 35 ML's per hour with 300 ML fluid boluses. White count 11.0. Hemoglobin 8.0. Platelet count 10. Fibrinogen 185. Sodium 147. Potassium 3.5. Bicarb 17. Creatinine 1.48. The patient has received a total of 4 units of packed red blood cells. 6 units of platelets with 2 more ordered. Right lower extremity with excessive blistering and sloughing of tissue. Currently in a Gibran wrap. Objective - Vital Signs Vital signs: Vital Signs Temp 97.6 F 12/31/19 08:00 Pulse 56 L 12/31/19 09:00 Resp 24 12/31/19 09:00 BP 127/93 12/31/19 09:00 Pulse Ox 95 12/31/19 09:00 Intake & Output 12/30/19 12/31/19 12/31/19 18:59 06:59 18:59 Intake Total 2104.512 1645.8 769 Output Total 520 545 120 Balance 0075.240 6014.8 649 Weight 69.6 kg 69.6 kg Intake: Intake, IV Titration 749.512 705.8 150 Amount Argatroban 50 mg In 49.512 100 Sodium Chloride 0.9% 50 ml @ 2 MCG/KG/MIN 7.32 mls/hr IV .Q6H50M [facility] Rx# :[id number] Dextrose 5%-0.45% NaCl 1, 600 520 150 000 ml @ 50 mls/hr IV . Q20H [facility] Rx#:[id number] Immune Globulin ( 85.8 Gammagard) 30 gm In Empty Bag 1 bag @ Per Protocol IV .Q0M Rx#:[id number] Sodium Chloride 0.45% 1, 100 000 ml @ 100 mls/hr IV . Q10H [facility] Rx#:[id number] Tube Feeding 455 340 105 Blood Product 0 214 Platelet Irr Pheresis 0 214 Acda1 Unit [id number] Other 900 600 300 Output: Urine 520 545 120 Other: Voiding Method Indwelling Catheter Indwelling Catheter Indwelling Catheter # Bowel Movements 1 1 - Exam GENERAL EXAM: Unresponsive 64-year-old -[place] male patient, on 3 L nasal cannula with O2 saturations in the 90s HEAD: Normocephalic. EYES: Sluggish reaction of pupils, unequal size. NOSE: Clear with pink turbinates. THROAT: No erythema or exudates. NECK: No masses, no JVD. CHEST: No chest wall deformity. LUNGS: Equal air entry with few scattered rhonchi. CVS: S1 and S2 normal with no audible murmur, regular rhythm. ABDOMEN: No hepatosplenomegaly, normal bowel sounds, no guarding or rigidity. SPINE: No scoliosis or deformity SKIN: Decubitus ulcer, right lower extremity with blistering is sloughing of material. CENTRAL NERVOUS SYSTEM: Unresponsive EXTREMITIES: Gibran wrap to the right lower extremity. Doppler pulses. - Labs CBC & Chem 7: 12/31/19 04:28 12/31/19 04:30 Labs: Abnormal Lab Results - Last 24 Hours (Table) 12/26/19 12/28/19 12/30/19 Range/Units 02:35 10:24 18:40 WBC (3.8-10.6) k/uL RBC (4.30-5.90) m/uL Hgb (13.0-17.5) gm/dL Hct (39.0-53.0) % RDW (11.5-15.5) % Plt Count (150-450) k/uL Haptoglobin 280.0 H (31.2-198.0) mg/dL APTT (22.0-30.0) sec Fibrinogen (200-500) mg/dL Sodium (137-145) mmol/L Chloride (98-107) mmol/L Carbon Dioxide (22-30) mmol/L BUN (9-20) mg/dL Creatinine (0.66-1.25) mg/dL Glucose (74-99) mg/dL POC Glucose (mg/dL) 157 H (75-99) mg/dL Calcium (8.4-10.2) mg/dL AST (17-59) U/L ALT (4-49) U/L Total Protein (6.3-8.2) g/dL Albumin (3.5-5.0) g/dL Heparin-Ind Plt Ab Scrn 2.534 H (<0.4) OD 12/30/19 12/31/19 12/31/19 Range/Units 23:42 04:28 04:28 WBC 11.0 H (3.8-10.6) k/uL RBC 2.66 L (4.30-5.90) m/uL Hgb 8.0 L D (13.0-17.5) gm/dL Hct 25.2 L (39.0-53.0) % RDW 18.6 H (11.5-15.5) % Plt Count 10 L* D (150-450) k/uL Haptoglobin (31.2-198.0) mg/dL APTT 67.5 H (22.0-30.0) sec Fibrinogen 185 L (200-500) mg/dL Sodium (137-145) mmol/L Chloride (98-107) mmol/L Carbon Dioxide (22-30) mmol/L BUN (9-20) mg/dL Creatinine (0.66-1.25) mg/dL Glucose (74-99) mg/dL POC Glucose (mg/dL) 135 H (75-99) mg/dL Calcium (8.4-10.2) mg/dL AST (17-59) U/L ALT (4-49) U/L Total Protein (6.3-8.2) g/dL Albumin (3.5-5.0) g/dL Heparin-Ind Plt Ab Scrn (<0.4) OD 12/31/19 12/31/19 Range/Units 04:30 06:09 WBC (3.8-10.6) k/uL RBC (4.30-5.90) m/uL Hgb (13.0-17.5) gm/dL Hct (39.0-53.0) % RDW (11.5-15.5) % Plt Count (150-450) k/uL Haptoglobin (31.2-198.0) mg/dL APTT (22.0-30.0) sec Fibrinogen (200-500) mg/dL Sodium 147 H (137-145) mmol/L Chloride 121 H (98-107) mmol/L Carbon Dioxide 17 L (22-30) mmol/L BUN 49 H (9-20) mg/dL Creatinine 1.48 H (0.66-1.25) mg/dL Glucose 198 H (74-99) mg/dL POC Glucose (mg/dL) 204 H (75-99) mg/dL Calcium 6.7 L (8.4-10.2) mg/dL AST 662 H (17-59) U/L ALT 245 H (4-49) U/L Total Protein 5.4 L (6.3-8.2) g/dL Albumin 2.1 L (3.5-5.0) g/dL Heparin-Ind Plt Ab Scrn (<0.4) OD Assessment and Plan Assessment: 1 Deep vein thromboses of the right lower extremity with motor and sensory changes, status post percutaneous mechanical thrombectomy with Penumbra 8 device of the right popliteal, femoral and iliac veins. Postop day #2 2 Acute CVA, CT angiogram reveals 100% occlusion of the left internal carotid artery with decreased opacification of distal middle cerebral artery branches on the left. MRI of the brain revealed a massive acute ischemic infarct involving the entire left MCA and left JOHN vascular territory, right hemispheric region in the watershed region between the right MCA/JOHN, and MCA/HAND PICKER. There is also evidence of ischemic infarct involving the right cerebellum, and small punctate areas of the left cerebellum. 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 5 Recent history of acute kidney injury secondary to dehydration rhabdomyolysis, requiring hemodialysis. Improved. 6 History of aspiration pneumonia and respiratory failure requiring intubation and mechanical ventilation. 7 History of PEG tube placement, presently being used for enteral feeding. 8 Chronic congestive heart failure and LV dysfunction with ejection fraction of 20%. 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 Plan: The patient was seen and evaluated by Dr. Mcgovern MRI results reviewed. Neurology consultation reviewed. High risk for malignant cerebral edema and herniation Dr. Mcgovern will speak with his brother Bob today. Hospice/Comfort care would be the best plan for this patient. We will continue to follow and make further recommendations based on his clinical status Critical care time 35 minutes I, the cosigning physician, performed a history & physical examination of the patient. Lungs sounds with crackles in the bilateral posterior bases. Maintaining good O2 saturations in the 90s on 3 L/m per nasal cannula. I discussed the assessment and plan of care with my nurse practitioner, Vonda Gonzalez. I attest to the above note as dictated by her.
[2019-12-31 11:17] LABS: Glucose,Whole Blood 204 mg/dL (75-99)
--- NOTE | 2019-12-31 12:15 | P.PN ---
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, ischemic CVA, thrombocytopenia Pt is non-verbal, does not follow commands Objective - Vital Signs Vital signs: Vital Signs Temp 97.6 F 12/31/19 08:00 Pulse 69 12/31/19 11:00 Resp 25 H 12/31/19 11:00 BP 91/74 12/31/19 10:00 Pulse Ox 93 L 12/31/19 11:00 Intake & Output 12/30/19 12/31/19 12/31/19 18:59 06:59 18:59 Intake Total 2104.512 1645.8 939 Output Total 520 545 200 Balance 9453.013 4881.8 739 Weight 69.6 kg 69.6 kg Intake: Intake, IV Titration 749.512 705.8 250 Amount Argatroban 50 mg In 49.512 100 Sodium Chloride 0.9% 50 ml @ 2 MCG/KG/MIN 7.32 mls/hr IV .Q6H50M [facility] Rx# :[id number] Dextrose 5%-0.45% NaCl 1, 600 520 250 000 ml @ 50 mls/hr IV . Q20H [facility] Rx#:[id number] Immune Globulin ( 85.8 Gammagard) 30 gm In Empty Bag 1 bag @ Per Protocol IV .Q0M Rx#:[id number] Sodium Chloride 0.45% 1, 100 000 ml @ 100 mls/hr IV . Q10H [facility] Rx#:[id number] Tube Feeding 455 340 175 Blood Product 0 214 Platelet Irr Pheresis 0 214 Acda1 Unit [id number] Other 900 600 300 Output: Urine 520 545 200 Other: Voiding Method Indwelling Catheter Indwelling Catheter Indwelling Catheter # Bowel Movements 1 1 - Constitutional General appearance: Present: no acute distress, thin - EENT EENT Comment(s): dry mucus membranes Eyes: Present: abnormal pupil, anicteric sclerae - Respiratory Respiratory: bilateral: diminished (unlabored respirations) - Cardiovascular Heart sounds: normal: S1, S2 - Peripheral edema leg Peripheral Edema: right: 4+ - Gastrointestinal General gastrointestinal: Present: soft - Neurologic Neurologic: Present: focal deficits - Psychiatric Psychiatric: Absent: A&O x's 3, appropriate affect, intact judgment & insight - Labs CBC & Chem 7: 12/31/19 04:28 12/31/19 04:30 Labs: Abnormal Lab Results - Last 24 Hours (Table) 12/26/19 12/30/19 12/30/19 Range/Units 02:35 18:40 23:42 WBC (3.8-10.6) k/uL RBC (4.30-5.90) m/uL Hgb (13.0-17.5) gm/dL Hct (39.0-53.0) % RDW (11.5-15.5) % Plt Count (150-450) k/uL APTT (22.0-30.0) sec Fibrinogen (200-500) mg/dL Sodium (137-145) mmol/L Chloride (98-107) mmol/L Carbon Dioxide (22-30) mmol/L BUN (9-20) mg/dL Creatinine (0.66-1.25) mg/dL Glucose (74-99) mg/dL POC Glucose (mg/dL) 157 H 135 H (75-99) mg/dL Calcium (8.4-10.2) mg/dL AST (17-59) U/L ALT (4-49) U/L Total Protein (6.3-8.2) g/dL Albumin (3.5-5.0) g/dL Heparin-Ind Plt Ab Scrn 2.534 H (<0.4) OD 12/31/19 12/31/19 12/31/19 Range/Units 04:28 04:28 04:30 WBC 11.0 H (3.8-10.6) k/uL RBC 2.66 L (4.30-5.90) m/uL Hgb 8.0 L D (13.0-17.5) gm/dL Hct 25.2 L (39.0-53.0) % RDW 18.6 H (11.5-15.5) % Plt Count 10 L* D (150-450) k/uL APTT 67.5 H (22.0-30.0) sec Fibrinogen 185 L (200-500) mg/dL Sodium 147 H (137-145) mmol/L Chloride 121 H (98-107) mmol/L Carbon Dioxide 17 L (22-30) mmol/L BUN 49 H (9-20) mg/dL Creatinine 1.48 H (0.66-1.25) mg/dL Glucose 198 H (74-99) mg/dL POC Glucose (mg/dL) (75-99) mg/dL Calcium 6.7 L (8.4-10.2) mg/dL AST 662 H (17-59) U/L ALT 245 H (4-49) U/L Total Protein 5.4 L (6.3-8.2) g/dL Albumin 2.1 L (3.5-5.0) g/dL Heparin-Ind Plt Ab Scrn (<0.4) OD 12/31/19 12/31/19 Range/Units 06:09 11:15 WBC (3.8-10.6) k/uL RBC (4.30-5.90) m/uL Hgb (13.0-17.5) gm/dL Hct (39.0-53.0) % RDW (11.5-15.5) % Plt Count (150-450) k/uL APTT (22.0-30.0) sec Fibrinogen (200-500) mg/dL Sodium (137-145) mmol/L Chloride (98-107) mmol/L Carbon Dioxide (22-30) mmol/L BUN (9-20) mg/dL Creatinine (0.66-1.25) mg/dL Glucose (74-99) mg/dL POC Glucose (mg/dL) 204 H 204 H (75-99) mg/dL Calcium (8.4-10.2) mg/dL AST (17-59) U/L ALT (4-49) U/L Total Protein (6.3-8.2) g/dL Albumin (3.5-5.0) g/dL Heparin-Ind Plt Ab Scrn (<0.4) OD Assessment and Plan (1) Thrombocytopenia Narrative/Plan: Progressive despite increase in steroids and IVIG, 1 unit SDP ordered for transfusion Current Visit: Yes Status: Acute Priority: High Code(s): D69.6 - THROMBOCYTOPENIA, UNSPECIFIED SNOMED Code(s): 539945472 (2) Deep vein thrombosis (DVT) of right lower extremity Narrative/Plan: S/P thrombectomy. On argatroban for anticoagulation Current Visit: Yes Status: Acute Priority: High Code(s): I82.401 - ACUTE EMBOLISM AND THOMBOS UNSP DEEP VEINS OF R LOW EXTREM SNOMED Code(s): 035004641 (3) Head and neck malignancy Narrative/Plan: S/P treatment, no evidence of recurrence when evaluated in Oct Current Visit: No Status: Chronic Priority: Low Code(s): C76.0 - MALIGNANT NEOPLASM OF HEAD, FACE AND NECK SNOMED Code(s): 288238676 Plan: HIT antibody positive. Thrombocytopenia persists despite discontinuation of heparin. MRI brain shows ischemic clots. Reviewed Neurology notes and their impression of pt case. Pt has had RLE thrombectomy Pt has been on argatroban with ischemic clotting. 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 Steroids increased, IVIG x 1 given, no improvement in platelets. Possible DIC Reviewed Critical Care team notes. Family was supposed to report who was going to be responsible for medical decision making for the pt. As already noted by multiple disciplines patient's case is critical. Despite aggressive measures there is lack of objective improvement. Clinical picture associated with high mortality. Agree with plans by the critical care team team to talk to whoever is going to be responsible for making medical decisions for patient, about hospice. Doctor attests: I performed a history and physical examination of this patient, developed impression and plan of care, discussed with dictator. I agree with dictators note, documented as a scribe.
--- NOTE | 2019-12-31 12:27 | CDI ---
Documentation Clarification Form Date: 12/31/2019 CDS: Hannah Myers, CCS, CCDS Admit Date: 12/26/2019 Patient Name: Ventura Austin Discharge Date: ATTENTION: The Clinical Documentation Specialists (CDI) and [facility] Coding Staff appreciate your assistance in clarifying documentation. Please respond to the clarification below the line at the bottom and electronically sign. The CDI & [facility] Coding staff will review the response and follow-up if needed. Please note: Queries are made part of the Legal Health Record. If you have any questions, please contact the author of this message via ITS. Dear Dr. Dagoberto Mcgovern: CHF is documented in the 12/27 Pulmonary/Critcal Care Consult & subsequent Progress Notes: "Chronic congestive heart failure and LV dysfunction with ejection fraction of 20%." Patient was recently admitted on 12/16, discharged to SNF on 12/24 & diagnosed with TERRANCE w/ATN, Severe Protein Calorie Malnutrition, Acute Hypoxic Respiratory Failure, Aspiration Pneumonia & Acute Systolic CHF. History/Risk Factors: Throat cancer, [place], Hypertension, Hyperlipidemia, GERD & Osteoarthritis. Clinical Indicators: Patient returned to the ED on 12/25 with swelling in his right leg. He had required temporary dialysis on the previous admission with dialysis catheter insertion/removal prior to discharge. Diabnosed with RLE DVT, HIT & Iliac thrombus. Subsequently had massive CVA, possible comfort care. VS: T 98.6, P 94 - 102^, R 20, BP 108/75, PO 94 RA BNP: Not done this admission. Echocardiogram Results 12/19/2019: Severe global hypokinesis of LV. Overall left ventricular systolic function is severely impaired w/EF <20%, Grade 3 diastolic dysfunction. Chest X Ray 12/18 (prior to discharge previous admission): Small layering bilateral pleural effusions & bibasilar airspace disease, atelectasis vs pneumonia, Stable enlarged cardiomediastinal silhouette. Treatment on admission 12/25: IV Morphine, Lovenox sq, IV fluid 1,000 mls@75/hr, IV fluid bolus 500 mls@999/hr, IV Dilaudid. 12/26: IV Argatroban, IV Solumedrol, 12/28: IV Calcium Gluconate, IV KCL. In your professional opinion, can you please clarify the acuity and type of CHF if known? Systolic Heart Failure: o Chronic o Acute on Chronic Unable to Determine Other, please specify (Last Revision: December 2017) unabl e to determine MTDD
--- NOTE | 2019-12-31 13:58 | P.PN ---
Subjective Progress Note Date: 12/31/19 Patient was seen for a follow-up. Patient appears obtunded, very lethargic, not responding to vocal command. Patient is having sonorous respiration. Patient has left blown pupil, 8 mm, nonreactive. Right pupil is 4 mm, barely reactive. Patient is obviously right hemiplegic, also with some left hemiplegia. Objective - Vital Signs Vital signs: Vital Signs Temp 97.6 F 12/31/19 08:00 Pulse 69 12/31/19 11:00 Resp 25 H 12/31/19 11:00 BP 91/74 12/31/19 10:00 Pulse Ox 93 L 12/31/19 11:00 Intake & Output 12/30/19 12/31/19 12/31/19 18:59 06:59 18:59 Intake Total 2104.512 1645.8 939 Output Total 520 545 200 Balance 0397.390 6683.8 739 Weight 69.6 kg 69.6 kg Intake: Intake, IV Titration 749.512 705.8 250 Amount Argatroban 50 mg In 49.512 100 Sodium Chloride 0.9% 50 ml @ 2 MCG/KG/MIN 7.32 mls/hr IV .Q6H50M [facility] Rx# :[id number] Dextrose 5%-0.45% NaCl 1, 600 520 250 000 ml @ 50 mls/hr IV . Q20H [facility] Rx#:[id number] Immune Globulin ( 85.8 Gammagard) 30 gm In Empty Bag 1 bag @ Per Protocol IV .Q0M Rx#:[id number] Sodium Chloride 0.45% 1, 100 000 ml @ 100 mls/hr IV . Q10H [facility] Rx#:[id number] Tube Feeding 455 340 175 Blood Product 0 214 Platelet Irr Pheresis 0 214 Acda1 Unit [id number] Other 900 600 300 Output: Urine 520 545 200 Other: Voiding Method Indwelling Catheter Indwelling Catheter Indwelling Catheter # Bowel Movements 1 1 - Exam As above - Labs CBC & Chem 7: 12/31/19 04:28 12/31/19 04:30 Labs: Abnormal Lab Results - Last 24 Hours (Table) 12/26/19 12/30/19 12/30/19 Range/Units 02:35 18:40 23:42 WBC (3.8-10.6) k/uL RBC (4.30-5.90) m/uL Hgb (13.0-17.5) gm/dL Hct (39.0-53.0) % RDW (11.5-15.5) % Plt Count (150-450) k/uL APTT (22.0-30.0) sec Fibrinogen (200-500) mg/dL Sodium (137-145) mmol/L Chloride (98-107) mmol/L Carbon Dioxide (22-30) mmol/L BUN (9-20) mg/dL Creatinine (0.66-1.25) mg/dL Glucose (74-99) mg/dL POC Glucose (mg/dL) 157 H 135 H (75-99) mg/dL Calcium (8.4-10.2) mg/dL AST (17-59) U/L ALT (4-49) U/L Total Protein (6.3-8.2) g/dL Albumin (3.5-5.0) g/dL Heparin-Ind Plt Ab Scrn 2.534 H (<0.4) OD 12/31/19 12/31/19 12/31/19 Range/Units 04:28 04:28 04:30 WBC 11.0 H (3.8-10.6) k/uL RBC 2.66 L (4.30-5.90) m/uL Hgb 8.0 L D (13.0-17.5) gm/dL Hct 25.2 L (39.0-53.0) % RDW 18.6 H (11.5-15.5) % Plt Count 10 L* D (150-450) k/uL APTT 67.5 H (22.0-30.0) sec Fibrinogen 185 L (200-500) mg/dL Sodium 147 H (137-145) mmol/L Chloride 121 H (98-107) mmol/L Carbon Dioxide 17 L (22-30) mmol/L BUN 49 H (9-20) mg/dL Creatinine 1.48 H (0.66-1.25) mg/dL Glucose 198 H (74-99) mg/dL POC Glucose (mg/dL) (75-99) mg/dL Calcium 6.7 L (8.4-10.2) mg/dL AST 662 H (17-59) U/L ALT 245 H (4-49) U/L Total Protein 5.4 L (6.3-8.2) g/dL Albumin 2.1 L (3.5-5.0) g/dL Heparin-Ind Plt Ab Scrn (<0.4) OD 12/31/19 12/31/19 Range/Units 06:09 11:15 WBC (3.8-10.6) k/uL RBC (4.30-5.90) m/uL Hgb (13.0-17.5) gm/dL Hct (39.0-53.0) % RDW (11.5-15.5) % Plt Count (150-450) k/uL APTT (22.0-30.0) sec Fibrinogen (200-500) mg/dL Sodium (137-145) mmol/L Chloride (98-107) mmol/L Carbon Dioxide (22-30) mmol/L BUN (9-20) mg/dL Creatinine (0.66-1.25) mg/dL Glucose (74-99) mg/dL POC Glucose (mg/dL) 204 H 204 H (75-99) mg/dL Calcium (8.4-10.2) mg/dL AST (17-59) U/L ALT (4-49) U/L Total Protein (6.3-8.2) g/dL Albumin (3.5-5.0) g/dL Heparin-Ind Plt Ab Scrn (<0.4) OD Assessment and Plan Assessment: * Acute massive ischemic stroke left cerebral hemisphere, with involvement of the entire left MCA and JOHN vascular territory. Patient also has acute ischemic infarction involving the right hemisphere in watershed distribution between right MCA/JOHN, MCA/[employer]. Also has evidence of right cerebellar ischemic stroke. Mechanism likely thromboembolic. CTA of the neck showed complete left ICA occlusion. Patient showing signs of cerebral herniation. * Status post thrombectomy for extensive DVT right leg. * CHF * Renal insufficiency * Acute DE with elevated cardiac enzymes. * Chronic renal insufficiency * Elevated liver enzymes Plan: * Based upon patient's CVA, and current neurological examination, prognosis appears very poor. * Patient is showing signs of cerebral herniation with dilated, nonreactive pupil on the left. * Patient also has numerous other comorbid conditions, which also makes overall prognosis poor. * Discussed case at length with patient's brother Mr. Rojas, informed him of patient's massive stroke, poor prognosis. All risks and and benefits of various treatment options were discussed including craniotomy, and other conservative measures. Based upon his massive strokes, multiple other comor bid factors, prognosis remains extremely poor. * Patient's brother, who is the main caregiver, expressed wishes for patient to be DO NOT RESUSCITATE, DO NOT INTUBATE and comfort care. The patient's nurse was also present during this conversation which was held on the phone via speaker phone. * Neurology will sign off.
--- NOTE | 2019-12-31 15:20 | PN ---
PROGRESS NOTE DATE OF SERVICE: 12/31/2019 CHIEF COMPLAINT: Multi cerebral infarctions. HISTORY OF PRESENT ILLNESS: This gentleman remains comatose. There has been no interval change. He has been seen by Neurology. He is also being followed by Cardiology and Nephrology. PHYSICAL EXAMINATION: Blood pressure is 110/78. He is in sinus rhythm. Breath sounds are heard on both sides. Cardiac exam is unremarkable. Abdomen is soft. Extremities are unchanged, particularly involving the right lower extremity. IMPRESSION: 1. Acute thrombosis of the right lower extremity. 2. Myocardial infarction. 3. Chronic renal failure. 4. Multiple cerebral infarctions. PLAN: Patient continues on supportive care. There are no relatives to make any further decisions regarding end-of-life care. His request was to be resuscitated. MMEAGLEL / MARCELON: [id number] /
[2019-12-31] MEDS ORDERED: IMMUNE GLOBULIN (GAMMAGARD) 30 GM in EMPTY BAG 1 BAG IV NR (16:00)
[2019-12-31] MEDS: DEXTROSE 5%-0.45% NACL 1,000 ML IV SCH (17:37)
[2019-12-31 19:33] VITALS: BP 103/71; PULSE 54; RESP 16; TEMP 97.5
[2019-12-31] MEDS ORDERED: SCOPOLAMINE 1.5MG/72HR PATCH TRANSDERM SCH (21:00)
--- NOTE | 2020-01-01 13:35 | EEG ---
ELECTROENCEPHALOGRAM REPORT DATE OF SERVICE: 12/30/2019 PREAMBLE: This is a 64-year-old male with recent admission with acute kidney injury and discharged to alf. The patient was admitted for increased swelling of the right lower extremity. The patient underwent surgery for thrombosis of right lower extremity. The patient subsequently developed acute CVA. EEG FINDINGS: A portable 21-channel routine EEG was recorded utilizing 10/20 international system with bipolar and referential montages. The recording starts and continues with presence of moderate amplitude of 4 to 6 Hz theta activity seen in bihemispheric region. The background does not seem to be clearly reactive to eye opening and closing. Some initial asynchronous focal slowing was also seen. Different stages of sleep was not seen. Photic driving response was not seen. No focal or generalized epileptiform activity was seen. IMPRESSION: This is an abnormal EEG due to background slowing of mild to moderate degree. This is suggestive of generalized cerebral dysfunction, as can be seen with toxic metabolic encephalopathy or due to diffuse structural brain abnormality. No epileptiform activity was seen. MMODL / IJN: [id number] /
--- NOTE | 2020-01-02 10:21 | CDI ---
Documentation Clarification Form Date: 01/02/20 From: Milagro Conrad Phone: If you have a question about this query, please contact Magui Lomax, Power Supply Engineer at [phone] between 8am and 5pm. Admit Date: 12/26/19 Discharge Date: 01/01/20 Patient Name: CHAD LOZANO Visit Number: [id number] ATTENTION: The Clinical Documentation Specialists (CDI) and [facility] Coding Staff appreciate your assistance in clarifying documentation. Please respond to the clarification below the line at the bottom and electronically sign. The CDI & [facility] Coding staff will review the response and follow-up if needed. Please note: Queries are made part of the Legal Health Record. If you have any questions, please contact the author of this message via ITS. Dear Dr. Dagoberto Mcgovern, A Stage II pressure ulcer on the coccyx with erythema and blackened skin was documented in your 12/29 progress note. History/Risk Factors: : HIT, acute DVT of right popliteal, femoral & common iliac veins, ATN, cerebral infarction, AMI, bilateral hemiplegia Treatment: no orders Definition of Present on Admission (POA): A diagnosis present at the time the order for admission to inpatient status was written. For each diagnosis, documentation must be clear to determine if the condition was present at the time of the patients inpatient admission or developed during the hospital stay. Please clarify if was POA: ____Y = Yes, the condition was present at the time of the order for inpatient admission. ____N = No, the condition was not present at the time of the order for inpatient admission. ___xxxxx W = Clinically undetermined if the condition was present at the time of the order for inpatient admission. MTDD
--- NOTE | 2020-01-02 21:11 | DS ---
DISCHARGE SUMMARY CHIEF COMPLAINT: Pain and swelling in right leg. HISTORY OF PRESENT ILLNESS AND PHYSICAL EXAMINATION: Details of this man's history and physical can be found in the initial workup. LABORATORY STUDIES: While he was in the hospital he had laboratory studies, details of which can be found in the laboratory section of his chart. COURSE IN THE HOSPITAL: After admission he was placed on bedrest, started on intravenous fluids and seen by Vascular Surgery. There was concern because of rapid swelling in the entire right lower extremity. He was seen and followed by Vascular Surgery. Because of the progressive edema and concern about loss of arterial supply to the leg, arrangements originally had been made for him to be transferred to [facility], but no beds were available. Efforts were made to mechanically extract the clot from the right leg with a thrombectomy, but the procedure did not resolve the problem. He then developed a CVA with several ischemic infarctions in various parts of the brain. He became essentially unresponsive. It was assumed that he had been in consumptive coagulopathy. He had thrombocytopenia, and this was initially thought to be related to heparin-induced thrombocytopenia. The patient had indicated he wanted to be resuscitated. He had a brother who was contacted, who initially would not make the decision to withdraw care and make the patient comfort measures only. Eventually, as he deteriorated, this was agreed to. He had a daughter who never could be reached. He on December 31. FINAL DIAGNOSES: 1. Cerebrovascular accident. 2. Acute thrombosis of the right lower extremity. 3. Heparin-induced thrombocytopenia. 4. Chronic renal failure. 5. Dehydration. 6. Electrolyte imbalance. 7. History of carcinoma of the pharynx. 8. Chronic obstructive pulmonary disease. 9. Alcoholism. OPERATIONS: Thrombectomy of the right lower extremity. CONSULTATIONS: 1. Vascular Surgery. 2. Cardiology. 3. Hematology. 4. Intensive Medicine. MMODL / IJN: [id number] /
--- NOTE | 2020-01-03 15:15 | PN ---
PROGRESS NOTE DATE OF SERVICE: 12/30/2019 CHIEF COMPLAINT: CVA. HISTORY OF PRESENT ILLNESS: This gentleman's condition is not improved. He has deteriorated. He is not arousable. He is being made comfort care. PHYSICAL EXAMINATION: He is not responsive. He has strabismus. Breath sounds are shallow and heard on both sides. The cardiac exam demonstrates sinus tachycardia. Abdomen is soft. Right leg is extremely edematous and cool. IMPRESSION: 1. Multiple cerebral infarctions. 2. Deep venous thrombosis of the right lower extremity. 3. Chronic renal failure. 4. Heparin-induced thrombocytopenia. 5. Consumptive coagulopathy. PLAN: Comfort measures are being instituted. MMODL / IJN: [id number] /
--- NOTE | 2020-01-07 13:34 | CDI ---
Documentation Clarification Form Date: 01/07/20 From: Milagro Cnorad Phone: If you have a question about this query, please contact Magui Lomax, Family Preservation Officer at [phone] between 8am and 5pm. Admit Date: 12/26/19 Discharge Date: 01/01/20 Patient Name: CHAD LOZANO Visit Number: [id number] ATTENTION: The Clinical Documentation Specialists (CDI) and [facility] Coding Staff appreciate your assistance in clarifying documentation. Please respond to the clarification below the line at the bottom and electronically sign. The CDI & [facility] Coding staff will review the response and follow-up if needed. Please note: Queries are made part of the Legal Health Record. If you have any questions, please contact the author of this message via ITS. Dear Dr. Neal Chaney, A Stage III pressure ulcer on the coccyx with erythema and blackened skin was documented in Dr Mcgovern's 12/29 progress note. Per Nursing on 12/25 - Coccyx with erythema and blackened. History/Risk Factors: : HIT, acute DVT of right popliteal, femoral & common iliac veins, ATN, cerebral infarction, AMI, bilateral hemiplegia Treatment: 12/29 - optifoam ash liguitrap bordered sacrum 05/27 Definition of Present on Admission (POA): A diagnosis present at the time the order for admission to inpatient status was written. For each diagnosis, documentation must be clear to determine if the condition was present at the time of the patients inpatient admission or developed during the hospital stay. Please clarify if the stage III pressure ulcer of the coccyx was POA: ____Y = Yes, the condition was present at the time of the order for inpatient admission. ____N = No, the condition was not present at the time of the order for inpatient admission. ____W = Clinically undetermined if the condition was present at the time of the order for inpatient admission. MTDD
--- NOTE | 2020-01-07 15:26 | MISC ---
MISCELLANOUS REPORT QUERY: Clinically undetermined if condition was present at the time of admission. MMODL / IJN: [id number] /
--- NOTE | 2020-01-14 11:22 | CDI ---
Documentation Clarification Form Date: 01/14/2020 11:04:47 AM From: Hannah Myers CCS, CCDS Admit Date: 12/26/2019 03:35:00 AM Patient Name: Ventura Austin Visit Number: [id number] Discharge Date: 01/01/2020 10:35:00 AM ATTENTION: The Clinical Documentation Specialists (CDI) and [facility] Coding Staff appreciate your assistance in clarifying documentation. Please respond to the clarification below the line at the bottom and electronically sign. The CDI & [facility] Coding staff will review the response and follow-up if needed. Please note: Queries are made part of the Legal Health Record. If you have any questions, please contact the author of this message via ITS. Dr. Neal Chaney: Anemia is documented in the 12/26 Attending Progress Note: "He will be transfused because of anemia and also he will be given a platelet transfusion." Per the 12/27 Pulmonary/Critical Care Consult: "Hypotension secondary to hypovolemia and anemia which is likely chronic, required 2 units of packed RBCs, did not require any pressor." History/Risk Factors: Chronic venous insufficiency & PVD of the lower extremities, CKD, Systolic CHF, COPD, Hypertension, Hyperlipidemia, GERD, Osteoarthritis, Previous [place], History of Pharyngeal Cancer status post chemo & radiation. Former smoker. Has PEG tube. Clinical indicators: Patient presented to the ED on 12/25 from a senior living. Recently admitted with acute renal failure requiring temporary dialysis. Admitted this admission with Acute DVT of the Right Popliteal Vein & TERRANCE with ATN (from previous admission), Rhabdomyolysis, Hypernatremia, Heparin Induced Thrombocytopenia & Dehydration. Hemoglobin 12/25: 9.7*; 12/26: 6.6; 12/27: 9.2*, 7.8*; 12/28: 6.6, 10.1*; 12/29: 9.8*; 12/30: 8.0* Hct: 12/25: 30.5*; 12/26: 21.5*; 12/27: 27.1*, 24.2*; 12/28: 20.4*, 31.7*; 12/29: 29.9*; 12/30: 25.2* Treatment: Blood transfusions: 12/25 Platelets. 12/26: PRBCs x2 units. 12/27: Platelets. 12/28: Platelets x3, PRBCs x2, 12/30: Platelets. 12/25: IV Morphine, Lovenox sq, IV fluid rate 1,000 mls@75, IV fluid bolus 500 mls@999, IV Dilaudid, IV fluid 1,000 mls@125. In order to capture the severity of condition, please clarify the type of anemia and etiology if known:. Chronic blood loss anemia Drug induced anemia Anemia due to malignancy Nutritional anemia Anemia of chronic kidney disease Anemia of other chronic disease Unable to determine Other, please specify (Last Form Revision: November 2019) MTDD
--- NOTE | 2020-01-14 11:38 | CDI ---
Documentation Clarification Form Date: 01/14/2020 11:24:00 AM From: Hannah Myers CCS, CCDS Admit Date: 12/26/2019 03:35:00 AM Patient Name: Ventura Austin Visit Number: [id number] Discharge Date: 01/01/2020 10:35:00 AM ATTENTION: The Clinical Documentation Specialists (CDI) and [facility] Coding Staff appreciate your assistance in clarifying documentation. Please respond to the clarification below the line at the bottom and electronically sign. The CDI & [facility] Coding staff will review the response and follow-up if needed. Please note: Queries are made part of the Legal Health Record. If you have any questions, please contact the author of this message via ITS. Dr. Demond Horan: CKD is documented in the 12/25 History & Physical without further specificity. Also documented as Chronic Renal Failure insufficiency in the 12/29 Neurology Consult & subsequent 12/30 Progress Note. Documented as Chronic Renal Failure in the Attending 12/30 Progress Note & the 01/01 Discharge Summary. History/Risk Factors: Chronic venous insufficiency & PVD of the lower extremities, CKD, Systolic CHF, COPD, Hypertension, Hyperlipidemia, GERD, Osteoarthritis, Previous MD, History of Pharyngeal Cancer status post chemo & radiation. Former smoker. Has PEG tube. Clinical indicators: Patient presented to the ED on 12/25 from a [facility]. Recently admitted with acute renal failure requiring temporary dialysis. Admitted this admission with Acute DVT of the Right Popliteal Vein & TERRANCE with ATN (from previous admission), Rhabdomyolysis, Hypernatremia, Heparin Induced Thrombocytopenia & Dehydration. GFR 11/01/2019: >60 GFR 12/31/2019: 49 BUN 12/31/2019: 49^, Creatinine 12/31/2019: 1.48^ Treatment: Blood transfusions: 12/25 Platelets. 12/26: PRBCs x2 units. 12/27: Platelets. 12/28: Platelets x3, PRBCs x2, 12/30: Platelets. 12/25: IV Morphine, Lovenox sq, IV fluid rate 1,000 mls@75, IV fluid bolus 500 mls@999, IV Dilaudid, IV fluid 1,000 mls@125. Consults: Neurology, Pulmonary/Critical Care, Hematology/Oncology. Nephrology: TERRANCE during last admission requiring dialysis, catheter discontinued prior to discharge 12/25/2019. Severe thrombocytopenia: HIT; Hypernatremia. In order to capture the severity of condition, please clarify the stage of the CKD, if known: CKD Stage 2 (GFR 60-89) CKD Stage 3 (GFR 30-59) Other, please specify Unable to determine (Last Revision: October 2019) not known MTDD
--- NOTE | 2020-01-14 12:46 | MISC ---
MISCELLANOUS REPORT Anemia, anemia due to malignancy. Nutritional anemia. Anemia of chronic kidney disease. MMODL / IJN: [id number] /
== END 2020-01-01 10:35 | disposition expired | DRG 270 ==
LOC: EC 02:02 → 5NMEDONC 03:35 → 2SICU 12-27 20:05 → 4SSUR 12-31 18:39
PROVIDERS: ADMIT Family Medicine; ATTEND Family Medicine
PROC: 30233R1 Transfusion of Nonautologous Platelets into Peripheral Vein, Percutaneous Approach (ICD-10-PCS; 2019-12-26)
PROC: 30233N1 Transfusion of Nonautologous Red Blood Cells into Peripheral Vein, Percutaneous Approach (ICD-10-PCS; 2019-12-27)
PROC: 05H933Z Insertion of Infusion Device into Right Brachial Vein, Percutaneous Approach (ICD-10-PCS; 2019-12-27)
PROC: 06CM3ZZ Extirpation of Matter from Right Femoral Vein, Percutaneous Approach (ICD-10-PCS; principal; 2019-12-29 11:43)
PROC: 06CC3ZZ Extirpation of Matter from Right Common Iliac Vein, Percutaneous Approach (ICD-10-PCS; principal; 2019-12-29 11:43)
PROC: B51B1ZZ Fluoroscopy of Right Lower Extremity Veins using Low Osmolar Contrast (ICD-10-PCS; principal; 2019-12-29 11:43)
DX: I82.431 Acute embolism and thrombosis of right popliteal vein (principal); D65 Disseminated intravascular coagulation [defibrination syndrome]; N17.0 Acute kidney failure with tubular necrosis; I63.441 Cerebral infarction due to embolism of right cerebellar artery; I63.413 Cerebral infarction due to embolism of bilateral middle cerebral arteries; R40.2124 Coma scale, eyes open, to pain, 24 hours or more after hospital admission; R40.2214 Coma scale, best verbal response, none, 24 hours or more after hospital admission; I21.9 Acute myocardial infarction, unspecified; G93.5 Compression of brain; L89.153 Pressure ulcer of sacral region, stage 3; M62.82 Rhabdomyolysis; E87.0 Hyperosmolality and hypernatremia; E87.2 Acidosis; I13.0 Hypertensive heart and chronic kidney disease with heart failure and stage 1 through stage 4 chronic kidney disease, or unspecified chronic kidney disease; G81.94 Hemiplegia, unspecified affecting left nondominant side; G81.91 Hemiplegia, unspecified affecting right dominant side; R47.01 Aphasia; R41.4 Neurologic neglect syndrome; I50.22 Chronic systolic (congestive) heart failure; Z20.828 Contact with and (suspected) exposure to other viral communicable diseases; Z66 Do not resuscitate; Z51.5 Encounter for palliative care; D63.1 Anemia in chronic kidney disease; J44.9 Chronic obstructive pulmonary disease, unspecified; F10.20 Alcohol dependence, uncomplicated; E83.39 Other disorders of phosphorus metabolism; D75.82 Heparin induced thrombocytopenia (HIT); I82.411 Acute embolism and thrombosis of right femoral vein; I82.421 Acute embolism and thrombosis of right iliac vein; I95.89 Other hypotension; I87.2 Venous insufficiency (chronic) (peripheral); R29.734 NIHSS score 34; R40.2354 Coma scale, best motor response, localizes pain, 24 hours or more after hospital admission; I65.22 Occlusion and stenosis of left carotid artery; E87.6 Hypokalemia; E86.0 Dehydration; E86.1 Hypovolemia; D63.0 Anemia in neoplastic disease; N18.9 Chronic kidney disease, unspecified; I73.9 Peripheral vascular disease, unspecified; D64.9 Anemia, unspecified; R13.10 Dysphagia, unspecified; E78.5 Hyperlipidemia, unspecified; K21.9 Gastro-esophageal reflux disease without esophagitis; M19.90 Unspecified osteoarthritis, unspecified site; I25.2 Old myocardial infarction; Z93.1 Gastrostomy status; Z85.818 Personal history of malignant neoplasm of other sites of lip, oral cavity, and pharynx; Z92.21 Personal history of antineoplastic chemotherapy; Z92.3 Personal history of irradiation; Z87.81 Personal history of (healed) traumatic fracture; Z87.891 Personal history of nicotine dependence; Z87.01 Personal history of pneumonia (recurrent); Z82.69 Family history of other diseases of the musculoskeletal system and connective tissue
CPT/HCPCS: 36005; 36410; 36415; 37187; 70450; 70496; 70498; 70551; 75635; 75820; 76937; 78582; 80048; 80053; 80076; 83010; 83605; 83615; 83735; 84100; 84484; 85025; 85027; 85049; 85384; 85610; 85730; 86022; 86850; 86900; 86901; 86920; 87635; 95819; 96372; 96374; 99285